=== PATIENT | female | born 1960 | race Caucasian/White ===

== ENCOUNTER → 2016-08-20 | Outpatient (REF) | payer MEDICARE, MEDICAID ==
[~2016-08-20] MED LIST: ACET50TAOT PO; ACET650T12 PO; ALBU83IN INH; ASPI81TA85 PO; ATOR1TAB18 PO; AVEL1TAB PO; AZEL0.1S3; CALCTAB43 PO; CETI10TA PO; CLIN300C2 PO; COMBAER6 INH; CYMB1CAP4 PO; DICL13PA TD; DITR5TAB PO; DRIS50002 PO; FLUO20CA8 PO; FLUO20CA9 PO; HYDR-3719 PO; IBUP80TA PO; IPRASOL4 INH; JANU100T PO; LISI-538 PO; LISI10TA4 PO; LORA-376 PO; LYRI200C PO; LYRI75CA PO; METF-414 PO; METF500T PO; MOBI7.5T10 PO; OMEP40CA2 PO; OXYB5TAB PO; PRED10TA PO; PRED20TA PO; PRED20TAB PO; PROA1AER INH; RISP1TAB3 PO; RISP2TAB3 PO; ROBA750T4 PO; SALI0.653; SPIR1CAP INH; SYMB16INH INH; TRAD5TAB PO; TRAM50TA2 PO; TRIA55SP; ZIPR40CA11 PO
== END ==
LOC: M SFHCPLAZ 08:54
PROVIDERS: ATTEND Nurse Practitioner Family
DX: J01.00 Acute maxillary sinusitis, unspecified (principal); E11.9 Type 2 diabetes mellitus without complications; B37.0 Candidal stomatitis; E78.2 Mixed hyperlipidemia; E55.9 Vitamin D deficiency, unspecified; Z53.9 Procedure and treatment not carried out, unspecified reason

== ENCOUNTER → 2016-09-11 | Outpatient (CLI) | payer MEDICARE, MEDICAID ==
[~2016-09-11] MED LIST changes: +BREO1INH3 INH; +CALC600T57 PO; +CYMB60CA3 PO; +FLUT1SPR2; +TIZA2CAP3 PO
== END ==
LOC: M LAB 07:23
PROVIDERS: ATTEND Psychiatry & Neurology Neurology
DX: R79.9 Abnormal finding of blood chemistry, unspecified (principal)

== ENCOUNTER → 2016-09-11 | Outpatient (CLI) | payer MEDICARE, MEDICAID ==
[2016-09-11 08:12] LABS: MEAN CORPUSCULAR HEMOGLOBIN 31.3 pg (27.0-33.0); MEAN CORPUSCULAR HGB CONC 33.7 g/dl (32.0-36.5); RED CELL DISTRIBUTION WIDTH 12.6 % (11.5-14.5); WHITE BLOOD COUNT 6.5 K/mm3 (4.0-10.0)
[2016-09-11 08:54] LABS: ALBUMIN 4.1 GM/DL (3.2-5.2); ALBUMIN/GLOBULIN RATIO 1.78 (1.00-1.93); ALKALINE PHOSPHATASE 120 U/L (45-117); ALT/SGPT 29 U/L (12-78); ANION GAP 9 MEQ/L (8-16); AST/SGOT 14 U/L (15-37); BILIRUBIN,TOTAL 0.5 MG/DL (0.2-1.0); BLOOD UREA NITROGEN 12 MG/DL (7-18); CALCIUM LEVEL 9.4 MG/DL (8.5-10.1); CARBON DIOXIDE LEVEL 27 MEQ/L (21-32); CHLORIDE LEVEL 107 MEQ/L (98-107); CHOLESTEROL LEVEL 153 MG/DL (<200); CREATININE FOR GFR 0.68 MG/DL (0.55-1.02); GLOMERULAR FILTRATION RATE > 60.0 (>51); GLUCOSE, FASTING 177 MG/DL (70-105); POTASSIUM SERUM 4.1 MEQ/L (3.5-5.1); SODIUM LEVEL 143 MEQ/L (136-145); TOTAL PROTEIN 6.4 GM/DL (6.4-8.2); TRIGLYCERIDES LEVEL 156 MG/DL (<150)
[2016-09-16 00:06] LABS: HSV TYPE I IgM AB <1:10 titer (<1:10); HSV TYPE II IgM ABY <1:10 titer (<1:10)
== END ==
LOC: M LAB 07:19
PROVIDERS: ATTEND Nurse Practitioner Family
DX: E11.9 Type 2 diabetes mellitus without complications (principal); E78.2 Mixed hyperlipidemia; J01.00 Acute maxillary sinusitis, unspecified; B37.0 Candidal stomatitis; E55.9 Vitamin D deficiency, unspecified; R79.9 Abnormal finding of blood chemistry, unspecified

== ENCOUNTER → 2016-09-11 | Outpatient (REF) | payer MEDICARE, MEDICAID | LOC: M LAB REF 08:46 | PROVIDERS: ATTEND Internal Medicine Gastroenterology | DX: Z86.010 Personal history of colon polyps (principal) ==

== ENCOUNTER → 2016-09-15 | Outpatient (CLI) | payer MEDICARE, MEDICAID | LOC: M PT 14:36 | PROVIDERS: ATTEND Nurse Practitioner Family | DX: Z74.09 Other reduced mobility (principal) | CPT/HCPCS: 97162; G8978; G8979; G8980 ==

== ENCOUNTER → 2016-09-18 | Outpatient (CLI) | payer MEDICARE, MEDICAID ==
[~2016-09-18] VITALS: Ht 157.5 cm; Wt 90.5 kg
[~2016-09-18] MED LIST changes: +NS 1,000 ML IV SCH; +PROPOFOL 200 MG/20 ML VIAL As Ordered ONE
--- NOTE | 2016-09-18 09:47 | ROOR ---
Patient Name: Radha Celestin Procedure Date: 09/18/2016 9:33 AM Date of : 1960 Age: 56 Room: [facility] Gender: Female Note Status: Finalized Procedure: Colonoscopy Indications: High risk colon cancer surveillance: Personal history of colonic polyps, Last colonoscopy: May 2013, Incidental diarrhea noted Providers: Mike DAS MD Referring MD: Denia Ruiz NP Requesting Provider: Medicines: Monitored Anesthesia Care Complications: No immediate complications. Procedure: Pre-Anesthesia Assessment: - The heart rate, respiratory rate, oxygen saturations, blood pressure, adequacy of pulmonary ventilation, and response to care were monitored throughout the procedure. The Colonoscope was introduced through the anus and advanced to the terminal ileum, with identification of the appendiceal orifice and IC valve. The colonoscopy was performed without difficulty. The patient tolerated the procedure well. The quality of the bowel preparation was good. Findings: The perianal and digital rectal examinations were normal. Internal hemorrhoids were found during retroflexion. The hemorrhoids were small. The entire examined colon appeared normal on direct and retroflexion views. The terminal ileum appeared normal. Biopsies for histology were taken with a cold forceps for evaluation of microscopic colitis. Impression: - Internal hemorrhoids. - The entire examined colon is normal on direct and retroflexion views. - The examined portion of the ileum was normal. - Biopsies were taken with a cold forceps for evaluation of microscopic colitis. Recommendation: - Repeat colonoscopy in 5 years for surveillance based on personal history of previous adenomatous polyps. - Telephone endoscopist for pathology results in 2 weeks. Mike Das MD Mike DAS MD 09/18/2016 9:47:25 AM This report has been signed electronically. Number of Addenda: 0 Note Initiated On: 09/18/2016 9:33 AM Estimated Blood Loss: Estimated blood loss: none.
[2016-09-18 10:08] VITALS: BP 154/86
== END | disposition home or self-care (01) ==
LOC: M OPP 08:14
PROVIDERS: ATTEND Internal Medicine Gastroenterology
DX: R19.7 Diarrhea, unspecified (principal); Z86.010 Personal history of colon polyps; K64.8 Other hemorrhoids; I10 Essential (primary) hypertension; E78.00 Pure hypercholesterolemia, unspecified; E11.9 Type 2 diabetes mellitus without complications; J45.909 Unspecified asthma, uncomplicated; J44.9 Chronic obstructive pulmonary disease, unspecified; M79.7 Fibromyalgia; F33.9 Major depressive disorder, recurrent, unspecified; F43.10 Post-traumatic stress disorder, unspecified; R32 Unspecified urinary incontinence; F17.200 Nicotine dependence, unspecified, uncomplicated; F17.228 Nicotine dependence, chewing tobacco, with other nicotine-induced disorders; Z79.899 Other long term (current) drug therapy; Z79.82 Long term (current) use of aspirin; Z79.51 Long term (current) use of inhaled steroids; Z79.84 Long term (current) use of oral hypoglycemic drugs; Z88.0 Allergy status to penicillin; Z88.2 Allergy status to sulfonamides; Z88.8 Allergy status to other drugs, medicaments and biological substances

== ENCOUNTER 2016-09-27 22:04 | Emergency (ER) | payer MEDICARE, MEDICAID ==
[~2016-09-27] VITALS: Ht 157.5 cm; Wt 93.4 kg
[~2016-09-27 22:04] MED LIST changes: -NS 1,000 ML IV SCH; -PROPOFOL 200 MG/20 ML VIAL As Ordered ONE
[2016-09-27] MEDS ORDERED: breo INH (22:31)
[2016-09-27] MEDS ORDERED: HYDR-3716 PO (22:31)
[2016-09-27] MEDS ORDERED: ativan PO (22:39)
[2016-09-27] MEDS ORDERED: methylPREDNISolone INJ 125 MG/2 ML VIAL (J2930) IM ONE (23:45)
[2016-09-27] MEDS ORDERED: PERCOCET 5MG/325MG TAB PO ONE (23:45)
--- NOTE | 2016-09-28 02:10 | REPUSA ---
CLINICAL HISTORY: Back pain. Weakness. Recent trauma. TECHNIQUE: Fast spin echo T2 and spin echo T1 sequences were obtained in axial and sagittal planes. FINDINGS: Comparison is made to the prior exam performed on 06/17/2016. Moderate spondylotic changes at L4-L5 and L5-S1 levels. Mild spondylosis at remaining levels. Finding s are demonstrated by disc dehydration, disc space narrowing, osteophyte formation and degenerative e ndplate changes. The visualized osseous elements are intact with no evidence of fracture or spondylolisthesis. The mar row signals are within normal limits. There is preservation of normal lordotic curvature. The conus m edullaris and cauda equina are within normal limits. There is evidence of mild multilevel disc dehydration. Evaluation of individual levels reveals the following: At L5-S1, there is moderate diffuse disc bulge and posterior osteophyte formation. Superimposed broad -based left paracentral/posterolateral disc protrusion. Moderate bilateral facet joint arthropathy. M oderate bilateral neural foramina narrowing. At L4-L5, there is moderate diffuse disc bulge and posterior osteophyte formation. Bilateral facet taisha int arthropathy. Mild bilateral ligamentum flavum hypertrophy. The spinal canal is not narrowed. Mode rate bilateral neural foramina narrowing. At L3-L4, there is mild diffuse disc bulge. No significant spinal canal neural foramina narrowing. At L2-L3, there is mild diffuse disc bulge. No significant spinal canal or neural foramina narrowing. At L1-L2, there is mild diffuse disc bulge. No significant spinal canal or neural foramina narrowing. IMPRESSION: Spondylosis. Multilevel degenerative disc disease. Findings are more prominent at L4-L5 and L5-S1 levels. Findings unchanged since the prior exam on 06/17/2016. Thank you for your kind referral of this patient.
[2016-09-28] MEDS ORDERED: PRED20TA PO (02:17)
[2016-09-28] MEDS ORDERED: PERC5TAB6 PO (02:17)
[2016-09-28 02:31] VITALS: BP 147/90
== END 2016-09-28 02:46 | disposition home or self-care (01) ==
LOC: M ED 23:16
DX: M54.17 Radiculopathy, lumbosacral region (principal); Z88.0 Allergy status to penicillin; Z88.2 Allergy status to sulfonamides; Z88.8 Allergy status to other drugs, medicaments and biological substances; Z79.82 Long term (current) use of aspirin; E78.5 Hyperlipidemia, unspecified; I10 Essential (primary) hypertension; J45.909 Unspecified asthma, uncomplicated; J44.9 Chronic obstructive pulmonary disease, unspecified; K21.9 Gastro-esophageal reflux disease without esophagitis; K58.9 Irritable bowel syndrome, unspecified; N83.209 Unspecified ovarian cyst, unspecified side; K76.0 Fatty (change of) liver, not elsewhere classified; M51.9 Unspecified thoracic, thoracolumbar and lumbosacral intervertebral disc disorder; F41.9 Anxiety disorder, unspecified; F32.9 Major depressive disorder, single episode, unspecified; F43.10 Post-traumatic stress disorder, unspecified; Z79.52 Long term (current) use of systemic steroids; Z79.899 Other long term (current) drug therapy
CPT/HCPCS: 72148; 96372; 99282; J2930

== ENCOUNTER 2016-10-03 21:56 | Inpatient (IN) | payer MEDICARE, MEDICAID ==
[~2016-10-03] VITALS: Ht 154.9 cm; Wt 87.8 kg
[~2016-10-03 21:56] MED LIST changes: +HYDR-3716 PO; +PERC5TAB6 PO; +ativan PO; +breo INH
[2016-10-03 23:48] LABS: MEAN CORPUSCULAR HEMOGLOBIN 30.7 pg (27.0-33.0); MEAN CORPUSCULAR HGB CONC 33.9 g/dl (32.0-36.5); MEAN CORPUSCULAR VOLUME 90.5 fl (80.0-96.0); RED CELL DISTRIBUTION WIDTH 12.4 % (11.5-14.5); WHITE BLOOD COUNT 15.2 K/mm3 (4.0-10.0)
[2016-10-04] MEDS: UNRESOLVED CLARIFICATION ENTRY XX SCH (00:01)
[2016-10-04 00:13] LABS: METHADONE URINE NEGATIVE (NEGATIVE)
[2016-10-04 00:16] LABS: ALBUMIN 4.4 GM/DL (3.2-5.2); ALBUMIN/GLOBULIN RATIO 1.52 (1.00-1.93); ALKALINE PHOSPHATASE 143 U/L (45-117); ALT/SGPT 30 U/L (12-78); ANION GAP 10 MEQ/L (8-16); AST/SGOT 15 U/L (15-37); BILIRUBIN,DIRECT 0.1 MG/DL (0.0-0.2); BILIRUBIN,TOTAL 0.5 MG/DL (0.2-1.0); BLOOD UREA NITROGEN 5 MG/DL (7-18); CALCIUM LEVEL 9.6 MG/DL (8.5-10.1); CARBON DIOXIDE LEVEL 29 MEQ/L (21-32); CHLORIDE LEVEL 99 MEQ/L (98-107); CREATININE FOR GFR 0.66 MG/DL (0.55-1.02); GLOMERULAR FILTRATION RATE > 60.0 (>51); GLUCOSE, FASTING 182 MG/DL (70-105); SODIUM LEVEL 138 MEQ/L (136-145); TOTAL PROTEIN 7.3 GM/DL (6.4-8.2)
[2016-10-04] MEDS ORDERED: MAALOX 30 ML SUSP *UDC PO PRN (00:30)
[2016-10-04 00:54] VITALS: BP 142/85
[2016-10-04] MEDS: traZODone 50 MG TAB PO PRN ×2 (01:55→22:20)
[2016-10-04] MEDS: ACETAMINOPHEN TAB 650MG DOSE (2X325MG) PO PRN ×3 (01:55→17:21)
[2016-10-04] MEDS ORDERED: DRIS50002 PO (10:58)
[2016-10-04] MEDS ORDERED: INCR1INH IN (10:58)
[2016-10-04] MEDS ORDERED: BREO1INH3 INH (10:58)
[2016-10-04] MEDS ORDERED: LORA-376 PO (10:58)
[2016-10-04] MEDS: ALBUTEROL 90 MCG/ACT 8GM HFA INHALER INH PRN ×2 (11:04→15:27)
[2016-10-04] MEDS: ASPIRIN 81 MG ENTERIC TAB PO SCH (11:57)
[2016-10-04] MEDS: OMEPRAZOLE 20 MG CAP PO SCH (12:04)
[2016-10-04] MEDS: CETIRIZINE (ZyrTEC) 10 MG TAB PO SCH (12:04)
[2016-10-04] MEDS: LISINOPRIL 10 MG TAB PO SCH (12:06)
[2016-10-04] MEDS: ANEXSIA, NORCO 7.5MG/325MG TABLET(HYDROCODONE/APAP) PO PRN ×2 (12:07→20:17)
[2016-10-04] MEDS: oxyBUTYnin *DITROPAN XL* 5 MG TABCR PO SCH (12:30)
[2016-10-04] MEDS: FLUTICASONE PROP 0.05% NASAL SPRAY 16 GM (FLONASE) SCH ×2 (12:30→20:17)
[2016-10-04] MEDS: LACTIC ACID 12% LOTION 225 GM BTL TOP SCH ×2 (12:31→20:18)
[2016-10-04] MEDS: tiZANidine 4 MG TAB PO PRN (14:49)
[2016-10-04] MEDS: PREGABALIN 100 MG CAP (LYRICA) PO SCH ×2 (14:53→20:17)
[2016-10-04] MEDS: metFORMIN XR 500MG TAB *GLUCOPHAGE XR PO SCH (17:17)
[2016-10-04 18:00] VITALS: BP 138/78
[2016-10-04 18:07] VITALS: BP 132/62
[2016-10-04] MEDS: ATORVASTATIN 20 MG TAB PO SCH (20:17)
[2016-10-04] MEDS: LORazepam 0.5 MG TAB PO SCH (20:17)
[2016-10-04] MEDS: risperiDONE 2 MG TAB PO SCH (20:17)
[2016-10-05] MEDS: UNRESOLVED CLARIFICATION ENTRY XX SCH (00:01)
[2016-10-05] MEDS: ACETAMINOPHEN TAB 650MG DOSE (2X325MG) PO PRN ×2 (00:01→17:12)
[2016-10-05] MEDS: tiZANidine 4 MG TAB PO PRN ×3 (00:01→16:07)
[2016-10-05 07:44] VITALS: BP 140/90
[2016-10-05] MEDS: LACTIC ACID 12% LOTION 225 GM BTL TOP SCH ×2 (08:03→20:05)
[2016-10-05] MEDS: OMEPRAZOLE 20 MG CAP PO SCH (08:04)
[2016-10-05] MEDS: LORazepam 0.5 MG TAB PO SCH ×2 (08:04→20:04)
[2016-10-05] MEDS: FLUTICASONE PROP 0.05% NASAL SPRAY 16 GM (FLONASE) SCH ×2 (08:04→20:04)
[2016-10-05] MEDS: CETIRIZINE (ZyrTEC) 10 MG TAB PO SCH (08:04)
[2016-10-05] MEDS: oxyBUTYnin *DITROPAN XL* 5 MG TABCR PO SCH (08:04)
[2016-10-05] MEDS: risperiDONE 2 MG TAB PO SCH ×2 (08:04→20:04)
[2016-10-05] MEDS: LISINOPRIL 10 MG TAB PO SCH (08:04)
[2016-10-05] MEDS: ASPIRIN 81 MG ENTERIC TAB PO SCH (08:04)
[2016-10-05] MEDS: PREGABALIN 100 MG CAP (LYRICA) PO SCH ×3 (08:04→20:04)
[2016-10-05] MEDS: ALBUTEROL 90 MCG/ACT 8GM HFA INHALER INH PRN ×2 (08:36→17:05)
[2016-10-05] MEDS: BREO ELLIPTA (PATIENT'S OWN MED) INH SCH (09:00)
[2016-10-05] MEDS: INCRUSE ELLIPTA (PATIENT'S OWN MED) INH SCH (09:00)
[2016-10-05] MEDS: MOM 30ML SUSPENSION UDC PO PRN (11:43)
[2016-10-05 12:01] VITALS: BP 133/60
[2016-10-05] MEDS: ANEXSIA, NORCO 7.5MG/325MG TABLET(HYDROCODONE/APAP) PO PRN ×2 (12:16→20:10)
[2016-10-05] MEDS: metFORMIN XR 500MG TAB *GLUCOPHAGE XR PO SCH (17:04)
[2016-10-05 18:00] VITALS: BP 134/74
[2016-10-05] MEDS: ATORVASTATIN 20 MG TAB PO SCH (20:04)
[2016-10-05 20:49] VITALS: BP 136/78
[2016-10-05] MEDS: traZODone 50 MG TAB PO PRN (21:13)
[2016-10-06] MEDS: tiZANidine 4 MG TAB PO PRN ×2 (05:45→12:57)
[2016-10-06 06:17] VITALS: BP 133/62
[2016-10-06] MEDS: FLUTICASONE PROP 0.05% NASAL SPRAY 16 GM (FLONASE) SCH ×2 (08:04→20:09)
[2016-10-06] MEDS: INCRUSE ELLIPTA (PATIENT'S OWN MED) INH SCH (08:04)
[2016-10-06] MEDS: LACTIC ACID 12% LOTION 225 GM BTL TOP SCH ×2 (08:05→20:10)
[2016-10-06] MEDS: CETIRIZINE (ZyrTEC) 10 MG TAB PO SCH (08:05)
[2016-10-06] MEDS: PREGABALIN 100 MG CAP (LYRICA) PO SCH ×3 (08:05→20:09)
[2016-10-06] MEDS: ASPIRIN 81 MG ENTERIC TAB PO SCH (08:05)
[2016-10-06] MEDS: LORazepam 0.5 MG TAB PO SCH ×2 (08:05→20:09)
[2016-10-06] MEDS: OMEPRAZOLE 20 MG CAP PO SCH (08:05)
[2016-10-06] MEDS: oxyBUTYnin *DITROPAN XL* 5 MG TABCR PO SCH (08:05)
[2016-10-06] MEDS: risperiDONE 2 MG TAB PO SCH ×2 (08:05→20:09)
[2016-10-06] MEDS: BREO ELLIPTA (PATIENT'S OWN MED) INH SCH (08:06)
[2016-10-06] MEDS: LISINOPRIL 10 MG TAB PO SCH (08:06)
[2016-10-06] MEDS: ACETAMINOPHEN TAB 650MG DOSE (2X325MG) PO PRN ×2 (08:11→18:08)
[2016-10-06] MEDS: ANEXSIA, NORCO 7.5MG/325MG TABLET(HYDROCODONE/APAP) PO PRN ×2 (11:42→20:15)
[2016-10-06] MEDS: metFORMIN XR 500MG TAB *GLUCOPHAGE XR PO SCH (17:01)
--- NOTE | 2016-10-06 17:43 | HPE ---
DATE OF ADMISSION: 10/04/2016 HISTORY OF THE PRESENT ILLNESS: Please refer to psychiatric history and evaluation for further details on this admission. This examination and history is intended for medical issues which may need treatment, followup, or consult on this 56-year-old female. PRIMARY CARE PROVIDER: Denia Ruiz Nurse Practitioner ALLERGIES: LITHIUM, PAROXETINE, PENICILLIN and SULFA ANTIBIOTICS. LABORATORY STUDIES: WBC 15.2, hemoglobin 15.5, hematocrit 45.7, platelets 218. Electrolytes were normal. BUN was 5, creatinine was 0.6, nonfasting glucose was 182. Urine was positive for opiates. SOCIAL HISTORY: She is single. She smokes a pack of cigarettes a day. ETOH: None. Recreational drug use: None. PAST MEDICAL HISTORY: Chronic obstructive pulmonary disease (COPD). Tobacco use. Schizophrenia. Post-traumatic stress disorder (PTSD). Fatty liver. History of alcohol abuse in the past. History of gastroesophageal reflux disease (GERD). History of back pain. History of asthma. History of non-insulin dependent diabetes type 2. History of hyperlipidemia. History of hypertension. History of degenerative disc disease with multilevel spondylosis. History of colonoscopy 09/18/[address] Das. History of chronic pain. REVIEW OF SYSTEMS: Ten-system review was done. Other than her chronic pain and chronic illnesses as listed above, she had no acute problems. OBJECTIVE: A 56-year-old cooperative female in no acute distress. Blood pressure 140/60, pulse 92, respirations 18, temperature 96.6, oxygen saturation on room air. Height 61 inches, weight 88 kg, body mass index (BMI) is 36.7. The patient is alert and oriented times three. Pupils are equal and reactive to light. Extraocular movements intact. Cornea and sclerae clear. Conjunctivae is normal. No facial asymmetry. Pharynx: Tongue and gums pink and moist. Tongue is midline. Neck is supple without lymphadenopathy. No thyromegaly. No goiter. Chest is clear to auscultation without wheeze or retractions. Heart is regular. Abdomen benign. Bowel sounds are positive. Genital/Rectal: Not done. Extremities: No cyanosis, clubbing or edema. Gait is steady with the use of a walker. Peripheral pulses equal and palpable bilaterally. Skin is warm and dry. IMPRESSION AND PLAN: Psychiatric plan per psychiatry. Chronic obstructive pulmonary disease. Continue albuterol two puffs by mouth every 4 hours as needed for shortness of breath. History of gastroesophageal reflux disease. Continue omeprazole. Non-insulin dependent diabetes type 2. Fingerstick blood sugars twice a day. Continue metformin as ordered, consistent carbohydrate diet. History of chronic back pain. Continue hydrocodone/acetaminophen one by mouth twice a day as needed for pain. Hypercholesterolemia. Continue Lipitor and diet. Hypocalcemia. Continue supplement. History of environmental allergies. Zyrtec 10 mg by mouth daily. Hypertension. Continue lisinopril. Overactive bladder. Continue Ditropan. No other acute medical issues.
[2016-10-06 18:00] VITALS: BP 123/78
[2016-10-06] MEDS: MOM 30ML SUSPENSION UDC PO PRN (18:06)
[2016-10-06] MEDS: ATORVASTATIN 20 MG TAB PO SCH (20:09)
[2016-10-07 06:00] VITALS: BP 116/80
[2016-10-07] MEDS: tiZANidine 4 MG TAB PO PRN ×2 (06:06→15:24)
--- NOTE | 2016-10-07 07:58 | IPN ---
DATE: 10/06/2016 Radha Celestin has felt unsafe and was admitted from the emergency room. She stated her medications were working. We have made no change on her medications. She is an outpatient of Dr. Kauffman. There is at this time no emergency note nor admission note or progress notes. The patient is presently on psychiatric medications of the following. She is on lorazepam 0.5 twice a day, risperidone 2 mg twice a day and trazodone 50 mg for sleep. The patient states her medications are working well and asked me not to change them. The patient would like to be discharged. The patient feels she needs to move away from her present living place and states her therapist agreed with her. Plan to contact Dr. Kauffman for progress notes and to discuss the case with him. No change in present medications. MENTAL STATUS EXAMINATION: The patient appears generally appropriate. Eye contact is good. Speech is mildly rapid. Articulation is normal. Mood is slightly elevated. Affect is bright. She presently denies hallucinations or delusions. Her memory recent and remote is intact. She is fully oriented. No loose associations. Denying suicidal or homicidal ideation. Fair judgment. PLAN: As above.
[2016-10-07] MEDS: BREO ELLIPTA (PATIENT'S OWN MED) INH SCH (08:05)
[2016-10-07] MEDS: FLUTICASONE PROP 0.05% NASAL SPRAY 16 GM (FLONASE) SCH ×2 (08:06→20:16)
[2016-10-07] MEDS: INCRUSE ELLIPTA (PATIENT'S OWN MED) INH SCH (08:06)
[2016-10-07] MEDS: ASPIRIN 81 MG ENTERIC TAB PO SCH (08:06)
[2016-10-07] MEDS: oxyBUTYnin *DITROPAN XL* 5 MG TABCR PO SCH (08:06)
[2016-10-07] MEDS: OMEPRAZOLE 20 MG CAP PO SCH (08:06)
[2016-10-07] MEDS: PREGABALIN 100 MG CAP (LYRICA) PO SCH ×3 (08:07→20:16)
[2016-10-07] MEDS: risperiDONE 2 MG TAB PO SCH ×2 (08:07→20:18)
[2016-10-07] MEDS: LISINOPRIL 10 MG TAB PO SCH (08:07)
[2016-10-07] MEDS: CETIRIZINE (ZyrTEC) 10 MG TAB PO SCH (08:07)
[2016-10-07] MEDS: ANEXSIA, NORCO 7.5MG/325MG TABLET(HYDROCODONE/APAP) PO PRN ×2 (08:08→20:18)
[2016-10-07] MEDS: LORazepam 0.5 MG TAB PO SCH ×2 (08:08→20:18)
[2016-10-07] MEDS: LACTIC ACID 12% LOTION 225 GM BTL TOP SCH ×2 (08:08→21:00)
[2016-10-07] MEDS: ACETAMINOPHEN TAB 650MG DOSE (2X325MG) PO PRN (12:18)
[2016-10-07] MEDS: metFORMIN XR 500MG TAB *GLUCOPHAGE XR PO SCH (17:26)
--- NOTE | 2016-10-07 17:44 | IPN ---
DATE: 10/07/2016 Radha Celestin was seen today. She is in a good mood and states her medications are working. She is an outpatient of Dr. Rogers. She is presently on psychiatric medications which have not been changed, lorazepam, risperidone and trazodone. The patient states that she would like to move away from her present living situation and seems to have numerous supports to accomplish that. MENTAL STATUS EXAMINATION: The patient was generally appropriate in appearance. Eye contact was good. Speech was of normal rate and rhythm. Articulation was normal. Mood was slightly elevated but pleasant. Affect is bright. She denies hallucinations, delusions, obsessions, compulsions and phobias. Her memory, both recent and remote, are intact. She is fully oriented with no loose associations. Denying suicidal or homicidal ideation and judgment appears good. PLAN: As above, as the patient will be discharged and will be working with her outpatient contacts in order to get a new living situation. Discharge is planned for this week.
[2016-10-07 18:00] VITALS: BP 130/60
[2016-10-07] MEDS: ATORVASTATIN 20 MG TAB PO SCH (20:16)
[2016-10-07] MEDS: MOM 30ML SUSPENSION UDC PO PRN (20:38)
[2016-10-07] MEDS: traZODone 50 MG TAB PO PRN (21:34)
[2016-10-08 06:00] VITALS: BP 136/67
[2016-10-08] MEDS: ACETAMINOPHEN TAB 650MG DOSE (2X325MG) PO PRN ×2 (06:02→17:07)
[2016-10-08] MEDS: tiZANidine 4 MG TAB PO PRN ×2 (06:02→14:30)
[2016-10-08] MEDS: LISINOPRIL 10 MG TAB PO SCH (08:04)
[2016-10-08] MEDS: oxyBUTYnin *DITROPAN XL* 5 MG TABCR PO SCH (08:04)
[2016-10-08] MEDS: BREO ELLIPTA (PATIENT'S OWN MED) INH SCH (08:05)
[2016-10-08] MEDS: risperiDONE 2 MG TAB PO SCH ×2 (08:05→20:12)
[2016-10-08] MEDS: INCRUSE ELLIPTA (PATIENT'S OWN MED) INH SCH (08:05)
[2016-10-08] MEDS: LORazepam 0.5 MG TAB PO SCH ×2 (08:05→20:12)
[2016-10-08] MEDS: PREGABALIN 100 MG CAP (LYRICA) PO SCH ×3 (08:05→20:12)
[2016-10-08] MEDS: ASPIRIN 81 MG ENTERIC TAB PO SCH (08:05)
[2016-10-08] MEDS: CETIRIZINE (ZyrTEC) 10 MG TAB PO SCH (08:05)
[2016-10-08] MEDS: FLUTICASONE PROP 0.05% NASAL SPRAY 16 GM (FLONASE) SCH ×2 (08:05→20:12)
[2016-10-08] MEDS: OMEPRAZOLE 20 MG CAP PO SCH (08:05)
[2016-10-08] MEDS: LACTIC ACID 12% LOTION 225 GM BTL TOP SCH ×2 (08:06→20:12)
[2016-10-08] MEDS: ANEXSIA, NORCO 7.5MG/325MG TABLET(HYDROCODONE/APAP) PO PRN ×2 (08:08→20:13)
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
[2016-10-08] MEDS: metFORMIN XR 500MG TAB *GLUCOPHAGE XR PO SCH (17:05)
[2016-10-08] MEDS: ALBUTEROL 90 MCG/ACT 8GM HFA INHALER INH PRN (17:08)
[2016-10-08 18:00] VITALS: BP 127/59
[2016-10-08] MEDS: ATORVASTATIN 20 MG TAB PO SCH (20:12)
[2016-10-08] MEDS: traZODone 50 MG TAB PO PRN (21:17)
[2016-10-09] MEDS: ACETAMINOPHEN TAB 650MG DOSE (2X325MG) PO PRN ×2 (06:09→12:15)
[2016-10-09] MEDS: tiZANidine 4 MG TAB PO PRN ×2 (06:10→12:15)
[2016-10-09 06:22] VITALS: BP 154/71
[2016-10-09] MEDS: PREGABALIN 100 MG CAP (LYRICA) PO SCH ×3 (08:05→20:07)
[2016-10-09] MEDS: OMEPRAZOLE 20 MG CAP PO SCH (08:05)
[2016-10-09] MEDS: LORazepam 0.5 MG TAB PO SCH ×2 (08:05→20:07)
[2016-10-09] MEDS: CETIRIZINE (ZyrTEC) 10 MG TAB PO SCH (08:06)
[2016-10-09] MEDS: risperiDONE 2 MG TAB PO SCH ×2 (08:06→20:07)
[2016-10-09] MEDS: LISINOPRIL 10 MG TAB PO SCH (08:06)
[2016-10-09] MEDS: ASPIRIN 81 MG ENTERIC TAB PO SCH (08:06)
[2016-10-09] MEDS: BREO ELLIPTA (PATIENT'S OWN MED) INH SCH (08:07)
[2016-10-09] MEDS: INCRUSE ELLIPTA (PATIENT'S OWN MED) INH SCH (08:07)
[2016-10-09] MEDS: FLUTICASONE PROP 0.05% NASAL SPRAY 16 GM (FLONASE) SCH ×2 (08:07→20:08)
[2016-10-09] MEDS: ANEXSIA, NORCO 7.5MG/325MG TABLET(HYDROCODONE/APAP) PO PRN ×2 (08:07→20:10)
[2016-10-09] MEDS: oxyBUTYnin *DITROPAN XL* 5 MG TABCR PO SCH (08:08)
[2016-10-09] MEDS: LACTIC ACID 12% LOTION 225 GM BTL TOP SCH ×2 (08:09→20:09)
[2016-10-09] MEDS ORDERED: TRAZO50TA PO (10:44)
[2016-10-09] MEDS ORDERED: ATIV1TAB10 PO (10:56)
[2016-10-09] MEDS: metFORMIN XR 500MG TAB *GLUCOPHAGE XR PO SCH (16:57)
[2016-10-09 18:00] VITALS: BP 131/77
--- NOTE | 2016-10-09 18:43 | IPN ---
DATE: 10/09/2016 Radha Celestin was seen today. Her caseworker protective services Angelique spent an hour with her and our information systems planner. It was decided that she had achieved baseline, since Angelique has known her a long time. She is under the outpatient care of Dr. Kauffman. It was decided that she could be discharged tomorrow. The patient has achieved finding an apartment, which is in a new area, which is making her quite happy. She reviewed her medications with me and we will plan for her discharge in the morning. MENTAL STATUS EXAMINATION: The patient was generally appropriate in appearance. Her speech was normal in rate, rhythm. Articulation was normal. Mood was pleasant. Affect was bright. She denied hallucinations , delusions, compulsions, phobias. Her memory, both recent and remote were intact. She is fully oriented with no loose associations. Denied suicidal or homicidal ideation. A complete review of her medications were made. She will be continuing at home Cymbalta, which she did not get here apparently, lorazepam 0.5 mg twice a day, Risperdal 2 mg twice a day, and trazodone 50 mg at night for insomnia. DISCHARGE DIAGNOSES: 1. Generalized anxiety disorder. 2. Posttraumatic stress disorder (PTSD).
[2016-10-09] MEDS ORDERED: LAC-12LO3 TOP (20:05)
[2016-10-09] MEDS: ATORVASTATIN 20 MG TAB PO SCH (20:07)
[2016-10-09] MEDS: traZODone 50 MG TAB PO PRN (21:26)
[2016-10-10] MEDS: ACETAMINOPHEN TAB 650MG DOSE (2X325MG) PO PRN (03:31)
[2016-10-10] MEDS: tiZANidine 4 MG TAB PO PRN (03:32)
[2016-10-10 06:27] VITALS: BP 139/70
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
[2016-10-10 08:01] VITALS: BP 139/70
[2016-10-10] MEDS: ANEXSIA, NORCO 7.5MG/325MG TABLET(HYDROCODONE/APAP) PO PRN (08:01)
[2016-10-10] MEDS: ASPIRIN 81 MG ENTERIC TAB PO SCH (08:01)
[2016-10-10] MEDS: LISINOPRIL 10 MG TAB PO SCH (08:01)
[2016-10-10] MEDS: CETIRIZINE (ZyrTEC) 10 MG TAB PO SCH (08:01)
[2016-10-10] MEDS: OMEPRAZOLE 20 MG CAP PO SCH (08:01)
[2016-10-10] MEDS: risperiDONE 2 MG TAB PO SCH (08:01)
[2016-10-10] MEDS: PREGABALIN 100 MG CAP (LYRICA) PO SCH (08:01)
[2016-10-10] MEDS: LORazepam 0.5 MG TAB PO SCH (08:02)
[2016-10-10] MEDS: LACTIC ACID 12% LOTION 225 GM BTL TOP SCH (08:02)
[2016-10-10] MEDS: INCRUSE ELLIPTA (PATIENT'S OWN MED) INH SCH (08:03)
[2016-10-10] MEDS: BREO ELLIPTA (PATIENT'S OWN MED) INH SCH (08:03)
[2016-10-10] MEDS: FLUTICASONE PROP 0.05% NASAL SPRAY 16 GM (FLONASE) SCH (08:03)
[2016-10-10] MEDS: oxyBUTYnin *DITROPAN XL* 5 MG TABCR PO SCH (08:03)
== END 2016-10-10 09:45 | disposition home or self-care (01) | DRG 880 ==
LOC: M ED 23:09 → M ED INP 10-04 00:28 → M PSY 10-04 00:50
PROVIDERS: ADMIT Internal Medicine Addiction Medicine; ATTEND Psychiatry & Neurology Psychiatry
DX: F41.1 Generalized anxiety disorder (principal); F43.10 Post-traumatic stress disorder, unspecified; J44.9 Chronic obstructive pulmonary disease, unspecified; F17.210 Nicotine dependence, cigarettes, uncomplicated; K21.9 Gastro-esophageal reflux disease without esophagitis; J45.909 Unspecified asthma, uncomplicated; E11.9 Type 2 diabetes mellitus without complications; E78.5 Hyperlipidemia, unspecified; I10 Essential (primary) hypertension

== ENCOUNTER 2016-10-20 09:43 | Emergency (ER) | payer MEDICARE, MEDICAID ==
[~2016-10-20] VITALS: Ht 157.5 cm; Wt 87.5 kg
[~2016-10-20 09:43] MED LIST changes: +ATIV1TAB10 PO; +INCR1INH IN; +LAC-12LO3 TOP; +TRAZO50TA PO
[2016-10-20 09:44] VITALS: BP 175/78
[2016-10-20] MEDS ORDERED: IPRASOL4 IN (10:26)
[2016-10-20] MEDS ORDERED: TIOT18INH INH (10:26)
[2016-10-20] MEDS ORDERED: SYMB16INH INH (10:26)
== END 2016-10-20 10:53 | disposition home or self-care (01) ==
LOC: M ED 10:48
DX: S50.01XA Contusion of right elbow, initial encounter (principal); S70.01XA Contusion of right hip, initial encounter; W18.11XA Fall from or off toilet without subsequent striking against object, initial encounter; Y92.012 Bathroom of single-family (private) house as the place of occurrence of the external cause; Y93.89 Activity, other specified; Y99.8 Other external cause status; Z79.899 Other long term (current) drug therapy; Z79.82 Long term (current) use of aspirin; Z88.0 Allergy status to penicillin; Z88.1 Allergy status to other antibiotic agents; Z88.2 Allergy status to sulfonamides; Z88.5 Allergy status to narcotic agent; Z88.8 Allergy status to other drugs, medicaments and biological substances; F17.210 Nicotine dependence, cigarettes, uncomplicated

== ENCOUNTER 2016-11-20 16:47 | Emergency (ER) | payer MEDICARE, MEDICAID ==
[~2016-11-20] VITALS: Ht 157.5 cm; Wt 90.3 kg
[2016-11-20 16:47] VITALS: BP 143/74
[~2016-11-20 16:47] MED LIST changes: +IPRASOL4 IN; +TIOT18INH INH
[2016-11-20] MEDS ORDERED: diazePAM 5 MG TAB PO ONE (19:00)
[2016-11-20] MEDS ORDERED: KETOROLAC 30 MG/ML VIAL (J1885) IM ONE (19:00)
[2016-11-20] MEDS ORDERED: PRED20TA PO (19:04)
[2016-11-20] MEDS ORDERED: VALI5TAB PO (19:04)
--- NOTE | 2016-11-22 08:35 | ECGEPIP ---
Stationary ECG Study [facility] - ED Test Date: 2016-11-20 Pat Name: BRAD VASQUEZ Department: Room: - Gender: F Mattress Stripper: : 1960 Requested By: Yash Lopez Order Number: [id number] Reading MD: La Leal Measurements Intervals [place] Rate: 75 P: 47 DE: 180 QRS: 63 QRSD: 97 T: 62 QT: 382 QTc: 428 Interpretive Statements SINUS RHYTHM LOW VOLTAGE LIMB DELAYED R PROGRESSION SIMILAR 01/26/14 Electronically Signed On 11-22-2016 8:35:21 EDT by La Leal
== END 2016-11-20 19:28 | disposition home or self-care (01) ==
LOC: M ED 17:49
DX: M54.12 Radiculopathy, cervical region (principal); E11.9 Type 2 diabetes mellitus without complications; I10 Essential (primary) hypertension; J45.909 Unspecified asthma, uncomplicated; F43.10 Post-traumatic stress disorder, unspecified; G89.29 Other chronic pain; Z79.899 Other long term (current) drug therapy; Z79.82 Long term (current) use of aspirin; Z79.84 Long term (current) use of oral hypoglycemic drugs; Z79.52 Long term (current) use of systemic steroids; Z88.0 Allergy status to penicillin; Z88.1 Allergy status to other antibiotic agents; Z88.2 Allergy status to sulfonamides; Z88.5 Allergy status to narcotic agent; Z88.8 Allergy status to other drugs, medicaments and biological substances; F17.210 Nicotine dependence, cigarettes, uncomplicated
CPT/HCPCS: 93005; 96372; 99282; J1885

== ENCOUNTER 2016-12-02 20:34 | Emergency (ER) | payer MEDICARE, MEDICAID ==
[~2016-12-02] VITALS: Ht 157.5 cm; Wt 90.3 kg
[~2016-12-02 20:34] MED LIST changes: +VALI5TAB PO
[2016-12-02] MEDS ORDERED: CYCL10TA PO (20:44)
[2016-12-02] MEDS ORDERED: INCR1INH IN (20:44)
[2016-12-02 23:45] VITALS: BP 131/70
--- NOTE | 2016-12-03 09:21 | REP ---
LEFT HAND, FOUR VIEWS: There is no evidence of an acute fracture, dislocation or intrinsic bone disease. IMPRESSION: No fracture or dislocation. Signed by Jozef Teresa MD 12/03/2016 04:54 P
== END 2016-12-03 00:04 | disposition home or self-care (01) ==
LOC: M ED 23:35
DX: M79.642 Pain in left hand (principal); E11.9 Type 2 diabetes mellitus without complications; I10 Essential (primary) hypertension; M54.12 Radiculopathy, cervical region; F43.10 Post-traumatic stress disorder, unspecified; F41.9 Anxiety disorder, unspecified; F33.9 Major depressive disorder, recurrent, unspecified; Z79.899 Other long term (current) drug therapy; Z79.82 Long term (current) use of aspirin; Z79.84 Long term (current) use of oral hypoglycemic drugs; Z88.0 Allergy status to penicillin; Z88.1 Allergy status to other antibiotic agents; Z88.2 Allergy status to sulfonamides; Z88.5 Allergy status to narcotic agent; F17.210 Nicotine dependence, cigarettes, uncomplicated

== ENCOUNTER → 2016-12-05 | Outpatient (REF) | payer MEDICARE, MEDICAID ==
[~2016-12-05] MED LIST changes: +CYCL10TA PO
[2016-12-05 17:56] LABS: MEAN CORPUSCULAR HEMOGLOBIN 32.7 pg (27.0-33.0); MEAN CORPUSCULAR VOLUME 93.5 fl (80.0-96.0); RED CELL DISTRIBUTION WIDTH 12.6 % (11.5-14.5); WHITE BLOOD COUNT 7.8 K/mm3 (4.0-10.0)
[2016-12-05 19:00] LABS: ALBUMIN 3.8 GM/DL (3.2-5.2); ALBUMIN/GLOBULIN RATIO 1.41 (1.00-1.93); ALKALINE PHOSPHATASE 147 U/L (45-117); ALT/SGPT 29 U/L (12-78); ANION GAP 8 MEQ/L (8-16); AST/SGOT 11 U/L (15-37); BILIRUBIN,TOTAL 0.2 MG/DL (0.2-1.0); BLOOD UREA NITROGEN 7 MG/DL (7-18); CALCIUM LEVEL 8.5 MG/DL (8.5-10.1); CARBON DIOXIDE LEVEL 28 MEQ/L (21-32); CHLORIDE LEVEL 102 MEQ/L (98-107); CREATININE FOR GFR 0.78 MG/DL (0.55-1.02); GLOMERULAR FILTRATION RATE > 60.0 (>51); GLUCOSE, FASTING 263 MG/DL (70-105); POTASSIUM SERUM 3.9 MEQ/L (3.5-5.1); SODIUM LEVEL 138 MEQ/L (136-145); TOTAL PROTEIN 6.5 GM/DL (6.4-8.2)
== END ==
LOC: M SFHCPLAZ 14:51
PROVIDERS: ATTEND Nurse Practitioner Family
DX: M79.642 Pain in left hand (principal); E11.9 Type 2 diabetes mellitus without complications; E55.9 Vitamin D deficiency, unspecified
CPT/HCPCS: 36415; 80053; 82043; 82306; 83036; 85027; G0463

== ENCOUNTER → 2017-02-04 | Outpatient (CLI) | payer MEDICARE, MEDICAID ==
[~2017-02-04] MED LIST changes: -ATOR1TAB18 PO; +ATOR80TA59 PO; -AVEL1TAB PO; +AVEL1TAB3 PO; -CALCTAB43 PO; +CALCTAB74 PO; +FLUO20CA19 PO; -FLUO20CA9 PO; -LORA-376 PO; +LORA0.5T11 PO; -METF500T PO; +METF500T13 PO; +MOBI4TAB PO; -MOBI7.5T10 PO; +PERC5TAB12 PO; -PERC5TAB6 PO; -PROA1AER INH; +PROAAER10 INH; +SALI0.6523; -SALI0.653
--- NOTE | 2017-02-04 12:29 | REP ---
RIGHT HAND SERIES: Four views. HISTORY: Pain in the right hand. FINDINGS: Overall mineralization pattern is normal. Joint spaces are preserved. No erosive changes seen. IMPRESSION: Negative right hand radiographs. Signed by Govind Bland MD 02/04/2017 02:03 P
--- NOTE | 2017-02-04 12:31 | REP ---
RIGHT SHOULDER, THREE VIEWS: HISTORY: Hand pain. COMPARISON: 08/09/2015. There is no acute fracture or dislocation. There is narrowing of the acromioclavicular joint space with associated osteophyte formation. Calcification is present superior to the head of the humerus. This represents ligamentous or tendon calcification. There are old right rib fractures. IMPRESSION: Degenerative change as described above. Signed by Jose Luis Montana MD 02/04/2017 12:35 P
== END ==
LOC: M RAD 11:12
PROVIDERS: ATTEND Nurse Practitioner Family
DX: M79.641 Pain in right hand (principal); M25.511 Pain in right shoulder

== ENCOUNTER 2017-10-22 03:44 | Emergency (ER) | payer MEDICARE, MEDICAID ==
[2017-10-22] MEDS: ACETAMINOPHEN 325 MG TAB PO (05:15)
== END 2017-10-22 05:36 | disposition home or self-care (01) ==
LOC: M ED 03:44
DX: S61.452A Open bite of left hand, initial encounter (principal); W54.0XXA Bitten by dog, initial encounter; Y92.89 Other specified places as the place of occurrence of the external cause; I10 Essential (primary) hypertension; J44.9 Chronic obstructive pulmonary disease, unspecified; F31.9 Bipolar disorder, unspecified; F17.200 Nicotine dependence, unspecified, uncomplicated; Z79.899 Other long term (current) drug therapy; Z79.84 Long term (current) use of oral hypoglycemic drugs; Z88.1 Allergy status to other antibiotic agents; Z88.5 Allergy status to narcotic agent; Z88.8 Allergy status to other drugs, medicaments and biological substances; Z88.2 Allergy status to sulfonamides; Z88.0 Allergy status to penicillin
CPT/HCPCS: 99283

== ENCOUNTER 2017-10-23 17:50 | Emergency (ER) | payer MEDICARE, MEDICAID ==
[2017-10-23] MEDS: ADACEL/BOOSTRIX VACCINE (DIPHTH/PERTUSS/ACELL/TETANUS)0.5ML SYR (90715) IM (18:26)
== END 2017-10-23 18:45 | disposition home or self-care (01) ==
LOC: M ED 17:50
DX: S61.203D Unspecified open wound of left middle finger without damage to nail, subsequent encounter (principal); W54.0XXD Bitten by dog, subsequent encounter; Y92.89 Other specified places as the place of occurrence of the external cause; J45.909 Unspecified asthma, uncomplicated; I10 Essential (primary) hypertension; Z79.2 Long term (current) use of antibiotics; Z79.84 Long term (current) use of oral hypoglycemic drugs; Z79.899 Other long term (current) drug therapy; Z98.890 Other specified postprocedural states; Z88.1 Allergy status to other antibiotic agents; Z88.8 Allergy status to other drugs, medicaments and biological substances; Z88.0 Allergy status to penicillin; Z88.2 Allergy status to sulfonamides
CPT/HCPCS: 90715

== ENCOUNTER 2017-10-26 18:46 | Emergency (ER) | payer MEDICARE, MEDICAID ==
[2017-10-26] MEDS: NORCO, ANEXSIA 5/325MG TABLET (HYDROcodone/ACETAMINOPHEN) PO (22:45)
== END 2017-10-27 00:59 | disposition home or self-care (01) ==
LOC: M ED 10-27 00:59
DX: M79.641 Pain in right hand (principal); M85.841 Other specified disorders of bone density and structure, right hand; F17.200 Nicotine dependence, unspecified, uncomplicated; Z79.84 Long term (current) use of oral hypoglycemic drugs; Z79.899 Other long term (current) drug therapy; Z88.5 Allergy status to narcotic agent; Z88.0 Allergy status to penicillin; Z88.2 Allergy status to sulfonamides; Z88.8 Allergy status to other drugs, medicaments and biological substances; Z88.1 Allergy status to other antibiotic agents
CPT/HCPCS: 73130

== ENCOUNTER 2017-11-19 22:01 | Emergency (ER) | payer MEDICARE, MEDICAID ==
[2017-11-20] MEDS: CEPHALEXIN 500 MG CAP PO (00:15)
== END 2017-11-20 00:35 | disposition home or self-care (01) ==
LOC: M ED 11-20 00:35
DX: L02.211 Cutaneous abscess of abdominal wall (principal); L03.311 Cellulitis of abdominal wall; I10 Essential (primary) hypertension; J44.9 Chronic obstructive pulmonary disease, unspecified; E11.9 Type 2 diabetes mellitus without complications; F43.10 Post-traumatic stress disorder, unspecified; N83.209 Unspecified ovarian cyst, unspecified side; Z79.899 Other long term (current) drug therapy; Z79.84 Long term (current) use of oral hypoglycemic drugs; Z79.51 Long term (current) use of inhaled steroids; Z88.0 Allergy status to penicillin; Z88.1 Allergy status to other antibiotic agents; Z88.2 Allergy status to sulfonamides; Z88.5 Allergy status to narcotic agent; Z88.8 Allergy status to other drugs, medicaments and biological substances; F17.210 Nicotine dependence, cigarettes, uncomplicated
CPT/HCPCS: 99282

== ENCOUNTER 2017-11-25 20:07 | Emergency (ER) | payer MEDICARE, MEDICAID ==
[2017-11-25] MEDS: NORCO, ANEXSIA 5/325MG TABLET (HYDROcodone/ACETAMINOPHEN) PO (23:02)
== END 2017-11-25 23:46 | disposition home or self-care (01) ==
LOC: M ED 20:07
DX: S50.11XA Contusion of right forearm, initial encounter (principal); S50.811A Abrasion of right forearm, initial encounter; W18.09XA Striking against other object with subsequent fall, initial encounter; Y92.098 Other place in other non-institutional residence as the place of occurrence of the external cause; I10 Essential (primary) hypertension; J45.909 Unspecified asthma, uncomplicated; F20.9 Schizophrenia, unspecified; F43.10 Post-traumatic stress disorder, unspecified; F41.9 Anxiety disorder, unspecified; F32.9 Major depressive disorder, single episode, unspecified; F17.200 Nicotine dependence, unspecified, uncomplicated; Z79.899 Other long term (current) drug therapy; Z79.2 Long term (current) use of antibiotics; Z79.84 Long term (current) use of oral hypoglycemic drugs; Z88.1 Allergy status to other antibiotic agents; Z88.5 Allergy status to narcotic agent; Z88.8 Allergy status to other drugs, medicaments and biological substances; Z88.0 Allergy status to penicillin; Z88.2 Allergy status to sulfonamides
CPT/HCPCS: 73090

== ENCOUNTER 2017-12-16 18:28 | Emergency (ER) | payer MEDICARE, MEDICAID ==
[2017-12-16] MEDS: MORPHINE 4 MG/ML 1ML VIAL/SYRINGE (J2270) IV (22:48)
[2017-12-16] MEDS: NS 1,000 ML IV (22:48)
[2017-12-16 22:52] LABS: KETONE, URINE AUTO RFX NEGATIVE (NEGATIVE); LEUKOCYTE ESTERASE UR AUTO RFX 3+ (NEGATIVE); NITRITE, URINE AUTO RFX NEGATIVE (NEGATIVE); RBC, URINE AUTO RFX 2 /HPF (0-3); SPECIFIC GRAVITY UR AUTO RFX 1.011 (1.002-1.035); SQUAM EPITHELIAL CELL UR AURFX 2 /HPF (0-6); TRANSITIONAL EPITHELIAL AU RFX <1 /HPF; WBC, URINE AUTO RFX 13 /HPF (0-3)
[2017-12-16 22:53] LABS: BASO # 0.1 10^3/uL (0.0-0.2); BASO % 0.7 % (0.0-1.0); EOS # 0.3 10^3/uL (0.0-0.50); EOS % 3.5 % (0.0-3.0); HEMATOCRIT 42.7 % (36.0-47.0); HEMOGLOBIN 14.9 g/dl (12.0-15.5); IMMATURE GRANULOCYTE % 0.3 % (0-3.0); LYMPH % 40.9 % (24.0-44.0); MEAN CORPUSCULAR HGB CONC 34.9 g/dl (32.0-36.5); MONO # 0.4 10^3/uL (0.0-0.8); MONO % 5.3 % (0.0-5.0); NEUTROPHILS # 3.6 10^3/uL (1.8-7.7); NEUTROPHILS % 49.3 % (36.0-66.0); PLATELET COUNT, AUTOMATED 246 10^3/uL (150-450); RED CELL DISTRIBUTION WIDTH 12.6 % (11.5-14.5); WHITE BLOOD COUNT 7.2 10^3/uL (4.0-10.0)
[2017-12-16 22:59] LABS: BEDSIDE GLUCOSE 131 MG/DL (70-105)
[2017-12-16 23:01] LABS: VENOUS BASE EXCESS 0.1 (-2.0-2.0); VENOUS HCO3 28.4 MEQ/L (23.0-27.0); VENOUS O2 SATURATION 68.2 % (60.0-80.0); VENOUS PARTIAL PRESSURE CO2 60.5 mmHg (38.0-50.0); VENOUS PARTIAL PRESSURE O2 36.2 mmHg (30.0-50.0); VENOUS PH 7.289 UNITS (7.330-7.430); VENOUS STANDARD HCO3 23.8 MEQ/L; VENOUS TOTAL CO2 30.2 MEQ/L (24.0-28.0)
[2017-12-16] MEDS ORDERED: ISOVUE-370 76% 100ML VIAL (Q9967) As Ordered (23:06)
[2017-12-16 23:19] LABS: ACETONE/KETONE 1.44 MG/DL (<2.81); ALBUMIN 4.1 GM/DL (3.2-5.2); ALBUMIN/GLOBULIN RATIO 1.28 (1.00-1.93); ALKALINE PHOSPHATASE 125 U/L (45-117); ALT/SGPT 24 U/L (12-78); ANION GAP 7 MEQ/L (8-16); AST/SGOT 16 U/L (7-37); BILIRUBIN,DIRECT 0.1 MG/DL (0.0-0.2); BILIRUBIN,TOTAL 0.4 MG/DL (0.2-1.0); BLOOD UREA NITROGEN 8 MG/DL (7-18); CALCIUM LEVEL 9.2 MG/DL (8.5-10.1); CARBON DIOXIDE LEVEL 28 MEQ/L (21-32); CHLORIDE LEVEL 110 MEQ/L (98-107); CPK CREATINE PHOSPHOKINASE 94 U/L (26-192); CREATININE FOR GFR 0.66 MG/DL (0.55-1.30); GLOMERULAR FILTRATION RATE > 60.0 (>51); GLUCOSE, FASTING 135 MG/DL (70-100); LIPASE 52 U/L (73-393); MAGNESIUM LEVEL 2.1 MG/DL (1.8-2.4); POTASSIUM SERUM 3.6 MEQ/L (3.5-5.1); SODIUM LEVEL 145 MEQ/L (136-145); TOTAL PROTEIN 7.3 GM/DL (6.4-8.2); TROPONIN I < 0.02 NG/ML (< 0.10)
[2017-12-16 23:20] LABS: CK-MB VALUE MASS 1.5 NG/ML (<3.6); MB/CK RELATIVE INDEX 1.59 (< OR =4)
[2017-12-16 23:24] LABS: ESTIMATED AVERAGE GLUCOSE 174 MG/DL (60-110); HEMOGLOBIN A1c 7.7 %
[2017-12-17] MEDS: CIPROFLOXACIN 500 MG TAB PO (01:42)
== END 2017-12-17 01:53 | disposition home or self-care (01) ==
LOC: M ED 12-17 01:53
DX: K52.9 Noninfective gastroenteritis and colitis, unspecified (principal); N30.01 Acute cystitis with hematuria; E11.9 Type 2 diabetes mellitus without complications; I10 Essential (primary) hypertension; K21.9 Gastro-esophageal reflux disease without esophagitis; J45.909 Unspecified asthma, uncomplicated; M54.9 Dorsalgia, unspecified; M54.2 Cervicalgia; F43.10 Post-traumatic stress disorder, unspecified; F41.9 Anxiety disorder, unspecified; F32.9 Major depressive disorder, single episode, unspecified; F20.9 Schizophrenia, unspecified; Z72.0 Tobacco use; Z79.899 Other long term (current) drug therapy; Z88.5 Allergy status to narcotic agent; Z88.0 Allergy status to penicillin; Z88.2 Allergy status to sulfonamides; Z88.8 Allergy status to other drugs, medicaments and biological substances; Z88.1 Allergy status to other antibiotic agents
CPT/HCPCS: J2270

== ENCOUNTER 2018-01-12 18:46 | Emergency (ER) | payer MEDICARE, MEDICAID ==
[2018-01-12] MEDS: clonazePAM 0.5 MG TAB PO ×2 (20:46)
== END 2018-01-12 20:54 | disposition home or self-care (01) ==
LOC: M ED 18:46
DX: F41.9 Anxiety disorder, unspecified (principal); I10 Essential (primary) hypertension; E11.9 Type 2 diabetes mellitus without complications; K21.9 Gastro-esophageal reflux disease without esophagitis; E78.5 Hyperlipidemia, unspecified; F17.200 Nicotine dependence, unspecified, uncomplicated; Z88.1 Allergy status to other antibiotic agents; Z88.5 Allergy status to narcotic agent; Z88.8 Allergy status to other drugs, medicaments and biological substances; Z88.0 Allergy status to penicillin; Z88.2 Allergy status to sulfonamides; Z79.899 Other long term (current) drug therapy; Z79.4 Long term (current) use of insulin
CPT/HCPCS: 99284; G0463

== ENCOUNTER → 2018-01-14 | Outpatient (CLI) | payer MEDICARE, MEDICAID ==
[2018-01-14 10:13] LABS: ESTIMATED AVERAGE GLUCOSE 183 MG/DL (60-110)
[2018-01-14 10:14] LABS: ALBUMIN 4.1 GM/DL (3.2-5.2); ALBUMIN/GLOBULIN RATIO 1.46 (1.00-1.93); ALKALINE PHOSPHATASE 116 U/L (45-117); ALT/SGPT 26 U/L (12-78); ANION GAP 11 MEQ/L (8-16); AST/SGOT 18 U/L (7-37); BILIRUBIN,TOTAL 0.5 MG/DL (0.2-1.0); BLOOD UREA NITROGEN 4 MG/DL (7-18); CALCIUM LEVEL 9.2 MG/DL (8.5-10.1); CARBON DIOXIDE LEVEL 24 MEQ/L (21-32); CHLORIDE LEVEL 103 MEQ/L (98-107); CHOLESTEROL LEVEL 159 MG/DL (<200); CHOLESTEROL RISK RATIO 3.785 (<5); CREATININE FOR GFR 0.57 MG/DL (0.55-1.30); GLOMERULAR FILTRATION RATE > 60.0 (>51); GLUCOSE, FASTING 161 MG/DL (70-100); HDL CHOLESTEROL 42 MG/DL (>40); LDL CHOLESTEROL 78.2 MG/DL (<100); NON-HDL-C 117 MG/DL; SODIUM LEVEL 138 MEQ/L (136-145); TOTAL PROTEIN 6.9 GM/DL (6.4-8.2); TRIGLYCERIDES LEVEL 194 MG/DL (<150)
[2018-01-14 10:18] LABS: CREATININE, URINE < 13.0 MG/DL; MALB URINE SIEMENS < 5.0 MG/L
== END ==
LOC: M LAB 08:56
DX: M25.561 Pain in right knee (principal); E11.9 Type 2 diabetes mellitus without complications; M79.641 Pain in right hand
CPT/HCPCS: 73130

== ENCOUNTER 2018-02-10 13:40 | Inpatient (IN) | payer MEDICARE, MEDICAID ==
[2018-02-10] MEDS: IPRATROPIUM 0.5MG/ALBUTEROL 2.5MG INH SOL UD 3ML (DUONEB)(J7620) NEB ×2 (14:35→23:23)
[2018-02-10 15:16] LABS: HEMATOCRIT 38.7 % (36.0-47.0); HEMOGLOBIN 13.4 g/dl (12.0-15.5); MEAN CORPUSCULAR HEMOGLOBIN 31.3 pg (27.0-33.0); MEAN CORPUSCULAR HGB CONC 34.6 g/dl (32.0-36.5); MEAN CORPUSCULAR VOLUME 90.4 fl (80.0-96.0); PLATELET COUNT, AUTOMATED 212 10^3/uL (150-450); RED BLOOD COUNT 4.28 10^6/uL (4.00-5.40); RED CELL DISTRIBUTION WIDTH 12.8 % (11.5-14.5); WHITE BLOOD COUNT 6.6 10^3/uL (4.0-10.0)
[2018-02-10 15:43] LABS: AMPHETAMINES LEVEL URINE NEGATIVE (NEGATIVE); BARBITURATES URINE NEGATIVE (NEGATIVE); BENZODIAZEPINES URINE NEGATIVE (NEGATIVE); CANNABINOIDS URINE NEGATIVE (NEGATIVE); COCAINE METABOLITE URINE NEGATIVE (NEGATIVE); METHADONE URINE NEGATIVE (NEGATIVE); OPIATES URINE NEGATIVE (NEGATIVE); PHENCYCLIDINE URINE NEGATIVE (NEGATIVE)
[2018-02-10 15:51] LABS: ACETAMINOPHEN LEVEL < 2.0 UG/ML (10.0-30.0); ALBUMIN 3.9 GM/DL (3.2-5.2); ALBUMIN/GLOBULIN RATIO 1.56 (1.00-1.93); ALKALINE PHOSPHATASE 94 U/L (45-117); ALT/SGPT 23 U/L (12-78); ANION GAP 8 MEQ/L (8-16); AST/SGOT 10 U/L (7-37); BILIRUBIN,DIRECT < 0.1 MG/DL (0.0-0.2); BILIRUBIN,TOTAL 0.3 MG/DL (0.2-1.0); BLOOD UREA NITROGEN 6 MG/DL (7-18); CALCIUM LEVEL 8.9 MG/DL (8.5-10.1); CARBON DIOXIDE LEVEL 29 MEQ/L (21-32); CHLORIDE LEVEL 110 MEQ/L (98-107); CREATININE FOR GFR 0.56 MG/DL (0.55-1.30); ETHYL ALCOHOL (ETHANOL) 0.006 % (0.000-0.010); GLOMERULAR FILTRATION RATE > 60.0 (>51); GLUCOSE, FASTING 90 MG/DL (70-100); POTASSIUM SERUM 3.8 MEQ/L (3.5-5.1); SALICYLATE LEVEL 4.8 MG/DL (5.0-30.0); SODIUM LEVEL 147 MEQ/L (136-145); THYROID STIMULATING HORMONE 0.965 uIU/ML (0.358-3.740); TOTAL PROTEIN 6.4 GM/DL (6.4-8.2)
[2018-02-10] MEDS ORDERED: OLANZapine ORAL DISINTEGRATING TAB 5MG PO (16:15)
[2018-02-10] MEDS: ACETAMINOPHEN TAB 650MG DOSE (2X325MG) PO (18:27)
[2018-02-10] MEDS ORDERED: ALBUTEROL 90 MCG/ACT 8GM HFA INHALER INH (19:00)
[2018-02-10] MEDS: BUDESONIDE 0.5 MG/2 ML INHALATION SUSPENSION INH ×2 (20:00→23:23)
[2018-02-10] MEDS: tiZANidine 4 MG TAB PO (21:34)
[2018-02-10] MEDS: ATORVASTATIN 20 MG TAB PO (21:34)
[2018-02-10] MEDS: PREGABALIN 100 MG CAP (LYRICA) PO (21:34)
[2018-02-10] MEDS: prednisoLONE ACET 1% OPHTH SUSP 5ML OD (21:35)
[2018-02-10] MEDS ORDERED: ALBUTEROL SULFATE 2.5 MG/0.5 ML INH NEB SOLN NEB (21:45)
[2018-02-10] MEDS: LevoFLOXacin 500 MG TABLET PO (23:00)
[2018-02-10] MEDS: MOM 30ML SUSPENSION UDC PO (23:00)
[2018-02-11] MEDS: IBUPROFEN 800 MG TAB PO (06:20)
[2018-02-11 06:39] LABS: BEDSIDE GLUCOSE 171 MG/DL (70-105)
[2018-02-11] MEDS: metFORMIN XR 500MG TAB *GLUCOPHAGE XR PO ×2 (08:55→17:24)
[2018-02-11] MEDS: risperiDONE 2 MG TAB PO (08:55)
[2018-02-11] MEDS: CALCIUM/VITAMIN D 500 MG TAB PO (08:56)
[2018-02-11] MEDS: oxyBUTYnin *DITROPAN XL* 5 MG TABCR PO (08:56)
[2018-02-11] MEDS: prednisoLONE ACET 1% OPHTH SUSP 5ML OD ×4 (08:56→20:19)
[2018-02-11] MEDS: BUDESONIDE 0.5 MG/2 ML INHALATION SUSPENSION INH ×2 (08:57→20:00)
[2018-02-11] MEDS: CETIRIZINE (ZyrTEC) 10 MG TAB PO (08:57)
[2018-02-11] MEDS: tiZANidine 4 MG TAB PO ×3 (08:57→20:17)
[2018-02-11] MEDS: IPRATROPIUM 0.5MG/ALBUTEROL 2.5MG INH SOL UD 3ML (DUONEB)(J7620) NEB ×4 (08:57→20:00)
[2018-02-11] MEDS: ASPIRIN 81 MG ENTERIC TAB PO (08:58)
[2018-02-11] MEDS: PREGABALIN 100 MG CAP (LYRICA) PO ×3 (08:58→20:16)
[2018-02-11] MEDS: OMEPRAZOLE 20 MG CAP PO (08:59)
[2018-02-11] MEDS: LISINOPRIL 10 MG TAB PO (08:59)
[2018-02-11] MEDS: LEVEMIR (INSULIN DETEMIR) 1 UNITS/0.01ML SC (09:03)
[2018-02-11] MEDS: traMADol 50 MG TAB PO (14:17)
[2018-02-11] MEDS: risperiDONE LONG-ACTING 25 MG/2 ML INJ (J2794) IM (15:12)
[2018-02-11] MEDS: LevoFLOXacin 500 MG TABLET PO (17:24)
[2018-02-11] MEDS: risperiDONE 3 MG TAB PO (17:24)
[2018-02-11 17:30] LABS: BEDSIDE GLUCOSE 171 MG/DL (70-105)
[2018-02-11] MEDS: ATORVASTATIN 20 MG TAB PO (20:17)
[2018-02-12] MEDS: MAALOX 30 ML SUSP *UDC PO (00:08)
[2018-02-12] MEDS: LORazepam 2 MG TAB PO (00:08)
[2018-02-12 06:22] LABS: BEDSIDE GLUCOSE 155 MG/DL (70-105)
[2018-02-12] MEDS: BUDESONIDE 0.5 MG/2 ML INHALATION SUSPENSION INH ×2 (07:57→18:51)
[2018-02-12] MEDS: IPRATROPIUM 0.5MG/ALBUTEROL 2.5MG INH SOL UD 3ML (DUONEB)(J7620) NEB ×4 (07:57→18:51)
[2018-02-12] MEDS: tiZANidine 4 MG TAB PO ×3 (08:03→20:34)
[2018-02-12] MEDS: LEVEMIR (INSULIN DETEMIR) 1 UNITS/0.01ML SC (08:03)
[2018-02-12] MEDS: CETIRIZINE (ZyrTEC) 10 MG TAB PO (08:04)
[2018-02-12] MEDS: LISINOPRIL 10 MG TAB PO (08:04)
[2018-02-12] MEDS: OMEPRAZOLE 20 MG CAP PO (08:04)
[2018-02-12] MEDS: metFORMIN XR 500MG TAB *GLUCOPHAGE XR PO ×2 (08:04→17:06)
[2018-02-12] MEDS: oxyBUTYnin *DITROPAN XL* 5 MG TABCR PO (08:04)
[2018-02-12] MEDS: PREGABALIN 100 MG CAP (LYRICA) PO ×3 (08:04→20:33)
[2018-02-12] MEDS: risperiDONE 3 MG TAB PO ×2 (08:04→17:06)
[2018-02-12] MEDS: CALCIUM/VITAMIN D 500 MG TAB PO (08:04)
[2018-02-12] MEDS: prednisoLONE ACET 1% OPHTH SUSP 5ML OD ×4 (08:04→20:37)
[2018-02-12] MEDS: ASPIRIN 81 MG ENTERIC TAB PO (08:04)
[2018-02-12] MEDS: traMADol 50 MG TAB PO ×3 (08:07→20:34)
[2018-02-12] MEDS: LORazepam 0.5 MG TAB PO (12:17)
[2018-02-12 17:05] LABS: BEDSIDE GLUCOSE 133 MG/DL (70-105)
[2018-02-12] MEDS: LevoFLOXacin 500 MG TABLET PO (17:06)
[2018-02-12] MEDS: ACETAMINOPHEN 500 MG TAB PO (18:14)
[2018-02-12] MEDS: ATORVASTATIN 20 MG TAB PO (20:34)
[2018-02-12] MEDS: MOM 30ML SUSPENSION UDC PO (20:34)
[2018-02-13] MEDS: LORazepam 0.5 MG TAB PO ×2 (03:40→21:50)
[2018-02-13 06:17] LABS: BEDSIDE GLUCOSE 131 MG/DL (70-105)
[2018-02-13] MEDS: PREGABALIN 100 MG CAP (LYRICA) PO ×3 (08:04→20:06)
[2018-02-13] MEDS: metFORMIN XR 500MG TAB *GLUCOPHAGE XR PO ×2 (08:04→17:06)
[2018-02-13] MEDS: ASPIRIN 81 MG ENTERIC TAB PO (08:04)
[2018-02-13] MEDS: VITAMIN D 50,000 UNITS CAPSULE (ERGOCALCIFEROL 1.25MG) PO (08:04)
[2018-02-13] MEDS: CALCIUM/VITAMIN D 500 MG TAB PO (08:04)
[2018-02-13] MEDS: OMEPRAZOLE 20 MG CAP PO (08:04)
[2018-02-13] MEDS: risperiDONE 3 MG TAB PO ×2 (08:05→17:06)
[2018-02-13] MEDS: tiZANidine 4 MG TAB PO ×3 (08:05→20:06)
[2018-02-13] MEDS: traMADol 50 MG TAB PO ×2 (08:05→12:17)
[2018-02-13] MEDS: oxyBUTYnin *DITROPAN XL* 5 MG TABCR PO (08:07)
[2018-02-13] MEDS: CETIRIZINE (ZyrTEC) 10 MG TAB PO (08:07)
[2018-02-13] MEDS: prednisoLONE ACET 1% OPHTH SUSP 5ML OD ×4 (08:07→20:06)
[2018-02-13] MEDS: LISINOPRIL 10 MG TAB PO (08:07)
[2018-02-13] MEDS: LEVEMIR (INSULIN DETEMIR) 1 UNITS/0.01ML SC (08:08)
[2018-02-13] MEDS: IPRATROPIUM 0.5MG/ALBUTEROL 2.5MG INH SOL UD 3ML (DUONEB)(J7620) NEB (08:16)
[2018-02-13] MEDS: BUDESONIDE 0.5 MG/2 ML INHALATION SUSPENSION INH (08:16)
[2018-02-13] MEDS: ACETAMINOPHEN 500 MG TAB PO (09:00)
[2018-02-13] MEDS: ALBUTEROL 90 MCG/ACT 8GM HFA INHALER INH ×3 (12:07→20:07)
[2018-02-13] MEDS: ADVAIR HFA 115/21MCG INHALER INH ×2 (12:07→20:07)
[2018-02-13] MEDS: IBUPROFEN 800 MG TAB PO (15:29)
[2018-02-13 17:05] LABS: BEDSIDE GLUCOSE 164 MG/DL (70-105)
[2018-02-13] MEDS: LevoFLOXacin 500 MG TABLET PO (17:06)
[2018-02-13] MEDS: FLUTICASONE PROP 0.05% NASAL SPRAY 16 GM (FLONASE) NARES (20:06)
[2018-02-13] MEDS: ATORVASTATIN 20 MG TAB PO (20:06)
[2018-02-13] MEDS: PILL CRUSHER/CUTTER 1 EACH XX (21:53)
[2018-02-14] MEDS: ACETAMINOPHEN 500 MG TAB PO (06:13)
[2018-02-14] MEDS: traMADol 50 MG TAB PO ×3 (06:14→20:12)
[2018-02-14 06:15] LABS: BEDSIDE GLUCOSE 154 MG/DL (70-105)
[2018-02-14] MEDS: FLUTICASONE PROP 0.05% NASAL SPRAY 16 GM (FLONASE) NARES ×2 (08:11→20:13)
[2018-02-14] MEDS: prednisoLONE ACET 1% OPHTH SUSP 5ML OD ×4 (08:12→20:12)
[2018-02-14] MEDS: ASPIRIN 81 MG ENTERIC TAB PO (08:12)
[2018-02-14] MEDS: ALBUTEROL 90 MCG/ACT 8GM HFA INHALER INH ×4 (08:12→20:13)
[2018-02-14] MEDS: tiZANidine 4 MG TAB PO ×3 (08:13→20:12)
[2018-02-14] MEDS: risperiDONE 3 MG TAB PO ×2 (08:13→17:10)
[2018-02-14] MEDS: PREGABALIN 100 MG CAP (LYRICA) PO ×3 (08:13→20:12)
[2018-02-14] MEDS: ADVAIR HFA 115/21MCG INHALER INH ×2 (08:13→20:13)
[2018-02-14] MEDS: oxyBUTYnin *DITROPAN XL* 5 MG TABCR PO (08:13)
[2018-02-14] MEDS: OMEPRAZOLE 20 MG CAP PO (08:13)
[2018-02-14] MEDS: CALCIUM/VITAMIN D 500 MG TAB PO (08:14)
[2018-02-14] MEDS: CETIRIZINE (ZyrTEC) 10 MG TAB PO (08:14)
[2018-02-14] MEDS: LORazepam 0.5 MG TAB PO ×2 (08:14→15:08)
[2018-02-14] MEDS: metFORMIN XR 500MG TAB *GLUCOPHAGE XR PO ×2 (08:14→17:10)
[2018-02-14] MEDS: LISINOPRIL 10 MG TAB PO (08:14)
[2018-02-14] MEDS: LEVEMIR (INSULIN DETEMIR) 1 UNITS/0.01ML SC (08:32)
[2018-02-14] MEDS: IBUPROFEN 800 MG TAB PO (11:34)
[2018-02-14] MEDS: LevoFLOXacin 500 MG TABLET PO (17:10)
[2018-02-14] MEDS: ATORVASTATIN 20 MG TAB PO (20:10)
[2018-02-14] MEDS: MOM 30ML SUSPENSION UDC PO (20:20)
[2018-02-14] MEDS: traZODone 50 MG TAB PO (21:09)
[2018-02-15] MEDS: PILL CRUSHER/CUTTER 1 EACH XX (00:27)
[2018-02-15] MEDS: LORazepam 0.5 MG TAB PO (00:27)
[2018-02-15] MEDS: IBUPROFEN 800 MG TAB PO (04:56)
[2018-02-15 04:59] LABS: BEDSIDE GLUCOSE 175 MG/DL (70-105)
[2018-02-15] MEDS: risperiDONE 3 MG TAB PO (07:35)
[2018-02-15] MEDS: metFORMIN XR 500MG TAB *GLUCOPHAGE XR PO (07:35)
[2018-02-15] MEDS: FLUTICASONE PROP 0.05% NASAL SPRAY 16 GM (FLONASE) NARES (08:05)
[2018-02-15] MEDS: prednisoLONE ACET 1% OPHTH SUSP 5ML OD (08:06)
[2018-02-15] MEDS: ALBUTEROL 90 MCG/ACT 8GM HFA INHALER INH (08:06)
[2018-02-15] MEDS: OMEPRAZOLE 20 MG CAP PO (08:07)
[2018-02-15] MEDS: LISINOPRIL 10 MG TAB PO (08:07)
[2018-02-15] MEDS: oxyBUTYnin *DITROPAN XL* 5 MG TABCR PO (08:07)
[2018-02-15] MEDS: ASPIRIN 81 MG ENTERIC TAB PO (08:07)
[2018-02-15] MEDS: CALCIUM/VITAMIN D 500 MG TAB PO (08:07)
[2018-02-15] MEDS: PREGABALIN 100 MG CAP (LYRICA) PO (08:07)
[2018-02-15] MEDS: CETIRIZINE (ZyrTEC) 10 MG TAB PO (08:07)
[2018-02-15] MEDS: tiZANidine 4 MG TAB PO (08:07)
[2018-02-15] MEDS: ADVAIR HFA 115/21MCG INHALER INH (08:08)
[2018-02-15] MEDS: LEVEMIR (INSULIN DETEMIR) 1 UNITS/0.01ML SC (08:13)
[2018-02-15] MEDS: traMADol 50 MG TAB PO (08:27)
== END 2018-02-15 11:20 | disposition home or self-care (01) | DRG 885 ==
LOC: M ED 13:40 → M ED INP 16:10 → M PSY 17:30
DX: F20.0 Paranoid schizophrenia (principal); F43.10 Post-traumatic stress disorder, unspecified; J44.9 Chronic obstructive pulmonary disease, unspecified; K21.9 Gastro-esophageal reflux disease without esophagitis; M54.5 Low back pain; E11.9 Type 2 diabetes mellitus without complications; E78.00 Pure hypercholesterolemia, unspecified; I10 Essential (primary) hypertension; F17.210 Nicotine dependence, cigarettes, uncomplicated; Z88.5 Allergy status to narcotic agent; Z88.0 Allergy status to penicillin; Z88.2 Allergy status to sulfonamides; Z88.8 Allergy status to other drugs, medicaments and biological substances; Z79.82 Long term (current) use of aspirin; Z79.899 Other long term (current) drug therapy; Z79.4 Long term (current) use of insulin

== ENCOUNTER 2018-03-21 09:32 | Emergency (ER) | payer MEDICARE, MEDICAID ==
[2018-03-21] MEDS: NORCO, ANEXSIA 5/325MG TABLET (HYDROcodone/ACETAMINOPHEN) PO (10:24)
[2018-03-21 10:37] LABS: BASO % 0.5 % (0.0-1.0); EOS # 0.2 10^3/uL (0.0-0.50); EOS % 2.1 % (0.0-3.0); HEMATOCRIT 38.9 % (36.0-47.0); HEMOGLOBIN 13.5 g/dl (12.0-15.5); IMMATURE GRANULOCYTE % 0.1 % (0-3.0); LYMPH # 2.5 10^3/uL (1.5-4.5); LYMPH % 32.6 % (24.0-44.0); MEAN CORPUSCULAR HGB CONC 34.7 g/dl (32.0-36.5); MEAN CORPUSCULAR VOLUME 89.2 fl (80.0-96.0); MONO # 0.5 10^3/uL (0.0-0.8); NEUTROPHILS # 4.4 10^3/uL (1.8-7.7); NEUTROPHILS % 58.7 % (36.0-66.0); PLATELET COUNT, AUTOMATED 230 10^3/uL (150-450); RED BLOOD COUNT 4.36 10^6/uL (4.00-5.40); RED CELL DISTRIBUTION WIDTH 12.7 % (11.5-14.5); WHITE BLOOD COUNT 7.5 10^3/uL (4.0-10.0)
[2018-03-21 11:01] LABS: ALBUMIN 3.9 GM/DL (3.2-5.2); ALBUMIN/GLOBULIN RATIO 1.18 (1.00-1.93); ALKALINE PHOSPHATASE 97 U/L (45-117); ALT/SGPT 27 U/L (12-78); ANION GAP 6 MEQ/L (8-16); AST/SGOT 13 U/L (7-37); BILIRUBIN,TOTAL 0.3 MG/DL (0.2-1.0); BLOOD UREA NITROGEN 6 MG/DL (7-18); C REACTIVE PROTEIN QUANTITATIV < 0.30 MG/DL (0.00-0.30); CALCIUM LEVEL 9.3 MG/DL (8.5-10.1); CARBON DIOXIDE LEVEL 27 MEQ/L (21-32); CHLORIDE LEVEL 109 MEQ/L (98-107); CREATININE FOR GFR 0.62 MG/DL (0.55-1.30); GLOMERULAR FILTRATION RATE > 60.0 (>51); GLUCOSE, FASTING 139 MG/DL (70-100); POTASSIUM SERUM 3.7 MEQ/L (3.5-5.1); SODIUM LEVEL 142 MEQ/L (136-145); TOTAL PROTEIN 7.2 GM/DL (6.4-8.2)
[2018-03-21] MEDS ORDERED: PHENAZOPYRIDINE 100 MG TAB PO (11:45)
== END 2018-03-21 11:52 | disposition home or self-care (01) ==
LOC: M ED 09:32
DX: K59.00 Constipation, unspecified (principal); R35.0 Frequency of micturition; K57.30 Diverticulosis of large intestine without perforation or abscess without bleeding; J44.9 Chronic obstructive pulmonary disease, unspecified; I10 Essential (primary) hypertension; K58.9 Irritable bowel syndrome, unspecified; F20.9 Schizophrenia, unspecified; F33.9 Major depressive disorder, recurrent, unspecified; F41.9 Anxiety disorder, unspecified; F43.10 Post-traumatic stress disorder, unspecified; F17.200 Nicotine dependence, unspecified, uncomplicated; Z98.890 Other specified postprocedural states; Z87.42 Personal history of other diseases of the female genital tract; Z88.1 Allergy status to other antibiotic agents; Z88.5 Allergy status to narcotic agent; Z88.8 Allergy status to other drugs, medicaments and biological substances; Z88.0 Allergy status to penicillin; Z88.2 Allergy status to sulfonamides; Z79.4 Long term (current) use of insulin; Z79.899 Other long term (current) drug therapy
CPT/HCPCS: 74176

== ENCOUNTER 2018-04-15 11:13 | Emergency (ER) | payer MEDICARE, MEDICAID ==
[2018-04-15 14:38] LABS: HEMATOCRIT 42.5 % (36.0-47.0); HEMOGLOBIN 14.4 g/dl (12.0-15.5); MEAN CORPUSCULAR HEMOGLOBIN 30.8 pg (27.0-33.0); MEAN CORPUSCULAR HGB CONC 33.9 g/dl (32.0-36.5); MEAN CORPUSCULAR VOLUME 90.8 fl (80.0-96.0); PLATELET COUNT, AUTOMATED 231 10^3/uL (150-450); RED BLOOD COUNT 4.68 10^6/uL (4.00-5.40); RED CELL DISTRIBUTION WIDTH 12.5 % (11.5-14.5); WHITE BLOOD COUNT 10.6 10^3/uL (4.0-10.0)
[2018-04-15] MEDS: NS 1,000 ML IV ×2 (14:48)
[2018-04-15] MEDS: MORPHINE 2 MG/ML 1ML SYRINGE (J2270) IV ×2 (14:48)
[2018-04-15 15:00] LABS: ANION GAP 7 MEQ/L (8-16); BLOOD UREA NITROGEN 7 MG/DL (7-18); CALCIUM LEVEL 9.6 MG/DL (8.5-10.1); CARBON DIOXIDE LEVEL 29 MEQ/L (21-32); CHLORIDE LEVEL 104 MEQ/L (98-107); CREATININE FOR GFR 0.64 MG/DL (0.55-1.30); GLOMERULAR FILTRATION RATE > 60.0 (>51); GLUCOSE, FASTING 123 MG/DL (70-100); POTASSIUM SERUM 4.1 MEQ/L (3.5-5.1); SODIUM LEVEL 140 MEQ/L (136-145)
[2018-04-15 15:04] LABS: LACTIC ACID SEPSIS PROTOCOL 1.5 MMOL/L (0.4-2.0)
[2018-04-15] MEDS ORDERED: ISOVUE-370 76% 100ML VIAL (Q9967) As Ordered ×2 (15:37)
[2018-04-15] MEDS: AUGMENTIN 875 MG TAB PO ×2 (17:19)
== END 2018-04-15 17:29 | disposition home or self-care (01) ==
LOC: M ED 11:13
DX: K04.7 Periapical abscess without sinus (principal); K13.79 Other lesions of oral mucosa; E11.9 Type 2 diabetes mellitus without complications; I10 Essential (primary) hypertension; J45.909 Unspecified asthma, uncomplicated; J44.9 Chronic obstructive pulmonary disease, unspecified; K21.9 Gastro-esophageal reflux disease without esophagitis; K76.0 Fatty (change of) liver, not elsewhere classified; M54.9 Dorsalgia, unspecified; F41.9 Anxiety disorder, unspecified; F32.9 Major depressive disorder, single episode, unspecified; F43.10 Post-traumatic stress disorder, unspecified; F20.9 Schizophrenia, unspecified; R51 Headache; Z87.42 Personal history of other diseases of the female genital tract; F17.200 Nicotine dependence, unspecified, uncomplicated; Z88.1 Allergy status to other antibiotic agents; Z88.5 Allergy status to narcotic agent; Z88.8 Allergy status to other drugs, medicaments and biological substances; Z88.0 Allergy status to penicillin; Z88.2 Allergy status to sulfonamides; Z79.899 Other long term (current) drug therapy; Z79.4 Long term (current) use of insulin
CPT/HCPCS: Q9967

== ENCOUNTER → 2018-05-21 | Outpatient (CLI) | payer MEDICARE, MEDICAID ==
[2018-05-21 08:54] LABS: ALBUMIN 4.2 GM/DL (3.2-5.2); ALBUMIN/GLOBULIN RATIO 1.83 (1.00-1.93); ALKALINE PHOSPHATASE 98 U/L (45-117); ALT/SGPT 24 U/L (12-78); ANION GAP 7 MEQ/L (8-16); AST/SGOT 16 U/L (7-37); BILIRUBIN,TOTAL 0.4 MG/DL (0.2-1.0); BLOOD UREA NITROGEN 7 MG/DL (7-18); CALCIUM LEVEL 9.3 MG/DL (8.5-10.1); CARBON DIOXIDE LEVEL 28 MEQ/L (21-32); CHLORIDE LEVEL 101 MEQ/L (98-107); CREATININE FOR GFR 0.67 MG/DL (0.55-1.30); GLOMERULAR FILTRATION RATE > 60.0 (>51); GLUCOSE, FASTING 103 MG/DL (70-100); MAGNESIUM LEVEL 1.8 MG/DL (1.8-2.4); POTASSIUM SERUM 4.2 MEQ/L (3.5-5.1); SODIUM LEVEL 136 MEQ/L (136-145); TOTAL PROTEIN 6.5 GM/DL (6.4-8.2)
[2018-05-21 09:41] LABS: ESTIMATED AVERAGE GLUCOSE 148 MG/DL (60-110); HEMOGLOBIN A1c 6.8 %
[2018-05-21 10:22] LABS: TOTAL 25(OH) VITAMIN D 41.1 NG/ML (30.0-100.0)
== END ==
LOC: M LAB 06:56
DX: I10 Essential (primary) hypertension (principal); E11.65 Type 2 diabetes mellitus with hyperglycemia; K21.9 Gastro-esophageal reflux disease without esophagitis; E55.9 Vitamin D deficiency, unspecified
CPT/HCPCS: 83735

== ENCOUNTER → 2018-05-27 | Outpatient (REF) | payer MEDICARE, MEDICAID ==
[2018-05-27 13:55] LABS: CREATININE, URINE 17.3 MG/DL; MALB URINE SIEMENS < 5.0 MG/L
[2018-05-27 13:57] LABS: MAU/CREAT RATIO 28.9 MCG/MG (0.0-30.0)
== END ==
LOC: M SFHCPLAZ 11:55
DX: J44.9 Chronic obstructive pulmonary disease, unspecified (principal); E11.9 Type 2 diabetes mellitus without complications
CPT/HCPCS: 82043

== ENCOUNTER 2018-08-08 19:36 | Emergency (ER) | payer MEDICARE, MEDICAID ==
[~2018-08-08] VITALS: Ht 157.5 cm; Wt 83.6 kg
[~2018-08-08 19:36] MED LIST changes: +ACET500T15 PO; -ACET50TAOT PO; +ANOR1AER INH; +ASPI1TAB PO; +AUGM875T28 PO; +CALC600T6 PO; +CIPR-249 PO; +COLA100C5 PO; -DRIS50002 PO; +DRIS50003 PO; +INCR1INH INH; +INSULANT SC; +IPRA0.00 IN; +IPRA0.00 INH; -IPRASOL4 IN; -IPRASOL4 INH; +KEFL500C17 PO; +LOPE2TAB3 PO; +MELO15TA28 PO; +NORCOTAB PO; +OMEP20CA3 PO; +PREDOPD OD; +PYRI1TAB5 PO; +RISP0.5T3 PO; +RISP25INJ IM; +RISP3TAB20 PO; -SALI0.6523; +SALI0.6528; +TIZA2CAP PO; -TIZA2CAP3 PO; +TIZA4CAP PO; +VITA50005 PO; +ZOFR4TAB14 PO; +ZYRT10CA PO
[2018-08-08 19:46] VITALS: BP 126/83
[2018-08-08] MEDS ORDERED: RISP3TAB3 (19:55)
[2018-08-08] MEDS ORDERED: LORA0.5T11 PO (19:55)
[2018-08-08] MEDS ORDERED: LYRI200C PO (19:55)
== END 2018-08-08 20:41 | disposition home or self-care (01) ==
LOC: M ED 19:36
DX: M19.041 Primary osteoarthritis, right hand (principal); E11.9 Type 2 diabetes mellitus without complications; I10 Essential (primary) hypertension; J45.909 Unspecified asthma, uncomplicated; F43.10 Post-traumatic stress disorder, unspecified; F33.9 Major depressive disorder, recurrent, unspecified; F41.9 Anxiety disorder, unspecified; K21.9 Gastro-esophageal reflux disease without esophagitis; E78.5 Hyperlipidemia, unspecified; Z79.899 Other long term (current) drug therapy; Z79.4 Long term (current) use of insulin; Z88.0 Allergy status to penicillin; Z88.1 Allergy status to other antibiotic agents; Z88.2 Allergy status to sulfonamides; Z88.5 Allergy status to narcotic agent; Z88.8 Allergy status to other drugs, medicaments and biological substances; F17.210 Nicotine dependence, cigarettes, uncomplicated

== ENCOUNTER 2018-08-21 22:57 | Emergency (ER) | payer MEDICARE, MEDICAID ==
[~2018-08-21] VITALS: Ht 157.5 cm; Wt 83.6 kg
[~2018-08-21 22:57] MED LIST changes: +RISP3TAB3
[2018-08-21] MEDS ORDERED: IBUP1TAB6 PO (23:05)
[2018-08-21] MEDS ORDERED: INVE117I IM (23:05)
[2018-08-22] MEDS ORDERED: KETOROLAC TROMETHAMINE 10 MG TAB PO ONE (01:45)
[2018-08-22 01:55] VITALS: BP 134/67
--- NOTE | 2018-08-22 08:49 | REP ---
Clinical: right pain Technique: AP, lateral, bilateral oblique views Right foot. Findings: The osseous structures and joint spaces are intact and normal. There is no evidence for acute fracture or dislocation. Surrounding soft tissues are unremarkable. No subcutaneous emphysema or radiodense foreign body. Impression: Age related changes. No acute fracture or dislocation. Electronically Signed by Bandar Beltran MD 08/22/2018 08:40 A
== END 2018-08-22 02:00 | disposition home or self-care (01) ==
LOC: M ED 22:57
DX: S90.31XA Contusion of right foot, initial encounter (principal); W22.09XA Striking against other stationary object, initial encounter; Y92.098 Other place in other non-institutional residence as the place of occurrence of the external cause; E11.9 Type 2 diabetes mellitus without complications; I10 Essential (primary) hypertension; J44.9 Chronic obstructive pulmonary disease, unspecified; F41.9 Anxiety disorder, unspecified; F32.9 Major depressive disorder, single episode, unspecified; Z88.0 Allergy status to penicillin; Z88.1 Allergy status to other antibiotic agents; Z88.2 Allergy status to sulfonamides; Z88.5 Allergy status to narcotic agent; Z88.8 Allergy status to other drugs, medicaments and biological substances; Z79.899 Other long term (current) drug therapy; Z79.84 Long term (current) use of oral hypoglycemic drugs; Z79.4 Long term (current) use of insulin

== ENCOUNTER → 2018-11-08 | Outpatient (CLI) | payer MEDICARE, MEDICAID ==
[~2018-11-08] MED LIST changes: -ASPI1TAB PO; +ASPI81TA26 PO; +HYDR-3715 PO; +IBUP1TAB6 PO; +INVE117I IM; -NORCOTAB PO; +PRED-351 PO; -PRED10TA PO
[2018-11-08 08:51] LABS: ALBUMIN 4.1 GM/DL (3.2-5.2); ALT/SGPT 26 U/L (12-78); BILIRUBIN,TOTAL 0.3 MG/DL (0.2-1.0); BLOOD UREA NITROGEN 10 MG/DL (7-18); CALCIUM LEVEL 8.8 MG/DL (8.5-10.1); CARBON DIOXIDE LEVEL 30 MEQ/L (21-32); CHLORIDE LEVEL 107 MEQ/L (98-107); CREATININE FOR GFR 0.65 MG/DL (0.55-1.30); GLOMERULAR FILTRATION RATE > 60.0 (>51); GLUCOSE, FASTING 79 MG/DL (70-100); POTASSIUM SERUM 4.4 MEQ/L (3.5-5.1); SODIUM LEVEL 141 MEQ/L (136-145); TOTAL PROTEIN 6.4 GM/DL (6.4-8.2)
[2018-11-08 08:59] LABS: CREATININE, URINE 89.4 MG/DL; MALB URINE SIEMENS 29.6 MG/L; MAU/CREAT RATIO 33.1 MCG/MG (0.0-30.0)
[2018-11-08 10:12] LABS: HEMOGLOBIN A1c 6.5 %
[2018-11-08 10:28] LABS: TOTAL 25(OH) VITAMIN D 52.9 NG/ML (30.0-100.0)
== END ==
LOC: M LAB 07:49
PROVIDERS: ATTEND Nurse Practitioner Family
DX: E11.9 Type 2 diabetes mellitus without complications (principal); E78.2 Mixed hyperlipidemia; E55.9 Vitamin D deficiency, unspecified; Z79.4 Long term (current) use of insulin

== ENCOUNTER → 2018-11-12 | Outpatient (CLI) | payer MEDICARE, MEDICAID ==
[~2018-11-12] MED LIST changes: +MACR100C43 PO; +ONDA4TAB5 PO; +RISP2TAB32 PO; +TREL1AER IN
--- NOTE | 2018-11-12 09:45 | REPMRS ---
Patient History The patient states she had a clinical breast exam in 09/2018. Family history of unknown cancer in mother, breast cancer in maternal aunt. Digital Woman Screen Mammo: November 12, 2018 - Exam #: [id number] Bilateral CC and MLO view(s) were taken. Technologist: Martina Fernandez, Technologist Prior study comparison: November 10, 2012, digital woman screen mammo performed at [facility]. July 02, 2011, bilateral bilat screen digital mammo performed at [facility]. August 29, 2009, bilateral digital woman screen mammo performed at [facility]. FINDINGS: The breast tissue is heterogeneously dense. This may lower the sensitivity of mammography. There has been some involutional change in the interval since prior studies. There is a moderate amount of heterogeneously dense fibroglandular tissue which is fairly symmetric. There is no interval development of dominant mass, architectural distortion, or clustered microcalcification typical of malignancy. There has been no change in the appearance of the mammogram from the prior studies. 3-D tomosynthesis shows no additional findings. Assessment: BI-RADS/ACR category 1 mammogram. Negative Mammogram. Recommendation Routine screening mammogram of both breasts in 1 year (for women over age 40). This patient's Lifetime Breast Cancer RIsk is estimated at 8.7 %. This mammogram was interpreted with the aid of an FDA-approved computer-aided dectection system. Electronically Signed By: Ward Bland MD 11/12/18 0944
== END ==
LOC: M WHC 08:56
PROVIDERS: ATTEND Nurse Practitioner Family
DX: Z12.31 Encounter for screening mammogram for malignant neoplasm of breast (principal); F17.210 Nicotine dependence, cigarettes, uncomplicated
CPT/HCPCS: 77063; 77067; 99406; G0463

== ENCOUNTER 2018-12-04 21:17 | Emergency (ER) | payer MEDICARE, MEDICAID ==
[~2018-12-04] VITALS: Ht 157.5 cm; Wt 81.8 kg
[~2018-12-04 21:17] MED LIST changes: -MACR100C43 PO; -ONDA4TAB5 PO; -RISP2TAB32 PO; -TREL1AER IN
[2018-12-04] MEDS ORDERED: ONDA4TAB5 PO (21:57)
[2018-12-04] MEDS ORDERED: NS 1,000 ML IV ONE (22:00)
[2018-12-04] MEDS ORDERED: ONDANSETRON 4MG/2ML VIAL (J2405) IV ONE (22:00)
[2018-12-04] MEDS ORDERED: KETOROLAC 30 MG/ML VIAL (J1885) IV ONE (22:00)
[2018-12-04] MEDS ORDERED: RISP2TAB32 PO (22:02)
[2018-12-04] MEDS ORDERED: TREL1AER IN (22:02)
[2018-12-04 22:14] LABS: BASO # 0.1 10^3/uL (0.0-0.2); BASO % 0.7 % (0.0-1.0); EOS # 0.2 10^3/uL (0.0-0.50); HEMATOCRIT 37.7 % (36.0-47.0); HEMOGLOBIN 13.1 g/dl (12.0-15.5); LYMPH # 3.2 10^3/uL (1.5-4.5); LYMPH % 43.9 % (24.0-44.0); MEAN CORPUSCULAR HEMOGLOBIN 31.1 pg (27.0-33.0); MEAN CORPUSCULAR HGB CONC 34.7 g/dl (32.0-36.5); MEAN CORPUSCULAR VOLUME 89.5 fl (80.0-96.0); MONO # 0.5 10^3/uL (0.0-0.8); MONO % 6.4 % (0.0-5.0); NEUTROPHILS # 3.4 10^3/uL (1.8-7.7); NEUTROPHILS % 45.9 % (36.0-66.0); PLATELET COUNT, AUTOMATED 204 10^3/uL (150-450); RED BLOOD COUNT 4.21 10^6/uL (4.00-5.40); WHITE BLOOD COUNT 7.3 10^3/uL (4.0-10.0)
[2018-12-04 22:26] LABS: ALBUMIN 3.8 GM/DL (3.2-5.2); ALT/SGPT 26 U/L (12-78); BILIRUBIN,DIRECT < 0.1 MG/DL (0.0-0.2); BILIRUBIN,TOTAL 0.2 MG/DL (0.2-1.0); BLOOD UREA NITROGEN 7 MG/DL (7-18); CALCIUM LEVEL 8.4 MG/DL (8.5-10.1); CARBON DIOXIDE LEVEL 30 MEQ/L (21-32); CHLORIDE LEVEL 94 MEQ/L (98-107); CREATININE FOR GFR 0.57 MG/DL (0.55-1.30); GLOMERULAR FILTRATION RATE > 60.0 (>51); GLUCOSE, FASTING 84 MG/DL (70-100); LIPASE 92 U/L (73-393); POTASSIUM SERUM 4.5 MEQ/L (3.5-5.1); SODIUM LEVEL 130 MEQ/L (136-145); TOTAL PROTEIN 6.3 GM/DL (6.4-8.2)
[2018-12-04] MEDS ORDERED: ISOVUE-370 76% 100ML VIAL (Q9967) As Ordered ONE (22:37)
--- NOTE | 2018-12-04 23:07 | REPVR ---
EXAM: CT Abdomen and Pelvis With Contrast EXAM DATE/TIME: 12/04/2018 10:40 PM CLINICAL HISTORY: 58 years old, female; Abdominal pain; Localized; Left lower quadrant (llq); Additional info: HX of diverticulitis, llq pain TECHNIQUE: Imaging protocol: Axial computed tomography images of the abdomen and pelvis with intravenous contrast. Coronal and sagittal reformatted images were created and reviewed. Radiation optimization: All CT scans at this facility use at least one of these dose optimization techniques: automated exposure control; mA and/or kV adjustment per patient size (includes targeted exams where dose is matched to clinical indication); or iterative reconstruction. Contrast material: ISOVUE 370; Contrast volume: 100 ml; Contrast route: IV; COMPARISON: CT ABD/PEL W/IV CONTRAST ONLY 12/16/2017 11:25 PM FINDINGS: Lungs: 9 millimeter calcified granuloma right lower lobe. ABDOMEN: Liver: Normal. No mass. Gallbladder and bile ducts: The gallbladder is incompletely distended. This is most likely related to incomplete fasting. Clinical correlation to exclude gallbladder pathology suggested. Pancreas: Normal. No ductal dilation. Spleen: The spleen demonstrates punctate calcifications, consistent with remote granulomatous organism exposure. Adrenals: Normal. No mass. Kidneys and ureters: Normal. No hydronephrosis. Stomach and bowel: Mild diverticulosis is present in the distal colon. No diverticulitis. There is increased feces throughout the colon consistent with constipation. Appendix: No evidence of appendicitis. PELVIS: Bladder: Unremarkable as visualized. Reproductive: Right ovarian enlargement measures 3.9 x 3.8 cm. Lesion not clearly cystic. Ultrasound correlation suggested. There has been a hysterectomy. ABDOMEN and PELVIS: Intraperitoneal space: Normal. No free air. No significant fluid collection. Bones/joints: Moderate central spinal stenosis at L4-5. Diffuse annular bulge at L5-S1. Soft tissues: Otherwise unremarkable. Vasculature: Normal. No abdominal aortic aneurysm. Lymph nodes: Normal. No enlarged lymph nodes. IMPRESSION: 1. The gallbladder is incompletely distended. This is most likely related to incomplete fasting. Clinical correlation to exclude gallbladder pathology suggested. 2. Right ovarian enlargement measures 3.9 x 3.8 cm. Lesion not clearly cystic. Ultrasound correlation suggested. 3. There has been a hysterectomy. 4. Mild diverticulosis is present in the distal colon. No diverticulitis. 5. There is increased feces throughout the colon consistent with constipation. Electronically signed by: Ty Ye On 12/04/2018 23:07:04 PM
[2018-12-04] MEDS ORDERED: NITROFURANTOIN (MACROBID) 100 MG CAP PO ONE (23:15)
[2018-12-04] MEDS ORDERED: DOCUSATE SODIUM 100 MG CAP PO ONE (23:15)
--- NOTE | 2018-12-05 00:08 | REPVR ---
EXAM: US Pelvis Complete, Transabdominal EXAM DATE/TIME: 12/04/2018 11:47 PM CLINICAL HISTORY: 58 years old, female; Abnormal findings; Abnormal imaging test; Prior surgery; Surgery date: 6+ months; Surgery type: S/P hysterectomy approx. 35 years ago; Additional info: Further eval off right ovary, enlarged on CT TECHNIQUE: Imaging protocol: Real-time transabdominal pelvic ultrasound with image documentation. Complete exam. COMPARISON: CT ABD/PEL W/IV CONTRAST ONLY 12/04/2018 10:32 PM FINDINGS: Uterus/cervix: Status post hysterectomy. Right adnexa: Right ovary measures 3.5 x 2.7 x 3.3 cm. Complex septated cyst demonstrated in the right ovary measures 3.5 x 2.9 x 3.4 cm. No significant solid components. Resistive index 0.56. Left adnexa: Left ovary obscured by overlying bowel gas. Free fluid: None. Bladder: Normal. IMPRESSION: Complex and multiseptated cyst in the right ovary. No suspicious features. Otherwise unremarkable. Followup will be obtained in 12 months to document stability. Electronically signed by: Ty Ye On 12/05/2018 00:08:28 AM
[2018-12-05] MEDS ORDERED: MACR100C43 PO (00:19)
[2018-12-05] MEDS ORDERED: COLA100C5 PO (00:19)
[2018-12-05] MEDS ORDERED: PYRI1TAB5 PO (00:25)
[2018-12-05 00:29] VITALS: BP 137/67
--- NOTE | 2018-12-07 06:05 | ED PDOC ---
Post-Departure Follow-Up lorenzo valles faxed formal report of ct abd/p for fu Vu Bae MD December 07, 2018 06:05
== END 2018-12-05 00:33 | disposition home or self-care (01) ==
LOC: M ED 21:17
DX: K57.32 Diverticulitis of large intestine without perforation or abscess without bleeding (principal); K59.00 Constipation, unspecified; N83.291 Other ovarian cyst, right side; N39.0 Urinary tract infection, site not specified; R11.0 Nausea; E87.1 Hypo-osmolality and hyponatremia; E11.9 Type 2 diabetes mellitus without complications; R51 Headache; J44.9 Chronic obstructive pulmonary disease, unspecified; K58.9 Irritable bowel syndrome, unspecified; E78.5 Hyperlipidemia, unspecified; F41.9 Anxiety disorder, unspecified; F32.9 Major depressive disorder, single episode, unspecified; F43.10 Post-traumatic stress disorder, unspecified; F20.9 Schizophrenia, unspecified; Z87.42 Personal history of other diseases of the female genital tract; F17.210 Nicotine dependence, cigarettes, uncomplicated; Z88.0 Allergy status to penicillin; Z88.2 Allergy status to sulfonamides; Z88.1 Allergy status to other antibiotic agents; Z88.5 Allergy status to narcotic agent; Z88.8 Allergy status to other drugs, medicaments and biological substances; Z79.899 Other long term (current) drug therapy; Z79.4 Long term (current) use of insulin; Z79.51 Long term (current) use of inhaled steroids
CPT/HCPCS: 74177; 76830; 76856; 80048; 80076; 81001; 83605; 83690; 85025; 87088; 87186; 93976; 96361; 96374; 96375; 99284; J1885; J2405; Q9967

== ENCOUNTER 2018-12-14 15:55 | Emergency (ER) | payer MEDICARE, MEDICAID ==
[~2018-12-14] VITALS: Ht 157.5 cm; Wt 40.0 kg
[~2018-12-14 15:55] MED LIST changes: +MACR100C43 PO; +ONDA4TAB5 PO; +RISP2TAB32 PO; +TREL1AER IN
[2018-12-14] MEDS ORDERED: LEVA1TAB2 PO (18:43)
[2018-12-14] MEDS ORDERED: LevoFLOXacin 250 MG TABLET PO ONE (18:45)
[2018-12-14 19:13] VITALS: BP 149/70
== END 2018-12-14 19:25 | disposition home or self-care (01) ==
LOC: M ED 15:55
DX: N39.0 Urinary tract infection, site not specified (principal); E11.9 Type 2 diabetes mellitus without complications; J44.9 Chronic obstructive pulmonary disease, unspecified; J45.909 Unspecified asthma, uncomplicated; I10 Essential (primary) hypertension; E78.5 Hyperlipidemia, unspecified; Z79.899 Other long term (current) drug therapy; Z79.4 Long term (current) use of insulin; Z88.0 Allergy status to penicillin; Z88.1 Allergy status to other antibiotic agents; Z88.2 Allergy status to sulfonamides; Z88.5 Allergy status to narcotic agent; Z88.8 Allergy status to other drugs, medicaments and biological substances; F17.210 Nicotine dependence, cigarettes, uncomplicated

== ENCOUNTER 2018-12-19 01:31 | Emergency (ER) | payer MEDICARE, MEDICAID ==
[~2018-12-19] VITALS: Ht 157.5 cm; Wt 81.8 kg
[~2018-12-19 01:31] MED LIST changes: +LEVA1TAB2 PO; +TRAZ1TAB10 PO; -TRAZO50TA PO
[2018-12-19] MEDS ORDERED: CLIN-30 PO (01:38)
[2018-12-19] MEDS ORDERED: KETOROLAC 60 MG/2 ML VIAL (J1885) IM ONE (03:00)
[2018-12-19] MEDS ORDERED: METHOCARBAMOL 750 MG TAB PO ONE (03:45)
[2018-12-19] MEDS ORDERED: IBUP1TAB6 PO (03:46)
[2018-12-19] MEDS ORDERED: ROBA500T PO (03:46)
[2018-12-19 04:09] VITALS: BP 128/59
== END 2018-12-19 04:16 | disposition home or self-care (01) ==
LOC: M ED 01:31
DX: M54.5 Low back pain (principal); E11.9 Type 2 diabetes mellitus without complications; I10 Essential (primary) hypertension; Z72.0 Tobacco use; Z79.4 Long term (current) use of insulin; Z79.899 Other long term (current) drug therapy; Z88.0 Allergy status to penicillin; Z88.2 Allergy status to sulfonamides; Z88.5 Allergy status to narcotic agent; Z88.8 Allergy status to other drugs, medicaments and biological substances
CPT/HCPCS: 81001; 87086; 96372; 99283; J1885

== ENCOUNTER → 2018-12-23 | Outpatient (REF) | payer MEDICARE, MEDICAID ==
[~2018-12-23] MED LIST changes: +CLIN-30 PO; +ROBA500T PO
[2018-12-23 13:32] LABS: APPEARANCE, URINE CLEAR (CLEAR); BACTERIA, URINE AUTO NEGATIVE (NEGATIVE); BILIRUBIN, URINE AUTO NEGATIVE (NEGATIVE); BLOOD, URINE BLOOD 1+ (NEGATIVE); COLOR, URINE STRAW (YELLOW); GLUCOSE, URINE (UA) AUTO NEGATIVE (NEGATIVE); KETONE, URINE AUTO NEGATIVE (NEGATIVE); LEUKOCYTE ESTERASE, URINE AUTO NEGATIVE (NEGATIVE); NITRITE, URINE AUTO NEGATIVE (NEGATIVE); PROTEIN, URINE AUTO NEGATIVE (NEGATIVE); RBC, URINE AUTO 0 /HPF (0-3); SPECIFIC GRAVITY URINE AUTO 1.003 (1.002-1.035); SQUAMOUS EPITHELIAL CELL UR AU 0 /HPF (0-6); UROBILINOGEN, URINE AUTO 0.2 mg/dL (0.0-2.0); WBC, URINE AUTO 1 /HPF (0-3)
== END ==
LOC: M SFHCPLAZ 12:59
PROVIDERS: ATTEND Family Medicine
DX: N30.00 Acute cystitis without hematuria (principal)
CPT/HCPCS: 51798; 81001; 87086; G0463

== ENCOUNTER 2019-03-16 14:18 | Emergency (ER) | payer MEDICARE, MEDICAID ==
[~2019-03-16] VITALS: Ht 157.5 cm; Wt 78.6 kg
[~2019-03-16 14:18] MED LIST changes: -OMEP20CA3 PO; +OMEP20CA4 PO; -OXYB5TAB PO; +OXYB5TAB2 PO
[2019-03-16] MEDS ORDERED: NS 1,000 ML IV ONE (14:45)
[2019-03-16 15:07] LABS: BASO % 0.5 % (0.0-1.0); EOS # 0.2 10^3/uL (0.0-0.50); EOS % 2.1 % (0.0-3.0); HEMATOCRIT 37.3 % (36.0-47.0); HEMOGLOBIN 13.2 g/dl (12.0-15.5); LYMPH # 2.3 10^3/uL (1.5-4.5); LYMPH % 30.9 % (24.0-44.0); MEAN CORPUSCULAR HGB CONC 35.4 g/dl (32.0-36.5); MEAN CORPUSCULAR VOLUME 93.3 fl (80.0-96.0); MONO # 0.4 10^3/uL (0.0-0.8); MONO % 5.4 % (0.0-5.0); NEUTROPHILS # 4.4 10^3/uL (1.8-7.7); NEUTROPHILS % 60.8 % (36.0-66.0); PLATELET COUNT, AUTOMATED 201 10^3/uL (150-450); WHITE BLOOD COUNT 7.3 10^3/uL (4.0-10.0)
[2019-03-16] MEDS ORDERED: ISOVUE-370 76% 100ML VIAL (Q9967) As Ordered ONE (15:18)
[2019-03-16 15:36] LABS: INR 0.92; PROTHROMBIN TIME 12.1 SECONDS (11.8-14.0)
[2019-03-16 15:39] LABS: ALBUMIN 3.8 GM/DL (3.2-5.2); ALT/SGPT 26 U/L (12-78); BILIRUBIN,DIRECT < 0.1 MG/DL (0.0-0.2); BILIRUBIN,TOTAL 0.2 MG/DL (0.2-1.0); C REACTIVE PROTEIN QUANTITATIV < 0.30 MG/DL (0.00-0.30); CK-MB VALUE MASS 2.9 NG/ML (<3.6); CPK CREATINE PHOSPHOKINASE 203 U/L (26-192); LIPASE 67 U/L (73-393); MB/CK RELATIVE INDEX 1.43 (< OR =4); TROPONIN I < 0.02 NG/ML (< 0.10)
[2019-03-16] MEDS ORDERED: DOXY-350 PO (17:33)
[2019-03-16] MEDS ORDERED: DOXYCYCLINE HYCLATE 100 MG TAB PO ONE (17:45)
[2019-03-16 17:47] VITALS: BP 141/67
--- NOTE | 2019-03-16 19:12 | REP ---
CT ABDOMEN AND PELVIS WITH IV CONTRAST: TECHNIQUE: Axial contrast enhanced images from the lung bases to the pubic symphysis using 100 mL Isovue 370 intravenous contrast material with multiplanar reformations. COMPARISON: 12/04/2018 Visualized lung bases demonstrate no infiltrate. The liver is unremarkable. The gallbladder is contracted. The spleen demonstrates tiny calcified granulomas. The adrenals, pancreas and kidneys are unremarkable. There is no hydronephrosis bilaterally. There is mild atherosclerotic calcification of the abdominal aorta without aneurysm. I see no adenopathy. There is no free air or free fluid. No bowel wall thickening is seen. There is no evidence of appendicitis. Scattered diverticula are seen of the left colon without evidence of acute diverticulitis. There is right ovarian enlargement, unchanged since the prior study. The patient has had a prior hysterectomy. The urinary bladder is distended and grossly unremarkable. There are degenerative changes of the spine. IMPRESSION: Stable findings as discussed in detail above. Left colonic diverticulosis without evidence of acute diverticulitis. Right ovarian enlargement is stable. No evidence of appendicitis or acute bowel inflammation. No free air or free fluid. Electronically Signed by Jozef Teresa MD 03/18/2019 10:50 A
--- NOTE | 2019-03-17 13:31 | ECGEPIP ---
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
== END 2019-03-16 18:01 | disposition home or self-care (01) ==
LOC: M ED 14:18
DX: L73.2 Hidradenitis suppurativa (principal); R10.12 Left upper quadrant pain; I45.19 Other right bundle-branch block; E11.9 Type 2 diabetes mellitus without complications; I10 Essential (primary) hypertension; F43.10 Post-traumatic stress disorder, unspecified; F20.9 Schizophrenia, unspecified; E78.5 Hyperlipidemia, unspecified; J44.9 Chronic obstructive pulmonary disease, unspecified; Z72.0 Tobacco use; K57.30 Diverticulosis of large intestine without perforation or abscess without bleeding; N83.8 Other noninflammatory disorders of ovary, fallopian tube and broad ligament; Z79.4 Long term (current) use of insulin; Z79.899 Other long term (current) drug therapy; Z88.0 Allergy status to penicillin; Z88.2 Allergy status to sulfonamides; Z88.5 Allergy status to narcotic agent; Z88.8 Allergy status to other drugs, medicaments and biological substances
CPT/HCPCS: 74177; 80047; 80076; 81001; 82550; 82553; 83605; 83690; 84484; 85025; 85610; 85730; 86140; 93005; 93041; 96360; 96361; 99285; Q9967

== ENCOUNTER → 2019-03-23 | Outpatient (REF) | payer MEDICARE, MEDICAID ==
[~2019-03-23] MED LIST changes: +DOXY-350 PO
[2019-03-23 11:53] LABS: ALBUMIN 3.9 GM/DL (3.2-5.2); ALT/SGPT 22 U/L (12-78); BILIRUBIN,TOTAL 0.4 MG/DL (0.2-1.0); BLOOD UREA NITROGEN 9 MG/DL (7-18); CALCIUM LEVEL 9.3 MG/DL (8.5-10.1); CARBON DIOXIDE LEVEL 31 MEQ/L (21-32); CHLORIDE LEVEL 105 MEQ/L (98-107); CHOLESTEROL LEVEL 117 MG/DL (<200); GLOMERULAR FILTRATION RATE > 60.0 (>51); GLUCOSE, FASTING 72 MG/DL (70-100); HDL CHOLESTEROL 60 MG/DL (>40); LDL CHOLESTEROL 43 MG/DL (<100); NON-HDL-C 57 MG/DL; POTASSIUM SERUM 4.2 MEQ/L (3.5-5.1); SODIUM LEVEL 140 MEQ/L (136-145); TOTAL PROTEIN 6.4 GM/DL (6.4-8.2); TRIGLYCERIDES LEVEL 71 MG/DL (<150)
[2019-03-23 12:09] LABS: HEMOGLOBIN A1c 6.1 %
== END ==
LOC: M SFHCPLAZ 09:01
PROVIDERS: ATTEND Nurse Practitioner Family
DX: E11.9 Type 2 diabetes mellitus without complications (principal); E78.2 Mixed hyperlipidemia

== ENCOUNTER → 2019-03-31 | Outpatient (REF) | payer MEDICARE, MEDICAID ==
[2019-03-31 13:01] LABS: APPEARANCE, URINE CLEAR (CLEAR); BACTERIA, URINE AUTO NEGATIVE (NEGATIVE); BILIRUBIN, URINE AUTO NEGATIVE (NEGATIVE); BLOOD, URINE BLOOD NEGATIVE (NEGATIVE); COLOR, URINE YELLOW (YELLOW); GLUCOSE, URINE (UA) AUTO NEGATIVE (NEGATIVE); KETONE, URINE AUTO NEGATIVE (NEGATIVE); LEUKOCYTE ESTERASE, URINE AUTO NEGATIVE (NEGATIVE); NITRITE, URINE AUTO NEGATIVE (NEGATIVE); PROTEIN, URINE AUTO NEGATIVE (NEGATIVE); RBC, URINE AUTO 3 /HPF (0-3); SPECIFIC GRAVITY URINE AUTO 1.013 (1.002-1.035); SQUAMOUS EPITHELIAL CELL UR AU 1 /HPF (0-6); UROBILINOGEN, URINE AUTO 0.2 mg/dL (0.0-2.0); WBC, URINE AUTO 0 /HPF (0-3)
== END ==
LOC: M SFHCPLAZ 12:03
PROVIDERS: ATTEND Nurse Practitioner Family
DX: R35.0 Frequency of micturition (principal)
CPT/HCPCS: 81001; 81002; 87086; G0463

== ENCOUNTER 2019-05-23 20:09 | Emergency (ER) | payer MEDICARE, MEDICAID ==
[~2019-05-23] VITALS: Ht 157.5 cm; Wt 83.2 kg
[~2019-05-23 20:09] MED LIST changes: -OMEP40CA2 PO; +OMEP40CA97 PO
[2019-05-23] MEDS ORDERED: NAPR220C14 PO (20:26)
[2019-05-23] MEDS ORDERED: ALBUTEROL SULFATE 2.5 MG/0.5 ML INH NEB SOLN NEB ONE (21:00)
[2019-05-23] MEDS ORDERED: LIDOCAINE 2% W/ EPINEPHRINE 1.7 ML DENTAL INJ SM ONE (21:00)
[2019-05-23 21:15] LABS: BASO % 0.6 % (0.0-1.0); EOS # 0.2 10^3/uL (0.0-0.5); EOS % 2.6 % (0.0-3.0); HEMATOCRIT 35.8 % (36.0-47.0); HEMOGLOBIN 12.7 g/dl (12.0-15.5); LYMPH # 2.1 10^3/uL (1.5-5.0); LYMPH % 33.5 % (24.0-44.0); MEAN CORPUSCULAR HEMOGLOBIN 32.6 pg (27.0-33.0); MEAN CORPUSCULAR HGB CONC 35.5 g/dl (32.0-36.5); MONO # 0.5 10^3/uL (0.0-0.8); MONO % 7.9 % (0.0-5.0); NEUTROPHILS # 3.4 10^3/uL (1.5-8.5); NEUTROPHILS % 55.2 % (36.0-66.0); PLATELET COUNT, AUTOMATED 200 10^3/uL (150-450); RED BLOOD COUNT 3.89 10^6/uL (4.00-5.40); WHITE BLOOD COUNT 6.2 10^3/uL (4.0-10.0)
[2019-05-23] MEDS ORDERED: ISOVUE-370 76% 100ML VIAL (Q9967) As Ordered ONE (21:36)
[2019-05-23] MEDS ORDERED: BENZOCAINE 20% GEL 9GM TUBE (ANBESOL MAX STRENGTH) TOP ONE (22:45)
--- NOTE | 2019-05-23 22:46 | REPVR ---
PROCEDURE INFORMATION: Exam: CT Neck With Contrast Exam date and time: 05/23/2019 9:58 PM Clinical history: 58 years old, female; Pain; Other: Jaw; Additional info: Right jaw pain, right neck pain, R/O abscess TECHNIQUE: Imaging protocol: Computed tomography images of the neck with intravenous contrast. Radiation optimization: All CT scans at this facility use at least one of these dose optimization techniques: automated exposure control; mA and/or kV adjustment per patient size (includes targeted exams where dose is matched to clinical indication); or iterative reconstruction. Contrast material: ISOVUE 370; Contrast volume: 75 ml; Contrast route: IV; COMPARISON: CT Neck with contrast 06/06/2014 10:22 PM FINDINGS: Nasopharynx: Unremarkable. Oropharynx: Unremarkable. No significant tonsillar enlargement. Hypopharynx: Unremarkable Larynx: Unremarkable. Normal epiglottis. Retropharyngeal space: Unremarkable. Submandibular/Parotid glands: Normal. Glands are normal in size. Thyroid: Normal. No enlarged or calcified nodules. Lymph nodes: Unremarkable. No lymphadenopathy. Trachea: Visualized trachea is unremarkable. Lungs: Unremarkable as visualized. Dental: Many of the mandibular and maxillary teeth are absent. There is some fluid and air in the socket of the absent right mandibular third molar.No bone destruction or periostitis in the mandible. Bones/joints: No fracture or destructive changes. Soft tissues: No abscess or drainable fluid collection. IMPRESSION: 1. Mild fluid and air in the socket of the absent right third mandibular molar. 2. No abscess or signs of osteomyelitis. Electronically signed by: Pio Driver On 05/23/2019 22:45:57 PM
[2019-05-24] MEDS ORDERED: ACETAMINOPHEN TAB 650MG DOSE (2X325MG) PO ONE
[2019-05-24] MEDS ORDERED: IPRATROPIUM 0.5MG/ALBUTEROL 2.5MG INH SOL UD 3ML (DUONEB)(J7620) NEB ONE ×2 (00:45→01:45)
[2019-05-24] MEDS ORDERED: DOXY100C37 PO ×2 (01:40→02:13)
[2019-05-24] MEDS ORDERED: PRED10TA2 PO (01:40)
[2019-05-24 02:05] VITALS: BP 142/74
[2019-05-24] MEDS ORDERED: DOXYCYCLINE HYCLATE 100 MG TAB PO ONE (02:15)
--- NOTE | 2019-05-24 07:52 | REP ---
Clinical: Cough . Comparison: 02/10/2018 . Technique: PA and lateral. Findings: The mediastinum and cardiac silhouette are normal. The lung cook demonstrate chronic-appearing basilar changes without acute consolidation, effusion, or pneumothorax. Trace atelectasis cannot be excluded. Stable nodular density in the periphery of the right lower lung zone. The skeletal structures are intact and normal. Impression: Chronic-appearing changes. Electronically Signed by Bandar Beltran MD 05/24/2019 07:43 A
== END 2019-05-24 02:38 | disposition home or self-care (01) ==
LOC: M ED 20:09
DX: K02.9 Dental caries, unspecified (principal); G89.18 Other acute postprocedural pain; R68.84 Jaw pain; J44.1 Chronic obstructive pulmonary disease with (acute) exacerbation; J06.9 Acute upper respiratory infection, unspecified; E11.9 Type 2 diabetes mellitus without complications; I10 Essential (primary) hypertension; J45.909 Unspecified asthma, uncomplicated; K58.9 Irritable bowel syndrome, unspecified; F41.9 Anxiety disorder, unspecified; F33.9 Major depressive disorder, recurrent, unspecified; F20.9 Schizophrenia, unspecified; F17.210 Nicotine dependence, cigarettes, uncomplicated; Z79.4 Long term (current) use of insulin; Z79.899 Other long term (current) drug therapy; Z79.51 Long term (current) use of inhaled steroids; Z88.0 Allergy status to penicillin; Z88.2 Allergy status to sulfonamides; Z88.1 Allergy status to other antibiotic agents; Z88.8 Allergy status to other drugs, medicaments and biological substances
CPT/HCPCS: 36415; 64400; 70491; 71046; 80047; 85025; 94640; 99284; Q9967

== ENCOUNTER → 2019-09-08 | Outpatient (CLI) | payer MEDICARE, MEDICAID ==
[~2019-09-08] MED LIST changes: +DOXY100C37 PO; -FLUO20CA19 PO; +FLUO20CA20 PO; +FLUO20CA22 PO; -FLUO20CA8 PO; -LORA0.5T11 PO; +LORA0.5T5 PO; +NAPR220C14 PO; +OMEP1CAP73 PO; -OMEP20CA4 PO; +ONDA-83 PO; -ONDA4TAB5 PO; +OXYB-54 PO; -OXYB5TAB2 PO; +PRED10TA2 PO
[2019-09-08 10:52] LABS: ALBUMIN 4.2 GM/DL (3.2-5.2); ALT/SGPT 29 U/L (12-78); BILIRUBIN,TOTAL 0.5 MG/DL (0.2-1.0); BLOOD UREA NITROGEN 8 MG/DL (7-18); CALCIUM LEVEL 9.1 MG/DL (8.5-10.1); CARBON DIOXIDE LEVEL 31 MEQ/L (21-32); CHLORIDE LEVEL 105 MEQ/L (98-107); CHOLESTEROL LEVEL 168 MG/DL (<200); CHOLESTEROL RISK RATIO 2.896 (<5); CREATININE FOR GFR 0.56 MG/DL (0.55-1.30); GLOMERULAR FILTRATION RATE > 60.0 (>51); GLUCOSE, FASTING 82 MG/DL (70-100); HDL CHOLESTEROL 58 MG/DL (>40); LDL CHOLESTEROL 81 MG/DL (<100); NON-HDL-C 110 MG/DL; POTASSIUM SERUM 4.2 MEQ/L (3.5-5.1); SODIUM LEVEL 141 MEQ/L (136-145); TOTAL PROTEIN 6.8 GM/DL (6.4-8.2); TRIGLYCERIDES LEVEL 146 MG/DL (<150)
[2019-09-08 11:02] LABS: CREATININE, URINE < 13.0 MG/DL; MALB URINE SIEMENS < 5.0 MG/L
[2019-09-08 11:19] LABS: HEMOGLOBIN A1c 6.3 %
== END ==
LOC: M PLALAB 08:05
PROVIDERS: ATTEND Nurse Practitioner Family
DX: E78.2 Mixed hyperlipidemia (principal); E11.9 Type 2 diabetes mellitus without complications

== ENCOUNTER → 2019-12-17 | Outpatient (CLI) | payer MEDICARE, MEDICAID ==
[~2019-12-17] MED LIST changes: +AZEL0.055 NARES; +CETI10CH PO; +CYCL-707 PO; -CYCL10TA PO; +FLON1SPR; +LINZ145C PO; +META58.6 PO; +SENN-80 PO; +SUPE5000 PO; -TREL1AER IN; +TREL1AER INH
== END ==
LOC: M LABSMTC 08:26
PROVIDERS: ATTEND Anesthesiology
DX: Z01.818 Encounter for other preprocedural examination (principal); Z11.59 Encounter for screening for other viral diseases

== ENCOUNTER 2019-12-20 08:53 | Day surgery (SDC) | payer MEDICARE, MEDICAID ==
[~2019-12-20] VITALS: Ht 154.9 cm; Wt 73.0 kg
[~2019-12-20 08:53] MED LIST changes: +NS 1,000 ML IV ONE
[2019-12-20] MEDS ORDERED: propofoL 200 MG/20 ML VIAL As Ordered ONE (11:03)
[2019-12-20] MEDS ORDERED: LIDOCAINE 2% 100MG/5ML SDV (FOR ANES.) As Ordered ONE (11:03)
[2019-12-20] MEDS ORDERED: fentaNYL 100 MCG/2 ML INJECTION (J3010) As Ordered ONE (12:00)
--- NOTE | 2019-12-20 12:43 | ROOR ---
Patient Name: Radha Money Procedure Date: 12/20/2019 12:15 PM Date of : 1960 Age: 59 Room: [facility] Gender: Female Note Status: Finalized Procedure: Upper GI endoscopy Indications: Abdominal pain, Weight loss Providers: Mike DAS MD Referring MD: Denia Ruiz NP Requesting Provider: Medicines: Monitored Anesthesia Care Complications: No immediate complications. Procedure: Pre-Anesthesia Assessment: - The heart rate, respiratory rate, oxygen saturations, blood pressure, adequacy of pulmonary ventilation, and response to care were monitored throughout the procedure. The Endoscope was introduced through the mouth, and advanced to the second part of duodenum. The upper GI endoscopy was accomplished without difficulty. The patient tolerated the procedure well. Findings: The esophagus was normal. The stomach was normal. The examined duodenum was normal. Impression: - Normal esophagus. - Normal stomach. - Normal examined duodenum. - No specimens collected. Recommendation: - Observe patient's clinical course. Mike Das MD Mike DAS MD 12/20/2019 12:43:01 PM Electronically signed by Mike DAS MD Number of Addenda: 0 Note Initiated On: 12/20/2019 12:15 PM Estimated Blood Loss: Estimated blood loss: none.
--- NOTE | 2019-12-20 13:09 | ROOR ---
Patient Name: Radha Celestin Procedure Date: 12/20/2019 12:16 PM Date of : 1960 Age: 59 Room: [facility] Gender: Female Note Status: Finalized Procedure: Colonoscopy Indications: Generalized abdominal pain, Follow-up of diverticulitis, Weight loss Providers: Mike DAS MD Referring MD: Denia Ruiz NP Requesting Provider: Medicines: Monitored Anesthesia Care Complications: No immediate complications. Procedure: Pre-Anesthesia Assessment: - The heart rate, respiratory rate, oxygen saturations, blood pressure, adequacy of pulmonary ventilation, and response to care were monitored throughout the procedure. The Colonoscope was introduced through the anus and advanced to the terminal ileum, with identification of the appendiceal orifice and IC valve. The colonoscopy was performed without difficulty. The patient tolerated the procedure well. The quality of the bowel preparation was good. Findings: The perianal and digital rectal examinations were normal. Two sessile polyps were found in the mid sigmoid colon (at 19 cm from verge). The polyps were 3 to 10 mm in size. These polyps were removed with a hot snare. Resection and retrieval were complete. Multiple small-mouthed diverticula were found in the sigmoid colon. Internal hemorrhoids were found during retroflexion. The hemorrhoids were medium-sized. The exam was otherwise without abnormality on direct and retroflexion views. Impression: - Two 3 to 10 mm polyps in the mid sigmoid colon , removed with a hot snare. Resected and retrieved. - Diverticulosis in the sigmoid colon. - Internal hemorrhoids. - The examination was otherwise normal on direct and retroflexion views. Recommendation: - Repeat colonoscopy in 3 years for surveillance. - Telephone endoscopist for pathology results in 2 weeks. - No ibuprofen, naproxen, or other non-steroidal anti-inflammatory drugs for 10 days after polyp removal. Mike Das MD Mike DAS MD 12/20/2019 1:08:46 PM Electronically signed by Mike DAS MD Number of Addenda: 0 Note Initiated On: 12/20/2019 12:16 PM Estimated Blood Loss: Estimated blood loss: none.
[2019-12-20 13:48] VITALS: BP 150/83
== END 2019-12-20 13:48 | disposition home or self-care (01) ==
LOC: M OPP 08:53
PROVIDERS: ATTEND Internal Medicine Gastroenterology
DX: K63.5 Polyp of colon (principal); K64.8 Other hemorrhoids; K57.32 Diverticulitis of large intestine without perforation or abscess without bleeding; K57.30 Diverticulosis of large intestine without perforation or abscess without bleeding; R63.4 Abnormal weight loss; R10.84 Generalized abdominal pain; J44.9 Chronic obstructive pulmonary disease, unspecified; E11.9 Type 2 diabetes mellitus without complications; F17.210 Nicotine dependence, cigarettes, uncomplicated; Z79.4 Long term (current) use of insulin; Z79.891 Long term (current) use of opiate analgesic; Z79.899 Other long term (current) drug therapy; Z88.0 Allergy status to penicillin; Z88.2 Allergy status to sulfonamides; Z88.5 Allergy status to narcotic agent; Z88.8 Allergy status to other drugs, medicaments and biological substances
CPT/HCPCS: 43235; 45385; 88305; J3010

== ENCOUNTER → 2020-05-15 | Outpatient (REF) | payer MEDICARE, MEDICAID ==
[~2020-05-15] MED LIST changes: -ASPI81TA85 PO; +ASPI81TA86 PO; +CALC600T17 PO; -CALC600T6 PO; -NS 1,000 ML IV ONE; +RISP-10; +RISP-7 PO; +RISP-8 PO; +RISP-9 PO; -RISP0.5T3 PO; -RISP1TAB3 PO; -RISP2TAB3 PO; -RISP3TAB3
[2020-05-15 13:58] LABS: BASO # 0.1 10^3/uL (0.0-0.2); BASO % 0.8 % (0.0-1.0); EOS # 0.3 10^3/uL (0.0-0.5); EOS % 3.6 % (0.0-3.0); HEMATOCRIT 39.7 % (36.0-47.0); HEMOGLOBIN 13.5 g/dl (12.0-15.5); LYMPH # 2.3 10^3/uL (1.5-5.0); LYMPH % 30.6 % (24.0-44.0); MEAN CORPUSCULAR HEMOGLOBIN 31.3 pg (27.0-33.0); MEAN CORPUSCULAR VOLUME 92.1 fl (80.0-96.0); MONO # 0.4 10^3/uL (0.0-0.8); MONO % 5.9 % (0.0-5.0); NEUTROPHILS # 4.4 10^3/uL (1.5-8.5); NEUTROPHILS % 58.8 % (36.0-66.0); PLATELET COUNT, AUTOMATED 201 10^3/uL (150-450); RED BLOOD COUNT 4.31 10^6/uL (4.00-5.40); WHITE BLOOD COUNT 7.4 10^3/uL (4.0-10.0)
[2020-05-15 14:01] LABS: ALT/SGPT 18 U/L (12-78); BILIRUBIN,TOTAL 0.4 MG/DL (0.2-1.0); BLOOD UREA NITROGEN 6 MG/DL (7-18); CALCIUM LEVEL 9.4 MG/DL (8.5-10.1); CARBON DIOXIDE LEVEL 27 MEQ/L (21-32); CHLORIDE LEVEL 106 MEQ/L (98-107); CREATININE FOR GFR 0.62 MG/DL (0.55-1.30); GLOMERULAR FILTRATION RATE > 60.0 (>51); GLUCOSE, FASTING 96 MG/DL (70-100); POTASSIUM SERUM 3.9 MEQ/L (3.5-5.1); SODIUM LEVEL 139 MEQ/L (136-145); TOTAL PROTEIN 6.4 GM/DL (6.4-8.2)
[2020-05-15 14:09] LABS: TOTAL 25(OH) VITAMIN D 27.2 NG/ML (30.0-100.0)
== END ==
LOC: M SFHCPLAZ 10:20
PROVIDERS: ATTEND Nurse Practitioner Family
DX: J01.10 Acute frontal sinusitis, unspecified (principal); E11.29 Type 2 diabetes mellitus with other diabetic kidney complication; E55.9 Vitamin D deficiency, unspecified
CPT/HCPCS: 36415; 80053; 82306; 83036; 85025; G0463

== ENCOUNTER → 2020-08-01 | Outpatient (REF) | payer MEDICAID, MEDICARE, OTHER ==
[~2020-08-01] MED LIST changes: -LISI-538 PO; +LISI10TA22 PO; -LISI10TA4 PO; +LISI20TA33 PO
== END ==
LOC: M SFHCPLAZ 13:00
PROVIDERS: ATTEND Nurse Practitioner Family
DX: J06.9 Acute upper respiratory infection, unspecified (principal)
CPT/HCPCS: 90832; 96372; G0463; U0003

== ENCOUNTER → 2020-08-22 | Outpatient (CLI) | payer OTHER, MEDICAID ==
[~2020-08-22] MED LIST changes: +LISI-538 PO; -LISI10TA22 PO; +LISI10TA4 PO; -LISI20TA33 PO
== END ==
LOC: M LABSMTC 12:31
PROVIDERS: ATTEND Family Medicine
DX: Z20.822 Contact with and (suspected) exposure to COVID-19 (principal)
CPT/HCPCS: C9803; U0003

== ENCOUNTER → 2020-12-05 | Outpatient (REF) | payer OTHER, MEDICAID ==
[~2020-12-05] MED LIST changes: -LISI-538 PO; +LISI10TA22 PO; -LISI10TA4 PO; +LISI20TA33 PO
[2020-12-05 14:35] LABS: ALBUMIN 4.1 GM/DL (3.2-5.2); ALT/SGPT 23 U/L (12-78); BILIRUBIN,TOTAL 0.3 MG/DL (0.2-1.0); BLOOD UREA NITROGEN 6 MG/DL (7-18); CALCIUM LEVEL 9.5 MG/DL (8.5-10.1); CARBON DIOXIDE LEVEL 29 MEQ/L (21-32); CHLORIDE LEVEL 105 MEQ/L (98-107); CREATININE FOR GFR 0.52 MG/DL (0.55-1.30); GLOMERULAR FILTRATION RATE > 60.0 (>51); GLUCOSE, FASTING 143 MG/DL (70-100); SODIUM LEVEL 139 MEQ/L (136-145); TOTAL 25(OH) VITAMIN D 46.7 NG/ML (30.0-100.0); TOTAL PROTEIN 6.5 GM/DL (6.4-8.2)
[2020-12-05 14:40] LABS: HEMOGLOBIN A1c 6.1 %
[2020-12-05 14:46] LABS: CREATININE, URINE < 13.0 MG/DL; MALB URINE SIEMENS < 5.0 MG/L
== END ==
LOC: M SFHCPLAZ 10:40
PROVIDERS: ATTEND Nurse Practitioner Family
DX: E11.29 Type 2 diabetes mellitus with other diabetic kidney complication (principal); E55.9 Vitamin D deficiency, unspecified
CPT/HCPCS: 36415; 80053; 82043; 82306; 83036; G0463

== ENCOUNTER 2021-01-10 10:04 | Emergency (ER) | payer OTHER, MEDICAID ==
[~2021-01-10] VITALS: Ht 157.5 cm; Wt 81.4 kg
[~2021-01-10 10:04] MED LIST changes: -DOXY100C37 PO; +DOXY1CAP62 PO; +OMEP40CA4 PO; -OMEP40CA97 PO
[2021-01-10 11:00] LABS: BASO % 0.5 % (0.0-1.0); EOS # 0.4 10^3/uL (0.0-0.5); EOS % 4.6 % (0.0-3.0); HEMATOCRIT 41.7 % (36.0-47.0); HEMOGLOBIN 14.4 g/dl (12.0-15.5); LYMPH # 2.4 10^3/uL (1.5-5.0); MEAN CORPUSCULAR HEMOGLOBIN 31.8 pg (27.0-33.0); MEAN CORPUSCULAR HGB CONC 34.5 g/dl (32.0-36.5); MEAN CORPUSCULAR VOLUME 92.1 fl (80.0-96.0); MONO # 0.5 10^3/uL (0.0-0.8); MONO % 6.9 % (2.0-8.0); NEUTROPHILS # 4.5 10^3/uL (1.5-8.5); NEUTROPHILS % 57.6 % (36.0-66.0); PLATELET COUNT, AUTOMATED 218 10^3/uL (150-450); RED BLOOD COUNT 4.53 10^6/uL (4.00-5.40); WHITE BLOOD COUNT 7.9 10^3/uL (4.0-10.0)
[2021-01-10] MEDS ORDERED: IBUP-1022 (11:23)
[2021-01-10 11:25] LABS: ALBUMIN 3.8 GM/DL (3.2-5.2); BILIRUBIN,DIRECT 0.1 MG/DL (0.0-0.2); BILIRUBIN,TOTAL 0.3 MG/DL (0.2-1.0); TOTAL PROTEIN 6.3 GM/DL (6.4-8.2)
[2021-01-10] MEDS ORDERED: ISOVUE-370 76% 100ML VIAL As Ordered ONE (12:07)
--- NOTE | 2021-01-10 12:38 | REP ---
INDICATION: crackles, wheezing FARNAZ. COMPARISON: Multiple the latest 05/23/2019 FINDINGS: The cardiomediastinal silhouette lung cook are unchanged. Unchanged nodular densities persist in the right lower lobe. No new patchy parenchymal opacities or pleural effusions have developed. The heart is not enlarged. The pleural angles are sharp. The osseous structures are stable and intact. IMPRESSION: There is no acute cardiopulmonary disease. <Electronically signed by Bulmaro Shane > 01/10/21 [id number]
--- NOTE | 2021-01-10 12:42 | REP ---
INDICATION: hx divreticulitis, LLQ pain, constipation x 7 days. COMPARISON: Multiple the latest 03/16/2019 TECHNIQUE: Standard helical technique after the intravenous administration of 100 cc Isovue 370. FINDINGS: There is no change in the lung bases. The liver, gallbladder, spleen, pancreas, adrenal glands, and kidneys are unchanged. The abdominal aorta and para-aortic regions are unchanged. The bowel loops and the mesenteries are essentially unchanged. There is no free fluid or free air. There is no mass or adenopathy. Stable right ovarian enlargement which has been stable for many many years. Other priors reviewed as well. The osseous structures are stable. IMPRESSION: No acute intra-abdominal or intrapelvic disease. Findings as described above. <Electronically signed by Bulmaro Shane > 01/10/21 1415
[2021-01-10 13:10] VITALS: BP 138/80
== END 2021-01-10 13:43 | disposition home or self-care (01) ==
LOC: M ED 10:04
DX: R10.9 Unspecified abdominal pain (principal); E11.9 Type 2 diabetes mellitus without complications; I10 Essential (primary) hypertension; E78.5 Hyperlipidemia, unspecified; J45.909 Unspecified asthma, uncomplicated; J44.9 Chronic obstructive pulmonary disease, unspecified; Z87.01 Personal history of pneumonia (recurrent); Z87.448 Personal history of other diseases of urinary system; Z79.84 Long term (current) use of oral hypoglycemic drugs; Z79.899 Other long term (current) drug therapy; Z88.0 Allergy status to penicillin; Z88.2 Allergy status to sulfonamides; Z88.1 Allergy status to other antibiotic agents; Z88.5 Allergy status to narcotic agent; Z88.8 Allergy status to other drugs, medicaments and biological substances
CPT/HCPCS: 71046; 74177; 80047; 80076; 81001; 83690; 85025; 99284; Q9967

== ENCOUNTER → 2021-01-18 | Outpatient (REF) | payer OTHER, MEDICAID ==
[~2021-01-18] MED LIST changes: +IBUP-1022
== END ==
LOC: M SFHCPLAZ 13:22
PROVIDERS: ATTEND Physician Assistant
DX: J44.1 Chronic obstructive pulmonary disease with (acute) exacerbation (principal)
CPT/HCPCS: 81002; 87426; 96372; G0463; U0003

== ENCOUNTER 2021-03-20 16:38 | Emergency (ER) | payer OTHER, MEDICAID ==
[~2021-03-20] VITALS: Ht 157.5 cm; Wt 76.4 kg
[2021-03-20 16:38] VITALS: BP 141/66
[2021-03-20] MEDS ORDERED: INVE117I IM (18:40)
== END 2021-03-20 23:41 | disposition left against medical advice (07) ==
LOC: M ED 16:38
DX: Z53.21 Procedure and treatment not carried out due to patient leaving prior to being seen by health care provider (principal)

== ENCOUNTER 2021-04-30 10:52 | Emergency (ER) | payer OTHER, MEDICAID ==
[~2021-04-30] VITALS: Ht 157.5 cm; Wt 76.4 kg
[2021-04-30 11:33] LABS: BASO # 0.1 10^3/uL (0.0-0.2); BASO % 0.9 % (0.0-1.0); EOS # 0.3 10^3/uL (0.0-0.5); EOS % 4.7 % (0.0-3.0); HEMATOCRIT 41.9 % (36.0-47.0); HEMOGLOBIN 14.7 g/dl (12.0-15.5); LYMPH # 2.1 10^3/uL (1.5-5.0); LYMPH % 31.4 % (24.0-44.0); MEAN CORPUSCULAR HGB CONC 35.1 g/dl (32.0-36.5); MEAN CORPUSCULAR VOLUME 91.3 fl (80.0-96.0); MONO # 0.3 10^3/uL (0.0-0.8); MONO % 5.1 % (2.0-8.0); NEUTROPHILS # 3.8 10^3/uL (1.5-8.5); NEUTROPHILS % 57.7 % (36.0-66.0); PLATELET COUNT, AUTOMATED 239 10^3/uL (150-450); RED BLOOD COUNT 4.59 10^6/uL (4.00-5.40); WHITE BLOOD COUNT 6.6 10^3/uL (4.0-10.0)
--- NOTE | 2021-04-30 11:36 | REP ---
INDICATION: CHEST PAIN. COMPARISON: January 10, 2021. TECHNIQUE: Portable upright AP chest radiograph. FINDINGS: The lungs are well inflated and free of infiltrate. Pleural angles are sharp. Heart size is normal. Pulmonary vasculature is not increased. There are granulomatous calcifications at the right base again noted. IMPRESSION: No active disease. <Electronically signed by Ward Bland > 04/30/21 [id number]
[2021-04-30 12:05] LABS: ALBUMIN 3.8 GM/DL (3.2-5.2); ALT/SGPT 26 U/L (12-78); BILIRUBIN,DIRECT < 0.1 MG/DL (0.0-0.2); BILIRUBIN,TOTAL 0.2 MG/DL (0.2-1.0); BLOOD UREA NITROGEN 10 MG/DL (7-18); CALCIUM LEVEL 9.3 MG/DL (8.5-10.1); CARBON DIOXIDE LEVEL 26 MEQ/L (21-32); CHLORIDE LEVEL 105 MEQ/L (98-107); CREATININE FOR GFR 0.51 MG/DL (0.55-1.30); GLOMERULAR FILTRATION RATE > 60.0 (>51); GLUCOSE, FASTING 125 MG/DL (70-100); LIPASE 72 U/L (73-393); NT-PRO BNP 156 PG/ML (<125); SODIUM LEVEL 136 MEQ/L (136-145); THYROID STIMULATING HORMONE 0.951 uIU/ML (0.358-3.740); TOTAL PROTEIN 6.4 GM/DL (6.4-8.2)
[2021-04-30] MEDS ORDERED: ISOVUE-370 76% 100ML VIAL As Ordered ONE (12:16)
--- NOTE | 2021-04-30 12:37 | REP ---
INDICATION: CP COMPARISON: None. TECHNIQUE: Axial contrast enhanced images from the thoracic inlet to the upper abdomen using pulmonary embolus technique with multiplanar re-formations. 75 ml Isovue 370 intravenous contrast material administered without complication. This CT examination was performed using the following dose reduction techniques: Automated exposure control, adjustment of mA and/or kv according to the patient's size, and use of iterative reconstruction technique. FINDINGS: Satisfactory enhancement of the pulmonary vasculature is achieved and no filling defects are identified to suggest pulmonary embolus. Lung cook demonstrate chronic interstitial changes along with prior granulomatous disease including few calcified granulomata and calcified mediastinal/subcarinal lymph nodes. No acute consolidation, suspicious nodule or mass. No effusion. No pneumothorax. Tracheobronchial tree is patent. Further evaluation of the mediastinum demonstrates normal thoracic aorta without aneurysm or dissection. Atherosclerotic changes to the coronary arteries and mitral valve annulus noted with mild cardiomegaly and trace pericardial fluid. Limited upper abdomen demonstrates splenic calcifications consistent with granulomatous disease and normal bilateral adrenal glands. IMPRESSION: No evidence for pulmonary embolus. Prior granulomatous disease. No acute mediastinal or pleuroparenchymal process. <Electronically signed by Bandar Beltran > 04/30/21 [id number]
[2021-04-30 15:31] VITALS: BP 135/62
--- NOTE | 2021-05-01 17:31 | ECGEPIP ---
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
== END 2021-04-30 15:58 | disposition home or self-care (01) ==
LOC: M ED 10:52 → EDBD 10:52 → M ED 15:58
DX: R07.9 Chest pain, unspecified (principal); I45.19 Other right bundle-branch block; E11.9 Type 2 diabetes mellitus without complications; I10 Essential (primary) hypertension; E78.5 Hyperlipidemia, unspecified; J44.9 Chronic obstructive pulmonary disease, unspecified; F43.10 Post-traumatic stress disorder, unspecified; F20.9 Schizophrenia, unspecified; F17.200 Nicotine dependence, unspecified, uncomplicated; Z79.84 Long term (current) use of oral hypoglycemic drugs; Z79.899 Other long term (current) drug therapy; Z88.0 Allergy status to penicillin; Z88.2 Allergy status to sulfonamides; Z88.1 Allergy status to other antibiotic agents; Z88.5 Allergy status to narcotic agent; Z88.8 Allergy status to other drugs, medicaments and biological substances
CPT/HCPCS: 71045; 71275; 80048; 80076; 83690; 83880; 84443; 84484; 85025; 93005; 93041; 94760; 99285; Q9967

== ENCOUNTER 2021-05-11 23:58 | Emergency (ER) | payer OTHER, MEDICAID ==
[~2021-05-11] VITALS: Ht 157.5 cm; Wt 81.4 kg
[2021-05-11 23:59] VITALS: BP 176/76
--- OUTSIDE RECORDS SUMMARY | 2021-05-12 00:09 | CCD ---
Author Author [facility] Organization [facility] Address Unknown Phone Unavailable Care Team Providers Care Audiology Assistant Name Role Phone Denia Ruiz Unavailable PROBLEMS Type Condition ICD9-CM Code [id number] Code Onset Dates Condition S tatus W/U Status Risk SNOMED Code Notes Problem Bilateral low back pain, with sciatica presence unspecifie d M54.5 Active confirmed 503706340 Problem Gastroesophageal reflux disease without esophagitis K21.9 Active confirmed 245951647 Problem Other mental problems F99 Active confirmed 460582902 Problem Mixed hyperlipidemia E78.2 Active confirmed 022806804 Problem Vitamin D deficiency E55.9 Active confirmed 28463060 Problem Smoker F17.200 Active confirmed 82760308 Problem Chronic obstructive pulmonary disease, unspecified COPD ty pe J44.9 Active confirmed 53570515 Problem Other chronic pain G89.29 Active confirmed 8 2305384 Problem Allergic rhinitis J30.9 Active confirmed 61 053795 Problem Lumbar back pain with radiculopathy affecting ri ght lower extremity M54.17 Active confirmed 039534229 Problem Bladder spasms N32.89 Active confirmed 32899 7006 Problem 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.816 Active confirmed 14585448 Problem Spondylosis of lumbosacral region without myelop athy or radiculopathy M47.817 Active confirmed 67338803 Problem Chronic airway obstruction, not elsewhere classified J44.9 Active confirmed 33336621 Problem COPD exacerbation J44.1 Active confirmed 19 6837938 Problem Tobacco use disorder Z72.0 Active confirmed 50017870 Problem DM w/o complication type II E11.9 Active confirmed 82556580 Problem Essential hypertension I10 Active confirmed 74640522 Problem OAB (overactive bladder) N32.81 Active confirmed 412114320 Problem Limited mobility Z74.09 Active confirmed 851 0008 Problem Retention of urine, unspecified R33.9 Active confi rmed 041014191 Problem Type 2 diabetes mellitus wit h hyperglycemia, unspecified intermediate frame tender insulin use status E11.65 Active confirmed 42487105517 9109 Problem Spinal stenosis of cervical region M48.02 Activ e confirmed 45241858 Problem Arthralgia of multiple joints M25.50 Active confirm ed 66632675 Problem Cervical disc herniation M50.20 Active confirmed 658799897 Problem Sacroiliitis, not elsewhere classified M46.1 A ctive confirmed 59011466 Problem Other intervertebral disc degeneration, lumbar region M51.36 Active confirmed 41466353 Problem Intervertebral disc disorder with radiculopathy of lumbar region M51.16 Active confirmed 75210970 Problem Intervertebral disc disorder with radiculopathy of lumbosacral region M51.17 Active confirmed 06862857 Problem Myofascial muscle pain M79.1 Active confirmed 994747256 Problem Fibromyalgia M79.7 Active confirmed 5470207 05 Problem Degenerative lumbar spinal stenosis M48.061 Acti ve confirmed 948272532 Problem Other osteoarthritis of spine, unspecified spinal region M47.899 Active confirmed 1703795 Problem manager terminal current use of 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 Active conf irmed 303477124 Problem Type 2 diabetes mellitus without complications E11 .9 Active confirmed 166803842 Problem Osteoarthritis of right hand, unspecified osteoarthrit is type M19.041 Active confirmed 069388657065549 Problem Cigarette nicotine dependence without complication F17.210 Active confirmed 31830518 Problem Axillary hidradenitis suppurativa L73.2 Active confirmed 560466560 Problem Skin candidiasis B37.2 Active confirmed 498 78091 Problem Diverticulitis K57.92 Active confirmed 76825 6006 Problem Acute constipation K59.00 Active confirmed 1 91648016 Problem Lumbar herniated disc M51.26 Active confirmed 926453953 Problem Diverticulitis of large inte heydi without perforation or abscess without bleeding K57.32 Active confirmed 8088323 Problem Polyneuropathy G62.9 Active confirmed 50904 000 Problem Lumbar degenerative disc disease M51.36 Active conf irmed 42695190 Problem Proteinuria, unspecified R80.9 Active confirmed 63820026 Problem Type 2 diabetes mellitus with other diabetic kid walt complication E11.29 Active confirmed 65749540 Problem Cigarette nicotine dependence with other nicotin e-induced disorder F17.218 Active confirmed 62689511658439941 Problem Rosacea L71.9 Active confirmed 548479547 ALLERGIES Allergen (clinical drug ingredient) Drug/Non Drug Allergy do cumented on EMR Reaction Allergy Type Onset Date Status Penicillin (For Allergies Use Only) Rash Drug Allerg y Active meclizine Meclizine HCl([facility] Code:[address]-12) heart racing Drug Al lergy Active lithium carbonate Lithobid([facility] Code:[address]-01) rash Drug Al lergy Active paroxetine Paxil([facility] Code:[address]-28) Rash Drug Allergy Active codeine Codeine Sulfate([facility] Code:[address]-27) Rash Drug Al lergy Active clindamycin Clindamycin HCl([facility] Code:[address]-14) psychoses Drug A llergy Active Sulfa (for allergy use only) Hives Drug Allergy Active ENCOUNTERS from 1960 to 2021-05-09 Encounter Location Date Provider Diagnosis [place] [id number] [facility] [phone] [place] [address] 13 Apr, 2021 Denia Ruiz IMMUNIZATIONS Vaccine Route Administration Date Status COVID-19 dose #2 given elsewhere Unspecified Unknown Oct Administered COVID-19 dose #1 given elsewhere Unspecified Unknown December 05, 2020 Administered Influenza 18 yrs & older Flublok IM Intramuscular May 26, 2018 Administered Influenza 6mo & up Fluzone IM Intramuscular Jul 22, 2016 Admi nistered Influenza 6mo & up Fluzone IM Intramuscular Jun 07, 2015 Admi nistered Influenza 6mo & up Fluzone IM Intramuscular Apr 18, 2014 Admi nistered Influenza 18 yrs & older Flublok IM Intramuscular Jul 15, 2019 Administered Influenza 6mo & up Fluzone IM Intramuscular Apr 22, 2013 Admi nistered Influenza 18 yrs & older Flublok IM Intramuscular May 23, 2020 Administered Influenza 6mo & up Fluzone IM Intramuscular Jun 02, 2012 Admi nistered Influenza 6mo & up Fluzone IM Intramuscular Aug 20, 2011 Admi nistered SOCIAL HISTORY Tobacco Use: Social History Observation Description Date Details (start date - stop date) Current Smoker Sex Assigned At : Social History Observation Description Sex Assigned At Unknown Education: Question Answer Notes Level of Education: Not finished High School Audit Question Answer Notes Total Score: 0 Interpretation: Alcohol Education Language: Question Answer Notes Languages spoken: Vietnamese Pentecostalism: Question Answer Notes Pentecostalism 05 Advent Sexual Hx: Question Answer Notes Had sex in the last 12 months (vaginal, oral, or anal)? No Have you ever had an STD? No Drug and Alcohol Question Answer Notes Total Score: 0 Interpretation: No problems reported Alcohol Screening: Question Answer Notes Did you have a drink containing alcohol in the past year? No Points 0 Interpretation Negative BMI Care Goal Follow-Up Question Answer Notes Above Normal BMI Follow-Up Dietary management educatio n, guidance, and counseling Tobacco Use: Question Answer Notes Are you a: current smoker Smoking Cessation Information Given 01/18/2021 Patient counseled on the dangers of tobacco use and urged to quit: 01/18/2021 How many cigarettes a day do you smoke? 11-20 Are you interested in quitting? Not ready to quit Counseled the patient on smoking effects, education provided 01/18/2021 REASON FOR REFERRAL No Information VITAL SIGNS No information MEDICATIONS Medication SIG (Take, Route, Frequency, Duration) Notes Start Da te End Date Status May Have - replace batteries and labor Dx:Z74.09 , M51.17 Service moterized wheelchair May, Active Lancets 1 - subcutaneously twice daily DX: E11.9 for 30 day(s) Active Heating Pad - as directed DX: M54.17 Daily to low back as needed Jul, Active Calcium 600-D 600-400 MG-UNIT 1 tablet with food Orally Once a day Active Ventolin HFA 108 (90 Base) MCG/ACT 2 puffs Inhalation every 4 hrs as needed for 82 Active Metamucil 28 % 1 packet with 8 ounces of li quid as needed Orally Three times a day for 30 Days Active Rolling Walker 1 with seat and cane zamudio DX : M51.17 Wt 176#, height 63.5 Daily for 99 days Jan, Active Invega Sustenna 78 MG/0.5ML INJECT 1 SYRINGE INTRAMUSC ULARLY ONCE A MONTH DIRECTED Intramuscular for 30 Ac tive Senna 8.6 MG 1 tablets at bedtime as needed Orally Once a day for 30 days Active tiZANidine HCl 4 MG take 1 tablet by mouth three times daily as neede d Active DuoNeb 0.5-2.5 (3) MG/3ML 3 ml Inhalation Four times a day as needed Active Azelastine HCl 0.1 % 2 puff in each nostril Nasally Twice a day for 30 day(s) Jun, Active Scooter Chair power chair DX: M48.61, M54.17, M48.02 Daily for 99 months May, Active Tradjenta 5 MG 1 tablet Orally Once a day with meal for 30 days Active Ativan 0.5 MG 1 tablet twice a day Orally twice daily Kauffman Active Azithromycin 250 MG 2 tablet on the first day, then 1 tablet daily for 4 days Orally Once a day for 5 day(s) Apr, A ctive Ondansetron HCl 4 MG 1 tablet Orally bid Active Breztri Aerosphere 160-9-4.8 MCG/ACT 2 puffs Inhalation Twic e a day for 30 days Jan, Active Ibuprofen 600 MG 1 tablet with food or milk a s needed Orally Three times a day as needed for pain for 30 Days A ctive Cane - as directed DX: M51.17 Daily for 99 days Feb Active metFORMIN HCl ER 500 MG TAKE 1 TABLET BY MOUTH TWICE DAILY for 90 Active Clotrimazole-Betamethasone 1-0.05 % APPLY TOPICALLY TW O TIMES A DAY FOR 2 WEEKS External for 14 Active Docusate Sodium 100 MG 1 capsule Orally twice daily as needed for 30 days Active Lyrica 200 MG 1 capsule Orally twice a day MDD 2 for 30 days Mar, Active Drisdol 65003 UNIT 1 capsule with meal Orally Once a week Active Shower Chair without wheels as directed DX: M51.17, Z7 4.09 Daily Use Medicaid # [id number] for 90 day(s) Jun, Active Bisacodyl 10 MG _insert TWO SUPPOSITORIES RECTALLY EVERY DAY Rectal for 30 Active Atorvastatin Calcium 80 MG 1 tab orally Daily Active Nebulizer - as directed DX: J44.9 every 4 hours as needed fo r 99 months Apr, Active traMADol HCl 50 MG 1 tablet Orally Every 6 hour s as needed for pain mdd 4 for 30 days Apr, Active Levaquin 500 MG 1 tablet Orally Once a day for 7 day(s) Feb, Active metroNIDAZOLE 0.75 % 1 application Externally to cheeks Twice a day November, Active Omeprazole 20 MG take two capsules by mouth o nce daily before a meal orally Daily for 90 Active Flonase 50 MCG/ACT 1 spray in each nostril Nasally twice daily Active Nebulizer/Tubing/Mouthpiece Dx 491.21 dx: j44.9 - 4-6 times a day as needed for 90 days Apr, Active ZyrTEC Allergy 10 mg 1 tablet Orally daily Active Lisinopril 10 MG 1 tablet Orally Once a day for 90 Active Raised Toilet Seat/Lock & Arms - as directed DX: M51.1 7, Z74.09 Daily Medicaid #[id number] for 90 day(s) Aug, Active PROCEDURES No Information RESULTS No Results REASON FOR VISIT CT? Allergies? MEDICAL (GENERAL) HISTORY Type Description Date Medical History PTSD - Dr Kauffman Medical History schizophrenia - Dr Kauffman Medical History COPD - PFT 12/07: FEV1 = 1.72, 64% Medical History fatty liver Medical History hx ETOH abuse Medical History Hiatal hernia/ GERD Medical History back pain Medical History stress urinary incontinence Medical History asthma Medical History type II diabetes Medical History mixed hyperlipidemia Medical History Essential Hypertension - ECG 06/07 Medical History chronic pelvic pain and dyspareunia Medical History perimenopause Medical History right ovarian cysts (07/08) Medical History Candidiasis of mouth Medical History Chronic obstructive asthma, unspecified Medical History Pain in joint, shoulder region Medical History Unspecified vitamin D deficiency Medical History Plantar fasciitis Medical History Pain in joint, multiple sites Medical History Thyroid nodule Medical History Low back pain, bilateral with sciatic p ain Medical History Allergic rhinitis Medical History Low magnesium levels Medical History Other mental problems Medical History Remote Hx of substane abuse (alcohol, ga th) Medical History Nicotine dependance Surgical History partial hysterectomy with ovarian preser vation 86 Surgical History lung biopsy RLL Surgical History L hand 95,96 Surgical History colonoscopy 06/10/13 Surgical History cataract surgery both eyes 11/15/15 and Surgical History Right carpal tunnel 04/2017 Surgical History Left trigger finger 03/2019 Surgical History EGD, Colonoscopy w/ polyps - [facility] 11/25 0 Hospitalization History COPD exacerbation - [facility] 05/06 - 05/09/15 [facility] History [facility] - psychotic episode, paranoid s chizophrenia, PTSD 02/10/18-02/15/18 Hospitalization History stomach/cough 12/2020 Goals Section No Information Health Concerns No Information MEDICAL EQUIPMENT No Information MENTAL STATUS No Information FUNCTIONAL STATUS No Information ASSESSMENTS No Information PLAN OF TREATMENT Medication Medication Name Sig Start Date Stop Date Flonase 50 MCG/ACT 1 spray in each nostril Nasally twice daily ZyrTEC Allergy 10 mg 1 tablet Orally daily Ibuprofen 600 MG 1 tablet with food or milk a s needed Orally Three times a day as needed for pain for 30 Days Azithromycin 250 MG 2 tablet on the first day, then 1 tablet daily for 4 days Orally Once a day for 5 day(s) Apr, traMADol HCl 50 MG 1 tablet Orally Every 6 hour s as needed for pain mdd 4 for 30 days Apr, Next Appt Details Provider Name:[place], 2021-- 01:00:00 PM, [address] [facility], , [place], [address], Insurance Providers Payer Name Payer Address Payer Phone Insured Name Patient Relati onship to Insured Coverage Start Date Coverage End Date [employer] GOLD [address] [address] [facility] [id number] [address] [place] self [facility] [address] [facility] [id number] [phone] [address] [place]QUE[place] self
--- OUTSIDE RECORDS SUMMARY | 2021-05-12 00:09 | CCD ---
Author Author [facility] Organization [facility] Address Unknown Phone Unavailable Care Team Providers Care Parts Cleaner Name Role Phone Lanette Page Unavailable PROBLEMS Type Condition ICD9-CM Code JUV13-HE Code Onset Dates Condition S tatus W/U Status Risk SNOMED Code Notes Problem Bilateral low back pain, with sciatica presence unspecifie d M54.5 Active confirmed 526369439 Problem Gastroesophageal reflux disease without esophagitis K21.9 Active confirmed 388980838 Problem Other mental problems F99 Active confirmed 339076738 Problem Mixed hyperlipidemia E78.2 Active confirmed 875557940 Problem Vitamin D deficiency E55.9 Active confirmed 55785699 Problem Smoker F17.200 Active confirmed 55527815 Problem Chronic obstructive pulmonary disease, unspecified COPD ty pe J44.9 Active confirmed 53096226 Problem Other chronic pain G89.29 Active confirmed 8 4869167 Problem Allergic rhinitis J30.9 Active confirmed 61 489926 Problem Lumbar back pain with radiculopathy affecting ri ght lower extremity M54.17 Active confirmed 981181113 Problem Bladder spasms N32.89 Active confirmed 65396 7006 Problem 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.816 Active confirmed 28286110 Problem Spondylosis of lumbosacral region without myelop athy or radiculopathy M47.817 Active confirmed 25489892 Problem Chronic airway obstruction, not elsewhere classified J44.9 Active confirmed 55559753 Problem COPD exacerbation J44.1 Active confirmed 19 3243987 Problem Tobacco use disorder Z72.0 Active confirmed 99085107 Problem DM w/o complication type II E11.9 Active confirmed 68264608 Problem Essential hypertension I10 Active confirmed 83120453 Problem OAB (overactive bladder) N32.81 Active confirmed 609032053 Problem Limited mobility Z74.09 Active confirmed 851 0008 Problem Retention of urine, unspecified R33.9 Active confi rmed 655688040 Problem Type 2 diabetes mellitus wit h hyperglycemia, unspecified care home insulin use status E11.65 Active confirmed 15857401918 9109 Problem Spinal stenosis of cervical region M48.02 Activ e confirmed 09898735 Problem Arthralgia of multiple joints M25.50 Active confirm ed 99000779 Problem Cervical disc herniation M50.20 Active confirmed 657456083 Problem Sacroiliitis, not elsewhere classified M46.1 A ctive confirmed 77675454 Problem Other intervertebral disc degeneration, lumbar region M51.36 Active confirmed 67252011 Problem Intervertebral disc disorder with radiculopathy of lumbar region M51.16 Active confirmed 18316601 Problem Intervertebral disc disorder with radiculopathy of lumbosacral region M51.17 Active confirmed 97735411 Problem Myofascial muscle pain M79.1 Active confirmed 236554634 Problem Fibromyalgia M79.7 Active confirmed 9901739 05 Problem Degenerative lumbar spinal stenosis M48.061 Acti ve confirmed 749604321 Problem Other osteoarthritis of spine, unspecified spinal region M47.899 Active confirmed 8286190 Problem 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 Active conf irmed 951699286 Problem Type 2 diabetes mellitus without complications E11 .9 Active confirmed 557167463 Problem Osteoarthritis of right hand, unspecified osteoarthrit is type M19.041 Active confirmed 022558133405032 Problem Cigarette nicotine dependence without complication F17.210 Active confirmed 35777113 Problem Axillary hidradenitis suppurativa L73.2 Active confirmed 010352133 Problem Skin candidiasis B37.2 Active confirmed 498 65332 Problem Diverticulitis K57.92 Active confirmed 87657 6006 Problem Acute constipation K59.00 Active confirmed 1 77124371 Problem Lumbar herniated disc M51.26 Active confirmed 119459065 Problem Diverticulitis of large inte heydi without perforation or abscess without bleeding K57.32 Active confirmed 1786236 Problem Polyneuropathy G62.9 Active confirmed 33268 000 Problem Lumbar degenerative disc disease M51.36 Active conf irmed 84180535 Problem Proteinuria, unspecified R80.9 Active confirmed 79013552 Problem Type 2 diabetes mellitus with other diabetic kid walt complication E11.29 Active confirmed 02692928 Problem Cigarette nicotine dependence with other nicotin e-induced disorder F17.218 Active confirmed 04391795489134262 Problem Rosacea L71.9 Active confirmed 139275896 ALLERGIES Allergen (clinical drug ingredient) Drug/Non Drug Allergy do cumented on EMR Reaction Allergy Type Onset Date Status Penicillin (For Allergies Use Only) Rash Drug Allerg y Active meclizine Meclizine HCl([facility] Code:[address]-48) heart racing Drug Al lergy Active lithium carbonate Lithobid([facility] Code:[address]-77) rash Drug Al lergy Active paroxetine Paxil([facility] Code:[address]-64) Rash Drug Allergy Active codeine Codeine Sulfate([facility] Code:[address]-89) Rash Drug Al lergy Active clindamycin Clindamycin HCl([facility] Code:[address]-37) psychoses Drug A llergy Active Sulfa (for allergy use only) Hives Drug Allergy Active ENCOUNTERS from 1962 to 2021-04-17 Encounter Location Date Provider Diagnosis [place] [id number] [facility] [phone] [place] [address] Mar, Lanette Page Other chronic pain G89.29 IMMUNIZATIONS Vaccine Route Administration Date Status Influenza 18 yrs & older Flublok IM Intramuscular May 26, 2018 Administered Influenza 6mo & up Fluzone IM Intramuscular Jul 22, 2016 Admi nistered COVID-19 dose #2 given elsewhere Unspecified Unknown Oct Administered COVID-19 dose #1 given elsewhere Unspecified Unknown December 05, 2020 Administered Influenza 6mo & up Fluzone [...] Education Language: Question Answer Notes Languages spoken: Mongolian Advent: Question Answer Notes Advent 05 Latter-Day Sexual Hx: Question Answer Notes Had sex [...] Notes Start Da te End Date Status Metamucil 28 % 1 packet with 8 ounces of li quid as needed Orally Three times a day for 30 Days Active Senna 8.6 MG 1 tablets at bedtime as needed Orally Once a day for 30 days Active Ibuprofen 600 MG 1 tablet with food or milk a s needed Orally Three times a day as needed for pain for 30 days A ctive Scooter Chair power chair DX: M48.61, M54.17, M48.02 Daily for 99 months May, Active Docusate Sodium 100 MG 1 capsule Orally twice daily as needed for 30 days Active Levaquin 500 MG 1 tablet Orally Once a day for 7 day(s) Feb, Active Tradjenta 5 MG 1 tablet Orally Once a day with meal for 30 days Active Clotrimazole-Betamethasone 1-0.05 % APPLY TOPICALLY TW O TIMES A DAY FOR 2 WEEKS External for 14 Active Bisacodyl 10 MG _insert TWO SUPPOSITORIES RECTALLY EVERY DAY Rectal for 30 Active Lisinopril 10 MG 1 tablet Orally Once a day for 90 Active Flonase 50 MCG/ACT 1 spray in each nostril Nasally twice daily for 60 Active Azelastine HCl 0.1 % 2 puff in each nostril Nasally Twice a day for 30 day(s) Jun, Active traMADol HCl 50 MG 1 tablet Orally Every 6 hour s as needed for pain mdd 4 for 30 days Mar, Active Calcium 600-D 600-400 MG-UNIT 1 tablet with food Orally Once a day Active Ativan 0.5 MG 1 tablet twice a day Orally twice daily Kauffman Active Linzess 72 MCG TAKE ONE CAPSULE BY MOUTH EV BART DAY ON AN EMPTY STOMACH BEFORE FIRST MEAL OF THE DAY FOR CONSTIPATION Oral for 30 Not-Taking Breztri Aerosphere 160-9-4.8 MCG/ACT 2 puffs Inhalation Twic e a day for 30 days Jan, Active Omeprazole 20 MG take two capsules by mouth o nce daily before a meal orally Daily for 90 Active May Have - replace batteries and labor Dx:Z74.09 , M51.17 Service moterized wheelchair May, Active metroNIDAZOLE 0.75 % 1 application Externally to cheeks Twice a day November, Active Lancets 1 - subcutaneously twice daily DX: E11.9 for 30 day(s) Active DuoNeb 0.5-2.5 (3) MG/3ML 3 ml Inhalation Four times a day as needed Active Nebulizer/Tubing/Mouthpiece Dx 491.21 dx: j44.9 - 4-6 times a day as needed for 90 days Apr, Active Heating Pad - as directed DX: M54.17 Daily to low back as needed Jul, Active Shower Chair without wheels as directed DX: M51.17, Z7 4.09 Daily Use Medicaid # [id number] for 90 day(s) Jun, Active Splint Wrist Brace/Left-Right - as directed per physic al therapist Custom splint as needed Re: 1st [facility] joint Osteoarthritis Daily for 90 day(s) 2 Jul, Not-Taking Cane - as directed DX: M51.17 Daily for 99 days Feb Active Raised Toilet Seat/Lock & Arms - as directed DX: M51.1 7, Z74.09 Daily Medicaid #[id number] for 90 day(s) Aug, Active Wrist Splint Left/Right - as directed left and right c ock-up splints Daily for 90 day(s) Feb, Not-Taking metFORMIN HCl ER 500 MG TAKE 1 TABLET BY MOUTH TWICE DAILY for 90 Active ZyrTEC Allergy 10 mg 1 tablet Orally daily for 30 days Active Atorvastatin Calcium 80 MG 1 tab orally Daily Active Ventolin HFA 108 (90 Base) MCG/ACT 2 puffs Inhalation every 4 hrs as needed for 82 Active Ondansetron HCl 4 MG 1 tablet Orally bid Active Drisdol 33640 UNIT 1 capsule with meal Orally Once a week Active tiZANidine HCl 4 MG take 1 tablet by mouth three times daily as neede d Active Invega Sustenna 78 MG/0.5ML INJECT 1 SYRINGE INTRAMUSC ULARLY ONCE A MONTH DIRECTED Intramuscular for 30 Ac tive Nebulizer - as directed DX: J44.9 every 4 hours as needed fo r 99 months Apr, Active Rolling Walker 1 with seat and cane zamudio DX : M51.17 Wt 176#, height 63.5 Daily for 99 days Jan, Active Lyrica 200 MG 1 capsule Orally twice a day MDD 2 for 30 days Mar, Active PROCEDURES No Information RESULTS No Results REASON FOR VISIT refill MEDICAL (GENERAL) HISTORY Type Description Date Medical [...] History Remote Hx of substane abuse (alcohol, me ) Medical History Nicotine dependance Surgical History partial hysterectomy with ovarian preser vation 84 Surgical History lung biopsy RLL Surgical History L hand 95,96 Surgical History colonoscopy 06/10/13 Surgical History cataract surgery both eyes 11/15/15 and Surgical History Right carpal tunnel 04/2017 Surgical History Left trigger finger 03/2019 Surgical History EGD, Colonoscopy w/ polyps - [facility] 11/25 0 Hospitalization History COPD exacerbation - [facility] 05/06 - 05/09/15 [facility] Hospitalization History [facility] - psychotic episode, paranoid s chizophrenia, PTSD 02/10/18-02/15/18 Hospitalization History stomach/cough 12/2020 Goals Section No Information Health Concerns No Information MEDICAL EQUIPMENT No Information MENTAL STATUS No Information FUNCTIONAL STATUS No Information ASSESSMENTS Encounter Date Diagnosis Assessment Notes Treatment Notes Treatm ent Clinical Notes Mar, Other chronic pain (ICD-10 - G89.29) PLAN OF TREATMENT Medication Medication Name Sig Start Date Stop Date metFORMIN HCl ER 500 MG TAKE 1 TABLET BY MOUTH TWICE DAILY for 9 0 Lyrica 200 MG 1 capsule Orally twice a day MDD 2 for 30 days Mar, traMADol HCl 50 MG 1 tablet Orally Every 6 hour s as needed for pain mdd 4 for 30 days Mar, Levaquin 500 MG 1 tablet Orally Once a day for 7 day(s) Feb, Next Appt Details Provider Name:Bella River, 2021-0 1-05 01:00:00 PM, [address] [facility], , [place], [address], Insurance Providers Payer Name Payer Address Payer Phone Insured Name Patient Relati onship to Insured Coverage Start Date Coverage End Date MEDICAID [employer] [address] [facility] [id number] [place] self HUMANA GOLD [address] [address] [facility] [phone] [place] self
--- OUTSIDE RECORDS SUMMARY | 2021-05-12 00:09 | CCD ---
Author Author [facility] Organization [facility] Address Unknown Phone Unavailable Care Team Providers Care Custom Stock Maker Name Role Phone Denia Ruiz Unavailable PROBLEMS Type Condition ICD9-CM Code AWC28-QH Code Onset Dates Condition S tatus W/U Status Risk SNOMED Code Notes Problem Bilateral low back pain, with sciatica presence unspecifie d M54.5 Active confirmed 244768754 Problem Gastroesophageal reflux disease without esophagitis K21.9 Active confirmed 297465949 Problem Other mental problems F99 Active confirmed 449398576 Problem Mixed hyperlipidemia E78.2 Active confirmed 211436322 Problem Vitamin D deficiency E55.9 Active confirmed 24355584 Problem Smoker F17.200 Active confirmed 31909850 Problem Chronic obstructive pulmonary disease, unspecified COPD ty pe J44.9 Active confirmed 22638777 Problem Other chronic pain G89.29 Active confirmed 8 6603655 Problem Allergic rhinitis J30.9 Active confirmed 61 517575 Problem Lumbar back pain with radiculopathy affecting ri ght lower extremity M54.17 Active confirmed 735630532 Problem Bladder spasms N32.89 Active confirmed 53615 7006 Problem 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.816 Active confirmed 63579109 Problem Spondylosis of lumbosacral region without myelop athy or radiculopathy M47.817 Active confirmed 62891840 Problem Chronic airway obstruction, not elsewhere classified J44.9 Active confirmed 74470408 Problem COPD exacerbation J44.1 Active confirmed 19 0030433 Problem Tobacco use disorder Z72.0 Active confirmed 49590913 Problem DM w/o complication type II E11.9 Active confirmed 61798931 Problem Essential hypertension I10 Active confirmed 82835238 Problem OAB (overactive bladder) N32.81 Active confirmed 507880744 Problem Limited mobility Z74.09 Active confirmed 851 0008 Problem Retention of urine, unspecified R33.9 Active confi rmed 018440590 Problem Type 2 diabetes mellitus wit h hyperglycemia, unspecified 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 wall 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 insulin 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.65 Active confirmed 34977060538 9109 Problem Spinal stenosis of cervical region M48.02 Activ e confirmed 32263399 Problem Arthralgia of multiple joints M25.50 Active confirm ed 29551448 Problem Cervical disc herniation M50.20 Active confirmed 654320472 Problem Sacroiliitis, not elsewhere classified M46.1 A ctive confirmed 46517094 Problem Other intervertebral disc degeneration, lumbar region M51.36 Active confirmed 18441090 Problem Intervertebral disc disorder with radiculopathy of lumbar region M51.16 Active confirmed 52919814 Problem Intervertebral disc disorder with radiculopathy of lumbosacral region M51.17 Active confirmed 42348595 Problem Myofascial muscle pain M79.1 Active confirmed 658685098 Problem Fibromyalgia M79.7 Active confirmed 4329921 05 Problem Degenerative lumbar spinal stenosis M48.061 Acti ve confirmed 253321505 Problem Other osteoarthritis of spine, unspecified spinal region M47.899 Active confirmed 2635172 Problem 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 of 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 Active conf irmed 328473125 Problem Type 2 diabetes mellitus without complications E11 .9 Active confirmed 428507008 Problem Osteoarthritis of right hand, unspecified osteoarthrit is type M19.041 Active confirmed 819299591331822 Problem Cigarette nicotine dependence without complication F17.210 Active confirmed 52331850 Problem Axillary hidradenitis suppurativa L73.2 Active confirmed 170786086 Problem Skin candidiasis B37.2 Active confirmed 498 32628 Problem Diverticulitis K57.92 Active confirmed 99840 6006 Problem Acute constipation K59.00 Active confirmed 1 17634183 Problem Lumbar herniated disc M51.26 Active confirmed 030633945 Problem Diverticulitis of large inte heydi without perforation or abscess without bleeding K57.32 Active confirmed 1678616 Problem Polyneuropathy G62.9 Active confirmed 32137 000 Problem Lumbar degenerative disc disease M51.36 Active conf irmed 25435140 Problem Proteinuria, unspecified R80.9 Active confirmed 50095239 Problem Type 2 diabetes mellitus with other diabetic kid walt complication E11.29 Active confirmed 99426368 Problem Cigarette nicotine dependence with other nicotin e-induced disorder F17.218 Active confirmed 98412427586835535 Problem Rosacea L71.9 Active confirmed 212347695 ALLERGIES Allergen (clinical drug ingredient) Drug/Non Drug Allergy do cumented on EMR Reaction Allergy Type Onset Date Status Penicillin (For Allergies Use Only) Rash Drug Allerg y Active meclizine Meclizine HCl([facility] Code:[address]-04) heart racing Drug Al lergy Active lithium carbonate Lithobid([facility] Code:[address]-35) rash Drug Al lergy Active paroxetine Paxil([facility] Code:[address]-69) Rash Drug Allergy Active codeine Codeine Sulfate([facility] Code:[address]-27) Rash Drug Al lergy Active clindamycin Clindamycin HCl([facility] Code:[address]-58) psychoses Drug A llergy Active Sulfa (for allergy use only) Hives Drug Allergy Active ENCOUNTERS from 1962 to 2021-05-08 Encounter Location Date Provider Diagnosis [place] [address] [facility] [phone] [place] [address] Apr, Denia Ruiz Muscle spasm M62.838 IMMUNIZATIONS Vaccine Route Administration Date Status Influenza [...] Education Language: Question Answer Notes Languages spoken: Icelandic Confucianism: Question Answer Notes Confucianism 05 Yazidism Sexual Hx: Question Answer Notes Had sex [...] 2 for 30 days Mar, Active Drisdol 70840 UNIT 1 capsule with meal Orally Once a week Active Shower Chair without wheels as directed DX: M51.17, Z7 4.09 Daily Use Medicaid # [id number] for 90 day(s) Jun, Active Bisacodyl 10 [...] directed DX: M51.1 7, Z74.09 Daily Medicaid #[id number] for 90 day(s) Aug, Active PROCEDURES No Information RESULTS No Results REASON FOR VISIT traMADol HCl 50 MG Tablet MEDICAL (GENERAL) HISTORY Type Description Date Medical [...] History EGD, Colonoscopy w/ polyps - [facility] / 0 Hospitalization History COPD exacerbation - [facility] [place] 05/06 - 05/09/15 Hospitalization [facility] Hospitalization History [facility] - psychotic episode, paranoid s chizophrenia, PTSD 02/10/18-02/15/18 Hospitalization History stomach/cough 12/2020 Goals Section No Information Health Concerns No Information MEDICAL EQUIPMENT No Information MENTAL STATUS No Information FUNCTIONAL STATUS No Information ASSESSMENTS Encounter Date Diagnosis Assessment Notes Treatment Notes Treatm ent Clinical Notes Apr, Muscle spasm (ICD-10 - M62.838) PLAN OF TREATMENT Medication Medication Name Sig [...] Apr, Next Appt Details Provider Name:Bella [place], 2021-0 1-05 01:00:00 PM, [address] [facility], , [place], [address], Insurance Providers Payer Name Payer Address Payer Phone Insured Name Patient Relati onship to Insured Coverage Start Date Coverage End Date MEDICAID [place] [address] [facility] [id number] [place] self HUMANA GOLD [address] [address] [facility] [id number] [place] self
--- OUTSIDE RECORDS SUMMARY | 2021-05-12 00:09 | CCD ---
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 Role Phone [place] Unavailable PROBLEMS Type Condition ICD9-CM Code ZTA11-BP Code Onset Dates Condition S tatus W/U Status Risk SNOMED Code Notes Problem Bilateral low back pain, with sciatica presence unspecifie d M54.5 Active confirmed 389533030 Problem Gastroesophageal reflux disease without esophagitis K21.9 Active confirmed 839463474 Problem Other mental problems F99 Active confirmed 283381583 Problem Mixed hyperlipidemia E78.2 Active confirmed 023106417 Problem Vitamin D deficiency E55.9 Active confirmed 76187093 Problem Smoker F17.200 Active confirmed 20021811 Problem Chronic obstructive pulmonary disease, unspecified COPD ty pe J44.9 Active confirmed 79040487 Problem Other chronic pain G89.29 Active confirmed 8 9215756 Problem Allergic rhinitis J30.9 Active confirmed 61 793592 Problem Lumbar back pain with radiculopathy affecting ri ght lower extremity M54.17 Active confirmed 759253779 Problem Bladder spasms N32.89 Active confirmed 10354 7006 Problem 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.816 Active confirmed 04149348 Problem Spondylosis of lumbosacral region without myelop athy or radiculopathy M47.817 Active confirmed 10122548 Problem Chronic airway obstruction, not elsewhere classified J44.9 Active confirmed 08753363 Problem COPD exacerbation J44.1 Active confirmed 19 4277973 Problem Tobacco use disorder Z72.0 Active confirmed 01346617 Problem DM w/o complication type II E11.9 Active confirmed 94877483 Problem Essential hypertension I10 Active confirmed 95886590 Problem OAB (overactive bladder) N32.81 Active confirmed 273901527 Problem Limited mobility Z74.09 Active confirmed 851 0008 Problem Retention of urine, unspecified R33.9 Active confi rmed 943054971 Problem Type 2 diabetes mellitus wit h hyperglycemia, unspecified 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 E11.65 Active confirmed 50724073751 9109 Problem Spinal stenosis of cervical region M48.02 Activ e confirmed 97690993 Problem Arthralgia of multiple joints M25.50 Active confirm ed 02381156 Problem Cervical disc herniation M50.20 Active confirmed 827410577 Problem Sacroiliitis, not elsewhere classified M46.1 A ctive confirmed 41631352 Problem Other intervertebral disc degeneration, lumbar region M51.36 Active confirmed 77121064 Problem Intervertebral disc disorder with radiculopathy of lumbar region M51.16 Active confirmed 49232310 Problem Intervertebral disc disorder with radiculopathy of lumbosacral region M51.17 Active confirmed 82631764 Problem Myofascial muscle pain M79.1 Active confirmed 249499894 Problem Fibromyalgia M79.7 Active confirmed 3887480 05 Problem Degenerative lumbar spinal stenosis M48.061 Acti ve confirmed 030865087 Problem Other osteoarthritis of spine, unspecified spinal region M47.899 Active confirmed 1524140 Problem nursing home current use of 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 Active conf irmed 181232428 Problem Type 2 diabetes mellitus without complications E11 .9 Active confirmed 356195574 Problem Osteoarthritis of right hand, unspecified osteoarthrit is type M19.041 Active confirmed 727015399617592 Problem Cigarette nicotine dependence without complication F17.210 Active confirmed 44776990 Problem Axillary hidradenitis suppurativa L73.2 Active confirmed 321836258 Problem Skin candidiasis B37.2 Active confirmed 498 76942 Problem Diverticulitis K57.92 Active confirmed 64723 6006 Problem Acute constipation K59.00 Active confirmed 1 54862645 Problem Lumbar herniated disc M51.26 Active confirmed 756296899 Problem Diverticulitis of large inte heydi without perforation or abscess without bleeding K57.32 Active confirmed 2287363 Problem Polyneuropathy G62.9 Active confirmed 89170 000 Problem Lumbar degenerative disc disease M51.36 Active conf irmed 24726646 Problem Proteinuria, unspecified R80.9 Active confirmed 14966496 Problem Type 2 diabetes mellitus with other diabetic kid walt complication E11.29 Active confirmed 17942868 Problem Cigarette nicotine dependence with other nicotin e-induced disorder F17.218 Active confirmed 01436305444065096 Problem Rosacea L71.9 Active confirmed 492015302 ALLERGIES Allergen (clinical drug ingredient) Drug/Non Drug Allergy do cumented on EMR Reaction Allergy Type Onset Date Status Penicillin (For Allergies Use Only) Rash Drug Allerg y Active meclizine Meclizine HCl([facility] Code:[address]-17) heart racing Drug Al lergy Active lithium carbonate Lithobid([facility] Code:[address]-73) rash Drug Al lergy Active paroxetine Paxil([facility] Code:[address]-20) Rash Drug Allergy Active codeine Codeine Sulfate([facility] Code:[address]-59) Rash Drug Al lergy Active clindamycin Clindamycin HCl([facility] Code:[address]-69) psychoses Drug A llergy Active Sulfa (for allergy use only) Hives Drug Allergy Active ENCOUNTERS from 1962 to 2021-05-02 Encounter Location Date Provider Diagnosis [facility] [address] [facility] [phone] [place] [address] 06 Apr, 2021 Bella Swatsworth Muscle spasm M62.838 IMMUNIZATIONS Vaccine Route Administration Date Status COVID-19 [...] Education Language: Question Answer Notes Languages spoken: Italian Confucianist: Question Answer Notes Confucianist 05 Adventist Sexual Hx: Question Answer Notes Had sex [...] 2 for 30 days Mar, Active Drisdol 40999 UNIT 1 capsule with meal Orally Once a week Active Shower Chair without wheels as directed DX: M51.17, Z7 4.09 Daily Use Medicaid # [id number] for 90 day(s) Jun, Active Bisacodyl 10 MG _insert TWO SUPPOSITORIES RECTALLY EVERY DAY Rectal for 30 Active Atorvastatin Calcium 80 MG 1 tab orally Daily Active Nebulizer - as directed DX: J44.9 every 4 hours as needed fo r 99 months Apr, Active traMADol HCl 50 MG 1 tablet Orally Every 6 hours as needed for p ain mdd 4 15 Mar, 2021 Active Levaquin 500 MG 1 tablet Orally [...] directed DX: M51.1 7, Z74.09 Daily Medicaid #[id number] for 90 day(s) Aug, Active PROCEDURES No Information RESULTS No Results REASON FOR VISIT PA tizanidine 2mg cap, TID MEDICAL (GENERAL) HISTORY Type Description Date Medical [...] History Remote Hx of substane abuse (alcohol, [place] ) Medical History Nicotine dependance Surgical History partial hysterectomy with ovarian preser vation 86 Surgical History lung biopsy RLL Surgical History L hand 95,96 Surgical History colonoscopy 06/10/13 Surgical History cataract surgery both eyes 11/15/15 and Surgical History Right carpal tunnel 04/2017 Surgical History Left trigger finger 03/2019 Surgical History EGD, Colonoscopy w/ polyps - [facility] 11/25 0 Hospitalization History COPD exacerbation - [facility] 05/06 - 05/09/15 Hospitalization History [...] 50 MG 1 tablet Orally Every 6 hours as needed for pain mdd 4 Mar, Next Appt Details Provider Name:B[place], 2021-0 1-05 01:00:00 PM, [address] [facility], , [place], [address], Insurance Providers Payer Name Payer Address Payer Phone Insured Name Patient Relati onship to Insured Coverage Start Date Coverage End Date MEDICAID Semi[employer]ex [address] [facility] [id number] [place] self HUMANA GOLD [address] [facility] [address] [place] self
--- OUTSIDE RECORDS SUMMARY | 2021-05-12 00:10 | CCD ---
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 Name Role Phone Denia Ruiz Unavailable PROBLEMS Type Condition ICD9-CM Code JLT26-FE Code Onset Dates Condition S tatus W/U Status Risk SNOMED Code Notes Problem Bilateral low back pain, with sciatica presence unspecifie d M54.5 Active confirmed 679322763 Problem Gastroesophageal reflux disease without esophagitis K21.9 Active confirmed 793852069 Problem Other mental problems F99 Active confirmed 420932991 Problem Mixed hyperlipidemia E78.2 Active confirmed 089712029 Problem Vitamin D deficiency E55.9 Active confirmed 90108103 Problem Smoker F17.200 Active confirmed 25391286 Problem Chronic obstructive pulmonary disease, unspecified COPD ty pe J44.9 Active confirmed 83503591 Problem Other chronic pain G89.29 Active confirmed 8 4812461 Problem Allergic rhinitis J30.9 Active confirmed 61 009032 Problem Lumbar back pain with radiculopathy affecting ri ght lower extremity M54.17 Active confirmed 391583532 Problem Bladder spasms N32.89 Active confirmed 56358 7006 Problem 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.816 Active confirmed 99211221 Problem Spondylosis of lumbosacral region without myelop athy or radiculopathy M47.817 Active confirmed 82073438 Problem Chronic airway obstruction, not elsewhere classified J44.9 Active confirmed 75863151 Problem COPD exacerbation J44.1 Active confirmed 19 9606425 Problem Tobacco use disorder Z72.0 Active confirmed 58344622 Problem DM w/o complication type II E11.9 Active confirmed 70339884 Problem Essential hypertension I10 Active confirmed 58093681 Problem OAB (overactive bladder) N32.81 Active confirmed 275637594 Problem Limited mobility Z74.09 Active confirmed 851 0008 Problem Retention of urine, unspecified R33.9 Active confi rmed 387386039 Problem Type 2 diabetes mellitus wit h hyperglycemia, unspecified salvage determiner insulin use status E11.65 Active confirmed 63337896544 9109 Problem Spinal stenosis of cervical region M48.02 Activ e confirmed 55454685 Problem Arthralgia of multiple joints M25.50 Active confirm ed 48631432 Problem Cervical disc herniation M50.20 Active confirmed 034429860 Problem Sacroiliitis, not elsewhere classified M46.1 A ctive confirmed 29151239 Problem Other intervertebral disc degeneration, lumbar region M51.36 Active confirmed 46659062 Problem Intervertebral disc disorder with radiculopathy of lumbar region M51.16 Active confirmed 53466508 Problem Intervertebral disc disorder with radiculopathy of lumbosacral region M51.17 Active confirmed 57652327 Problem Myofascial muscle pain M79.1 Active confirmed 990550783 Problem Fibromyalgia M79.7 Active confirmed 0829664 05 Problem Degenerative lumbar spinal stenosis M48.061 Acti ve confirmed 031032270 Problem Other osteoarthritis of spine, unspecified spinal region M47.899 Active confirmed 9929898 Problem supervisor intermediates current use of 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 Active conf irmed 273605115 Problem Type 2 diabetes mellitus without complications E11 .9 Active confirmed 749763022 Problem Osteoarthritis of right hand, unspecified osteoarthrit is type M19.041 Active confirmed 841696965670805 Problem Cigarette nicotine dependence without complication F17.210 Active confirmed 40858074 Problem Axillary hidradenitis suppurativa L73.2 Active confirmed 049152619 Problem Skin candidiasis B37.2 Active confirmed 498 69237 Problem Diverticulitis K57.92 Active confirmed 84043 6006 Problem Acute constipation K59.00 Active confirmed 1 25822132 Problem Lumbar herniated disc M51.26 Active confirmed 374901460 Problem Diverticulitis of large inte heydi without perforation or abscess without bleeding K57.32 Active confirmed 6705972 Problem Polyneuropathy G62.9 Active confirmed 43557 000 Problem Lumbar degenerative disc disease M51.36 Active conf irmed 96123985 Problem Proteinuria, unspecified R80.9 Active confirmed 39495126 Problem Type 2 diabetes mellitus with other diabetic kid walt complication E11.29 Active confirmed 70179419 Problem Cigarette nicotine dependence with other nicotin e-induced disorder F17.218 Active confirmed 02782002774184953 Problem Rosacea L71.9 Active confirmed 073029385 ALLERGIES Allergen (clinical drug ingredient) Drug/Non Drug Allergy do cumented on EMR Reaction Allergy Type Onset Date Status Penicillin (For Allergies Use Only) Rash Drug Allerg y Active meclizine Meclizine HCl([facility] Code:[address]-30) heart racing Drug Al lergy Active lithium carbonate Lithobid([facility] Code:[address]-02) rash Drug Al lergy Active paroxetine Paxil([facility] Code:[address]-67) Rash Drug Allergy Active codeine Codeine Sulfate([facility] Code:[address]-36) Rash Drug Al lergy Active clindamycin Clindamycin HCl([facility] Code:[address]-97) psychoses Drug A llergy Active Sulfa (for allergy use only) Hives Drug Allergy Active ENCOUNTERS from 1962 to 2021-04-09 Encounter Location Date Provider Diagnosis [place] [address] [facility] [phone] [place] [address] 14 Mar, 2021 Denia Wiota IMMUNIZATIONS Vaccine Route Administration Date Status Influenza 18 yrs & older Flublok IM Intramuscular May 23, 2020 Administered Influenza 18 yrs & older Flublok IM Intramuscular Jul 15, 2019 Administered Influenza 18 yrs & older Flublok IM Intramuscular May 26, 2018 Administered Influenza 6mo & up Fluzone IM Intramuscular Jul 22, 2016 Admi nistered Influenza 6mo & up Fluzone IM Intramuscular Jun 07, 2015 Admi nistered Influenza 6mo & up Fluzone IM Intramuscular Apr 18, 2014 Admi nistered COVID-19 dose #1 given elsewhere Unspecified Unknown December 05, 2020 Administered Influenza 6mo & up Fluzone IM Intramuscular Apr 22, 2013 Admi nistered COVID-19 dose #2 given elsewhere Unspecified Unknown Oct Administered Influenza 6mo & up Fluzone IM [...] Education Language: Question Answer Notes Languages spoken: Uzbek Mosque: Question Answer Notes Mosque 05 Protestant Sexual Hx: Question Answer Notes Had sex [...] Notes Start Da te End Date Status traMADol HCl 50 MG 1 tablet Orally Every 6 hour s as needed for pain mdd 4 for 30 days Feb, Active Levaquin 500 MG 1 tablet Orally Once a day for 7 day(s) Feb, Active Tradjenta 5 MG 1 tablet Orally Once a day with meal for 30 days Active Scooter Chair power chair DX: M48.61, M54.17, M48.02 Daily for 99 months May, Active Metamucil 28 % 1 packet with 8 ounces of li quid as needed Orally Three times a day for 30 Days Active metFORMIN HCl ER 500 MG TAKE 1 TABLET BY MOUTH TWICE DAILY for 90 Active ZyrTEC Allergy 10 mg 1 tablet Orally daily for 30 days Active Lyrica 200 MG 1 capsule Orally twice a day MDD 2 for 30 days Feb, Active Azelastine HCl 0.1 % 2 puff in each nostril Nasally Twice a day for 30 day(s) Jun, Active Lisinopril 10 MG 1 tablet Orally Once a day for 90 Active Flonase 50 MCG/ACT 1 spray in each nostril Nasally twice daily for 60 Active Senna 8.6 MG 1 tablets at bedtime as needed Orally Once a day for 30 days Active Ibuprofen 600 MG 1 tablet with food or milk a s needed Orally Three times a day as needed for pain for 30 days A ctive Omar Aerosphere 160-9-4.8 MCG/ACT 2 puffs Inhalation Twic e a day for 30 days Jan, Active Ativan 0.5 MG 1 tablet twice a day Orally twice daily [place] Active Clotrimazole-Betamethasone 1-0.05 % APPLY TOPICALLY TW O TIMES A DAY FOR 2 WEEKS External for 14 Active Bisacodyl 10 MG _insert TWO SUPPOSITORIES RECTALLY EVERY DAY Rectal for 30 Active Omeprazole 20 MG take two capsules by mouth o nce daily before a meal orally Daily for 90 Active May Have - replace batteries and labor Dx:Z74.09 , M51.17 Service moterized wheelchair May, Active Calcium 600-D 600-400 MG-UNIT 1 tablet with food Orally Once a day Active Lancets 1 - subcutaneously twice daily DX: E11.9 for 30 day(s) Active Raised Toilet Seat/Lock & Arms - as directed DX: M51.1 7, Z74.09 Daily Medicaid #[id number] for 90 day(s) Aug, Active DuoNeb 0.5-2.5 (3) MG/3ML 3 ml Inhalation Four times a day as needed Active Atorvastatin Calcium 80 MG 1 tab orally Daily Active Ventolin HFA 108 (90 Base) MCG/ACT 2 puffs Inhalation every 4 hrs as needed for 82 Active Wrist Splint Left/Right - as directed left and right c ock-up splints Daily for 90 day(s) Feb, Not-Taking Ondansetron HCl 4 MG 1 tablet Orally bid Active Shower Chair without wheels as directed DX: M51.17, Z7 4.09 Daily Use Medicaid # [id number] for 90 day(s) Jun, Active Linzess 72 MCG TAKE ONE CAPSULE BY MOUTH EV BART DAY ON AN EMPTY STOMACH BEFORE FIRST MEAL OF THE DAY FOR CONSTIPATION Oral for 30 Not-Taking Splint Wrist Brace/Left-Right - as directed per physic al therapist Custom splint as needed Re: 1st [facility] joint Osteoarthritis Daily for 90 day(s) 2 Jul, Not-Taking metroNIDAZOLE 0.75 % 1 application Externally to cheeks Twice a day November, Active Cane - as directed DX: M51.17 Daily for 99 days Feb Active Docusate Sodium 100 MG 1 capsule Orally twice daily as needed for 30 days Active Nebulizer/Tubing/Mouthpiece Dx 491.21 dx: j44.9 - 4-6 times a day as needed for 90 days Apr, Active Heating Pad - as directed DX: M54.17 Daily to low back as needed Jul, Active Invega Sustenna 78 MG/0.5ML INJECT 1 SYRINGE INTRAMUSC ULARLY ONCE A MONTH DIRECTED Intramuscular for 30 Ac tive Drisdol 17244 UNIT 1 capsule with meal Orally Once a week Active Nebulizer - as directed DX: J44.9 every 4 hours as needed fo r 99 months Apr, Active tiZANidine HCl 4 MG take 1 tablet by mouth three times daily as neede d Active Rolling Walker 1 with seat and cane zamudio DX : M51.17 Wt 176#, height 63.5 Daily for 99 days Jan, Active PROCEDURES No Information RESULTS No Results REASON FOR VISIT neck pain MEDICAL (GENERAL) HISTORY Type Description Date Medical [...] History Remote Hx of substane abuse (alcohol, [place] ) Medical History Nicotine dependance Surgical History partial hysterectomy with ovarian preser vation 84 Surgical History lung biopsy RLL Surgical History L hand 95,96 Surgical History colonoscopy 06/10/13 Surgical History cataract surgery both eyes 11/15/15 and Surgical History Right carpal tunnel 04/2017 Surgical History Left trigger finger 03/2019 Surgical History EGD, Colonoscopy w/ polyps - [facility] 11/25 0 Hospitalization History COPD exacerbation - [facility] 05/06 - 05/09/15 [facility] Hospitalization History [facility] - psychotic episode, paranoid s chizophrenia, PTSD 02/10/18-02/15/18 Hospitalization History stomach/cough 12/2020 Goals Section No Information Health Concerns No Information MEDICAL EQUIPMENT No Information MENTAL STATUS No Information FUNCTIONAL STATUS No Information ASSESSMENTS No Information PLAN OF TREATMENT Medication Medication Name Sig Start Date Stop Date Levaquin 500 MG 1 tablet Orally Once a day for 7 day(s) Feb, metFORMIN HCl ER 500 MG TAKE 1 TABLET BY MOUTH TWICE DAILY for 9 0 Next Appt Details Provider Name:Denia Ruiz, 2021-06-14 11:3 0:00 AM, [address] [facility], , [place], [address], Insurance Providers Payer Name Payer Address Payer Phone Insured Name Patient Relati onship to Insured Coverage Start Date Coverage End Date HUMANA GOLD [address] [address] [facility] [phone] [place] self MEDICAID [id number] [address] [facility] [address] [place] self
--- OUTSIDE RECORDS SUMMARY | 2021-05-12 00:10 | CCD ---
Author Author [facility] Organization [facility] Address Unknown Phone Unavailable Care Team Providers Care Firmware Test Engineer Name Role Phone Denia Ruiz Unavailable PROBLEMS Type Condition ICD9-CM Code [id number] Code Onset Dates Condition S tatus W/U Status Risk SNOMED Code Notes Problem Bilateral low back pain, with sciatica presence unspecifie d M54.5 Active confirmed 341498021 Problem Gastroesophageal reflux disease without esophagitis K21.9 Active confirmed 507219957 Problem Other mental problems F99 Active confirmed 929959891 Problem Mixed hyperlipidemia E78.2 Active confirmed 015162783 Problem Vitamin D deficiency E55.9 Active confirmed 12982995 Problem Smoker F17.200 Active confirmed 39717424 Problem Chronic obstructive pulmonary disease, unspecified COPD ty pe J44.9 Active confirmed 13677754 Problem Other chronic pain G89.29 Active confirmed 8 5492664 Problem Allergic rhinitis J30.9 Active confirmed 61 908088 Problem Lumbar back pain with radiculopathy affecting ri ght lower extremity M54.17 Active confirmed 875907953 Problem Bladder spasms N32.89 Active confirmed 26455 7006 Problem 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.816 Active confirmed 69482115 Problem Spondylosis of lumbosacral region without myelop athy or radiculopathy M47.817 Active confirmed 43389473 Problem Chronic airway obstruction, not elsewhere classified J44.9 Active confirmed 68797734 Problem COPD exacerbation J44.1 Active confirmed 19 1879283 Problem Tobacco use disorder Z72.0 Active confirmed 58180317 Problem DM w/o complication type II E11.9 Active confirmed 09424639 Problem Essential hypertension I10 Active confirmed 70683952 Problem OAB (overactive bladder) N32.81 Active confirmed 281876145 Problem Limited mobility Z74.09 Active confirmed 851 0008 Problem Retention of urine, unspecified R33.9 Active confi rmed 557815833 Problem Type 2 diabetes mellitus wit h hyperglycemia, unspecified termite control service representative insulin use status E11.65 Active confirmed 65201239777 9109 Problem Spinal stenosis of cervical region M48.02 Activ e confirmed 09432372 Problem Arthralgia of multiple joints M25.50 Active confirm ed 33354551 Problem Cervical disc herniation M50.20 Active confirmed 706628571 Problem Sacroiliitis, not elsewhere classified M46.1 A ctive confirmed 11238939 Problem Other intervertebral disc degeneration, lumbar region M51.36 Active confirmed 41826039 Problem Intervertebral disc disorder with radiculopathy of lumbar region M51.16 Active confirmed 28131090 Problem Intervertebral disc disorder with radiculopathy of lumbosacral region M51.17 Active confirmed 07363138 Problem Myofascial muscle pain M79.1 Active confirmed 842427104 Problem Fibromyalgia M79.7 Active confirmed 5157777 05 Problem Degenerative lumbar spinal stenosis M48.061 Acti ve confirmed 707623801 Problem Other osteoarthritis of spine, unspecified spinal region M47.899 Active confirmed 0456345 Problem termite control service representative current use of 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 Active conf irmed 771776722 Problem Type 2 diabetes mellitus without complications E11 .9 Active confirmed 588676897 Problem Osteoarthritis of right hand, unspecified osteoarthrit is type M19.041 Active confirmed 214842433315894 Problem Cigarette nicotine dependence without complication F17.210 Active confirmed 75396815 Problem Axillary hidradenitis suppurativa L73.2 Active confirmed 376167674 Problem Skin candidiasis B37.2 Active confirmed 498 33549 Problem Diverticulitis K57.92 Active confirmed 32386 6006 Problem Acute constipation K59.00 Active confirmed 1 10350561 Problem Lumbar herniated disc M51.26 Active confirmed 092867418 Problem Diverticulitis of large inte heydi without perforation or abscess without bleeding K57.32 Active confirmed 3324105 Problem Polyneuropathy G62.9 Active confirmed 84274 000 Problem Lumbar degenerative disc disease M51.36 Active conf irmed 67360317 Problem Proteinuria, unspecified R80.9 Active confirmed 61654558 Problem Type 2 diabetes mellitus with other diabetic kid walt complication E11.29 Active confirmed 28388721 Problem Cigarette nicotine dependence with other nicotin e-induced disorder F17.218 Active confirmed 40901581083810298 Problem Rosacea L71.9 Active confirmed 959829146 ALLERGIES Allergen (clinical drug ingredient) Drug/Non Drug Allergy do cumented on EMR Reaction Allergy Type Onset Date Status Penicillin (For Allergies Use Only) Rash Drug Allerg y Active meclizine Meclizine HCl([facility] Code:[address]-13) heart racing Drug Al lergy Active lithium carbonate Lithobid([facility] Code:[address]-93) rash Drug Al lergy Active paroxetine Paxil([facility] Code:[address]-33) Rash Drug Allergy Active codeine Codeine Sulfate([facility] Code:[address]-95) Rash Drug Al lergy Active clindamycin Clindamycin HCl([facility] Code:[address]-55) psychoses Drug A llergy Active Sulfa (for allergy use only) Hives Drug Allergy Active ENCOUNTERS from 1962 to 2021-04-09 Encounter Location Date Provider Diagnosis [place] [address] [facility] [phone] [place] [address] 14 Mar, 2021 Denia [place] IMMUNIZATIONS Vaccine Route Administration Date Status Influenza [...] Language: Question Answer Notes Languages spoken: Uzbek Zoroastrianism: Question Answer Notes Zoroastrianism 05 Evangelical Sexual Hx: Question Answer Notes Had sex [...] directed DX: M51.1 7, Z74.09 Daily Medicaid #[id number] for 90 day(s) Aug, Active DuoNeb 0.5-2.5 [...] M51.17, Z7 4.09 Daily Use Medicaid # [id number] for 90 day(s) Jun, Active Linzess 72 [...] DIRECTED Intramuscular for 30 Ac tive Drisdol 21686 UNIT 1 capsule with meal Orally Once [...] Information RESULTS No Results REASON FOR VISIT pt exposed to someone that had nuclear test on his heart MEDICAL (GENERAL) HISTORY Type Description Date Medical [...] 11/25 0 Hospitalization History COPD exacerbation - [facility] 05/06 - 05/09/15 Hospitalization History [facility] [...] Name:Denia Ruiz, 2021-06-14 11:3 0:00 AM, [address] [facility], , [place], [address], Insurance Providers Payer Name Payer Address Payer Phone Insured Name Patient Relati onship to Insured Coverage Start Date Coverage End Date [employer] GOLD [address] [address] [facility] [address] [place] self MEDICAID [employer] [address] [facility] [id number] [place] [place] self
--- OUTSIDE RECORDS SUMMARY | 2021-05-12 00:10 | CCD ---
Author Author [facility] Organization [facility] Address Unknown Phone Unavailable Care Team Providers Care Model And Dye Person Name Role Phone Carmen Ruiz Unavailable PROBLEMS Type Condition ICD9-CM Code [id number] Code Onset Dates Condition S tatus W/U Status Risk SNOMED Code Notes Problem Bilateral low back pain, with sciatica presence unspecifie d M54.5 Active confirmed 022496132 Problem Gastroesophageal reflux disease without esophagitis K21.9 Active confirmed 033714013 Problem Other mental problems F99 Active confirmed 821334579 Problem Mixed hyperlipidemia E78.2 Active confirmed 407409986 Problem Vitamin D deficiency E55.9 Active confirmed 05424009 Problem Smoker F17.200 Active confirmed 58755968 Problem Chronic obstructive pulmonary disease, unspecified COPD ty pe J44.9 Active confirmed 76547226 Problem Other chronic pain G89.29 Active confirmed 8 9440879 Problem Allergic rhinitis J30.9 Active confirmed 61 210607 Problem Lumbar back pain with radiculopathy affecting ri ght lower extremity M54.17 Active confirmed 318184225 Problem Bladder spasms N32.89 Active confirmed 57503 7006 Problem 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.816 Active confirmed 23479871 Problem Spondylosis of lumbosacral region without myelop athy or radiculopathy M47.817 Active confirmed 34940347 Problem Chronic airway obstruction, not elsewhere classified J44.9 Active confirmed 79366994 Problem COPD exacerbation J44.1 Active confirmed 19 0264810 Problem Tobacco use disorder Z72.0 Active confirmed 63305201 Problem DM w/o complication type II E11.9 Active confirmed 61398548 Problem Essential hypertension I10 Active confirmed 61236375 Problem OAB (overactive bladder) N32.81 Active confirmed 011185157 Problem Limited mobility Z74.09 Active confirmed 851 0008 Problem Retention of urine, unspecified R33.9 Active confi rmed 524693079 Problem Type 2 diabetes mellitus wit h hyperglycemia, unspecified snf insulin use status E11.65 Active confirmed 21318354438 9109 Problem Spinal stenosis of cervical region M48.02 Activ e confirmed 06041390 Problem Arthralgia of multiple joints M25.50 Active confirm ed 13599087 Problem Cervical disc herniation M50.20 Active confirmed 674378458 Problem Sacroiliitis, not elsewhere classified M46.1 A ctive confirmed 03945511 Problem Other intervertebral disc degeneration, lumbar region M51.36 Active confirmed 60566205 Problem Intervertebral disc disorder with radiculopathy of lumbar region M51.16 Active confirmed 33530237 Problem Intervertebral disc disorder with radiculopathy of lumbosacral region M51.17 Active confirmed 98817749 Problem Myofascial muscle pain M79.1 Active confirmed 025336465 Problem Fibromyalgia M79.7 Active confirmed 6027690 05 Problem Degenerative lumbar spinal stenosis M48.061 Acti ve confirmed 618970465 Problem Other osteoarthritis of spine, unspecified spinal region M47.899 Active confirmed 3773869 Problem ocean transportation intermediary 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 use of 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 Active conf irmed 860783322 Problem Type 2 diabetes mellitus without complications E11 .9 Active confirmed 334017070 Problem Osteoarthritis of right hand, unspecified osteoarthrit is type M19.041 Active confirmed 393059712413336 Problem Cigarette nicotine dependence without complication F17.210 Active confirmed 62651448 Problem Axillary hidradenitis suppurativa L73.2 Active confirmed 160843435 Problem Skin candidiasis B37.2 Active confirmed 498 17005 Problem Diverticulitis K57.92 Active confirmed 15771 6006 Problem Acute constipation K59.00 Active confirmed 1 47680901 Problem Lumbar herniated disc M51.26 Active confirmed 154122748 Problem Diverticulitis of large inte heydi without perforation or abscess without bleeding K57.32 Active confirmed 8909520 Problem Polyneuropathy G62.9 Active confirmed 43031 000 Problem Lumbar degenerative disc disease M51.36 Active conf irmed 59363264 Problem Proteinuria, unspecified R80.9 Active confirmed 35278337 Problem Type 2 diabetes mellitus with other diabetic kid walt complication E11.29 Active confirmed 59095839 Problem Cigarette nicotine dependence with other nicotin e-induced disorder F17.218 Active confirmed 45413937187541166 Problem Rosacea L71.9 Active confirmed 708670503 ALLERGIES Allergen (clinical drug ingredient) Drug/Non Drug Allergy do cumented on EMR Reaction Allergy Type Onset Date Status Penicillin (For Allergies Use Only) Rash Drug Allerg y Active meclizine Meclizine HCl([facility] Code:[address]-26) heart racing Drug Al lergy Active lithium carbonate Lithobid([facility] Code:[address]-12) rash Drug Al lergy Active paroxetine Paxil([facility] Code:[address]-96) Rash Drug Allergy Active codeine Codeine Sulfate([facility] Code:[address]-91) Rash Drug Al lergy Active clindamycin Clindamycin HCl([facility] Code:[address]-60) psychoses Drug A llergy Active Sulfa (for allergy use only) Hives Drug Allergy Active ENCOUNTERS from 1962 to 2021-02-14 Encounter Location Date Provider Diagnosis [facility] [address] [facility] [phone] [place] [address] Jan, Carmen Ruiz Acute recurrent maxillary si nusitis J01.01 ; Lumbar back pain with radiculopathy affecting right lower extremity M54.17 ; Other chronic pain G89.29 and Chronic obstructive pulmonary disease, unspecified COPD type J44.9 IMMUNIZATIONS Vaccine Route Administration Date Status Influenza [...] Education Language: Question Answer Notes Languages spoken: Citizen Of [place] Latter-Day: Question Answer Notes Latter-Day 05 Sikh Sexual Hx: Question Answer Notes Had sex [...] REASON FOR REFERRAL No Information VITAL SIGNS Weight 177.4 lbs Jan, Height 63.5 in Jan, BMI 30.93 kg/m2 Jan, Heart Rate 130 /min Jan, Respiratory Rate 20 /min Jan, Temperature 97.2 degrees Fahrenheit Jan, Oximetry 91 Jan, Blood pressure systolic 140 mm Hg Jan, Blood pressure diastolic 82 mm Hg Jan, MEDICATIONS Medication SIG (Take, Route, Frequency, Duration) Notes Start Da te End Date Status Ventolin HFA 108 (90 Base) MCG/ACT 2 puffs Inhalation every 4 hrs as needed for 82 Active Heating Pad - as directed DX: M54.17 Daily to low back as needed Jul, Active Lisinopril 10 MG 1 tablet Orally Once a day Active Wrist Splint Left/Right - as directed left and right c ock-up splints Daily for 90 day(s) Feb, Not-Taking Ondansetron HCl 4 MG 1 tablet Orally bid Active Omeprazole 20 MG take two capsules by mouth o nce daily before a meal orally Daily Active metroNIDAZOLE 0.75 % 1 application Externally to cheeks Twice a day November, Active Lancets 1 - subcutaneously twice daily DX: E11.9 for 30 day(s) Active Cane - as directed DX: M51.17 Daily for 99 days Feb Active Lyrica 200 MG 1 capsule Orally twice a day MDD 2 for 30 days Active Fluconazole 100 MG 1 tablet Orally Daily for 14 days 2019 Active Doxycycline Hyclate 100 MG 1 capsule Orally Twice a day for 10 d ay(s) Dec, Active Breztri Aerosphere 160-9-4.8 MCG/ACT 2 puffs Inhalation Twic e a day for 30 days Jan, Active Blood Glucose Test - Dx E11.9 In Vitro DX: E11.9 twice daily as needed for 30 days Active Zofran ODT 4 MG 1 tablet on the tongue and a llow to dissolve Orally every 8 hrs prn for 10 days Dec, Active Linzess 72 MCG TAKE ONE CAPSULE BY MOUTH EV DAY ON AN EMPTY STOMACH BEFORE FIRST MEAL OF THE DAY FOR CONSTIPATION Oral for 30 Not-Taking DuoNeb 0.5-2.5 (3) MG/3ML 3 ml Inhalation Four times a day as needed Active Scooter Chair power chair DX: M48.61, M54.17, M48.02 Daily for 99 months May, Active Bisacodyl 10 MG INSERT TWO SUPPOSITORIES RECTALLY EVERY DAY Rectal fo r 30 Active Flonase 50 MCG/ACT 1 spray in each nostril Nasally twice daily for 60 Active Clotrimazole-Betamethasone 1-0.05 % APPLY TOPICALLY TW O TIMES A DAY FOR 2 WEEKS External for 14 Active Rolling Walker 1 with seat and cane zamudio DX : M51.17 Wt 176#, height 63.5 Daily for 99 days Jan, Active Lancets - as directed _ DX: E11.9 twice daily as needed f or 30 Days Jul, Active Azelastine HCl 0.1 % 2 puff in each nostril Nasally Twice a day for 30 day(s) Jun, Active May Have - replace batteries and labor Dx:Z74.09 , M51.17 Service moterized wheelchair May, Active Splint Wrist Brace/Left-Right - as directed per physic al therapist Custom splint as needed Re: 1st [facility] joint Osteoarthritis Daily for 90 day(s) 2 Jul, Not-Taking Invega Sustenna 78 MG/0.5ML INJECT 1 SYRINGE INTRAMUSC ULARLY ONCE A MONTH DIRECTED Intramuscular for 30 Ac tive tiZANidine HCl 4 MG take 1 tablet by mouth three times daily as neede d Active ZyrTEC Allergy 10 mg 1 tablet Orally daily for 30 days Active Nasonex 50 MCG/ACT 2 sprays in each nostril Corby ally Once a day as needed for 30 day(s) Jan, Active predniSONE 10 MG 4 tabs x 3 days, 3 tabs x 3 days, 2 tabs x 3 days, 1 tab x 3 days Orally Once a day for 12 days Dec, Active Drisdol 75746 UNIT 1 capsule with meal Orally Once a week Active Lancet Device - as directed finger DX: E11.9 daily for 30 days Jul, Active Nebulizer/Tubing/Mouthpiece Dx 491.21 dx: j44.9 - 4-6 times a day as needed for 90 days Apr, Active Atorvastatin Calcium 80 MG 1 tab orally Daily Active Glucose Monitor Dx E11.9 Machine - twice daily as needed for 99 days Jul, Active Tradjenta 5 MG 1 tablet Orally Once a day with meal Active Calcium 600-D 600-400 MG-UNIT 1 tablet with food Orally Once a day Active Saline 0.65 % 1 application in each nostri l to treat dry nasal passages Nasally every 4 hours as needed for 30 days Active Ativan 0.5 MG 1 tablet twice a day Orally twice daily Active Nebulizer - as directed DX: J44.9 every 4 hours as needed fo r 99 months Apr, Active Ibuprofen 600 MG 1 tablet with food or milk a s needed Orally Three times a day as needed for pain Active traMADol HCl 50 MG 1 tablet Orally Every 6 hour s as needed for pain mdd 4 for 30 days Active Senna 8.6 MG 1 tablets at bedtime as needed Orally Once a day for 30 days Active Shower Chair without wheels as directed DX: M51.17, Z7 4.09 Daily Use Medicaid # [id number] for 90 day(s) Jun, Active Docusate Sodium 100 MG 1 capsule Orally twice daily as needed for 30 days Active metFORMIN HCl ER 500 MG TAKE ONE TABLET BY MOUTH TWICE A DAY Active Metamucil 28 % 1 packet with 8 ounces of li quid as needed Orally Three times a day for 30 Days Active Raised Toilet Seat/Lock & Arms - as directed DX: M51.1 7, Z74.09 Daily Medicaid #[id number] for 90 day(s) Aug, Active PROCEDURES No Information RESULTS No Results REASON FOR VISIT fu COPD MEDICAL (GENERAL) HISTORY Type Description Date Medical [...] History Remote Hx of substane abuse (alcohol, ms ) Medical History Nicotine dependance Surgical History partial hysterectomy with ovarian preser vation 84 Surgical History lung biopsy RLL Surgical History L hand 95,96 Surgical History colonoscopy 06/10/13 Surgical History cataract surgery both eyes 11/15/15 and Surgical History Right carpal tunnel 04/2017 Surgical History Left trigger finger 03/2019 Surgical History EGD, Colonoscopy w/ polyps - [facility] 11/25 0 Hospitalization History COPD exacerbation - [facility] 05/06 - 05/09/15 [facility] Hospitalization History [facility] - psychotic episode, paranoid s chizophrenia, PTSD 02/10/18-02/15/18 Hospitalization History stomach/cough 12/2020 Goals Section No Information Health Concerns No Information MEDICAL EQUIPMENT No Information MENTAL STATUS No Information FUNCTIONAL STATUS No Information ASSESSMENTS Encounter Date Diagnosis Assessment Notes Treatment Notes Treatm ent Clinical Notes Jan, Acute recurrent maxillary sinusitis (ICD-10 - J0 1.01) Stable Meds refilled Jan, Lumbar back pain with radicu lopathy affecting right lower extremity (ICD-10 - M54.17) Stable Will refer to Carolyn Duckworth Jan, Other chronic pain (ICD-10 - G89.29) Jan, Chronic obstructive pulmonar y disease, unspecified COPD type (ICD- 10 - J44.9) Stable Will change to Breztri; comparable to Trelegy Pt agrees with plan Jan, Other Total time kathryn ng for the patient on the day of the encounter was 20 min PLAN OF TREATMENT Medication Medication Name Sig Start Date Stop Date Senna 8.6 MG 1 tablets at bedtime as needed Orally Once a day for 30 days Metamucil 28 % 1 packet with 8 ounces of li quid as needed Orally Three times a day for 30 Days Nasonex 50 MCG/ACT 2 sprays in each nostril Corby ally Once a day as needed for 30 day(s) Jan, Saline 0.65 % 1 application in each nostri l to treat dry nasal passages Nasally every 4 hours as needed for 30 days Azelastine HCl 0.1 % 2 puff in each nostril Nasally Twice a day for 30 day(s) Jun, Breztri Aerosphere 160-9-4.8 MCG/ACT 2 puffs Inhalation Twic e a day for 30 days Jan, Treatment Notes Assessment Notes Clinical Notes Acute recurrent maxillary sinusitis Stab leMeds refilled Lumbar back pain with radiculopathy affecting right lower ex tremity StableWill refer to Carolyn Duckworth Chronic obstructive pulmonary disease, unspecified COPD type StableWill change to Breztri; comparable to TreradhaPt agrees with plan Next Appt Details Provider Name:Denia Ruiz, 2021-06-14 11:3 0:00 AM, [address] [facility], , [place], [address], Insurance Providers Payer Name Payer Address Payer Phone Insured Name Patient Relati onship to Insured Coverage Start Date Coverage End Date MEDICAID [employer] [address] [facility] [id number] [address] [place] [facility] [address] [address] [facility] [id number] [place]
--- OUTSIDE RECORDS SUMMARY | 2021-05-12 00:10 | CCD ---
Author Author [facility] Organization [facility] Address Unknown Phone Unavailable Care Team Providers Care Production Planner Name Role Phone Carmen Ruiz Unavailable PROBLEMS Type Condition ICD9-CM Code NVG26-GQ Code Onset Dates Condition S tatus W/U Status Risk SNOMED Code Notes Problem Bilateral low back pain, with sciatica presence unspecifie d M54.5 Active confirmed 656015514 Problem Gastroesophageal reflux disease without esophagitis K21.9 Active confirmed 930182488 Problem Other mental problems F99 Active confirmed 084327335 Problem Mixed hyperlipidemia E78.2 Active confirmed 076694965 Problem Vitamin D deficiency E55.9 Active confirmed 66712546 Problem Smoker F17.200 Active confirmed 15781187 Problem Chronic obstructive pulmonary disease, unspecified COPD ty pe J44.9 Active confirmed 33542747 Problem Other chronic pain G89.29 Active confirmed 8 0306917 Problem Allergic rhinitis J30.9 Active confirmed 61 664358 Problem Lumbar back pain with radiculopathy affecting ri ght lower extremity M54.17 Active confirmed 015661836 Problem Bladder spasms N32.89 Active confirmed 42121 7006 Problem 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.816 Active confirmed 90888133 Problem Spondylosis of lumbosacral region without myelop athy or radiculopathy M47.817 Active confirmed 03938543 Problem Chronic airway obstruction, not elsewhere classified J44.9 Active confirmed 06747115 Problem COPD exacerbation J44.1 Active confirmed 19 1367424 Problem Tobacco use disorder Z72.0 Active confirmed 13848240 Problem DM w/o complication type II E11.9 Active confirmed 70311321 Problem Essential hypertension I10 Active confirmed 96135099 Problem OAB (overactive bladder) N32.81 Active confirmed 249228129 Problem Limited mobility Z74.09 Active confirmed 851 0008 Problem Retention of urine, unspecified R33.9 Active confi rmed 872730989 Problem Type 2 diabetes mellitus wit h hyperglycemia, unspecified terminal worker insulin use status E11.65 Active confirmed 41024495323 9109 Problem Spinal stenosis of cervical region M48.02 Activ e confirmed 82544992 Problem Arthralgia of multiple joints M25.50 Active confirm ed 06649091 Problem Cervical disc herniation M50.20 Active confirmed 483998761 Problem Sacroiliitis, not elsewhere classified M46.1 A ctive confirmed 23696040 Problem Other intervertebral disc degeneration, lumbar region M51.36 Active confirmed 63747438 Problem Intervertebral disc disorder with radiculopathy of lumbar region M51.16 Active confirmed 45310654 Problem Intervertebral disc disorder with radiculopathy of lumbosacral region M51.17 Active confirmed 05323024 Problem Myofascial muscle pain M79.1 Active confirmed 877849246 Problem Fibromyalgia M79.7 Active confirmed 2840103 05 Problem Degenerative lumbar spinal stenosis M48.061 Acti ve confirmed 446101402 Problem Other osteoarthritis of spine, unspecified spinal region M47.899 Active confirmed 7156889 Problem shelter current use of 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 Active conf irmed 935118949 Problem Type 2 diabetes mellitus without complications E11 .9 Active confirmed 264649521 Problem Osteoarthritis of right hand, unspecified osteoarthrit is type M19.041 Active confirmed 334286710131565 Problem Cigarette nicotine dependence without complication F17.210 Active confirmed 09142976 Problem Axillary hidradenitis suppurativa L73.2 Active confirmed 845815796 Problem Skin candidiasis B37.2 Active confirmed 498 45921 Problem Diverticulitis K57.92 Active confirmed 27856 6006 Problem Acute constipation K59.00 Active confirmed 1 79670972 Problem Lumbar herniated disc M51.26 Active confirmed 084412662 Problem Diverticulitis of large inte heydi without perforation or abscess without bleeding K57.32 Active confirmed 8175339 Problem Polyneuropathy G62.9 Active confirmed 29044 000 Problem Lumbar degenerative disc disease M51.36 Active conf irmed 98112967 Problem Proteinuria, unspecified R80.9 Active confirmed 49535555 Problem Type 2 diabetes mellitus with other diabetic kid walt complication E11.29 Active confirmed 17756392 Problem Cigarette nicotine dependence with other nicotin e-induced disorder F17.218 Active confirmed 66176476490834957 Problem Rosacea L71.9 Active confirmed 764178303 ALLERGIES Allergen (clinical drug ingredient) Drug/Non Drug Allergy do cumented on EMR Reaction Allergy Type Onset Date Status Penicillin (For Allergies Use Only) Rash Drug Allerg y Active meclizine Meclizine HCl([facility] Code:[address]-89) heart racing Drug Al lergy Active lithium carbonate Lithobid([facility] Code:[address]-23) rash Drug Al lergy Active paroxetine Paxil([facility] Code:[address]-75) Rash Drug Allergy Active codeine Codeine Sulfate([facility] Code:[address]-84) Rash Drug Al lergy Active clindamycin Clindamycin HCl([facility] Code:[address]-86) psychoses Drug A llergy Active Sulfa (for allergy use only) Hives Drug Allergy Active ENCOUNTERS from 1962 to 2021-03-25 Encounter Location Date Provider Diagnosis [facility] [address] [facility] [phone] [place] [address] Feb, Carmen Ruiz Dental infection K04.7 IMMUNIZATIONS Vaccine Route Administration Date Status Influenza 18 yrs & older Flublok IM Intramuscular May 26, 2018 Administered Influenza 6mo & up Fluzone IM Intramuscular Jul 22, 2016 Admi nistered Influenza 6mo & up Fluzone IM Intramuscular Jun 07, 2015 Admi nistered COVID-19 dose #2 given elsewhere [...] Education Language: Question Answer Notes Languages spoken: Swedish Advent: Question Answer Notes Advent 05 Yazidism Sexual Hx: Question Answer Notes [...] FOR REFERRAL No Information VITAL SIGNS Weight 169 lbs Feb, Weight-kg 76.66 kg Feb, Height 63.5 in Feb, BMI 29.46 kg/m2 Feb, Heart Rate 87 /min Feb, Respiratory Rate 18 /min Feb, Temperature 97.2 degrees Fahrenheit Feb, Oximetry 93% Feb, Blood pressure systolic 114 mm Hg Feb, Blood pressure diastolic 64 mm Hg Feb, MEDICATIONS Medication SIG (Take, Route, Frequency, Duration) [...] for pain for 30 days A ctive Breztri Aerosphere 160-9-4.8 MCG/ACT 2 puffs Inhalation [...] directed DX: M51.1 7, Z74.09 Daily Medicaid #[id number] for 90 day(s) Aug, Active DuoNeb 0.5-2.5 [...] M51.17, Z7 4.09 Daily Use Medicaid # [id number] for 90 day(s) Jun, Active Linzess 72 [...] DIRECTED Intramuscular for 30 Ac tive Drisdol 88775 UNIT 1 capsule with meal Orally Once [...] Information RESULTS No Results REASON FOR VISIT tooth pain MEDICAL (GENERAL) HISTORY Type Description Date [...] Remote Hx of substane abuse (alcohol, me th) Medical History Nicotine dependance Surgical History partial hysterectomy with ovarian preser vation 86 Surgical History lung biopsy RLL Surgical History L hand 95,96 Surgical History colonoscopy 06/10/13 Surgical History cataract surgery both eyes 11/15/15 and Surgical History Right carpal tunnel 04/2017 Surgical History Left trigger finger 03/2019 Surgical History EGD, Colonoscopy w/ polyps - [facility] 11/25 0 Hospitalization History COPD exacerbation - [facility] 05/06 - 05/09/15 [facility] - psychotic episode, paranoid s chizophrenia, PTSD 02/10/18-02/15/18 Hospitalization History stomach/cough 12/2020 Goals Section No Information Health Concerns No Information MEDICAL EQUIPMENT No Information MENTAL STATUS No Information FUNCTIONAL STATUS No Information ASSESSMENTS Encounter Date Diagnosis Assessment Notes Treatment Notes Treatm ent Clinical Notes Feb, Dental infection (ICD-10 - K04.7) Given pt's allergies, Levaquin is the most appropriate choice. Pt agrees with plan and will f/u with oral surgeon as scheduled Feb, Other Total time kathryn ng for the patient on the day of the encounter was 20 min PLAN OF TREATMENT Medication Medication Name Sig Start Date Stop Date Levaquin 500 MG 1 tablet Orally Once a day for 7 day(s) Feb, metFORMIN HCl ER 500 MG TAKE 1 TABLET BY MOUTH TWICE DAILY for 9 0 Treatment Notes Assessment Notes Clinical Notes Dental infection Given pt's allergies , Levaquin is the most appropriate choice. Pt agrees with plan and will f/u with oral surgeon as scheduled Next Appt Details Provider Name:Denia Ruiz, 2021-06-14 11:3 0:00 AM, [address] [facility], , [place], [address], Insurance Providers Payer Name Payer Address Payer Phone Insured Name Patient Relati onship to Insured Coverage Start Date Coverage End Date MEDICAID [address] [facility] [id number] [phone] BRAD VASQUEZ self HUMANA [facility] [address] [address] [facility] [address] BRAD RUVALCABA self
--- OUTSIDE RECORDS SUMMARY | 2021-05-12 00:10 | CCD ---
Author Author [facility] Organization [facility] Address Unknown Phone Unavailable Care Team Providers Care Manager Target Name Role Phone Denia Ruiz Unavailable PROBLEMS Type Condition ICD9-CM Code GAA90-VD Code Onset Dates Condition S tatus W/U Status Risk SNOMED Code Notes Problem Bilateral low back pain, with sciatica presence unspecifie d M54.5 Active confirmed 955363516 Problem Gastroesophageal reflux disease without esophagitis K21.9 Active confirmed 685907247 Problem Other mental problems F99 Active confirmed 340505485 Problem Mixed hyperlipidemia E78.2 Active confirmed 033006500 Problem Vitamin D deficiency E55.9 Active confirmed 14728311 Problem Smoker F17.200 Active confirmed 14981949 Problem Chronic obstructive pulmonary disease, unspecified COPD ty pe J44.9 Active confirmed 24455360 Problem Other chronic pain G89.29 Active confirmed 8 1016175 Problem Allergic rhinitis J30.9 Active confirmed 61 121188 Problem Lumbar back pain with radiculopathy affecting ri ght lower extremity M54.17 Active confirmed 681721999 Problem Bladder spasms N32.89 Active confirmed 81364 7006 Problem 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.816 Active confirmed 84601272 Problem Spondylosis of lumbosacral region without myelop athy or radiculopathy M47.817 Active confirmed 03851685 Problem Chronic airway obstruction, not elsewhere classified J44.9 Active confirmed 18535648 Problem COPD exacerbation J44.1 Active confirmed 19 8925504 Problem Tobacco use disorder Z72.0 Active confirmed 28013098 Problem DM w/o complication type II E11.9 Active confirmed 96726980 Problem Essential hypertension I10 Active confirmed 86432085 Problem OAB (overactive bladder) N32.81 Active confirmed 970752244 Problem Limited mobility Z74.09 Active confirmed 851 0008 Problem Retention of urine, unspecified R33.9 Active confi rmed 571296317 Problem Type 2 diabetes mellitus wit h hyperglycemia, unspecified claim service representative insulin use status E11.65 Active confirmed 73237146690 9109 Problem Spinal stenosis of cervical region M48.02 Activ e confirmed 47579527 Problem Arthralgia of multiple joints M25.50 Active confirm ed 85027877 Problem Cervical disc herniation M50.20 Active confirmed 684236809 Problem Sacroiliitis, not elsewhere classified M46.1 A ctive confirmed 05791067 Problem Other intervertebral disc degeneration, lumbar region M51.36 Active confirmed 89974456 Problem Intervertebral disc disorder with radiculopathy of lumbar region M51.16 Active confirmed 88723588 Problem Intervertebral disc disorder with radiculopathy of lumbosacral region M51.17 Active confirmed 52082625 Problem Myofascial muscle pain M79.1 Active confirmed 804960022 Problem Fibromyalgia M79.7 Active confirmed 4900569 05 Problem Degenerative lumbar spinal stenosis M48.061 Acti ve confirmed 254080194 Problem Other osteoarthritis of spine, unspecified spinal region M47.899 Active confirmed 8258266 Problem conche operator current use of 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 Active conf irmed 089670688 Problem Type 2 diabetes mellitus without complications E11 .9 Active confirmed 784356521 Problem Osteoarthritis of right hand, unspecified osteoarthrit is type M19.041 Active confirmed 887146125454251 Problem Cigarette nicotine dependence without complication F17.210 Active confirmed 54943731 Problem Axillary hidradenitis suppurativa L73.2 Active confirmed 910207678 Problem Skin candidiasis B37.2 Active confirmed 498 67113 Problem Diverticulitis K57.92 Active confirmed 03380 6006 Problem Acute constipation K59.00 Active confirmed 1 89083313 Problem Lumbar herniated disc M51.26 Active confirmed 539561465 Problem Diverticulitis of large inte heydi without perforation or abscess without bleeding K57.32 Active confirmed 8817901 Problem Polyneuropathy G62.9 Active confirmed 66967 000 Problem Lumbar degenerative disc disease M51.36 Active conf irmed 57715227 Problem Proteinuria, unspecified R80.9 Active confirmed 87169141 Problem Type 2 diabetes mellitus with other diabetic kid walt complication E11.29 Active confirmed 27005758 Problem Cigarette nicotine dependence with other nicotin e-induced disorder F17.218 Active confirmed 67144656815279093 Problem Rosacea L71.9 Active confirmed 167981021 ALLERGIES Allergen (clinical drug ingredient) Drug/Non Drug Allergy do cumented on EMR Reaction Allergy Type Onset Date Status Penicillin (For Allergies Use Only) Rash Drug Allerg y Active meclizine Meclizine HCl([facility] Code:[address]-98) heart racing Drug Al lergy Active lithium carbonate Lithobid([facility] Code:[address]-07) rash Drug Al lergy Active paroxetine Paxil([facility] Code:[address]-11) Rash Drug Allergy Active codeine Codeine Sulfate([facility] Code:[address]-81) Rash Drug Al lergy Active clindamycin Clindamycin HCl([facility] Code:[address]-40) psychoses Drug A llergy Active Sulfa (for allergy use only) Hives Drug Allergy Active ENCOUNTERS from 1962 to 2021-02-19 Encounter Location Date Provider Diagnosis [place] [id number] [facility] [phone] [place] [address] Jan, Denia Ruiz Gastroesophageal reflux dise ase without esophagitis K21.9 ; 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.29 ; Other chronic pain G89.29 and Essential hypertension I10 IMMUNIZATIONS Vaccine Route Administration Date Status COVID-19 [...] Education Language: Question Answer Notes Languages spoken: Kazakh Christian: Question Answer Notes Christian 05 Yazidism Sexual Hx: Question Answer Notes [...] 4 hrs as needed for 82 Active Scooter Chair power chair DX: M48.61, M54.17, M48.02 Daily for 99 months May, Active Doxycycline Hyclate 100 MG 1 capsule Orally Twice a day for 10 d ay(s) Dec, Active Wrist Splint Left/Right - as directed left and right c ock-up splints Daily for 90 day(s) Feb, Not-Taking Heating Pad - as directed DX: M54.17 Daily to low back as needed Jul, Active Drisdol 70199 UNIT 1 capsule with meal Orally Once a week Active metroNIDAZOLE 0.75 % 1 application Externally to cheeks Twice a day November, Active Lisinopril 10 MG 1 tablet Orally Once a day for 30 days Active Ondansetron HCl 4 MG 1 tablet Orally bid Active Omeprazole 20 MG take two capsules by mouth o nce daily before a meal orally Daily for 30 days Active Fluconazole 100 MG 1 tablet Orally Daily for 14 days 2019 Active Cane - as directed DX: M51.17 Daily for 99 days Feb Active metFORMIN HCl ER 500 MG TAKE ONE TABLET BY MOUTH TWI CE A DAY orally once daily for 30 days Active Blood Glucose Test - Dx E11.9 [...] Four times a day as needed Active Lancets 1 - subcutaneously twice daily DX: E11.9 for 30 day(s) Active Bisacodyl 10 MG INSERT TWO SUPPOSITORIES [...] Daily for 90 day(s) 2 Jul, Not-Taking Nebulizer - as directed DX: J44.9 every [...] as needed for 30 day(s) Jan, Active Invega Sustenna 78 MG/0.5ML INJECT 1 SYRINGE INTRAMUSC ULARLY ONCE A MONTH DIRECTED Intramuscular for 30 Ac tive Atorvastatin Calcium 80 MG 1 tab orally Daily Active Lancet Device - as directed finger DX: E11.9 daily for 30 days Jul, Active predniSONE 10 MG 4 tabs x 3 days, 3 tabs x 3 days, 2 tabs x 3 days, 1 tab x 3 days Orally Once a day for 12 days Dec, Active Lyrica 200 MG 1 capsule Orally twice a day MDD 2 for 30 days Active Glucose Monitor Dx E11.9 Machine - twice daily as needed for 99 days Jul, Active Tradjenta 5 MG 1 tablet Orally Once a day with meal for 30 days Active Calcium 600-D 600-400 MG-UNIT 1 tablet with food Orally Once a day Active Saline 0.65 % 1 application in each nostri l to treat dry nasal passages Nasally every 4 hours as needed for 30 days Active Ibuprofen 600 MG 1 tablet with food or milk a s needed Orally Three times a day as needed for pain for 30 days A ctive Ativan 0.5 MG 1 tablet twice a day Orally twice daily Active Nebulizer/Tubing/Mouthpiece Dx 491.21 dx: j44.9 - 4-6 times a day as needed for 90 days Apr, Active traMADol HCl 50 MG 1 tablet Orally Every 6 hour s as needed for pain mdd 4 for 30 days Active Senna 8.6 MG 1 tablets at bedtime as needed Orally Once a day for 30 days Active Shower Chair without wheels as directed DX: M51.17, Z7 4.09 Daily Use Medicaid # [id number] for 90 day(s) Jun, Active Docusate Sodium 100 MG 1 capsule Orally twice daily as needed for 30 days Active Breztri Aerosphere 160-9-4.8 MCG/ACT 2 puffs Inhalation Twic e a day for 30 days Jan, Active Metamucil 28 % 1 packet with 8 ounces of li quid as needed Orally Three times a day for 30 Days Active Raised Toilet Seat/Lock & Arms - as directed DX: M51.1 7, Z74.09 Daily Medicaid #[id number] for 90 day(s) Aug, Active PROCEDURES No Information RESULTS No Results REASON FOR VISIT med refill MEDICAL (GENERAL) HISTORY Type Description Date [...] History Remote Hx of substane abuse (alcohol, ri ) Medical History Nicotine dependance Surgical History partial hysterectomy with ovarian preser vation 86 Surgical History lung biopsy RLL Surgical History L hand 95,96 Surgical History colonoscopy 06/10/13 Surgical History cataract surgery both eyes 11/15/15 and Surgical History Right carpal tunnel 04/2017 Surgical History Left trigger finger 03/2019 Surgical History EGD, Colonoscopy w/ polyps - [facility] 11/25 0 Hospitalization History COPD exacerbation - [facility] 05/06 - 05/09/15 [facility] Hospitalization History [facility] - psychotic episode, paranoid s chizophrenia, PTSD 02/10/18-02/15/18 Hospitalization History stomach/cough 12/2020 Goals Section No Information Health Concerns No Information MEDICAL EQUIPMENT No Information MENTAL STATUS No Information FUNCTIONAL STATUS No Information ASSESSMENTS Encounter Date Diagnosis Assessment Notes Treatment Notes Treatm ent Clinical Notes Jan, Gastroesophageal reflux dise ase without esophagitis (ICD-10 - K21.9) Jan, Type 2 diabetes mellitus wit h other diabetic kidney complication (ICD-10 - E11.29) Jan, Other chronic pain (ICD-10 - G89.29) Jan, Essential hypertension (ICD-10 - I10) PLAN OF TREATMENT Medication Medication Name Sig [...] day as needed for 30 day(s) Jan, Breztri Aerosphere 160-9-4.8 MCG/ACT 2 puffs Inhalation Twic e a day for 30 days Jan, Saline 0.65 % 1 application in each nostri l to treat dry nasal passages Nasally every 4 hours as needed for 30 days Azelastine HCl 0.1 % 2 puff in each nostril Nasally Twice a day for 30 day(s) Jun, Tradjenta 5 MG 1 tablet Orally Once a day with meal for 30 days metFORMIN HCl ER 500 MG TAKE ONE TABLET BY MOUTH TWI CE A DAY orally once daily for 30 days Ibuprofen 600 MG 1 tablet with food or milk a s needed Orally Three times a day as needed for pain for 30 days Lisinopril 10 MG 1 tablet Orally Once a day for 30 days Lyrica 200 MG 1 capsule Orally twice a day MDD 2 for 30 days Omeprazole 20 MG take two capsules by mouth o nce daily before a meal orally Daily for 30 days Next Appt Details Provider Name:Denia Ruiz, 2021-06-14 11:3 0:00 AM, [address] [facility], , [place], [address], Insurance Providers Payer Name Payer Address Payer Phone Insured Name Patient Relati onship to Insured Coverage Start Date Coverage End Date HUMANA GOLD [address] [address] [facility] [phone] [place] BR[place] CHIN[place] self MEDICAID [place] [address] [facility] [address] BR[address] VASQUEZ self
--- OUTSIDE RECORDS SUMMARY | 2021-05-12 00:10 | CCD ---
Author Author [facility] Organization [facility] Address Unknown Phone Unavailable Care Team Providers Care Substation Electrician Name Role Phone Denia Ruiz Unavailable PROBLEMS Type Condition ICD9-CM Code GEP08-XD Code Onset Dates Condition S tatus W/U Status Risk SNOMED Code Notes Problem Bilateral low back pain, with sciatica presence unspecifie d M54.5 Active confirmed 066083064 Problem Gastroesophageal reflux disease without esophagitis K21.9 Active confirmed 233643510 Problem Other mental problems F99 Active confirmed 244392258 Problem Mixed hyperlipidemia E78.2 Active confirmed 896863896 Problem Vitamin D deficiency E55.9 Active confirmed 98797141 Problem Smoker F17.200 Active confirmed 69281052 Problem Chronic obstructive pulmonary disease, unspecified COPD ty pe J44.9 Active confirmed 36013727 Problem Other chronic pain G89.29 Active confirmed 8 6589316 Problem Allergic rhinitis J30.9 Active confirmed 61 162626 Problem Lumbar back pain with radiculopathy affecting ri ght lower extremity M54.17 Active confirmed 361467091 Problem Bladder spasms N32.89 Active confirmed 41640 7006 Problem 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.816 Active confirmed 17335562 Problem Spondylosis of lumbosacral region without myelop athy or radiculopathy M47.817 Active confirmed 89699871 Problem Chronic airway obstruction, not elsewhere classified J44.9 Active confirmed 51195880 Problem COPD exacerbation J44.1 Active confirmed 19 7138041 Problem Tobacco use disorder Z72.0 Active confirmed 65312500 Problem DM w/o complication type II E11.9 Active confirmed 19125941 Problem Essential hypertension I10 Active confirmed 32524194 Problem OAB (overactive bladder) N32.81 Active confirmed 500824467 Problem Limited mobility Z74.09 Active confirmed 851 0008 Problem Retention of urine, unspecified R33.9 Active confi rmed 511902616 Problem Type 2 diabetes mellitus wit h hyperglycemia, unspecified terminal block assembler insulin use status E11.65 Active confirmed 38394507308 9109 Problem Spinal stenosis of cervical region M48.02 Activ e confirmed 94021306 Problem Arthralgia of multiple joints M25.50 Active confirm ed 11243716 Problem Cervical disc herniation M50.20 Active confirmed 714786716 Problem Sacroiliitis, not elsewhere classified M46.1 A ctive confirmed 38446362 Problem Other intervertebral disc degeneration, lumbar region M51.36 Active confirmed 87582028 Problem Intervertebral disc disorder with radiculopathy of lumbar region M51.16 Active confirmed 42187501 Problem Intervertebral disc disorder with radiculopathy of lumbosacral region M51.17 Active confirmed 30622904 Problem Myofascial muscle pain M79.1 Active confirmed 060579396 Problem Fibromyalgia M79.7 Active confirmed 7109356 05 Problem Degenerative lumbar spinal stenosis M48.061 Acti ve confirmed 913015939 Problem Other osteoarthritis of spine, unspecified spinal region M47.899 Active confirmed 3666468 Problem 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 Active conf irmed 730504057 Problem Type 2 diabetes mellitus without complications E11 .9 Active confirmed 805048236 Problem Osteoarthritis of right hand, unspecified osteoarthrit is type M19.041 Active confirmed 266123359718218 Problem Cigarette nicotine dependence without complication F17.210 Active confirmed 55652661 Problem Axillary hidradenitis suppurativa L73.2 Active confirmed 518460931 Problem Skin candidiasis B37.2 Active confirmed 498 76518 Problem Diverticulitis K57.92 Active confirmed 21737 6006 Problem Acute constipation K59.00 Active confirmed 1 67331072 Problem Lumbar herniated disc M51.26 Active confirmed 915308840 Problem Diverticulitis of large inte heydi without perforation or abscess without bleeding K57.32 Active confirmed 3802167 Problem Polyneuropathy G62.9 Active confirmed 54591 000 Problem Lumbar degenerative disc disease M51.36 Active conf irmed 37973535 Problem Proteinuria, unspecified R80.9 Active confirmed 66666032 Problem Type 2 diabetes mellitus with other diabetic kid walt complication E11.29 Active confirmed 96427838 Problem Cigarette nicotine dependence with other nicotin e-induced disorder F17.218 Active confirmed 20235798001203856 Problem Rosacea L71.9 Active confirmed 068899227 ALLERGIES Allergen (clinical drug ingredient) Drug/Non Drug Allergy do cumented on EMR Reaction Allergy Type Onset Date Status Penicillin (For Allergies Use Only) Rash Drug Allerg y Active meclizine Meclizine HCl([facility] Code:[address]-94) heart racing Drug Al lergy Active lithium carbonate Lithobid([facility] Code:[address]-01) rash Drug Al lergy Active paroxetine Paxil([facility] Code:[address]-77) Rash Drug Allergy Active codeine Codeine Sulfate([facility] Code:[address]-75) Rash Drug Al lergy Active clindamycin Clindamycin HCl([facility] Code:[address]-74) psychoses Drug A llergy Active Sulfa (for allergy use only) Hives Drug Allergy Active ENCOUNTERS from 1962 to 2021-03-21 Encounter Location Date Provider Diagnosis [place] [facility] [phone] [place] [address] Feb, Denia Ruiz IMMUNIZATIONS Vaccine Route Administration Date Status Influenza [...] Language: Question Answer Notes Languages spoken: Uzbek Roman Catholic: Question Answer Notes Roman Catholic 05 Religious Sexual Hx: Question Answer Notes Had sex [...] 4 hrs as needed for 82 Active Nebulizer - as directed DX: J44.9 every 4 hours as needed fo r 99 months Apr, Active tiZANidine HCl 4 MG take 1 tablet by mouth three times daily as neede d Active Wrist Splint Left/Right - as directed left and right c ock-up splints Daily for 90 day(s) Feb, Not-Taking Invega Sustenna 78 MG/0.5ML INJECT 1 SYRINGE INTRAMUSC ULARLY ONCE A MONTH DIRECTED Intramuscular for 30 Ac tive Atorvastatin Calcium 80 MG 1 tab orally Daily Active Omeprazole 20 MG take two capsules by mouth o nce daily before a meal orally Daily for 90 Active Ibuprofen 600 MG 1 tablet with food or milk a s needed Orally Three times a day as needed for pain for 30 days A ctive predniSONE 10 MG 4 tabs x 3 days, 3 tabs x 3 days, 2 tabs x 3 days, 1 tab x 3 days Orally Once a day for 12 days Dec, Active Tradjenta 5 MG 1 tablet Orally Once a day with meal for 30 days Active Glucose Monitor Dx E11.9 Machine - twice daily as needed for 99 days Jul, Active Nebulizer/Tubing/Mouthpiece Dx 491.21 dx: j44.9 - 4-6 times a day as needed for 90 days Apr, Active ZyrTEC Allergy 10 mg 1 tablet Orally daily for 30 days Active Lancets - as directed _ DX: E11.9 twice daily as needed f or 30 Days Jul, Active Calcium 600-D 600-400 MG-UNIT 1 tablet with food Orally Once a day Active Senna 8.6 MG 1 tablets at bedtime as needed Orally Once a day for 30 days Active Saline 0.65 % 1 application in each nostri l to treat dry nasal passages Nasally every 4 hours as needed for 30 days Active Ativan 0.5 MG 1 tablet twice a day Orally twice daily Kauffman Active Flonase 50 MCG/ACT 1 spray in each nostril Nasally twice daily for 60 Active Linzess 72 MCG TAKE ONE CAPSULE BY MOUTH ON AN EMPTY STOMACH BEFORE FIRST MEAL OF THE DAY FOR CONSTIPATION Oral for 30 Not-Taking Bisacodyl 10 MG INSERT TWO SUPPOSITORIES RECTALLY EVERY DAY Rectal fo r 30 Active May Have - replace batteries and labor Dx:Z74.09 , M51.17 Service moterized wheelchair May, Active Rolling Walker 1 with seat and cane zamudio DX : M51.17 Wt 176#, height 63.5 Daily for 99 days Jan, Active Azelastine HCl 0.1 % 2 puff in each nostril Nasally Twice a day for 30 day(s) Jun, Active Lyrica 200 MG 1 capsule Orally twice a day MDD 2 for 30 days Feb, Active Splint Wrist Brace/Left-Right - as directed per physic al therapist Custom splint as needed Re: 1st [facility] joint Osteoarthritis Daily for 90 day(s) 2 Jul, Not-Taking Heating Pad - as directed DX: M54.17 Daily to low back as needed Jul, Active Drisdol 81136 UNIT 1 capsule with meal Orally Once a week Active Lancet Device - as directed finger DX: E11.9 daily for 30 days Jul, Active Nasonex 50 MCG/ACT 2 sprays in each nostril Corby ally Once a day as needed for 30 day(s) Jan, Active Ondansetron HCl 4 MG 1 tablet Orally bid Active traMADol HCl 50 MG 1 tablet Orally Every 6 hour s as needed for pain mdd 4 for 30 days Feb, Active Fluconazole 100 MG 1 tablet Orally Daily for 14 days 2019 Active Cane - as directed DX: M51.17 Daily for 99 days Feb Active Breztri Aerosphere 160-9-4.8 MCG/ACT 2 puffs Inhalation Twic e a day for 30 days Jan, Active Blood Glucose Test - Dx E11.9 In Vitro DX: E11.9 twice daily as needed for 30 days Active metroNIDAZOLE 0.75 % 1 application Externally to cheeks Twice a day November, Active Clotrimazole-Betamethasone 1-0.05 % APPLY TOPICALLY TW O TIMES A DAY FOR 2 WEEKS External for 14 Active Zofran ODT 4 MG 1 tablet on the tongue and a llow to dissolve Orally every 8 hrs prn for 10 days Dec, Active Lancets 1 - subcutaneously twice daily DX: E11.9 for 30 day(s) Active Scooter Chair power chair DX: M48.61, M54.17, M48.02 Daily for 99 months May, Active Doxycycline Hyclate 100 MG 1 capsule Orally Twice a day for 10 d ay(s) Dec, Active DuoNeb 0.5-2.5 (3) MG/3ML 3 ml Inhalation Four times a day as needed Active Docusate Sodium 100 MG 1 capsule Orally twice daily as needed for 30 days Active Shower Chair without wheels as directed DX: M51.17, Z7 4.09 Daily Use Medicaid # [id number] for 90 day(s) Jun, Active metFORMIN HCl ER 500 MG TAKE ONE TABLET BY MOUTH TWI CE A DAY orally once daily for 90 Active Lisinopril 10 MG 1 tablet Orally Once a day for 90 Active Metamucil 28 % 1 packet with 8 ounces of li quid as needed Orally Three times a day for 30 Days Active Raised Toilet Seat/Lock & Arms - as directed DX: M51.1 7, Z74.09 Daily Medicaid #[id number] for 90 day(s) Aug, Active PROCEDURES No Information RESULTS No Results REASON FOR VISIT infection in tooth MEDICAL (GENERAL) HISTORY Type Description Date Medical [...] 11/25 0 Hospitalization History COPD exacerbation - [facility] 05/06 - 05/09/15 Hospitalization History [...] Date metFORMIN HCl ER 500 MG TAKE ONE TABLET BY MOUTH TWI CE A DAY orally once daily for 90 Metamucil 28 % 1 packet with 8 ounces of li quid as needed Orally Three times a day for 30 Days Saline 0.65 % 1 application in each nostri l to treat dry nasal passages Nasally every 4 hours as needed for 30 days Senna 8.6 MG 1 tablets at bedtime as needed Orally Once a day for 30 days Lisinopril 10 MG 1 tablet Orally Once a day for 90 [facility] Aerosphere 160-9-4.8 MCG/ACT 2 puffs Inhalation Twic e a day for 30 days Jan, Ibuprofen 600 MG 1 tablet with food or milk a s needed Orally Three times a day as needed for pain for 30 days Nasonex 50 MCG/ACT 2 sprays in each nostril Corby ally Once a day as needed for 30 day(s) Jan, Tradjenta 5 MG 1 tablet Orally Once a day with meal for 30 days traMADol HCl 50 MG 1 tablet Orally Every 6 hour s as needed for pain mdd 4 for 30 days Feb, Omeprazole 20 MG take two capsules by mouth o nce daily before a meal orally Daily for 90 Azelastine HCl 0.1 % 2 puff in each nostril Nasally Twice a day for 30 day(s) Jun, Lyrica 200 MG 1 capsule Orally twice a day MDD 2 for 30 days Feb, Next Appt Details Provider Name:Carmen Ruiz, 8 02:30:00 PM, [address] [place] [address] , [place], [address], Provider Name:Denia Ruiz, 2021-06-14 11:3 0:00 AM, [address] [place] [id number], [place], [address], Insurance Providers Payer Name Payer Address Payer Phone Insured Name Patient Relati onship to Insured Coverage Start Date Coverage End Date [employer] GOLD [address] [address] [facility] [address] [place] self MEDICAID [employer] [address] [facility] [address] [address] [place] self
--- OUTSIDE RECORDS SUMMARY | 2021-05-12 00:10 | CCD ---
Author Author [facility] Organization [facility] Address Unknown Phone Unavailable Care Team Providers Care Director Dietetics Department Name Role Phone Denia Ruiz Unavailable PROBLEMS Type Condition ICD9-CM Code NNJ34-AC Code Onset Dates Condition S tatus W/U Status Risk SNOMED Code Notes Problem Bilateral low back pain, with sciatica presence unspecifie d M54.5 Active confirmed 403876308 Problem Gastroesophageal reflux disease without esophagitis K21.9 Active confirmed 830293255 Problem Other mental problems F99 Active confirmed 583435073 Problem Mixed hyperlipidemia E78.2 Active confirmed 870760618 Problem Vitamin D deficiency E55.9 Active confirmed 69308498 Problem Smoker F17.200 Active confirmed 09532252 Problem Chronic obstructive pulmonary disease, unspecified COPD ty pe J44.9 Active confirmed 45761761 Problem Other chronic pain G89.29 Active confirmed 8 2961675 Problem Allergic rhinitis J30.9 Active confirmed 61 581370 Problem Lumbar back pain with radiculopathy affecting ri ght lower extremity M54.17 Active confirmed 022891030 Problem Bladder spasms N32.89 Active confirmed 24545 7006 Problem 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.816 Active confirmed 88813638 Problem Spondylosis of lumbosacral region without myelop athy or radiculopathy M47.817 Active confirmed 89287872 Problem Chronic airway obstruction, not elsewhere classified J44.9 Active confirmed 99101678 Problem COPD exacerbation J44.1 Active confirmed 19 4381501 Problem Tobacco use disorder Z72.0 Active confirmed 07714021 Problem DM w/o complication type II E11.9 Active confirmed 46995049 Problem Essential hypertension I10 Active confirmed 93663542 Problem OAB (overactive bladder) N32.81 Active confirmed 581067809 Problem Limited mobility Z74.09 Active confirmed 851 0008 Problem Retention of urine, unspecified R33.9 Active confi rmed 684531702 Problem Type 2 diabetes mellitus wit h hyperglycemia, unspecified ferry terminal agent insulin use status E11.65 Active confirmed 52611648583 9109 Problem Spinal stenosis of cervical region M48.02 Activ e confirmed 83614571 Problem Arthralgia of multiple joints M25.50 Active confirm ed 43111089 Problem Cervical disc herniation M50.20 Active confirmed 532354768 Problem Sacroiliitis, not elsewhere classified M46.1 A ctive confirmed 22257813 Problem Other intervertebral disc degeneration, lumbar region M51.36 Active confirmed 82872588 Problem Intervertebral disc disorder with radiculopathy of lumbar region M51.16 Active confirmed 94540122 Problem Intervertebral disc disorder with radiculopathy of lumbosacral region M51.17 Active confirmed 70680050 Problem Myofascial muscle pain M79.1 Active confirmed 061915469 Problem Fibromyalgia M79.7 Active confirmed 6647855 05 Problem Degenerative lumbar spinal stenosis M48.061 Acti ve confirmed 954200642 Problem Other osteoarthritis of spine, unspecified spinal region M47.899 Active confirmed 4205332 Problem 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 terminal 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 Active conf irmed 881631658 Problem Type 2 diabetes mellitus without complications E11 .9 Active confirmed 274089939 Problem Osteoarthritis of right hand, unspecified osteoarthrit is type M19.041 Active confirmed 358985664251680 Problem Cigarette nicotine dependence without complication F17.210 Active confirmed 34187922 Problem Axillary hidradenitis suppurativa L73.2 Active confirmed 067618156 Problem Skin candidiasis B37.2 Active confirmed 498 63026 Problem Diverticulitis K57.92 Active confirmed 04261 6006 Problem Acute constipation K59.00 Active confirmed 1 44041865 Problem Lumbar herniated disc M51.26 Active confirmed 476027505 Problem Diverticulitis of large inte heydi without perforation or abscess without bleeding K57.32 Active confirmed 8632355 Problem Polyneuropathy G62.9 Active confirmed 64985 000 Problem Lumbar degenerative disc disease M51.36 Active conf irmed 37010496 Problem Proteinuria, unspecified R80.9 Active confirmed 10211967 Problem Type 2 diabetes mellitus with other diabetic kid walt complication E11.29 Active confirmed 66655974 Problem Cigarette nicotine dependence with other nicotin e-induced disorder F17.218 Active confirmed 29171325878024115 Problem Rosacea L71.9 Active confirmed 275218576 ALLERGIES Allergen (clinical drug ingredient) Drug/Non Drug Allergy do cumented on EMR Reaction Allergy Type Onset Date Status Penicillin (For Allergies Use Only) Rash Drug Allerg y Active meclizine Meclizine HCl([facility] Code:[address]-09) heart racing Drug Al lergy Active lithium carbonate Lithobid([facility] Code:[address]-72) rash Drug Al lergy Active paroxetine Paxil([facility] Code:[address]-76) Rash Drug Allergy Active codeine Codeine Sulfate([facility] Code:[address]-39) Rash Drug Al lergy Active clindamycin Clindamycin HCl([facility] Code:[address]-30) psychoses Drug A llergy Active Sulfa (for allergy use only) Hives Drug Allergy Active ENCOUNTERS from 1962 to 2021-03-12 Encounter Location Date Provider Diagnosis [place] [id number] [facility] [phone] [place] [address] Feb, Denia Ruiz Other chronic pain G89.29 IMMUNIZATIONS Vaccine Route [...] Education Language: Question Answer Notes Languages spoken: Honduran Episcopal: Question Answer Notes Episcopal 05 Caodaism Sexual Hx: Question Answer Notes Had sex [...] E11.9 daily for 30 days Jul, Active Ibuprofen 600 MG 1 tablet with [...] Orally Daily for 14 days 2019 Active Nebulizer/Tubing/Mouthpiece Dx 491.21 dx: j44.9 - 4-6 times a day as needed for 90 days Apr, Active Breztri Aerosphere 160-9-4.8 MCG/ACT 2 puffs Inhalation Twic e a day for 30 days Jan, Active Blood Glucose Test - Dx E11.9 In Vitro DX: E11.9 twice daily as needed for 30 days Active Calcium 600-D 600-400 [...] EVERY DAY Rectal fo r 30 Active Rolling Walker 1 with seat and [...] low back as needed Jul, Active Drisdol 69415 UNIT 1 capsule with meal Orally Once a week Active Lisinopril 10 MG 1 tablet Orally Once a day for 90 Active Nasonex 50 MCG/ACT 2 sprays in each nostril Corby ally Once a day as needed for 30 day(s) Jan, Active Ondansetron HCl 4 MG 1 tablet Orally bid Active traMADol HCl 50 MG 1 tablet Orally Every 6 hour s as needed for pain mdd 4 for 30 days Feb, Active Omeprazole 20 MG take two capsules by mouth o nce daily before a meal orally Daily for 90 Active Cane - as directed DX: M51.17 Daily for 99 days Feb Active Tradjenta 5 MG 1 tablet Orally Once a day with meal for 30 days Active Glucose Monitor Dx E11.9 Machine - twice daily as needed for 99 days Jul, Active ZyrTEC Allergy 10 mg 1 tablet Orally daily for 30 days Active Clotrimazole-Betamethasone 1-0.05 % [...] M51.17, Z7 4.09 Daily Use Medicaid # [id number] for 90 day(s) Jun, Active metFORMIN HCl ER 500 MG TAKE ONE TABLET BY MOUTH TWI CE A DAY orally once daily for 90 Active metroNIDAZOLE 0.75 % 1 application Externally to cheeks Twice a day November, Active Metamucil 28 % 1 packet with 8 ounces of li quid as needed Orally Three times a day for 30 Days Active Raised Toilet Seat/Lock & Arms - as directed DX: M51.1 7, Z74.09 Daily Medicaid #[id number] for 90 day(s) Aug, Active PROCEDURES No [...] Hospitalization History COPD exacerbation - [facility] 05/06 - 05/09/15 [facility] Hospitalization History [facility] - psychotic episode, paranoid s chizophrenia, PTSD 02/10/18-02/15/18 Hospitalization History stomach/cough 12/2020 Goals Section No Information Health Concerns No Information MEDICAL EQUIPMENT No Information MENTAL STATUS No Information FUNCTIONAL STATUS No Information ASSESSMENTS Encounter Date Diagnosis Assessment Notes Treatment Notes Treatm ent Clinical Notes Feb, Other chronic pain (ICD-10 - G89.29) PLAN [...] Orally Once a day for 30 days Breztri Aerosphere 160-9-4.8 MCG/ACT 2 puffs Inhalation Twic e a day for 30 days Jan, Tradjenta 5 MG 1 tablet Orally Once a day with meal for 30 days Ibuprofen 600 MG 1 tablet with food or milk a s needed Orally Three times a day as needed for pain for 30 days Nasonex 50 MCG/ACT 2 sprays in each nostril Corby ally Once a day as needed for 30 day(s) Jan, Lyrica 200 MG 1 capsule Orally twice a day MDD 2 for 30 days traMADol HCl 50 MG 1 tablet Orally Every 6 hour s as needed for pain mdd 4 for 30 days Feb, Lisinopril 10 MG 1 tablet Orally Once a day for 90 Azelastine HCl 0.1 % 2 puff in each nostril Nasally Twice a day for 30 day(s) Jun, Omeprazole 20 MG take two capsules by mouth o nce daily before a meal orally Daily for 90 Next Appt Details Provider Name:Denia Ruiz, 2021-06-14 11:3 0:00 AM, [address] [facility], , [place], [address], Insurance Providers Payer Name Payer Address Payer Phone Insured Name Patient Relati onship to Insured Coverage Start Date Coverage End Date MEDICAID [employer] [address] [facility] [address] [address] [facility] [address] [address] [facility] [address] [place]
--- OUTSIDE RECORDS SUMMARY | 2021-05-12 00:10 | CCD ---
Author Author [facility] Organization [facility] Address Unknown Phone Unavailable Care Team Providers Care Viscera Washer Name Role Phone Denia Ruiz Unavailable PROBLEMS Type Condition ICD9-CM Code [id number] Code Onset Dates Condition S tatus W/U Status Risk SNOMED Code Notes Problem Bilateral low back pain, with sciatica presence unspecifie d M54.5 Active confirmed 842678705 Problem Gastroesophageal reflux disease without esophagitis K21.9 Active confirmed 179442201 Problem Other mental problems F99 Active confirmed 590719462 Problem Mixed hyperlipidemia E78.2 Active confirmed 504127249 Problem Vitamin D deficiency E55.9 Active confirmed 71390436 Problem Smoker F17.200 Active confirmed 10376260 Problem Chronic obstructive pulmonary disease, unspecified COPD ty pe J44.9 Active confirmed 01839903 Problem Other chronic pain G89.29 Active confirmed 8 6696027 Problem Allergic rhinitis J30.9 Active confirmed 61 783361 Problem Lumbar back pain with radiculopathy affecting ri ght lower extremity M54.17 Active confirmed 285073640 Problem Bladder spasms N32.89 Active confirmed 79341 7006 Problem 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.816 Active confirmed 85477652 Problem Spondylosis of lumbosacral region without myelop athy or radiculopathy M47.817 Active confirmed 89297081 Problem Chronic airway obstruction, not elsewhere classified J44.9 Active confirmed 98631806 Problem COPD exacerbation J44.1 Active confirmed 19 2644597 Problem Tobacco use disorder Z72.0 Active confirmed 02787467 Problem DM w/o complication type II E11.9 Active confirmed 78855121 Problem Essential hypertension I10 Active confirmed 37596598 Problem OAB (overactive bladder) N32.81 Active confirmed 001568281 Problem Limited mobility Z74.09 Active confirmed 851 0008 Problem Retention of urine, unspecified R33.9 Active confi rmed 661588145 Problem Type 2 diabetes mellitus wit h hyperglycemia, unspecified 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.65 Active confirmed 12909430795 9109 Problem Spinal stenosis of cervical region M48.02 Activ e confirmed 99467570 Problem Arthralgia of multiple joints M25.50 Active confirm ed 91289568 Problem Cervical disc herniation M50.20 Active confirmed 294892714 Problem Sacroiliitis, not elsewhere classified M46.1 A ctive confirmed 62313867 Problem Other intervertebral disc degeneration, lumbar region M51.36 Active confirmed 30389601 Problem Intervertebral disc disorder with radiculopathy of lumbar region M51.16 Active confirmed 90330957 Problem Intervertebral disc disorder with radiculopathy of lumbosacral region M51.17 Active confirmed 99825832 Problem Myofascial muscle pain M79.1 Active confirmed 052205169 Problem Fibromyalgia M79.7 Active confirmed 1974068 05 Problem Degenerative lumbar spinal stenosis M48.061 Acti ve confirmed 366362007 Problem Other osteoarthritis of spine, unspecified spinal region M47.899 Active confirmed 3268333 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 of 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 Active conf irmed 374357693 Problem Type 2 diabetes mellitus without complications E11 .9 Active confirmed 861283256 Problem Osteoarthritis of right hand, unspecified osteoarthrit is type M19.041 Active confirmed 393480039289191 Problem Cigarette nicotine dependence without complication F17.210 Active confirmed 13578122 Problem Axillary hidradenitis suppurativa L73.2 Active confirmed 886039262 Problem Skin candidiasis B37.2 Active confirmed 498 40792 Problem Diverticulitis K57.92 Active confirmed 26948 6006 Problem Acute constipation K59.00 Active confirmed 1 69398199 Problem Lumbar herniated disc M51.26 Active confirmed 903535536 Problem Diverticulitis of large inte heydi without perforation or abscess without bleeding K57.32 Active confirmed 6524541 Problem Polyneuropathy G62.9 Active confirmed 77142 000 Problem Lumbar degenerative disc disease M51.36 Active conf irmed 31653159 Problem Proteinuria, unspecified R80.9 Active confirmed 33744266 Problem Type 2 diabetes mellitus with other diabetic kid walt complication E11.29 Active confirmed 72901311 Problem Cigarette nicotine dependence with other nicotin e-induced disorder F17.218 Active confirmed 01484557400192881 Problem Rosacea L71.9 Active confirmed 173099575 ALLERGIES Allergen (clinical drug ingredient) Drug/Non Drug Allergy do cumented on EMR Reaction Allergy Type Onset Date Status Penicillin (For Allergies Use Only) Rash Drug Allerg y Active meclizine Meclizine HCl[place] [place] Code:[address]-94) heart racing Drug Al lergy Active lithium carbonate Lithobid([facility] [place] Code:[address]-00) rash Drug Al lergy Active paroxetine Paxil([facility] [place] Code:[address]-04) Rash Drug Allergy Active codeine Codeine Sulfate([facility] [place] Code:[address]-87) Rash Drug Al lergy Active clindamycin Clindamycin HCl([facility] [place] Code:[address]-04) psychoses Drug A llergy Active Sulfa (for allergy use only) Hives Drug Allergy Active ENCOUNTERS from 1962 to 2021-04-11 Encounter Location Date Provider Diagnosis [place] [id number] [facility] [phone] [place] [address] Mar, Denia Ruiz Other chronic pain G89.29 IMMUNIZATIONS [...] Education Language: Question Answer Notes Languages spoken: Swazi Rastafarian: Question Answer Notes Rastafarian 05 Zoroastrian Sexual Hx: Question Answer Notes Had sex [...] Notes Start Da te End Date Status Flonase 50 MCG/ACT 1 spray in each [...] times a day for 30 Days Active Levaquin 500 MG 1 tablet Orally [...] Orally Once a day for 90 Active Lyrica 200 MG 1 capsule Orally [...] directed DX: M51.1 7, Z74.09 Daily Medicaid #[id number] for 90 day(s) Aug, Active DuoNeb 0.5-2.5 (3) MG/3ML 3 ml Inhalation Four times a day as needed Active Atorvastatin Calcium 80 MG 1 tab orally Daily Active Ventolin HFA 108 (90 Base) MCG/ACT 2 puffs Inhalation every 4 hrs as needed for 82 Active Splint Wrist Brace/Left-Right - as directed per physic al therapist Custom splint as needed Re: 1st [facility] joint Osteoarthritis Daily for 90 day(s) 2 Jul, Not-Taking Ondansetron HCl 4 MG 1 tablet Orally bid Active Shower Chair without wheels as directed DX: M51.17, Z7 4.09 Daily Use Medicaid # [id number] for 90 day(s) Jun, Active Wrist Splint Left/Right - as directed left and right c ock-up splints Daily for 90 day(s) Feb, Not-Taking metFORMIN HCl ER 500 MG TAKE 1 TABLET BY MOUTH TWICE DAILY for 90 Active ZyrTEC Allergy 10 mg 1 tablet Orally daily for 30 days Active Cane - as directed DX: M51.17 [...] DIRECTED Intramuscular for 30 Ac tive Drisdol 05866 UNIT 1 capsule with meal Orally Once [...] Information RESULTS No Results REASON FOR VISIT tramdol/ needs transfer appt MEDICAL (GENERAL) HISTORY Type Description Date Medical [...] 06/10/13 Surgical History cataract surgery both eyes 4/21/16 and Surgical History Right carpal tunnel 04/2017 Surgical History Left trigger finger 03/2019 Surgical History EGD, Colonoscopy w/ polyps - [facility] 11/25 0 Hospitalization History COPD exacerbation - [facility] 05/06 - 05/09/15 Hospitalization History [facility] [...] BY MOUTH TWICE DAILY for 9 0 traMADol HCl 50 MG 1 tablet Orally Every 6 hour s as needed for pain mdd 4 for 30 days Mar, Next Appt Details Provider Name:[place], 2020-0 - 01:00:00 PM, [address] [facility], , [place], [address], Insurance Providers Payer Name Payer Address Payer Phone Insured Name Patient Relati onship to Insured Coverage Start Date Coverage End Date HU[employer]NA GOLD [address] [address] [facility] [address] [place] self MEDICAID SmartStart [address] [facility] [id number] [place] self
--- OUTSIDE RECORDS SUMMARY | 2021-05-12 00:10 | CCD ---
Author Author [facility] Organization [facility] Address Unknown Phone Unavailable Care Team Providers Care Transport Manager Name Role Phone [place] Unavailable PROBLEMS Type Condition ICD9-CM Code [id number] Code Onset Dates Condition S tatus W/U Status Risk SNOMED Code Notes Problem Bilateral low back pain, with sciatica presence unspecifie d M54.5 Active confirmed 259868025 Problem Gastroesophageal reflux disease without esophagitis K21.9 Active confirmed 737149863 Problem Other mental problems F99 Active confirmed 172816301 Problem Mixed hyperlipidemia E78.2 Active confirmed 154509125 Problem Vitamin D deficiency E55.9 Active confirmed 62051007 Problem Smoker F17.200 Active confirmed 93754466 Problem Chronic obstructive pulmonary disease, unspecified COPD ty pe J44.9 Active confirmed 32908221 Problem Other chronic pain G89.29 Active confirmed 8 9806832 Problem Allergic rhinitis J30.9 Active confirmed 61 335981 Problem Lumbar back pain with radiculopathy affecting ri ght lower extremity M54.17 Active confirmed 492001971 Problem Bladder spasms N32.89 Active confirmed 74706 7006 Problem 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.816 Active confirmed 52955585 Problem Spondylosis of lumbosacral region without myelop athy or radiculopathy M47.817 Active confirmed 50680299 Problem Chronic airway obstruction, not elsewhere classified J44.9 Active confirmed 66088421 Problem COPD exacerbation J44.1 Active confirmed 19 8239186 Problem Tobacco use disorder Z72.0 Active confirmed 33512325 Problem DM w/o complication type II E11.9 Active confirmed 32084260 Problem Essential hypertension I10 Active confirmed 81352921 Problem OAB (overactive bladder) N32.81 Active confirmed 970338512 Problem Limited mobility Z74.09 Active confirmed 851 0008 Problem Retention of urine, unspecified R33.9 Active confi rmed 642883962 Problem Type 2 diabetes mellitus wit h hyperglycemia, unspecified 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.65 Active confirmed 32965163112 9109 Problem Spinal stenosis of cervical region M48.02 Activ e confirmed 20632047 Problem Arthralgia of multiple joints M25.50 Active confirm ed 78686793 Problem Cervical disc herniation M50.20 Active confirmed 441848931 Problem Sacroiliitis, not elsewhere classified M46.1 A ctive confirmed 19515682 Problem Other intervertebral disc degeneration, lumbar region M51.36 Active confirmed 13039270 Problem Intervertebral disc disorder with radiculopathy of lumbar region M51.16 Active confirmed 67173863 Problem Intervertebral disc disorder with radiculopathy of lumbosacral region M51.17 Active confirmed 16631517 Problem Myofascial muscle pain M79.1 Active confirmed 266522825 Problem Fibromyalgia M79.7 Active confirmed 0032247 05 Problem Degenerative lumbar spinal stenosis M48.061 Acti ve confirmed 108138888 Problem Other osteoarthritis of spine, unspecified spinal region M47.899 Active confirmed 1331443 Problem USP current use of 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 Active conf irmed 479181888 Problem Type 2 diabetes mellitus without complications E11 .9 Active confirmed 048693937 Problem Osteoarthritis of right hand, unspecified osteoarthrit is type M19.041 Active confirmed 317162809233975 Problem Cigarette nicotine dependence without complication F17.210 Active confirmed 28852199 Problem Axillary hidradenitis suppurativa L73.2 Active confirmed 226950060 Problem Skin candidiasis B37.2 Active confirmed 498 16893 Problem Diverticulitis K57.92 Active confirmed 65425 6006 Problem Acute constipation K59.00 Active confirmed 1 52064734 Problem Lumbar herniated disc M51.26 Active confirmed 688067434 Problem Diverticulitis of large inte heydi without perforation or abscess without bleeding K57.32 Active confirmed 7297337 Problem Polyneuropathy G62.9 Active confirmed 65290 000 Problem Lumbar degenerative disc disease M51.36 Active conf irmed 34181002 Problem Proteinuria, unspecified R80.9 Active confirmed 79247165 Problem Type 2 diabetes mellitus with other diabetic kid walt complication E11.29 Active confirmed 55102303 Problem Cigarette nicotine dependence with other nicotin e-induced disorder F17.218 Active confirmed 68788270069953261 Problem Rosacea L71.9 Active confirmed 068091953 ALLERGIES Allergen (clinical drug ingredient) Drug/Non Drug Allergy do cumented on EMR Reaction Allergy Type Onset Date Status Penicillin (For Allergies Use Only) Rash Drug Allerg y Active meclizine Meclizine HCl([facility] Code:[address]-59) heart racing Drug Al lergy Active lithium carbonate Lithobid([facility] Code:[address]-76) rash Drug Al lergy Active paroxetine Paxil([facility] Code:[address]-92) Rash Drug Allergy Active codeine Codeine Sulfate([facility] Code:[address]-29) Rash Drug Al lergy Active clindamycin Clindamycin HCl([facility] Code:[address]-29) psychoses Drug A llergy Active Sulfa (for allergy use only) Hives Drug Allergy Active ENCOUNTERS from 1962 to 2021-04-16 Encounter Location Date Provider Diagnosis [facility] [address] [facility] [phone] [place] [address] Mar, [place] IMMUNIZATIONS Vaccine Route Administration Date Status Influenza [...] Education Language: Question Answer Notes Languages spoken: Nepalese Methodist: Question Answer Notes Methodist 05 Holiness Sexual Hx: Question Answer Notes Had sex [...] directed DX: M51.1 7, Z74.09 Daily Medicaid #[id number] for 90 day(s) Aug, Active DuoNeb 0.5-2.5 [...] M51.17, Z7 4.09 Daily Use Medicaid # [id number] for 90 day(s) Jun, Active Wrist Splint [...] DIRECTED Intramuscular for 30 Ac tive Drisdol 98857 UNIT 1 capsule with meal Orally Once [...] Information RESULTS No Results REASON FOR VISIT no show informational letter MEDICAL (GENERAL) HISTORY Type Description Date Medical [...] History Remote Hx of substane abuse (alcohol, pa ) Medical History Nicotine dependance Surgical History partial hysterectomy with ovarian preser vation 84 Surgical History lung biopsy RLL Surgical History L hand 95,96 Surgical History colonoscopy 06/10/13 Surgical History cataract surgery both eyes 11/15/15 and Surgical History Right carpal tunnel 04/2017 Surgical History Left trigger finger 03/2019 Surgical History EGD, Colonoscopy w/ polyps - [facility] 11/25 0 Hospitalization History COPD exacerbation - [facility] 05/06 - 05/09/15 Hospitalization History [...] pain mdd 4 for 30 days Mar, Insurance Providers Payer Name Payer Address Payer Phone Insured Name Patient Relati onship to Insured Coverage Start Date Coverage End Date MEDICAID [employer] [address] [facility] [id number] [place] self HUMANA GOLD [address] [address] [facility] [id number] [place] self
--- OUTSIDE RECORDS SUMMARY | 2021-05-12 00:12 | CCD ---
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) ALIREZA Next Of Kin [address] [place] [address] ALIREZA CHO Next Of Kin [address] [place] [address] VASHTI LEDEZMA Next Of Kin [facility] [address] [place] [address] [place] [address] OP[place] [address] VICKI VASQUEZ Next Of Kin [address] [facility] [place] [address] TANG VASQUEZ Next Of Kin [address] [place] [address] OPAL VASQUEZ Next Of Kin Unknown UE Next Of Kin Unknown Unavailable DISABLED Next Of Kin Unknown PEDRO N TANG Next Of Kin [address] [place] [address] VENUS BERRY ECON [address] [place] [address] Unavailable Nyla Mann ECON [address] [place], [place] Unavailable JaviVenus ECON [address] [place] [address] vashti ledezma ECON [address] [place] [address] Unavailable TANG VASQUEZ ECON [address] [place] [address] [phone] Care Team Providers Care Telescope Operator Name Role Phone RUIZ, H REVA TAP GRINDER Unavailable Unavailable RUIZ, H REVA TAP GRINDER Unavailable Unavailable RUIZ, H REVA TAP GRINDER Unavailable Unavailable RUIZ, H REVA TAP GRINDER Unavailable Unavailable RUIZ, H REVA TAP GRINDER Unavailable Unavailable RUIZ, H REVA TAP GRINDER Unavailable Unavailable RUIZ, H REVA TAP GRINDER Unavailable Unavailable RUIZ, H REVA TAP GRINDER Unavailable Unavailable RUIZ, H REVA TAP GRINDER Unavailable Unavailable RUIZ, H REVA TAP GRINDER Unavailable Unavailable RUIZ, H REVA TAP GRINDER Unavailable Unavailable RUIZ, H REVA TAP GRINDER Unavailable Unavailable RUIZ, H REVA TAP GRINDER Unavailable Unavailable RUIZ, H REVA TAP GRINDER Unavailable Unavailable RUIZ, H REVA TAP GRINDER Unavailable Unavailable RUIZ, H REVA TAP GRINDER Unavailable Unavailable RUIZ, H REVA TAP GRINDER Unavailable Unavailable RUIZ, H REVA TAP GRINDER Unavailable Unavailable RUIZ, H REVA TAP GRINDER Unavailable Unavailable RUIZ, H REVA TAP GRINDER Unavailable Unavailable RUIZ, H REVA TAP GRINDER Unavailable Unavailable RUIZ, H REVA TAP GRINDER Unavailable Unavailable RUIZ, H REVA TAP GRINDER Unavailable Unavailable RUIZ, H REVA TAP GRINDER Unavailable Unavailable RUIZ, H REVA TAP GRINDER Unavailable Unavailable RUIZ, H REVA TAP GRINDER Unavailable Unavailable RUIZ, H REVA TAP GRINDER Unavailable Unavailable RUIZ, H REVA TAP GRINDER Unavailable Unavailable RUIZ, H REVA TAP GRINDER Unavailable Unavailable RUIZ, H REVA TAP GRINDER Unavailable Unavailable RUIZ, H REVA TAP GRINDER Unavailable Unavailable RUIZ, H REVA TAP GRINDER Unavailable Unavailable RUIZ, H REVA TAP GRINDER Unavailable Unavailable RUIZ, H REVA TAP GRINDER Unavailable Unavailable RUIZ, H REVA TAP GRINDER Unavailable Unavailable RUIZ, H REVA TAP GRINDER Unavailable Unavailable RUIZ, H REVA TAP GRINDER Unavailable Unavailable RUIZ, H REVA TAP GRINDER Unavailable Unavailable RUIZ, H REVA TAP GRINDER Unavailable Unavailable RUIZ, H REVA TAP GRINDER Unavailable Unavailable RUIZ, H REVA TAP GRINDER Unavailable Unavailable RUIZ, H REVA TAP GRINDER Unavailable Unavailable RUIZ, H REVA TAP GRINDER Unavailable Unavailable RUIZ, H REVA TAP GRINDER Unavailable Unavailable RUIZ, H REVA TAP GRINDER Unavailable Unavailable RUIZ, H REVA TAP GRINDER Unavailable Unavailable RUIZ, H REVA TAP GRINDER Unavailable Unavailable RUIZ, H REVA TAP GRINDER Unavailable Unavailable RUIZ, H REVA TAP GRINDER Unavailable Unavailable RUIZ, H REVA TAP GRINDER Unavailable Unavailable RUIZ, H REVA TAP GRINDER Unavailable Unavailable RUIZ, H REVA TAP GRINDER Unavailable Unavailable RUIZ, H REVA TAP GRINDER Unavailable Unavailable RUIZ, H REVA TAP GRINDER Unavailable Unavailable RUIZ, H REVA TAP GRINDER Unavailable Unavailable RUIZ, H REVA TAP GRINDER Unavailable Unavailable Mack, Pérez MD Unavailable Unavailable Mack, Pérez ISSA Unavailable Unavailable Mack, Pérez ISSA Unavailable Unavailable Mack, Pérez ISSA Unavailable Unavailable Mack, Pérez MD Unavailable Unavailable Mack, Pérez MD Unavailable Unavailable VENERUS, Idris DALEY MD Unavailable Unavailable VENERUS, Idris DALEY MD Unavailable Unavailable VENERUS, Idris DALEY MD Unavailable Unavailable VENERUS, J GEOVANNY ISSA Unavailable Unavailable VENERUS, J GEOVANNY ISSA Unavailable Unavailable VENERUS, J GEOVANNY ISSA Unavailable Unavailable VENERUS, J GEOVANNY ISSA Unavailable Unavailable VENERUS, J GEOVANNY ISSA Unavailable Unavailable VENERUS, J GEOVANNY ISSA Unavailable Unavailable CHANLIECCO, C MARY MD Unavailable Unavailable CHANLIECCO, C MARY MD Unavailable Unavailable CHANLIECCO, C MARY MD Unavailable Unavailable CHANLIECCO, C MARY MD Unavailable Unavailable CHANLIECCO, C MARY MD Unavailable Unavailable CHANLIECCO, C MARY MD Unavailable Unavailable CHANLIECCO, C MARY MD Unavailable Unavailable CHANLIECCO, C MARY MD Unavailable Unavailable CHANLIECCO, C MARY MD Unavailable Unavailable CHANLIECCO, C MARY MD Unavailable Unavailable CHANLIECCO, C MARY MD Unavailable Unavailable Re-disclosure Warning The records that you are about to access may contain information from federally-assisted alcohol or drug abuse programs. If such information is present, then the following federally mandated warning applies: This information has been disclosed to you from records protected by federal confidentiality rules (42 CFR part 2). The federal rules prohibit you from making any further disclosure of this information unless further disclosure is expressly permitted by the written consent of the person to whom it pertains or as otherwise permitted by 42 CFR part 2. A general authorization for the release of medical or other information is NOT sufficient for this purpose. The Federal rules restrict any use of the information to criminally investigate or prosecute any alcohol or drug abuse patient.The records that you are about to access may contain highly sensitive health information, the redisclosure of which is protected by Article 27-F of the [facility] Public Health law. If you continue you may have access to information: Regarding HIV / AIDS; Provided by facilities licensed or operated by the [facility] Office of Mental Health; or Provided by the [facility] Office for People With Developmental Disabilities. If such information is present, then the following [facility] mandated warning applies: This information has been disclosed to you from confidential records which are protected by state law. State law prohibits you from making any further disclosure of this information without the specific written consent of the person to whom it pertains, or as otherwise permitted by law. Any unauthorized further disclosure in violation of state law may result in a fine or fci sentence or both. A general authorization for the release of medical or other information is NOT sufficient authorization for further disc losure. Allergies and Adverse Reactions Type Description Substance Reaction Status Data Source(s ) Propensity to adverse reactions PAXIL PAXIL [facility] Propensity to adverse reactions LITHOBID LITHOBID [facility] Drug allergy [facility] Propensity to adverse reactions SULFA (sulfonamide) SULFA (sulfonam nikki) [facility] Propensity to adverse reactions PCN (penicillin) PCN (penicillin) [facility] Family History Family Member Name Family Member Gender Family Member Status Date o f Status Description Data Source(s) Unknown Male Problem [facility] ([facility] Encounters Encounter Providers Location Date Indications Data Source(s ) Unknown [address] [facility] [place] [address] 05/08/2021 12:00:00 AM EDT eCW1 ([facility]) Unknown [address] [facility] [place] [address] 05/07/2021 12:00:00 AM EDT eCW1 ([facility]) Unknown [address] [facility] [place] [address] 05/01/2021 12:00:00 AM EDT eCW1 ([facility]) Unknown [address] [facility] [place] [address] 04/16/2021 12:00:00 AM EDT eCW1 ([facility]) Unknown [address] [facility] [place] [address] 04/15/2021 12:00:00 AM EDT eCW1 ([facility]) [place] [address] [facility] [address] 04/10/2021 12:00:00 AM EDT eCW1 ([facility]) [place] [address] [facility] [address] 04/09/2021 12:00:00 AM EDT eCW1 ([facility]) [place] [address] [facility] [address] 04/09/2021 12:00:00 AM EDT eCW1 ([facility]) [place] [address] [facility] [address] 03/22/2021 12:00:00 AM EDT eCW1 ([facility]) [place] [address] [facility] [address] 03/21/2021 12:00:00 AM EDT eCW1 ([facility]) [place] [address] [facility] [address] 03/11/2021 12:00:00 AM EDT eCW1 ([facility]) [place] [address] [facility] [address] 02/19/2021 12:00:00 AM EDT eCW1 ([facility]) [place] [address] [facility] [address] 02/12/2021 12:00:00 AM EDT eCW1 ([facility]) [place] [address] [facility] [address] 02/06/2021 12:00:00 AM EDT eCW1 ([facility]) [place] [address] [facility] [address] 02/06/2021 12:00:00 AM EDT eCW1 ([facility]) [place] [address] [facility] [address] 02/01/2021 12:00:00 AM EDT eCW1 ([facility]) Unknown [address] [facility] [place] [address] 02/01/2021 12:00:00 AM EDT eCW1 ([facility]) [place] [address] [facility] [address] 01/18/2021 12:00:00 AM EDT eCW1 ([facility]) [place] [address] [facility] [address] 01/17/2021 12:00:00 AM EDT eCW1 ([facility]) [place] [address] [facility] [address] 01/11/2021 12:00:00 AM EDT eCW1 ([facility]) [place] [address] [facility] [address] 01/09/2021 12:00:00 AM EDT eCW1 ([facility]) [place] [address] [facility] [address] 12/18/2020 12:00:00 AM EDT eCW1 ([facility]) [place] [address] [facility] [address] 12/13/2020 12:00:00 AM EDT eCW1 ([facility]) [place] [address] [facility] [address] 12/13/2020 12:00:00 AM EDT eCW1 ([facility]) [place] [address] [facility] [address] 12/11/2020 12:00:00 AM EDT eCW1 ([facility]) [place] [address] [facility] [address] 12/07/2020 12:00:00 AM EDT eCW1 ([facility]) [place] [address] [facility] [address] 12/06/2020 12:00:00 AM EDT eCW1 ([facility]) [place] [address] [facility] [address] 12/05/2020 12:00:00 AM EDT eCW1 ([facility]) [place] [address] [facility] [address] 11/29/2020 12:00:00 AM EDT eCW1 ([facility]) [place] [address] [facility] [address] 11/19/2020 12:00:00 AM EDT eCW1 ([facility]) [place] [address] [facility] [address] 11/15/2020 12:00:00 AM EDT eCW1 ([facility]) [place] [address] [facility] [address] 11/15/2020 12:00:00 AM EDT eCW1 ([facility]) [place] [address] [facility] [address] 11/12/2020 12:00:00 AM EDT eCW1 ([facility]) Emergency Attender: MARY STAFFORD MDConsultant: REVA RUIZ TAP GRINDER 11/11/2020 09:16:00 AM EDT - 11/11/2020 09:49:00 AM EDT [facility] Patient discharged. [place] [address] [facility] [address] 11/09/2020 12:00:00 AM EDT eCW1 ([facility]) [place] [address] [facility] [address] 11/09/2020 12:00:00 AM EDT eCW1 ([facility]) [place] [address] [facility] [address] 11/09/2020 12:00:00 AM EDT eCW1 ([facility]) Emergency Attender: Pérez Mack MDConsultant: REVA RUIZ TAP GRINDER 10/25/2020 11:15:00 AM EDT - 10/25/2020 11:45:00 AM EDT [facility] Patient admitted[facility] [place] [address] [facility] [address] 10/25/2020 12:00:00 AM EDT eCW1 ([facility]) [place] [address] [facility] [address] 10/18/2020 12:00:00 AM EDT eCW1 ([facility]) [place] [address] [facility] [address] 10/16/2020 12:00:00 AM EDT eCW1 ([facility]) [place] [address] [facility] [address] 09/26/2020 12:00:00 AM EST eCW1 ([facility]) [place] [address] [facility] [address] 09/20/2020 12:00:00 AM EST eCW1 ([facility]) [place] [address] [facility] [place] [address] 09/10/2020 12:00:00 AM EST eCW1 ([facility]) [place] [address] [facility] [address] 09/07/2020 12:00:00 AM EST eCW1 ([facility]) [place] [address] [facility] [address] 09/04/2020 12:00:00 AM EST eCW1 ([facility]) [place] [address] [facility] [place] [address] 08/21/2020 12:00:00 AM EST eCW1 ([facility]) [place] [address] [facility] [place] [address] 08/21/2020 12:00:00 AM EST eCW1 ([facility]) [place] [address] [facility] [place] [address] 08/20/2020 12:00:00 AM EST eCW1 ([facility]) Office Visit, Est Pt., Level 3 PC [address] [place] [address] 08/10/2020 12:00:00 AM EST eCW1 ([facility]) [place] [address] [facility] [address] 08/07/2020 12:00:00 AM EST eCW1 ([facility]) [place] [address] [facility] [address] 08/01/2020 12:00:00 AM EST eCW1 ([facility]) [place] [address] [facility] [place] [address] 07/30/2020 12:00:00 AM EST eCW1 ([facility]) [place] [address] [facility] [place] [address] 07/18/2020 12:00:00 AM EST [facility]1 ([facility]) [place] [address] [facility] [address] 07/16/2020 12:00:00 AM EST eCW1 ([facility]) Emergency Attender: GEOVANNY LOVE MDConsultant: REVA RUIZ NP 07/08/2020 08:29:00 AM EST - 07/08/2020 10:52:00 AM EST [facility] Patient discharged. [place] [address] [facility] [address] 06/14/2020 12:00:00 AM EST eCW1 ([facility]) [place] [address] [facility] [place] [address] 06/12/2020 12:00:00 AM EST [facility]CW1 ([facility]) [place] [address] [facility] [address] 06/11/2020 12:00:00 AM EST [facility]CW1 ([facility]) Outpatient [address] [facility] [place] [address] 05/23/2020 12:00:00 AM EDT eCW1 ([facility]) [place] [address] [facility] [place] [address] 05/21/2020 12:00:00 AM EDT eCW1 ([facility]) [place] [address] [facility] [address] 05/15/2020 12:00:00 AM EDT eCW1 ([facility]) [place] [address] [facility] [address] 05/14/2020 12:00:00 AM EDT eCW1 ([facility]) [place] [address] [facility] [place] [address] 05/14/2020 12:00:00 AM EDT eCW1 ([facility]) [place] [address] [facility] [place] [address] 05/10/2020 12:00:00 AM EDT eCW1 ([facility]) [place] [address] [facility] [address] 05/08/2020 12:00:00 AM EDT eCW1 ([facility]) Unknown [address] [facility] [place] [address] 05/08/2020 12:00:00 AM EDT eCW1 ([facility]) [place] [address] [facility] [address] 05/07/2020 12:00:00 AM EDT eCW1 ([facility]) Immunizations Vaccine Date Status Description Data Source(s) COVID-19 dose #1 given elsewhere Unspecified 12/05/2020 09:5 0:00 AM EDT completed eCW1 ([facility]) COVID-19 dose #1 given elsewhere Unspecified 12/05/2020 09:5 0:00 AM EDT completed eCW1 ([facility]) COVID-19 dose #1 given elsewhere Unspecified 12/05/2020 09:5 0:00 AM EDT completed eCW1 ([facility]) COVID-19 dose #1 given elsewhere Unspecified 12/05/2020 09:5 0:00 AM EDT completed eCW1 ([facility]) COVID-19 dose #1 given elsewhere Unspecified 12/05/2020 09:5 0:00 AM EDT completed eCW1 ([facility]) COVID-19 dose #1 given elsewhere Unspecified 12/05/2020 09:5 0:00 AM EDT completed eCW1 ([facility]) COVID-19 dose #1 given elsewhere Unspecified 12/05/2020 09:5 0:00 AM EDT completed eCW1 ([facility]) COVID-19 dose #1 given elsewhere Unspecified 12/05/2020 09:5 0:00 AM EDT completed eCW1 ([facility]) COVID-19 dose #1 given elsewhere Unspecified 12/05/2020 09:5 0:00 AM EDT completed eCW1 ([facility]) COVID-19 dose #1 given elsewhere Unspecified 12/05/2020 09:5 0:00 AM EDT completed eCW1 ([facility]) COVID-19 dose #1 given elsewhere Unspecified 12/05/2020 09:5 0:00 AM EDT completed eCW1 ([facility]) COVID-19 dose #1 given elsewhere Unspecified 12/05/2020 09:5 0:00 AM EDT completed eCW1 ([facility]) COVID-19 dose #1 given elsewhere Unspecified 12/05/2020 09:5 0:00 AM EDT completed eCW1 ([facility]) COVID-19 dose #1 given elsewhere Unspecified 12/05/2020 09:5 0:00 AM EDT completed eCW1 ([facility]) COVID-19 dose #1 given elsewhere Unspecified 12/05/2020 09:5 0:00 AM EDT completed eCW1 ([facility]) COVID-19 dose #1 given elsewhere Unspecified 12/05/2020 09:5 0:00 AM EDT completed eCW1 ([facility]) COVID-19 dose #1 given elsewhere Unspecified 12/05/2020 09:5 0:00 AM EDT completed eCW1 ([facility]) COVID-19 dose #1 given elsewhere Unspecified 12/05/2020 09:5 0:00 AM EDT completed eCW1 ([facility]) COVID-19 dose #1 given elsewhere Unspecified 12/05/2020 09:5 0:00 AM EDT completed eCW1 ([facility]) COVID-19 dose #1 given elsewhere Unspecified 12/05/2020 09:5 0:00 AM EDT completed eCW1 ([facility]) COVID-19 dose #1 given elsewhere Unspecified 12/05/2020 09:5 0:00 AM EDT completed eCW1 ([facility]) COVID-19 dose #1 given elsewhere Unspecified 12/05/2020 09:5 0:00 AM EDT completed eCW1 ([facility]) COVID-19 dose #1 given elsewhere Unspecified 12/05/2020 09:5 0:00 AM EDT completed eCW1 ([facility]) COVID-19 dose #1 given elsewhere Unspecified 12/05/2020 09:5 0:00 AM EDT completed eCW1 ([facility]) COVID-19 dose #1 given elsewhere Unspecified 12/05/2020 09:5 0:00 AM EDT completed eCW1 ([facility]) COVID-19 dose #1 given elsewhere Unspecified 12/05/2020 09:5 0:00 AM EDT completed eCW1 ([facility]) COVID-19 dose #1 given elsewhere Unspecified 12/05/2020 09:5 0:00 AM EDT completed eCW1 ([facility]) COVID-19 dose #1 given elsewhere Unspecified 12/05/2020 09:5 0:00 AM EDT completed eCW1 ([facility]) COVID-19 dose #2 given elsewhere Unspecified 11/09/2020 08:2 0:00 AM EDT completed eCW1 ([facility]) COVID-19 dose #2 given elsewhere Unspecified 11/09/2020 08:2 0:00 AM EDT completed eCW1 ([facility]) COVID-19 dose #2 given elsewhere Unspecified 11/09/2020 08:2 0:00 AM EDT completed eCW1 ([facility]) COVID-19 dose #2 given elsewhere Unspecified 11/09/2020 08:2 0:00 AM EDT completed eCW1 ([facility]) COVID-19 dose #2 given elsewhere Unspecified 11/09/2020 08:2 0:00 AM EDT completed eCW1 ([facility]) COVID-19 dose #2 given elsewhere Unspecified 11/09/2020 08:2 0:00 AM EDT completed eCW1 ([facility]) COVID-19 dose #2 given elsewhere Unspecified 11/09/2020 08:2 0:00 AM EDT completed eCW1 ([facility]) COVID-19 dose #2 given elsewhere Unspecified 11/09/2020 08:2 0:00 AM EDT completed eCW1 ([facility]) COVID-19 dose #2 given elsewhere Unspecified 11/09/2020 08:2 0:00 AM EDT completed eCW1 ([facility]) COVID-19 dose #2 given elsewhere Unspecified 11/09/2020 08:2 0:00 AM EDT completed eCW1 ([facility]) COVID-19 dose #2 given elsewhere Unspecified 11/09/2020 08:2 0:00 AM EDT completed eCW1 ([facility]) COVID-19 dose #2 given elsewhere Unspecified 11/09/2020 08:2 0:00 AM EDT completed eCW1 ([facility]) COVID-19 dose #2 given elsewhere Unspecified 11/09/2020 08:2 0:00 AM EDT completed eCW1 ([facility]) COVID-19 dose #2 given elsewhere Unspecified 11/09/2020 08:2 0:00 AM EDT completed eCW1 ([facility]) COVID-19 dose #2 given elsewhere Unspecified 11/09/2020 08:2 0:00 AM EDT completed eCW1 ([facility]) COVID-19 dose #2 given elsewhere Unspecified 11/09/2020 08:2 0:00 AM EDT completed eCW1 ([facility]) COVID-19 dose #2 given elsewhere Unspecified 11/09/2020 08:2 0:00 AM EDT completed eCW1 ([facility]) COVID-19 dose #2 given elsewhere Unspecified 11/09/2020 08:2 0:00 AM EDT completed eCW1 ([facility]) COVID-19 dose #2 given elsewhere Unspecified 11/09/2020 08:2 0:00 AM EDT completed eCW1 ([facility]) COVID-19 dose #2 given elsewhere Unspecified 11/09/2020 08:2 0:00 AM EDT completed eCW1 ([facility]) COVID-19 dose #2 given elsewhere Unspecified 11/09/2020 08:2 0:00 AM EDT completed eCW1 ([facility]) COVID-19 dose #2 given elsewhere Unspecified 11/09/2020 08:2 0:00 AM EDT completed eCW1 ([facility]) COVID-19 dose #2 given elsewhere Unspecified 11/09/2020 08:2 0:00 AM EDT completed eCW1 ([facility]) COVID-19 dose #2 given elsewhere Unspecified 11/09/2020 08:2 0:00 AM EDT completed eCW1 ([facility]) COVID-19 dose #2 given elsewhere Unspecified 11/09/2020 08:2 0:00 AM EDT completed eCW1 ([facility]) COVID-19 dose #2 given elsewhere Unspecified 11/09/2020 08:2 0:00 AM EDT completed eCW1 ([facility]) COVID-19 dose #2 given elsewhere Unspecified 11/09/2020 08:2 0:00 AM EDT completed eCW1 ([facility]) COVID-19 dose #2 given elsewhere Unspecified 11/09/2020 08:2 0:00 AM EDT completed eCW1 ([facility]) COVID-19 dose #2 given elsewhere Unspecified 11/09/2020 08:2 0:00 AM EDT completed eCW1 ([facility]) COVID-19 dose #2 given elsewhere Unspecified 11/09/2020 08:2 0:00 AM EDT completed eCW1 ([facility]) COVID-19 dose #2 given elsewhere Unspecified 11/09/2020 08:2 0:00 AM EDT completed eCW1 ([facility]) COVID-19 dose #2 given elsewhere Unspecified 11/09/2020 08:2 0:00 AM EDT completed eCW1 ([facility]) COVID-19 dose #2 given elsewhere Unspecified 11/09/2020 08:2 0:00 AM EDT completed eCW1 ([facility]) COVID-19 dose #2 given elsewhere Unspecified 11/09/2020 08:2 0:00 AM EDT completed eCW1 ([facility]) COVID-19 dose #2 given elsewhere Unspecified 11/09/2020 08:2 0:00 AM EDT completed eCW1 ([facility]) COVID-19 dose #2 given elsewhere Unspecified 11/09/2020 08:2 0:00 AM EDT completed eCW1 ([facility]) COVID-19 VACCINE Moderna 11/08/2020 12:00:00 AM EDT completed [facility] Vaccine Series Complete: YESThis Data wa s Submitted to [facility] Via [email or web address]. COVID-19 VACCINE Moderna 10/11/2020 12:00:00 AM EDT completed [facility] Vaccine Series Complete: NOThis Data was Submitted to [facility] Via [email or web address]. influenza, recombinant, quadrIvalent,injectable, prese rvative free 05/23/2020 11:54:00 AM EDT completed eCW1 ([facility]) influenza, recombinant, quadrIvalent,injectable, prese rvative free 05/23/2020 11:54:00 AM EDT completed eCW1 ([facility]) influenza, recombinant, quadrIvalent,injectable, prese rvative free 05/23/2020 11:54:00 AM EDT completed eCW1 ([facility]) influenza, recombinant, quadrIvalent,injectable, prese rvative free 05/23/2020 11:54:00 AM EDT completed eCW1 ([facility]) influenza, recombinant, quadrIvalent,injectable, prese rvative free 05/23/2020 11:54:00 AM EDT completed eCW1 ([facility]) influenza, recombinant, quadrIvalent,injectable, prese rvative free 05/23/2020 11:54:00 AM EDT completed eCW1 ([facility]) influenza, recombinant, quadrIvalent,injectable, prese rvative free 05/23/2020 11:54:00 AM EDT completed eCW1 ([facility]) influenza, recombinant, quadrIvalent,injectable, prese rvative free 05/23/2020 11:54:00 AM EDT completed eCW1 ([facility]) influenza, recombinant, quadrIvalent,injectable, prese rvative free 05/23/2020 11:54:00 AM EDT completed eCW1 ([facility]) influenza, recombinant, quadrIvalent,injectable, prese rvative free 05/23/2020 11:54:00 AM EDT completed eCW1 ([facility]) influenza, recombinant, quadrIvalent,injectable, prese rvative free 05/23/2020 11:54:00 AM EDT completed eCW1 ([facility]) influenza, recombinant, quadrIvalent,injectable, prese rvative free 05/23/2020 11:54:00 AM EDT completed eCW1 ([facility]) influenza, recombinant, quadrIvalent,injectable, prese rvative free 05/23/2020 11:54:00 AM EDT completed eCW1 ([facility]) influenza, recombinant, quadrIvalent,injectable, prese rvative free 05/23/2020 11:54:00 AM EDT completed eCW1 ([facility]) influenza, recombinant, quadrIvalent,injectable, prese rvative free 05/23/2020 11:54:00 AM EDT completed eCW1 ([facility]) influenza, recombinant, quadrIvalent,injectable, prese rvative free 05/23/2020 11:54:00 AM EDT completed eCW1 ([facility]) influenza, recombinant, quadrIvalent,injectable, prese rvative free 05/23/2020 11:54:00 AM EDT completed eCW1 ([facility]) influenza, recombinant, quadrIvalent,injectable, prese rvative free 05/23/2020 11:54:00 AM EDT completed eCW1 ([facility]) influenza, recombinant, quadrIvalent,injectable, prese rvative free 05/23/2020 11:54:00 AM EDT completed eCW1 ([facility]) influenza, recombinant, quadrIvalent,injectable, prese rvative free 05/23/2020 11:54:00 AM EDT completed eCW1 ([facility]) influenza, recombinant, quadrIvalent,injectable, prese rvative free 05/23/2020 11:54:00 AM EDT completed eCW1 ([facility]) influenza, recombinant, quadrIvalent,injectable, prese rvative free 05/23/2020 11:54:00 AM EDT completed eCW1 ([facility]) influenza, recombinant, quadrIvalent,injectable, prese rvative free 05/23/2020 11:54:00 AM EDT completed eCW1 ([facility]) influenza, recombinant, quadrIvalent,injectable, prese rvative free 05/23/2020 11:54:00 AM EDT completed eCW1 ([facility]) influenza, recombinant, quadrIvalent,injectable, prese rvative free 05/23/2020 11:54:00 AM EDT completed eCW1 ([facility]) influenza, recombinant, quadrIvalent,injectable, prese rvative free 05/23/2020 11:54:00 AM EDT completed eCW1 ([facility]) influenza, recombinant, quadrIvalent,injectable, prese rvative free 05/23/2020 11:54:00 AM EDT completed eCW1 ([facility]) influenza, recombinant, quadrIvalent,injectable, prese rvative free 05/23/2020 11:54:00 AM EDT completed eCW1 ([facility]) influenza, recombinant, quadrIvalent,injectable, prese rvative free 05/23/2020 11:54:00 AM EDT completed eCW1 ([facility]) influenza, recombinant, quadrIvalent,injectable, prese rvative free 05/23/2020 11:54:00 AM EDT completed eCW1 ([facility]) influenza, recombinant, quadrIvalent,injectable, prese rvative free 05/23/2020 11:54:00 AM EDT completed eCW1 ([facility]) influenza, recombinant, quadrIvalent,injectable, prese rvative free 05/23/2020 11:54:00 AM EDT completed eCW1 ([facility]) influenza, recombinant, quadrIvalent,injectable, prese rvative free 05/23/2020 11:54:00 AM EDT completed eCW1 ([facility]) influenza, recombinant, quadrIvalent,injectable, prese rvative free 05/23/2020 11:54:00 AM EDT completed eCW1 ([facility]) influenza, recombinant, quadrIvalent,injectable, prese rvative free 05/23/2020 11:54:00 AM EDT completed eCW1 ([facility]) influenza, recombinant, quadrIvalent,injectable, prese rvative free 05/23/2020 11:54:00 AM EDT completed eCW1 ([facility]) influenza, recombinant, quadrIvalent,injectable, prese rvative free 05/23/2020 11:54:00 AM EDT completed eCW1 ([facility]) influenza, recombinant, quadrIvalent,injectable, prese rvative free 05/23/2020 11:54:00 AM EDT completed eCW1 ([facility]) influenza, recombinant, quadrIvalent,injectable, prese rvative free 05/23/2020 11:54:00 AM EDT completed eCW1 ([facility]) influenza, recombinant, quadrIvalent,injectable, prese rvative free 05/23/2020 11:54:00 AM EDT completed eCW1 ([facility]) influenza, recombinant, quadrIvalent,injectable, prese rvative free 05/23/2020 11:54:00 AM EDT completed eCW1 ([facility]) influenza, recombinant, quadrIvalent,injectable, prese rvative free 05/23/2020 11:54:00 AM EDT completed eCW1 ([facility]) influenza, recombinant, quadrIvalent,injectable, prese rvative free 05/23/2020 11:54:00 AM EDT completed eCW1 ([facility]) influenza, recombinant, quadrIvalent,injectable, prese rvative free 05/23/2020 11:54:00 AM EDT completed eCW1 ([facility]) influenza, recombinant, quadrIvalent,injectable, prese rvative free 05/23/2020 11:54:00 AM EDT completed eCW1 ([facility]) influenza, recombinant, quadrIvalent,injectable, prese rvative free 05/23/2020 11:54:00 AM EDT completed eCW1 ([facility]) influenza, recombinant, quadrIvalent,injectable, prese rvative free 05/23/2020 11:54:00 AM EDT completed eCW1 ([facility]) influenza, recombinant, quadrIvalent,injectable, prese rvative free 05/23/2020 11:54:00 AM EDT completed eCW1 ([facility]) influenza, recombinant, quadrIvalent,injectable, prese rvative free 05/23/2020 11:54:00 AM EDT completed eCW1 ([facility]) influenza, recombinant, quadrIvalent,injectable, prese rvative free 05/23/2020 11:54:00 AM EDT completed eCW1 ([facility]) influenza, recombinant, quadrIvalent,injectable, prese rvative free 05/23/2020 11:54:00 AM EDT completed eCW1 ([facility]) influenza, recombinant, quadrIvalent,injectable, prese rvative free 05/23/2020 11:54:00 AM EDT completed eCW1 ([facility]) influenza, recombinant, quadrIvalent,injectable, prese rvative free 05/23/2020 11:54:00 AM EDT completed eCW1 ([facility]) influenza, recombinant, quadrIvalent,injectable, prese rvative free 05/23/2020 11:54:00 AM EDT completed eCW1 ([facility]) influenza, recombinant, quadrIvalent,injectable, prese rvative free 05/23/2020 11:54:00 AM EDT completed eCW1 ([facility]) influenza, recombinant, quadrIvalent,injectable, prese rvative free 05/23/2020 11:54:00 AM EDT completed eCW1 ([facility]) influenza, recombinant, quadrIvalent,injectable, prese rvative free 05/23/2020 11:54:00 AM EDT completed eCW1 ([facility]) influenza, recombinant, quadrIvalent,injectable, prese rvative free 05/23/2020 11:54:00 AM EDT completed eCW1 ([facility]) Medications Medication Brand Name Start Date Product Form Dose Route Admi nistrative Instructions Pharmacy Instructions Status Indications Reaction Description Data Source(s) 117 mg/0.75 mL 05/09/2021 12:00:00 AM EDT syringe 0 INJECT 1 SYRINGE INTRAMUSCULARLY ONCE A MONTH INJECT 1 SYRINGE INTRAMUSCULARLY ONCE A MONTH SOLD: 05/09/2021 [facility] 50 mg 05/09/2021 12:00:00 AM EDT tablet 120 TAKE ONE TABLET BY MOUTH EVERY 6 HOURS NEEDED FOR PAIN MAXIMUM DAILY DOSE = FOUR TABLETS TAKE ONE TABLET BY MOUTH EVERY 6 HOURS NEEDED FOR PAIN MAXIMUM DAILY DOSE = FOUR TABLETS SOLD: 05/09/2021 [facility] 0.5 mg 05/09/2021 12:00:00 AM EDT tablet 14 TAKE ONE-HALF TABLET BY MOUTH TWICE A DAY NEEDED FOR ANXIETY MAXIMUM DAILY DOSE = 1 TAKE ONE-HALF TABLET BY MOUTH TWICE A DAY NEEDED FOR ANXIETY MAXIMUM DAILY DOSE = 1 SOLD: 05/09/2021 [facility] tramadol hydrochloride 50 MG Oral Tablet traMADol HCl 50 MG traMADol HCl 50 MG 05/08/2021 12:00:00 AM EDT 1.0 {tablet} active traMADol HCl 50 MG eCW1 ([facility]) tramadol hydrochloride 50 MG Oral Tablet traMADol HCl 50 MG traMADol HCl 50 MG 05/08/2021 12:00:00 AM EDT 1.0 {tablet} active traMADol HCl 50 MG eCW1 ([facility]) tizanidine 2 MG Oral Tablet TIZANIDINE HCL 05/02/2021 12:00:00 AM EDT tablet 90 TAKE ONE TABLET BY MOUTH THREE TIMES A DAY TAKE ONE TA BLET BY MOUTH THREE TIMES A DAY SOLD: 05/05/2021 [facility] 250 mg 05/01/2021 12:00:00 AM EDT tablet 6 TAKE TWO TABLETS BY MOUTH AT ONCE ON THE FIRST DAY THEN TAKE ONE DAILY THEREAFTER TAKE TWO TABLETS BY MOUTH AT ONCE ON THE FIRST DAY THEN TAKE ONE DAILY THEREAFTER SOLD: 05/01/2021 [facility] Azithromycin 250 MG Oral Tablet Azithromycin 250 MG 05/01/2021 1 2:00:00 AM EDT active Azithromycin 250 MG eCW1 ([facility]) Azithromycin 250 MG Oral Tablet Azithromycin 250 MG 05/01/2021 1 2:00:00 AM EDT active Azithromycin 250 MG eCW1 ([facility]) Azithromycin 250 MG Oral Tablet Azithromycin 250 MG 05/01/2021 1 2:00:00 AM EDT active Azithromycin 250 MG eCW1 ([facility]) 600 mg 05/01/2021 12:00:00 AM EDT tablet 90 TAKE ONE TABLET BY MOUTH THREE TIMES A DAY WITH FOOD OR MILK FOR PAIN TAKE ONE TABLET BY MOUTH THREE TIMES A DAY WITH FOOD OR MILK FOR PAIN SOLD: 05/01/2021 [facility] 0.5 mg 04/21/2021 12:00:00 AM EDT tablet 14 TAKE 1/2 TABLET BY MOUTH TWO TIMES A DAY NEEDED FOR ANXIETY, MAXIMUM DAILY DOSE = 1 TAKE 1/2 TABLET BY MOUTH TWO TIMES A DAY NEEDED FOR ANXIETY, MAXIMUM DAILY DOSE = 1 SOLD: 04/22/2021 [facility] 5 mg 04/17/2021 12:00:00 AM EDT tablet 30 TAKE ONE TABLET BY MOUTH EVERY DAY WITH A MEAL TAKE ONE TABLET BY MOUTH EVERY DAY WITH A MEAL SOLD: 04/17/2021 [facility] pregabalin 200 MG Oral Capsule [Lyrica] Lyrica 200 MG Lyrica 200 MG 04/17/2021 12:00:00 AM EDT 1.0 {capsule} active L yrica 200 MG eCW1 ([facility]) 24 HR Metformin hydrochloride 500 MG Extended Release Oral T ablet METFORMIN HCL 04/17/2021 12:00:00 AM EDT tablet extended release 24 hr 180 TAKE ONE TABLET BY MOUTH TWICE A DAY TAKE ONE TABLET BY MOUTH TWICE A DAY SOLD: 04/17/2021 [facility] pregabalin 200 MG Oral Capsule [Lyrica] Lyrica 200 MG Lyrica 200 MG 04/17/2021 12:00:00 AM EDT 1.0 {capsule} active L yrica 200 MG eCW1 ([facility]) pregabalin 200 MG Oral Capsule [Lyrica] Lyrica 200 MG Lyrica 200 MG 04/17/2021 12:00:00 AM EDT 1.0 {capsule} active L yrica 200 MG eCW1 ([facility]) 10 mg 04/17/2021 12:00:00 AM EDT tablet 90 TAKE ONE TABLET BY MOUTH EVERY DAY TAKE ONE TABLET BY MOUTH EVERY DAY SOLD: 04/17/2021 [facility] 20 mg 04/17/2021 12:00:00 AM EDT capsule,delayed release (DR/EC) 180 TAKE TWO CAPSULES BY MOUTH EVERY DAY BEFORE A MEAL TAKE TWO CAPSULES BY MOUTH EVERY DAY BEFORE A MEAL SOLD: 04/17/2021 [facility] pregabalin 200 MG Oral Capsule [Lyrica] Lyrica 200 MG Lyrica 200 MG 04/17/2021 12:00:00 AM EDT 1.0 {capsule} active L yrica 200 MG eCW1 ([facility]) 200 mg 04/17/2021 12:00:00 AM EDT capsule 60 TAKE ONE CAPSULE BY MOUTH TWICE A DAY MAXIMUM DAILY DOSE = 2 CAPSULES TAKE ONE CAPSULE BY MOUTH TWICE A DAY MAXIMUM DAILY DOSE = 2 CAPSULES SOLD: 04/17/2021 [facility] tramadol hydrochloride 50 MG Oral Tablet traMADol HCl 50 MG traMADol HCl 50 MG 04/10/2021 12:00:00 AM EDT 1.0 {tablet} active traMADol HCl 50 MG eCW1 ([facility]) tramadol hydrochloride 50 MG Oral Tablet traMADol HCl 50 MG traMADol HCl 50 MG 04/10/2021 12:00:00 AM EDT 1.0 {tablet} active traMADol HCl 50 MG eCW1 ([facility]) 117 mg/0.75 mL 04/10/2021 12:00:00 AM EDT syringe 0 INJECT 1 SYRINGE INTRAMUSCULARLY EVERY MONTH INJECT 1 SYRINGE INTRAMUSCULARLY EVERY MONTH SOLD: 04/10/2021 [facility] tramadol hydrochloride 50 MG Oral Tablet traMADol HCl 50 MG traMADol HCl 50 MG 04/10/2021 12:00:00 AM EDT 1.0 {tablet} active traMADol HCl 50 MG eCW1 ([facility]) tramadol hydrochloride 50 MG Oral Tablet traMADol HCl 50 MG traMADol HCl 50 MG 04/10/2021 12:00:00 AM EDT 1.0 {tablet} active traMADol HCl 50 MG eCW1 ([facility]) 0.5 mg 04/10/2021 12:00:00 AM EDT tablet 10 TAKE ONE-HALF TABLET BY MOUTH TWICE A DAY NEEDED FOR ANXIETY MAXIMUM DAILY DOSE = 1 TABLET TAKE ONE-HALF TABLET BY MOUTH TWICE A DAY NEEDED FOR ANXIETY MAXIMUM DAILY DOSE = 1 TABLET SOLD: 04/10/2021 [facility] Levofloxacin 500 MG Oral Tablet Levaquin 500 MG Levaquin 500 MG 03/22/2021 12:00:00 AM EDT 1.0 {tablet} active Le vaquin 500 MG eCW1 ([facility]) Levofloxacin 500 MG Oral Tablet Levaquin 500 MG Levaquin 500 MG 03/22/2021 12:00:00 AM EDT 1.0 {tablet} active Le vaquin 500 MG eCW1 ([facility]) Levofloxacin 500 MG Oral Tablet Levaquin 500 MG Levaquin 500 MG 03/22/2021 12:00:00 AM EDT 1.0 {tablet} active Le vaquin 500 MG eCW1 ([facility]) Levofloxacin 500 MG Oral Tablet Levaquin 500 MG Levaquin 500 MG 03/22/2021 12:00:00 AM EDT 1.0 {tablet} active Le vaquin 500 MG eCW1 ([facility]) Levofloxacin 500 MG Oral Tablet Levaquin 500 MG Levaquin 500 MG 03/22/2021 12:00:00 AM EDT 1.0 {tablet} active Le vaquin 500 MG eCW1 ([facility]) Levofloxacin 500 MG Oral Tablet Levaquin 500 MG Levaquin 500 MG 03/22/2021 12:00:00 AM EDT 1.0 {tablet} active Le vaquin 500 MG eCW1 ([facility]) Levofloxacin 500 MG Oral Tablet Levaquin 500 MG Levaquin 500 MG 03/22/2021 12:00:00 AM EDT 1.0 {tablet} active Le vaquin 500 MG eCW1 ([facility]) Levofloxacin 500 MG Oral Tablet Levaquin 500 MG Levaquin 500 MG 03/22/2021 12:00:00 AM EDT 1.0 {tablet} active Le vaquin 500 MG eCW1 ([facility]) Levofloxacin 500 MG Oral Tablet Levaquin 500 MG Levaquin 500 MG 03/22/2021 12:00:00 AM EDT 1.0 {tablet} active Le vaquin 500 MG eCW1 ([facility]) pregabalin 200 MG Oral Capsule [Lyrica] Lyrica 200 MG Lyrica 200 MG 03/19/2021 12:00:00 AM EDT 1.0 {capsule} active L yrica 200 MG eCW1 ([facility]) pregabalin 200 MG Oral Capsule [Lyrica] Lyrica 200 MG Lyrica 200 MG 03/19/2021 12:00:00 AM EDT 1.0 {capsule} active L yrica 200 MG eCW1 ([facility]) pregabalin 200 MG Oral Capsule [Lyrica] Lyrica 200 MG Lyrica 200 MG 03/19/2021 12:00:00 AM EDT 1.0 {capsule} active L yrica 200 MG eCW1 ([facility]) pregabalin 200 MG Oral Capsule [Lyrica] Lyrica 200 MG Lyrica 200 MG 03/19/2021 12:00:00 AM EDT 1.0 {capsule} active L yrica 200 MG eCW1 ([facility]) pregabalin 200 MG Oral Capsule [Lyrica] Lyrica 200 MG Lyrica 200 MG 03/19/2021 12:00:00 AM EDT 1.0 {capsule} active L yrica 200 MG eCW1 ([facility]) pregabalin 200 MG Oral Capsule [Lyrica] Lyrica 200 MG Lyrica 200 MG 03/19/2021 12:00:00 AM EDT 1.0 {capsule} active L yrica 200 MG eCW1 ([facility]) tramadol hydrochloride 50 MG Oral Tablet traMADol HCl 50 MG traMADol HCl 50 MG 03/12/2021 12:00:00 AM EDT 1.0 {tablet} active traMADol HCl 50 MG eCW1 ([facility]) tramadol hydrochloride 50 MG Oral Tablet traMADol HCl 50 MG traMADol HCl 50 MG 03/12/2021 12:00:00 AM EDT 1.0 {tablet} active traMADol HCl 50 MG eCW1 ([facility]) tramadol hydrochloride 50 MG Oral Tablet traMADol HCl 50 MG traMADol HCl 50 MG 03/12/2021 12:00:00 AM EDT 1.0 {tablet} active traMADol HCl 50 MG eCW1 ([facility]) tramadol hydrochloride 50 MG Oral Tablet traMADol HCl 50 MG traMADol HCl 50 MG 03/12/2021 12:00:00 AM EDT 1.0 {tablet} active traMADol HCl 50 MG eCW1 ([facility]) tramadol hydrochloride 50 MG Oral Tablet traMADol HCl 50 MG traMADol HCl 50 MG 03/12/2021 12:00:00 AM EDT 1.0 {tablet} active traMADol HCl 50 MG eCW1 ([facility]) Nasonex 50 MCG/ACT Nasonex 50 MCG/ACT 02/12/2021 12:00:00 AM EDT 2.0 {sprays_in_each_nostril} active Nasonex 50 MCG/ACT eCW1 ([facility]) Nasonex 50 MCG/ACT Nasonex 50 MCG/ACT 02/12/2021 12:00:00 AM EDT 2.0 {sprays_in_each_nostril} active Nasonex 50 MCG/ACT eCW1 ([facility]) Breztri Aerosphere 160-9-4.8 MCG/ACT Breztri Aerosphere 160- 9-4.8 MCG/ACT 02/12/2021 12:00:00 AM EDT 2.0 {puffs} active Breztri Aerosphere 160-9-4.8 MCG/ACT eCW1 ([facility]) Nasonex 50 MCG/ACT Nasonex 50 MCG/ACT 02/12/2021 12:00:00 AM EDT 2.0 {sprays_in_each_nostril} active Nasonex 50 MCG/ACT eCW1 ([facility]) Breztri Aerosphere 160-9-4.8 MCG/ACT Breztri Aerosphere 160- 9-4.8 MCG/ACT 02/12/2021 12:00:00 AM EDT 2.0 {puffs} active Breztri Aerosphere 160-9-4.8 MCG/ACT eCW1 ([facility]) Breztri Aerosphere 160-9-4.8 MCG/ACT Breztri Aerosphere 160- 9-4.8 MCG/ACT 02/12/2021 12:00:00 AM EDT 2.0 {puffs} active Breztri Aerosphere 160-9-4.8 MCG/ACT eCW1 ([facility]) Breztri Aerosphere 160-9-4.8 MCG/ACT Breztri Aerosphere 160- 9-4.8 MCG/ACT 02/12/2021 12:00:00 AM EDT 2.0 {puffs} active Breztri Aerosphere 160-9-4.8 MCG/ACT eCW1 ([facility]) Breztri Aerosphere 160-9-4.8 MCG/ACT Breztri Aerosphere 160- 9-4.8 MCG/ACT 02/12/2021 12:00:00 AM EDT 2.0 {puffs} active Breztri Aerosphere 160-9-4.8 MCG/ACT eCW1 ([facility]) Nasonex 50 MCG/ACT Nasonex 50 MCG/ACT 02/12/2021 12:00:00 AM EDT 2.0 {sprays_in_each_nostril} active Nasonex 50 MCG/ACT eCW1 ([facility]) Breztri Aerosphere 160-9-4.8 MCG/ACT Breztri Aerosphere 160- 9-4.8 MCG/ACT 02/12/2021 12:00:00 AM EDT 2.0 {puffs} active Breztri Aerosphere 160-9-4.8 MCG/ACT eCW1 ([facility]) Breztri Aerosphere 160-9-4.8 MCG/ACT Breztri Aerosphere 160- 9-4.8 MCG/ACT 02/12/2021 12:00:00 AM EDT 2.0 {puffs} active Breztri Aerosphere 160-9-4.8 MCG/ACT eCW1 ([facility]) Breztri Aerosphere 160-9-4.8 MCG/ACT Breztri Aerosphere 160- 9-4.8 MCG/ACT 02/12/2021 12:00:00 AM EDT 2.0 {puffs} active Breztri Aerosphere 160-9-4.8 MCG/ACT eCW1 ([facility]) Breztri Aerosphere 160-9-4.8 MCG/ACT Breztri Aerosphere 160- 9-4.8 MCG/ACT 02/12/2021 12:00:00 AM EDT 2.0 {puffs} active Breztri Aerosphere 160-9-4.8 MCG/ACT eCW1 ([facility]) Breztri Aerosphere 160-9-4.8 MCG/ACT Breztri Aerosphere 160- 9-4.8 MCG/ACT 02/12/2021 12:00:00 AM EDT 2.0 {puffs} active Breztri Aerosphere 160-9-4.8 MCG/ACT eCW1 ([facility]) Breztri Aerosphere 160-9-4.8 MCG/ACT Breztri Aerosphere 160- 9-4.8 MCG/ACT 02/12/2021 12:00:00 AM EDT 2.0 {puffs} active Breztri Aerosphere 160-9-4.8 MCG/ACT eCW1 ([facility]) Breztri Aerosphere 160-9-4.8 MCG/ACT Breztri Aerosphere 160- 9-4.8 MCG/ACT 02/12/2021 12:00:00 AM EDT 2.0 {puffs} active Breztri Aerosphere 160-9-4.8 MCG/ACT eCW1 ([facility]) Breztri Aerosphere 160-9-4.8 MCG/ACT Breztri Aerosphere 160- 9-4.8 MCG/ACT 02/12/2021 12:00:00 AM EDT 2.0 {puffs} active Breztri Aerosphere 160-9-4.8 MCG/ACT eCW1 ([facility]) Zofran ODT 4 MG UNK 01/18/2021 12:00:00 AM EDT 1.0 {tablet_on_the_tongue_and_allow_to_dissolve} active Zofran ODT 4 MG eCW1 ([facility]) Zofran ODT 4 MG UNK 01/18/2021 12:00:00 AM EDT 1.0 {tablet_on_the_tongue_and_allow_to_dissolve} active Zofran ODT 4 MG eCW1 ([facility]) doxycycline hyclate 100 MG Oral Capsule Doxycycline Hy clate 100 MG Doxycycline Hyclate 100 MG 01/18/2021 12:00:00 AM EDT 1.0 {capsule} active Doxycycline Hyclate 100 MG eCW1 ([facility]) Zofran ODT 4 MG UNK 01/18/2021 12:00:00 AM EDT 1.0 {tablet_on_the_tongue_and_allow_to_dissolve} active Zofran ODT 4 MG eCW1 ([facility]) Zofran ODT 4 MG UNK 01/18/2021 12:00:00 AM EDT 1.0 {tablet_on_the_tongue_and_allow_to_dissolve} active Zofran ODT 4 MG eCW1 ([facility]) Prednisone 10 MG Oral Tablet predniSONE 10 MG predniSONE 10 MG 01/18/2021 12:00:00 AM EDT active predniSO NE 10 MG eCW1 ([facility]) Prednisone 10 MG Oral Tablet predniSONE 10 MG predniSONE 10 MG 01/18/2021 12:00:00 AM EDT active predniSO NE 10 MG eCW1 ([facility]) Prednisone 10 MG Oral Tablet predniSONE 10 MG predniSONE 10 MG 01/18/2021 12:00:00 AM EDT active predniSO NE 10 MG eCW1 ([facility]) Zofran ODT 4 MG UNK 01/18/2021 12:00:00 AM EDT 1.0 {tablet_on_the_tongue_and_allow_to_dissolve} active Zofran ODT 4 MG eCW1 ([facility]) Zofran ODT 4 MG UNK 01/18/2021 12:00:00 AM EDT 1.0 {tablet_on_the_tongue_and_allow_to_dissolve} active Zofran ODT 4 MG eCW1 ([facility]) doxycycline hyclate 100 MG Oral Capsule Doxycycline Hy clate 100 MG Doxycycline Hyclate 100 MG 01/18/2021 12:00:00 AM EDT 1.0 {capsule} active Doxycycline Hyclate 100 MG eCW1 ([facility]) Zofran ODT 4 MG UNK 01/18/2021 12:00:00 AM EDT 1.0 {tablet_on_the_tongue_and_allow_to_dissolve} active Zofran ODT 4 MG eCW1 ([facility]) doxycycline hyclate 100 MG Oral Capsule Doxycycline Hy clate 100 MG Doxycycline Hyclate 100 MG 01/18/2021 12:00:00 AM EDT 1.0 {capsule} active Doxycycline Hyclate 100 MG eCW1 ([facility]) Prednisone 10 MG Oral Tablet predniSONE 10 MG predniSONE 10 MG 01/18/2021 12:00:00 AM EDT active predniSO NE 10 MG eCW1 ([facility]) doxycycline hyclate 100 MG Oral Capsule Doxycycline Hy clate 100 MG Doxycycline Hyclate 100 MG 01/18/2021 12:00:00 AM EDT 1.0 {capsule} active Doxycycline Hyclate 100 MG eCW1 ([facility]) Prednisone 10 MG Oral Tablet predniSONE 10 MG predniSONE 10 MG 01/18/2021 12:00:00 AM EDT active predniSO NE 10 MG eCW1 ([facility]) Ondansetron 4 MG Disintegrating Oral Tablet ONDANSETRON 01/18/2021 12:00:00 AM EDT tablet,disintegrating 30 PUT ONE TA BLET ON THE TONGUE AND ALLOW TO DISSOLVE EVERY 8 HOURS NEEDED FOR 10 DAYS PUT ONE TABLET ON THE TONGUE AND ALLOW TO DISSOLVE EVERY 8 HOURS NEEDED FOR 10 DAYS SOLD: 01/18/2021 [facility] Prednisone 10 MG Oral Tablet predniSONE 10 MG predniSONE 10 MG 01/18/2021 12:00:00 AM EDT active predniSO NE 10 MG eCW1 ([facility]) Zofran ODT 4 MG UNK 01/18/2021 12:00:00 AM EDT 1.0 {tablet_on_the_tongue_and_allow_to_dissolve} active Zofran ODT 4 MG eCW1 ([facility]) Prednisone 10 MG Oral Tablet predniSONE 10 MG predniSONE 10 MG 01/18/2021 12:00:00 AM EDT active predniSO NE 10 MG eCW1 ([facility]) Zofran ODT 4 MG UNK 01/18/2021 12:00:00 AM EDT 1.0 {tablet_on_the_tongue_and_allow_to_dissolve} active Zofran ODT 4 MG eCW1 ([facility]) doxycycline hyclate 100 MG Oral Capsule Doxycycline Hy clate 100 MG Doxycycline Hyclate 100 MG 01/18/2021 12:00:00 AM EDT 1.0 {capsule} active Doxycycline Hyclate 100 MG eCW1 ([facility]) doxycycline hyclate 100 MG Oral Capsule DOXYCYCLINE HYCLATE 01/18/2021 12:00:00 AM EDT capsule 20 TAKE ONE CAPSULE TWO TIMES A DAY BY MOUTH TAKE ONE CAPSULE TWO TIMES A DAY BY MOUTH SOLD: 01/18/2021 [facility] doxycycline hyclate 100 MG Oral Capsule Doxycycline Hy clate 100 MG Doxycycline Hyclate 100 MG 01/18/2021 12:00:00 AM EDT 1.0 {capsule} active Doxycycline Hyclate 100 MG eCW1 ([facility]) Prednisone 10 MG Oral Tablet predniSONE 10 MG predniSONE 10 MG 01/18/2021 12:00:00 AM EDT active predniSO NE 10 MG eCW1 ([facility]) doxycycline hyclate 100 MG Oral Capsule Doxycycline Hy clate 100 MG Doxycycline Hyclate 100 MG 01/18/2021 12:00:00 AM EDT 1.0 {capsule} active Doxycycline Hyclate 100 MG eCW1 ([facility]) doxycycline hyclate 100 MG Oral Capsule Doxycycline Hy clate 100 MG Doxycycline Hyclate 100 MG 01/18/2021 12:00:00 AM EDT 1.0 {capsule} active Doxycycline Hyclate 100 MG eCW1 ([facility]) Prednisone 10 MG Oral Tablet predniSONE 10 MG predniSONE 10 MG 01/18/2021 12:00:00 AM EDT active predniSO NE 10 MG eCW1 ([facility]) 10 mg 01/18/2021 12:00:00 AM EDT tablet 30 TAKE 4 TABLETS FOR 3 DAYS, 3 TABLETS FOR 3 DAYS, 2 TABLETS FOR 3 DAYS, 1 TABLET FOR 3 DAYS ONCE A DAY FOR 12 DAYS TAKE 4 TABLETS FOR 3 DAYS, 3 TABLETS FOR 3 DAYS, 2 TABLETS FOR 3 DAYS, 1 TABLET FOR 3 DAYS ONCE A DAY FOR 12 DAYS SOLD: 01/18/2021 [facility] doxycycline hyclate 100 MG Oral Capsule Doxycycline Hy clate 100 MG Doxycycline Hyclate 100 MG 01/18/2021 12:00:00 AM EDT 1.0 {capsule} active Doxycycline Hyclate 100 MG eCW1 ([facility]) 200 mg 01/17/2021 12:00:00 AM EDT capsule 60 TAKE ONE CAPSULE BY MOUTH TWICE A DAY MAXIMUM DAILY DOSE = 2 TAKE ONE CAPSULE BY MOUTH TWICE A DAY ALYSON AUGUSTIN DAILY DOSE = 2 SOLD: 01/18/2021 [facility] 50 mg 01/11/2021 12:00:00 AM EDT tablet 120 TAKE ONE TABLET BY MOUTH EVERY 6 HOURS NEEDED FOR PAIN MAXIMUM DAILY DOSE = 4 TAKE ONE TABLET BY MOUTH EVERY 6 HOURS NEEDED FOR PAIN MAXIMUM DAILY DOSE = 4 SOLD: 01/11/2021 [facility] 200 mg 12/18/2020 12:00:00 AM EDT capsule 60 TAKE ONE CAPSULE BY MOUTH TWICE A DAY MAXIMUM DAILY DOSE = 2 TAKE ONE CAPSULE BY MOUTH TWICE A DAY MA XIMUM DAILY DOSE = 2 SOLD: 12/18/2020 [facility] 50 mg 12/13/2020 12:00:00 AM EDT tablet 120 TAKE ONE TABLET BY MOUTH EVERY 6 HOURS NEEDED FOR PAIN MAXIMUM DAILY DOSE = 4 TAKE ONE TABLET BY MOUTH EVERY 6 HOURS NEEDED FOR PAIN MAXIMUM DAILY DOSE = 4 SOLD: 12/13/2020 [facility] 90 mcg/actuation 12/06/2020 12:00:00 AM EDT HFA aerosol inha ler 18 INHALE TWO PUFFS BY MOUTH EVERY 4 HOURS NEEDED INHALE TWO PUFFS BY MOUTH EVERY 4 HOURS NEEDED SOLD: 12/06/2020 [facility] tizanidine 4 MG Oral Tablet TIZANIDINE HCL 12/06/2020 12:00:00 AM EDT tablet 90 TAKE ONE TABLET BY MOUTH THREE TIMES A DAY NEEDED T PAMELA ONE TABLET BY MOUTH THREE TIMES A DAY NEEDED SOLD: 12/06/2020 [facility] 600 mg 12/06/2020 12:00:00 AM EDT tablet 90 TAKE 1 TABLETS BY MOUTH THREE TIMES DAILY NEEDED FOR PAIN TAKE WITH FOOD OR MILK NEEDED TAKE 1 TABLETS BY MOUTH THREE TIMES DAILY NEEDED FOR PAIN TAKE WITH FOOD OR MILK NEEDED SOLD: 01/11/2021 [facility] 600 mg 12/06/2020 12:00:00 AM EDT tablet 90 TAKE 1 TABLETS BY MOUTH THREE TIMES DAILY NEEDED FOR PAIN TAKE WITH FOOD OR MILK NEEDED TAKE 1 TABLETS BY MOUTH THREE TIMES DAILY NEEDED FOR PAIN TAKE WITH FOOD OR MILK NEEDED SOLD: 12/06/2020 [facility] 5 mg 11/29/2020 12:00:00 AM EDT tablet 90 TAKE ONE TABLET BY MOUTH EVERY DAY WITH A MEAL TAKE ONE TABLET BY MOUTH EVERY DAY WITH A MEAL SOLD: 11/30/2020 [facility] 10 mg 11/29/2020 12:00:00 AM EDT tablet 90 TAKE ONE TABLET BY MOUTH EVERY DAY TAKE ONE TABLET BY MOUTH EVERY DAY SOLD: 11/30/2020 [facility] 1,250 mcg (50,000 unit) 11/16/2020 12:00:00 AM EDT capsule 12 TAKE 1 CAPSULE BY MOUTH ONCE WEEKLY WITH MEAL TAKE 1 CAPSULE BY MOUTH ONCE WEEKLY WITH MEAL SOLD: 11/16/2020 [facility] 50 mg 11/16/2020 12:00:00 AM EDT tablet 120 TAKE ONE TABLET BY MOUTH EVERY 4 HOURS NEEDED FOR PAIN - MAXIMUM DAILY DOSE = 4 TAKE ONE TABLET BY MOUTH EVERY 4 HOURS NEEDED FOR PAIN - MAXIMUM DAILY DOSE = 4 SOLD: 11/16/2020 [facility] 500 mg 11/15/2020 12:00:00 AM EDT tablet extended release 24 hr 180 TAKE ONE TABLET BY MOUTH TWICE A DAY TAKE ONE TABLET BY MOUTH TWICE A DAY SOLD: 11/16/2020 [facility] 20 mg 11/15/2020 12:00:00 AM EDT capsule,delayed release (/EC) 180 TAKE TWO CAPSULES BY MOUTH EVERY DAY TAKE TWO CAPSULES BY MOUTH EVERY DAY SOLD: 11/16/2020 [facility] 50 mcg/actuation 11/11/2020 12:00:00 AM EDT spray,suspension 16 SPRAY ONE TO TWO SPRAYS IN EACH NOSTRIL EVERY DAY SPRAY ONE TO TWO SPRAYS IN EACH NOSTRIL EVERY DAY SOLD: 11/11/2020 [facility] 117 mg/0.75 mL 09/24/2020 12:00:00 AM EST syringe 0 INJECT 1 SYRINGE INTRAMUSCULARLY ONCE A MONTH INJECT 1 SYRINGE INTRAMUSCULARLY ONCE A MONTH SOLD: 09/25/2020 [facility] 200 mg 09/20/2020 12:00:00 AM EST capsule 60 TAKE ONE CAPSULE BY MOUTH TWICE A DAY MAXIMUM DAILY DOSE = 2 TAKE ONE CAPSULE BY MOUTH TWICE A DAY MA XIMUM DAILY DOSE = 2 SOLD: 09/20/2020 [facility] 50 mg 09/19/2020 12:00:00 AM EST tablet 120 TAKE ONE TABLET BY MOUTH EVERY 4 HOURS NEEDED FOR PAIN MAXIMUM DAILY DOSE = 4 TAKE ONE TABLET BY MOUTH EVERY 4 HOURS NEEDED FOR PAIN MAXIMUM DAILY DOSE = 4 SOLD: 09/19/2020 [facility] 0.5 mg 09/09/2020 12:00:00 AM EST tablet 42 TAKE ONE TABLET BY MOUTH THREE TIMES A DAY NEEDED FOR ANXIETY, MAXIMUM DAILY DOSE = 3 TAKE ONE TABLET BY MOUTH THREE TIMES A DAY NEEDED FOR ANXIETY, MAXIMUM DAILY DOSE = 3 SOLD: 09/11/2020 [facility] 5 mg 09/02/2020 12:00:00 AM EST tablet 90 TAKE ONE TABLET BY MOUTH EVERY DAY WITH A MEAL TAKE ONE TABLET BY MOUTH EVERY DAY WITH A MEAL SOLD: 09/03/2020 [facility] 10 mg 09/02/2020 12:00:00 AM EST tablet 90 TAKE ONE TABLET BY MOUTH EVERY DAY TAKE ONE TABLET BY MOUTH EVERY DAY SOLD: 09/03/2020 [facility] 117 mg/0.75 mL 08/23/2020 12:00:00 AM EST syringe 0 INJECT ONE SYRINGE INTRAMUSCULARLY ONCE A MONTH INJECT ONE SYRINGE INTRAMUSCULARLY ONCE A MONTH SOLD: 08/25/2020 [facility] 50 mg 08/22/2020 12:00:00 AM EST tablet 28 TAKE ONE TABLET BY MOUTH EVERY 4 HOURS NEEDED FOR PAIN MAXIMUM DAILY DOSE = 4 TAKE ONE TABLET BY MOUTH EVERY 4 HOURS NEEDED FOR PAIN MAXIMUM DAILY DOSE = 4 SOLD: 08/22/2020 [facility] 50 mg 08/22/2020 12:00:00 AM EST tablet 92 TAKE ONE TABLET BY MOUTH EVERY 4 HOURS NEEDED FOR PAIN MAXIMUM DAILY DOSE = 4 TAKE ONE TABLET BY MOUTH EVERY 4 HOURS NEEDED FOR PAIN MAXIMUM DAILY DOSE = 4 SOLD: 08/29/2020 [facility] 200 mg 08/22/2020 12:00:00 AM EST capsule 60 TAKE ONE CAPSULE BY MOUTH TWICE A DAY MAXIMUM DAILY DOSE = 2 TAKE ONE CAPSULE BY MOUTH TWICE A DAY ALYSON AUGUSTIN DAILY DOSE = 2 SOLD: 08/22/2020 [facility] 500 mg 08/20/2020 12:00:00 AM EST tablet extended release 24 hr 60 TAKE ONE TABLET BY MOUTH TWICE A DAY TAKE ONE TABLET BY MOUTH TWICE A DAY SOLD: 08/21/2020 [facility] 20 mg 08/20/2020 12:00:00 AM EST capsule,delayed release (DR/EC) 180 TAKE TWO CAPSULES BY MOUTH EVERY DAY TAKE TWO CAPSULES BY MOUTH EVERY DAY SOLD: 08/21/2020 [facility] 0.5 mg 08/17/2020 12:00:00 AM EST tablet 42 TAKE ONE TABLET BY MOUTH THREE TIMES A DAY NEEDED ANXIETY MAXIMUM DAILY DOSE = 3 TAKE ONE TABLET BY MOUTH THREE TIMES A DAY NEEDED ANXIETY MAXIMUM DAILY DOSE = 3 SOLD: 08/21/2020 [facility] Prednisone 10 MG Oral Tablet PredniSONE 10 MG PredniSONE 10 MG 08/10/2020 12:00:00 AM EST active PredniSO NE 10 MG eCW1 ([facility]) Prednisone 10 MG Oral Tablet PredniSONE 10 MG PredniSONE 10 MG 08/10/2020 12:00:00 AM EST active PredniSO NE 10 MG eCW1 ([facility]) Prednisone 10 MG Oral Tablet PredniSONE 10 MG PredniSONE 10 MG 08/10/2020 12:00:00 AM EST active PredniSO NE 10 MG eCW1 ([facility]) Prednisone 10 MG Oral Tablet PredniSONE 10 MG PredniSONE 10 MG 08/10/2020 12:00:00 AM EST active PredniSO NE 10 MG eCW1 ([facility]) Prednisone 10 MG Oral Tablet PredniSONE 10 MG PredniSONE 10 MG 08/10/2020 12:00:00 AM EST active PredniSO NE 10 MG eCW1 ([facility]) Prednisone 10 MG Oral Tablet PredniSONE 10 MG PredniSONE 10 MG 08/10/2020 12:00:00 AM EST active PredniSO NE 10 MG eCW1 ([facility]) Prednisone 10 MG Oral Tablet PredniSONE 10 MG PredniSONE 10 MG 08/10/2020 12:00:00 AM EST active PredniSO NE 10 MG eCW1 ([facility]) 10 mg 08/10/2020 12:00:00 AM EST tablet 30 TAKE FOUR TABLETS BY MOUTH EVERY DAY FOR 3 DAYS THEN 3 TABLETS DAILY FOR 3 DAYS THEN 2 TABS. DAILY FOR 3 DAYS THEN 1 TAB. DAILY ; TAKE WITH FOOD TAKE FOUR TABLETS BY MOUTH EVERY DAY FOR 3 DAYS THEN 3 TABLETS DAILY FOR 3 DAYS THEN 2 TABS. DAILY FOR 3 DAYS THEN 1 TAB. DAILY ; TAKE WITH FOOD SOLD: 08/10/2020 [facility] 100 mg 08/10/2020 12:00:00 AM EST capsule 20 TAKE ONE CAPSULE BY MOUTH TWICE A DAY FOR 10 DAYS TAKE ONE CAPSULE BY MOUTH TWICE A DAY FOR 10 DAYS SOLD : 08/10/2020 [facility] Clotrimazole 10 MG Oral Lozenge Clotrimazole 10 MG 08/07/2020 12:00 :00 AM EST 1.0 {lenny} active Clotrimazole 10 MG eCW1 ([facility]) Clotrimazole 10 MG Oral Lozenge Clotrimazole 10 MG 08/07/2020 12:00 :00 AM EST 1.0 {lenny} active Clotrimazole 10 MG eCW1 ([facility]) Clotrimazole 10 MG Oral Lozenge Clotrimazole 10 MG 08/07/2020 12:00 :00 AM EST 1.0 {lenny} active Clotrimazole 10 MG eCW1 ([facility]) Clotrimazole 10 MG Oral Lozenge Clotrimazole 10 MG 08/07/2020 12:00 :00 AM EST 1.0 {lenny} active Clotrimazole 10 MG eCW1 ([facility]) Clotrimazole 10 MG Oral Lozenge Clotrimazole 10 MG 08/07/2020 12:00 :00 AM EST 1.0 {lenny} active Clotrimazole 10 MG eCW1 ([facility]) Clotrimazole 10 MG Oral Lozenge Clotrimazole 10 MG 08/07/2020 12:00 :00 AM EST 1.0 {lenny} active Clotrimazole 10 MG eCW1 ([facility]) Clotrimazole 10 MG Oral Lozenge Clotrimazole 10 MG 08/07/2020 12:00 :00 AM EST 1.0 {lenny} active Clotrimazole 10 MG eCW1 ([facility]) Clotrimazole 10 MG Oral Lozenge Clotrimazole 10 MG 08/07/2020 12:00 :00 AM EST 1.0 {lenny} active Clotrimazole 10 MG eCW1 ([facility]) Clotrimazole 10 MG Oral Lozenge Clotrimazole 10 MG 08/07/2020 12:00 :00 AM EST 1.0 {lenny} active Clotrimazole 10 MG eCW1 ([facility]) Clotrimazole 10 MG Oral Lozenge Clotrimazole 10 MG 08/07/2020 12:00 :00 AM EST 1.0 {lenny} active Clotrimazole 10 MG eCW1 ([facility]) Clotrimazole 10 MG Oral Lozenge Clotrimazole 10 MG 08/07/2020 12:00 :00 AM EST 1.0 {lenny} active Clotrimazole 10 MG eCW1 ([facility]) Clotrimazole 10 MG Oral Lozenge Clotrimazole 10 MG 08/07/2020 12:00 :00 AM EST 1.0 {lenny} active Clotrimazole 10 MG eCW1 ([facility]) Clotrimazole 10 MG Oral Lozenge Clotrimazole 10 MG 08/07/2020 12:00 :00 AM EST 1.0 {lenny} active Clotrimazole 10 MG eCW1 ([facility]) Clotrimazole 10 MG Oral Lozenge Clotrimazole 10 MG 08/07/2020 12:00 :00 AM EST 1.0 {lenny} active Clotrimazole 10 MG eCW1 ([facility]) Clotrimazole 10 MG Oral Lozenge Clotrimazole 10 MG 08/07/2020 12:00 :00 AM EST 1.0 {lenny} active Clotrimazole 10 MG eCW1 ([facility]) Clotrimazole 10 MG Oral Lozenge Clotrimazole 10 MG 08/07/2020 12:00 :00 AM EST 1.0 {lenny} active Clotrimazole 10 MG eCW1 ([facility]) Clotrimazole 10 MG Oral Lozenge Clotrimazole 10 MG 08/07/2020 12:00 :00 AM EST 1.0 {lenny} active Clotrimazole 10 MG eCW1 ([facility]) Clotrimazole 10 MG Oral Lozenge Clotrimazole 10 MG 08/07/2020 12:00 :00 AM EST 1.0 {lenny} active Clotrimazole 10 MG eCW1 ([facility]) Clotrimazole 10 MG Oral Lozenge Clotrimazole 10 MG 08/07/2020 12:00 :00 AM EST 1.0 {lenny} active Clotrimazole 10 MG eCW1 ([facility]) Clotrimazole 10 MG Oral Lozenge Clotrimazole 10 MG 08/07/2020 12:00 :00 AM EST 1.0 {lenny} active Clotrimazole 10 MG eCW1 ([facility]) Clotrimazole 10 MG Oral Lozenge Clotrimazole 10 MG 08/07/2020 12:00 :00 AM EST 1.0 {lenny} active Clotrimazole 10 MG eCW1 ([facility]) 10 mg 08/07/2020 12:00:00 AM EST lenny 70 TAKE ONE TABLET BY MOUTH FIVE TIMES A DAY TAKE ONE TABLET BY MOUTH FIVE TIMES A DAY SOLD: 08/07/2020 [facility] BLOOD-GLUCOSE METER 08/02/2020 12:00:00 AM EST misc 1 USE DIRECTED TWO TIMES A DAY AND NEEDED USE DIRECTED TWO TIMES A DAY AND NEEDED SOLD: 08/02/2020 [facility] BLOOD SUGAR DIAGNOSTIC 08/02/2020 12:00:00 AM EST strip 50 USE TO TEST BLOOD SUGAR TWO TIMES A DAY NEEDED USE TO TEST BLOOD SUGAR TWO TIMES A DAY NEEDED SOLD: 08/02/2020 [facility] LANCETS 08/02/2020 12:00:00 AM EST misc 100 USE DIRECTED TWO TIMES A DAY NEEDED USE DIRECTED TWO TIMES A DAY NEEDED SOLD: 08/02/2020 [facility] Lancets - Lancets - 08/01/2020 12:00:00 AM EST act laura Lancets - eCW1 ([facility]) Lancets - Lancets - 08/01/2020 12:00:00 AM EST act laura Lancets - eCW1 ([facility]) Glucose Monitor Dx E11.9 UNK 08/01/2020 12:00:00 AM EST active Glucose Monitor Dx E11.9 eCW1 ([facility]) Prednisone 20 MG Oral Tablet PredniSONE 20 MG PredniSONE 20 MG 08/01/2020 12:00:00 AM EST 1.0 {tablet_with_food} active PredniSONE 20 MG eCW1 ([facility]) Lancets - Lancets - 08/01/2020 12:00:00 AM EST act laura Lancets - eCW1 ([facility]) Lancets - Lancets - 08/01/2020 12:00:00 AM EST act laura Lancets - eCW1 ([facility]) Glucose Monitor Dx E11.9 UNK 08/01/2020 12:00:00 AM EST active Glucose Monitor Dx E11.9 eCW1 ([facility]) Lancets - Lancets - 08/01/2020 12:00:00 AM EST act laura Lancets - eCW1 ([facility]) Doxycycline Monohydrate 100 MG Oral Capsule Doxycycline King hydrate 100 MG 08/01/2020 12:00:00 AM EST 1.0 {capsule} active Doxycycline Monohydrate 100 MG eCW1 ([facility]) Glucose Monitor Dx E11.9 UNK 08/01/2020 12:00:00 AM EST active Glucose Monitor Dx E11.9 eCW1 ([facility]) Prednisone 20 MG Oral Tablet PredniSONE 20 MG PredniSONE 20 MG 08/01/2020 12:00:00 AM EST 1.0 {tablet_with_food} active PredniSONE 20 MG eCW1 ([facility]) Glucose Monitor Dx E11.9 UNK 08/01/2020 12:00:00 AM EST active Glucose Monitor Dx E11.9 eCW1 ([facility]) Glucose Monitor Dx E11.9 UNK 08/01/2020 12:00:00 AM EST active eCW1 ([facility]) Glucose Monitor Dx E11.9 UNK 08/01/2020 12:00:00 AM EST active Glucose Monitor Dx E11.9 eCW1 ([facility]) Glucose Monitor Dx E11.9 UNK 08/01/2020 12:00:00 AM EST active Glucose Monitor Dx E11.9 eCW1 ([facility]) Lancets - Lancets - 08/01/2020 12:00:00 AM EST act laura Lancets - eCW1 ([facility]) Glucose Monitor Dx E11.9 UNK 08/01/2020 12:00:00 AM EST active Glucose Monitor Dx E11.9 eCW1 ([facility]) Glucose Monitor Dx E11.9 UNK 08/01/2020 12:00:00 AM EST active Glucose Monitor Dx E11.9 eCW1 ([facility]) Lancets - Lancets - 08/01/2020 12:00:00 AM EST act laura Lancets - eCW1 ([facility]) Lancets - Lancets - 08/01/2020 12:00:00 AM EST act laura Lancets - eCW1 ([facility]) Lancets - Lancets - 08/01/2020 12:00:00 AM EST act laura Lancets - eCW1 ([facility]) Doxycycline Monohydrate 100 MG Oral Capsule Doxycycline King hydrate 100 MG 08/01/2020 12:00:00 AM EST 1.0 {capsule} active Doxycycline Monohydrate 100 MG eCW1 ([facility]) Glucose Monitor Dx E11.9 UNK 08/01/2020 12:00:00 AM EST active Glucose Monitor Dx E11.9 eCW1 ([facility]) Lancets - Lancets - 08/01/2020 12:00:00 AM EST act laura Lancets - eCW1 ([facility]) Prednisone 20 MG Oral Tablet PredniSONE 20 MG PredniSONE 20 MG 08/01/2020 12:00:00 AM EST 1.0 {tablet_with_food} active PredniSONE 20 MG eCW1 ([facility]) Glucose Monitor Dx E11.9 UNK 08/01/2020 12:00:00 AM EST active Glucose Monitor Dx E11.9 eCW1 ([facility]) Doxycycline Monohydrate 100 MG Oral Capsule Doxycycline King hydrate 100 MG 08/01/2020 12:00:00 AM EST 1.0 {capsule} active Doxycycline Monohydrate 100 MG eCW1 ([facility]) Glucose Monitor Dx E11.9 UNK 08/01/2020 12:00:00 AM EST active Glucose Monitor Dx E11.9 eCW1 ([facility]) Prednisone 20 MG Oral Tablet PredniSONE 20 MG PredniSONE 20 MG 08/01/2020 12:00:00 AM EST 1.0 {tablet_with_food} active PredniSONE 20 MG eCW1 ([facility]) Lancets - Lancets - 08/01/2020 12:00:00 AM EST act laura Lancets - eCW1 ([facility]) Prednisone 20 MG Oral Tablet PredniSONE 20 MG PredniSONE 20 MG 08/01/2020 12:00:00 AM EST 1.0 {tablet_with_food} active PredniSONE 20 MG eCW1 ([facility]) Lancets - Lancets - 08/01/2020 12:00:00 AM EST act laura Lancets - eCW1 ([facility]) Lancets - Lancets - 08/01/2020 12:00:00 AM EST act [facility] Lancets - eCW1 ([facility]) 100 mg 08/01/2020 12:00:00 AM EST capsule 20 TAKE ONE CAPSULE BY MOUTH TWICE A DAY TAKE ONE CAPSULE BY MOUTH TWICE A DAY SOLD: 08/02/2020 [facility] Doxycycline Monohydrate 100 MG Oral Capsule Doxycycline King hydrate 100 MG 08/01/2020 12:00:00 AM EST 1.0 {capsule} active Doxycycline Monohydrate 100 MG eCW1 ([facility]) Lancets - Lancets - 08/01/2020 12:00:00 AM EST act laura Lancets - eCW1 ([facility]) Doxycycline Monohydrate 100 MG Oral Capsule Doxycycline King hydrate 100 MG 08/01/2020 12:00:00 AM EST 1.0 {capsule} active Doxycycline Monohydrate 100 MG eCW1 ([facility]) Lancets - Lancets - 08/01/2020 12:00:00 AM EST act [facility]ura Lancets - eCW1 ([facility]) Glucose Monitor Dx E11.9 UNK 08/01/2020 12:00:00 AM EST active Glucose Monitor Dx E11.9 eCW1 ([facility]) Lancets - Lancets - 08/01/2020 12:00:00 AM EST act laura Lancets - eCW1 ([facility]) Lancets - Lancets - 08/01/2020 12:00:00 AM EST act laura Lancets - eCW1 ([facility]) Doxycycline Monohydrate 100 MG Oral Capsule Doxycycline King hydrate 100 MG 08/01/2020 12:00:00 AM EST 1.0 {capsule} active Doxycycline Monohydrate 100 MG eCW1 ([facility]) Lancets - Lancets - 08/01/2020 12:00:00 AM EST act [facility]ura Lancets - eCW1 ([facility]) Doxycycline Monohydrate 100 MG Oral Capsule Doxycycline King hydrate 100 MG 08/01/2020 12:00:00 AM EST 1.0 {capsule} active Doxycycline Monohydrate 100 MG eCW1 ([facility]) Prednisone 20 MG Oral Tablet PredniSONE 20 MG PredniSONE 20 MG 08/01/2020 12:00:00 AM EST 1.0 {tablet_with_food} active PredniSONE 20 MG eCW1 ([facility]) Prednisone 20 MG Oral Tablet PredniSONE 20 MG PredniSONE 20 MG 08/01/2020 12:00:00 AM EST 1.0 {tablet_with_food} active PredniSONE 20 MG eCW1 ([facility]) Doxycycline Monohydrate 100 MG Oral Capsule Doxycycline King hydrate 100 MG 08/01/2020 12:00:00 AM EST 1.0 {capsule} active Doxycycline Monohydrate 100 MG eCW1 ([facility]) Lancets - Lancets - 08/01/2020 12:00:00 AM EST act laura Lancets - eCW1 ([facility]) Doxycycline Monohydrate 100 MG Oral Capsule Doxycycline King hydrate 100 MG 08/01/2020 12:00:00 AM EST 1.0 {capsule} active Doxycycline Monohydrate 100 MG eCW1 ([facility]) Glucose Monitor Dx E11.9 UNK 08/01/2020 12:00:00 AM EST active Glucose Monitor Dx E11.9 eCW1 ([facility]) Prednisone 20 MG Oral Tablet PredniSONE 20 MG PredniSONE 20 MG 08/01/2020 12:00:00 AM EST 1.0 {tablet_with_food} active PredniSONE 20 MG eCW1 ([facility]) Glucose Monitor Dx E11.9 UNK 08/01/2020 12:00:00 AM EST active Glucose Monitor Dx E11.9 eCW1 ([facility]) Prednisone 20 MG Oral Tablet PredniSONE 20 MG PredniSONE 20 MG 08/01/2020 12:00:00 AM EST 1.0 {tablet_with_food} active PredniSONE 20 MG eCW1 ([facility]) Lancets - Lancets - 08/01/2020 12:00:00 AM EST act laura Lancets - eCW1 ([facility]) Glucose Monitor Dx E11.9 UNK 08/01/2020 12:00:00 AM EST active Glucose Monitor Dx E11.9 eCW1 ([facility]) 137 mcg (0.1 %) 08/01/2020 12:00:00 AM EST aerosol,spray 30 SPRAY TWO SPRAYS IN EACH NOSTRIL TWICE A DAY SPRAY TWO SPRAYS IN EACH NOSTRIL TWICE A DAY SOLD: 08/02/2020 [facility] Lancets - Lancets - 08/01/2020 12:00:00 AM EST act laura Lancets - eCW1 ([facility]) Glucose Monitor Dx E11.9 UNK 08/01/2020 12:00:00 AM EST active Glucose Monitor Dx E11.9 eCW1 ([facility]) Glucose Monitor Dx E11.9 UNK 08/01/2020 12:00:00 AM EST active Glucose Monitor Dx E11.9 eCW1 ([facility]) Glucose Monitor Dx E11.9 UNK 08/01/2020 12:00:00 AM EST active Glucose Monitor Dx E11.9 eCW1 ([facility]) Glucose Monitor Dx E11.9 UNK 08/01/2020 12:00:00 AM EST active Glucose Monitor Dx E11.9 eCW1 ([facility]) Glucose Monitor Dx E11.9 UNK 08/01/2020 12:00:00 AM EST active Glucose Monitor Dx E11.9 eCW1 ([facility]) Lancets - Lancets - 08/01/2020 12:00:00 AM EST act [facility]ura Lancets - eCW1 ([facility]) Doxycycline Monohydrate 100 MG Oral Capsule Doxycycline King hydrate 100 MG 08/01/2020 12:00:00 AM EST 1.0 {capsule} active Doxycycline Monohydrate 100 MG eCW1 ([facility]) Prednisone 20 MG Oral Tablet PredniSONE 20 MG PredniSONE 20 MG 08/01/2020 12:00:00 AM EST 1.0 {tablet_with_food} active PredniSONE 20 MG eCW1 ([facility]) Prednisone 20 MG Oral Tablet PredniSONE 20 MG PredniSONE 20 MG 08/01/2020 12:00:00 AM EST 1.0 {tablet_with_food} active PredniSONE 20 MG eCW1 ([facility]) Lancets - Lancets - 08/01/2020 12:00:00 AM EST act laura Lancets - eCW1 ([facility]) Glucose Monitor Dx E11.9 UNK 08/01/2020 12:00:00 AM EST active Glucose Monitor Dx E11.9 eCW1 ([facility]) Glucose Monitor Dx E11.9 UNK 08/01/2020 12:00:00 AM EST active Glucose Monitor Dx E11.9 eCW1 ([facility]) Lancets - Lancets - 08/01/2020 12:00:00 AM EST act laura Lancets - eCW1 ([facility]) Glucose Monitor Dx E11.9 UNK 08/01/2020 12:00:00 AM EST active Glucose Monitor Dx E11.9 eCW1 ([facility]) Glucose Monitor Dx E11.9 UNK 08/01/2020 12:00:00 AM EST active Glucose Monitor Dx E11.9 eCW1 ([facility]) Glucose Monitor Dx E11.9 UNK 08/01/2020 12:00:00 AM EST active Glucose Monitor Dx E11.9 eCW1 ([facility]) Glucose Monitor Dx E11.9 UNK 08/01/2020 12:00:00 AM EST active Glucose Monitor Dx E11.9 eCW1 ([facility]) Prednisone 20 MG Oral Tablet PredniSONE 20 MG PredniSONE 20 MG 08/01/2020 12:00:00 AM EST 1.0 {tablet_with_food} active PredniSONE 20 MG eCW1 ([facility]) Prednisone 20 MG Oral Tablet PredniSONE 20 MG PredniSONE 20 MG 08/01/2020 12:00:00 AM EST 1.0 {tablet_with_food} active PredniSONE 20 MG eCW1 ([facility]) Prednisone 20 MG Oral Tablet PredniSONE 20 MG PredniSONE 20 MG 08/01/2020 12:00:00 AM EST 1.0 {tablet_with_food} active PredniSONE 20 MG eCW1 ([facility]) Glucose Monitor Dx E11.9 UNK 08/01/2020 12:00:00 AM EST active Glucose Monitor Dx E11.9 eCW1 ([facility]) Lancets - Lancets - 08/01/2020 12:00:00 AM EST act laura Lancets - eCW1 ([facility]) Glucose Monitor Dx E11.9 UNK 08/01/2020 12:00:00 AM EST active Glucose Monitor Dx E11.9 eCW1 ([facility]) Lancets - Lancets - 08/01/2020 12:00:00 AM EST act laura Lancets - eCW1 ([facility]) Lancets - Lancets - 08/01/2020 12:00:00 AM EST act laura Lancets - eCW1 ([facility]) Lancets - Lancets - 08/01/2020 12:00:00 AM EST act laura eCW1 ([facility]) Prednisone 20 MG Oral Tablet PredniSONE 20 MG PredniSONE 20 MG 08/01/2020 12:00:00 AM EST 1.0 {tablet_with_food} active PredniSONE 20 MG eCW1 ([facility]) Glucose Monitor Dx E11.9 UNK 08/01/2020 12:00:00 AM EST active Glucose Monitor Dx E11.9 eCW1 ([facility]) Doxycycline Monohydrate 100 MG Oral Capsule Doxycycline King hydrate 100 MG 08/01/2020 12:00:00 AM EST 1.0 {capsule} active Doxycycline Monohydrate 100 MG eCW1 ([facility]) Lancets - Lancets - 08/01/2020 12:00:00 AM EST act laura Lancets - eCW1 ([facility]) Doxycycline Monohydrate 100 MG Oral Capsule Doxycycline King hydrate 100 MG 08/01/2020 12:00:00 AM EST 1.0 {capsule} active Doxycycline Monohydrate 100 MG eCW1 ([facility]) Lancets - Lancets - 08/01/2020 12:00:00 AM EST act laura Lancets - eCW1 ([facility]) Glucose Monitor Dx E11.9 UNK 08/01/2020 12:00:00 AM EST active Glucose Monitor Dx E11.9 eCW1 ([facility]) Doxycycline Monohydrate 100 MG Oral Capsule Doxycycline King hydrate 100 MG 08/01/2020 12:00:00 AM EST 1.0 {capsule} active Doxycycline Monohydrate 100 MG eCW1 ([facility]) Lancets - Lancets - 08/01/2020 12:00:00 AM EST act laura Lancets - eCW1 ([facility]) Doxycycline Monohydrate 100 MG Oral Capsule Doxycycline King hydrate 100 MG 08/01/2020 12:00:00 AM EST 1.0 {capsule} active Doxycycline Monohydrate 100 MG eCW1 ([facility]) Doxycycline Monohydrate 100 MG Oral Capsule Doxycycline King hydrate 100 MG 08/01/2020 12:00:00 AM EST 1.0 {capsule} active Doxycycline Monohydrate 100 MG eCW1 ([facility]) Glucose Monitor Dx E11.9 UNK 08/01/2020 12:00:00 AM EST active Glucose Monitor Dx E11.9 eCW1 ([facility]) Glucose Monitor Dx E11.9 UNK 08/01/2020 12:00:00 AM EST active Glucose Monitor Dx E11.9 eCW1 ([facility]) Prednisone 20 MG Oral Tablet PredniSONE 20 MG PredniSONE 20 MG 08/01/2020 12:00:00 AM EST 1.0 {tablet_with_food} active PredniSONE 20 MG eCW1 ([facility]) Prednisone 20 MG Oral Tablet PredniSONE 20 MG PredniSONE 20 MG 08/01/2020 12:00:00 AM EST 1.0 {tablet_with_food} active PredniSONE 20 MG eCW1 ([facility]) Doxycycline Monohydrate 100 MG Oral Capsule Doxycycline King hydrate 100 MG 08/01/2020 12:00:00 AM EST 1.0 {capsule} active Doxycycline Monohydrate 100 MG eCW1 ([facility]) Lancets - Lancets - 08/01/2020 12:00:00 AM EST act laura Lancets - eCW1 ([facility]) Glucose Monitor Dx E11.9 UNK 08/01/2020 12:00:00 AM EST active Glucose Monitor Dx E11.9 eCW1 ([facility]) Lancets - Lancets - 08/01/2020 12:00:00 AM EST act laura Lancets - eCW1 ([facility]) Prednisone 20 MG Oral Tablet PredniSONE 20 MG PredniSONE 20 MG 08/01/2020 12:00:00 AM EST 1.0 {tablet_with_food} active PredniSONE 20 MG eCW1 ([facility]) Lancets - Lancets - 08/01/2020 12:00:00 AM EST act laura Lancets - eCW1 ([facility]) Doxycycline Monohydrate 100 MG Oral Capsule Doxycycline King hydrate 100 MG 08/01/2020 12:00:00 AM EST 1.0 {capsule} active Doxycycline Monohydrate 100 MG eCW1 ([facility]) Glucose Monitor Dx E11.9 UNK 08/01/2020 12:00:00 AM EST active Glucose Monitor Dx E11.9 eCW1 ([facility]) Lancets - Lancets - 08/01/2020 12:00:00 AM EST act laura Lancets - eCW1 ([facility]) Glucose Monitor Dx E11.9 UNK 08/01/2020 12:00:00 AM EST active Glucose Monitor Dx E11.9 eCW1 ([facility]) Doxycycline Monohydrate 100 MG Oral Capsule Doxycycline King hydrate 100 MG 08/01/2020 12:00:00 AM EST 1.0 {capsule} active Doxycycline Monohydrate 100 MG eCW1 ([facility]) Prednisone 20 MG Oral Tablet PredniSONE 20 MG PredniSONE 20 MG 08/01/2020 12:00:00 AM EST 1.0 {tablet_with_food} active PredniSONE 20 MG eCW1 ([facility]) Lancets - Lancets - 08/01/2020 12:00:00 AM EST act laura Lancets - eCW1 ([facility]) Glucose Monitor Dx E11.9 UNK 08/01/2020 12:00:00 AM EST active Glucose Monitor Dx E11.9 eCW1 ([facility]) 20 mg 08/01/2020 12:00:00 AM EST tablet 10 TAKE ONE TABLET BY MOUTH TWICE A DAY WITH FOOD TAKE ONE TABLET BY MOUTH TWICE A DAY WITH FOOD SOLD: 08/02/2020 [facility] Lancets - Lancets - 08/01/2020 12:00:00 AM EST act laura Lancets - eCW1 ([facility]) Glucose Monitor Dx E11.9 UNK 08/01/2020 12:00:00 AM EST active Glucose Monitor Dx E11.9 eCW1 ([facility]) Prednisone 20 MG Oral Tablet PredniSONE 20 MG PredniSONE 20 MG 08/01/2020 12:00:00 AM EST 1.0 {tablet_with_food} active PredniSONE 20 MG eCW1 ([facility]) Doxycycline Monohydrate 100 MG Oral Capsule Doxycycline King hydrate 100 MG 08/01/2020 12:00:00 AM EST 1.0 {capsule} active Doxycycline Monohydrate 100 MG eCW1 ([facility]) Glucose Monitor Dx E11.9 UNK 08/01/2020 12:00:00 AM EST active Glucose Monitor Dx E11.9 eCW1 ([facility]) Lancets - Lancets - 08/01/2020 12:00:00 AM EST act laura Lancets - eCW1 ([facility]) Doxycycline Monohydrate 100 MG Oral Capsule Doxycycline King hydrate 100 MG 08/01/2020 12:00:00 AM EST 1.0 {capsule} active Doxycycline Monohydrate 100 MG eCW1 ([facility]) Prednisone 20 MG Oral Tablet PredniSONE 20 MG PredniSONE 20 MG 08/01/2020 12:00:00 AM EST 1.0 {tablet_with_food} active PredniSONE 20 MG eCW1 ([facility]) Lancets - Lancets - 08/01/2020 12:00:00 AM EST act laura Lancets - eCW1 ([facility]) Prednisone 20 MG Oral Tablet PredniSONE 20 MG PredniSONE 20 MG 08/01/2020 12:00:00 AM EST 1.0 {tablet_with_food} active PredniSONE 20 MG eCW1 ([facility]) Glucose Monitor Dx E11.9 UNK 08/01/2020 12:00:00 AM EST active Glucose Monitor Dx E11.9 eCW1 ([facility]) Lancets - Lancets - 08/01/2020 12:00:00 AM EST act laura Lancets - eCW1 ([facility]) Doxycycline Monohydrate 100 MG Oral Capsule Doxycycline King hydrate 100 MG 08/01/2020 12:00:00 AM EST 1.0 {capsule} active Doxycycline Monohydrate 100 MG eCW1 ([facility]) Lancets - Lancets - 08/01/2020 12:00:00 AM EST act laura Lancets - eCW1 ([facility]) Doxycycline Monohydrate 100 MG Oral Capsule Doxycycline King hydrate 100 MG 08/01/2020 12:00:00 AM EST 1.0 {capsule} active Doxycycline Monohydrate 100 MG eCW1 ([facility]) Glucose Monitor Dx E11.9 UNK 08/01/2020 12:00:00 AM EST active Glucose Monitor Dx E11.9 eCW1 ([facility]) 117 mg/0.75 mL 07/31/2020 12:00:00 AM EST syringe 0 INJECT ONE SYRINGE ONE MONTHLY INJECT ONE SYRINGE ONE MONTHLY SOLD: 07/31/2020 [facility] 0.5 mg 07/23/2020 12:00:00 AM EST tablet 42 TAKE ONE TABLET BY MOUTH THREE TIMES A DAY NEEDED FOR ANXIETY - MAXIMUM DAILY DOSE = 3 TABLETS TAKE ONE TABLET BY MOUTH THREE TIMES A DAY NEEDED FOR ANXIETY - MAXIMUM DAILY DOSE = 3 TABLETS SOLD: 07/26/2020 [facility] Fluticasone Furoate-Vilanterol 100-25 MCG/INH UNK 07/18/20 12:00:00 AM EST 1.0 {puff} active Fluticasone Furoate-V ilanterol 100-25 MCG/INH eCW1 ([facility]) Fluticasone Furoate-Vilanterol 100-25 MCG/INH UNK 07/18/20 12:00:00 AM EST 1.0 {puff} active Fluticasone Furoate-V ilanterol 100-25 MCG/INH eCW1 ([facility]) 28 ACTUAT tiotropium 0.0025 MG/ACTUAT Me tered Dose Inhaler [Spiriva] Spiriva Respimat 2.5 MCG/ACT Spiriva Respimat 2.5 MCG/ACT 07/18/2020 12:00:00 AM EST 2.0 {puffs} active Spiriva Respimat 2.5 MCG/ACT eCW1 ([facility]) 28 ACTUAT tiotropium 0.0025 MG/ACTUAT Me tered Dose Inhaler [Spiriva] Spiriva Respimat 2.5 MCG/ACT Spiriva Respimat 2.5 MCG/ACT 07/18/2020 12:00:00 AM EST 2.0 {puffs} active Spiriva Respimat 2.5 MCG/ACT eCW1 ([facility]) Meclizine Hydrochloride 25 MG Oral Tablet MECLIZINE HCL 07/08/2020 12:00:00 AM EST tablet 30 TAKE ONE TABLET BY MOUTH DANIEL RY 8 HOURS NEEDED FOR DIZZINESS TAKE ONE TABLET BY MOUTH EVERY 8 HOURS NEEDED FOR DIZZINESS SOLD: 07/08/2020 [facility] 0.5 mg 07/05/2020 12:00:00 AM EST tablet 42 TAKE ONE TABLET BY MOUTH THREE TIMES A DAY NEEDED FOR ANXIETY TAKE ONE TABLET BY MOUTH THREE TIMES A D AY NEEDED FOR ANXIETY SOLD: 07/05/2020 [facility] 100-62.5-25 mcg 06/29/2020 12:00:00 AM EST blister with monica ce 60 INHALE ONE PUFF BY MOUTH EVERY DAY INHALE ONE PUFF BY MOUTH EVERY DAY SOLD: 06/29/2020 [facility] Azithromycin 250 MG Oral Tablet Azithromycin 250 MG 05/15/2020 1 2:00:00 AM EDT active Azithromycin 250 MG eCW1 ([facility]) Prednisone 20 MG Oral Tablet PredniSONE 20 MG PredniSONE 20 MG 05/15/2020 12:00:00 AM EDT active PredniSO NE 20 MG eCW1 ([facility]) Azithromycin 250 MG Oral Tablet Azithromycin 250 MG 05/15/2020 1 2:00:00 AM EDT active Azithromycin 250 MG eCW1 ([facility]) Azithromycin 250 MG Oral Tablet Azithromycin 250 MG 05/15/2020 1 2:00:00 AM EDT active Azithromycin 250 MG eCW1 ([facility]) Prednisone 20 MG Oral Tablet PredniSONE 20 MG PredniSONE 20 MG 05/15/2020 12:00:00 AM EDT active PredniSO NE 20 MG eCW1 ([facility]) Azithromycin 250 MG Oral Tablet Azithromycin 250 MG 05/15/2020 1 2:00:00 AM EDT active Azithromycin 250 MG eCW1 ([facility]) Azithromycin 250 MG Oral Tablet Azithromycin 250 MG 05/15/2020 1 2:00:00 AM EDT active Azithromycin 250 MG eCW1 ([facility]) Azithromycin 250 MG Oral Tablet Azithromycin 250 MG 05/15/2020 1 2:00:00 AM EDT active Azithromycin 250 MG eCW1 ([facility]) Azithromycin 250 MG Oral Tablet Azithromycin 250 MG 05/15/2020 1 2:00:00 AM EDT active Azithromycin 250 MG eCW1 ([facility]) Azithromycin 250 MG Oral Tablet Azithromycin 250 MG 05/15/2020 1 2:00:00 AM EDT active Azithromycin 250 MG eCW1 ([facility]) Azithromycin 250 MG Oral Tablet Azithromycin 250 MG 05/15/2020 1 2:00:00 AM EDT active Azithromycin 250 MG eCW1 ([facility]) Azithromycin 250 MG Oral Tablet Azithromycin 250 MG 05/15/2020 1 2:00:00 AM EDT active Azithromycin 250 MG eCW1 ([facility]) Azithromycin 250 MG Oral Tablet Azithromycin 250 MG 05/15/2020 1 2:00:00 AM EDT active Azithromycin 250 MG eCW1 ([facility]) Azithromycin 250 MG Oral Tablet Azithromycin 250 MG 05/15/2020 1 2:00:00 AM EDT active Azithromycin 250 MG eCW1 ([facility]) Azithromycin 250 MG Oral Tablet Azithromycin 250 MG 05/15/2020 1 2:00:00 AM EDT active Azithromycin 250 MG eCW1 ([facility]) Prednisone 20 MG Oral Tablet PredniSONE 20 MG PredniSONE 20 MG 05/15/2020 12:00:00 AM EDT active PredniSO NE 20 MG eCW1 ([facility]) Azithromycin 250 MG Oral Tablet Azithromycin 250 MG 05/15/2020 1 2:00:00 AM EDT active Azithromycin 250 MG eCW1 ([facility]) Azithromycin 250 MG Oral Tablet Azithromycin 250 MG 05/15/2020 1 2:00:00 AM EDT active Azithromycin 250 MG eCW1 ([facility]) Prednisone 20 MG Oral Tablet PredniSONE 20 MG PredniSONE 20 MG 05/15/2020 12:00:00 AM EDT active PredniSO NE 20 MG eCW1 ([facility]) Azithromycin 250 MG Oral Tablet Azithromycin 250 MG 05/15/2020 1 2:00:00 AM EDT active Azithromycin 250 MG eCW1 ([facility]) Azithromycin 250 MG Oral Tablet Azithromycin 250 MG 05/15/2020 1 2:00:00 AM EDT active Azithromycin 250 MG eCW1 ([facility]) Azithromycin 250 MG Oral Tablet Azithromycin 250 MG 05/15/2020 1 2:00:00 AM EDT active Azithromycin 250 MG eCW1 ([facility]) Azithromycin 250 MG Oral Tablet Azithromycin 250 MG 05/15/2020 1 2:00:00 AM EDT active Azithromycin 250 MG eCW1 ([facility]) Azithromycin 250 MG Oral Tablet Azithromycin 250 MG 05/15/2020 1 2:00:00 AM EDT active Azithromycin 250 MG eCW1 ([facility]) Prednisone 20 MG Oral Tablet PredniSONE 20 MG PredniSONE 20 MG 05/15/2020 12:00:00 AM EDT active PredniSO NE 20 MG eCW1 ([facility]) Azithromycin 250 MG Oral Tablet Azithromycin 250 MG 05/15/2020 1 2:00:00 AM EDT active Azithromycin 250 MG eCW1 ([facility]) Azithromycin 250 MG Oral Tablet Azithromycin 250 MG 05/15/2020 1 2:00:00 AM EDT active Azithromycin 250 MG eCW1 ([facility]) Azithromycin 250 MG Oral Tablet Azithromycin 250 MG 05/15/2020 1 2:00:00 AM EDT active Azithromycin 250 MG eCW1 ([facility]) Azithromycin 250 MG Oral Tablet Azithromycin 250 MG 05/15/2020 1 2:00:00 AM EDT active Azithromycin 250 MG eCW1 ([facility]) Prednisone 20 MG Oral Tablet PredniSONE 20 MG PredniSONE 20 MG 05/15/2020 12:00:00 AM EDT active PredniSO NE 20 MG eCW1 ([facility]) Prednisone 20 MG Oral Tablet PredniSONE 20 MG PredniSONE 20 MG 05/15/2020 12:00:00 AM EDT active PredniSO NE 20 MG eCW1 ([facility]) Azithromycin 250 MG Oral Tablet Azithromycin 250 MG 05/15/2020 1 2:00:00 AM EDT active Azithromycin 250 MG eCW1 ([facility]) Prednisone 20 MG Oral Tablet PredniSONE 20 MG PredniSONE 20 MG 05/15/2020 12:00:00 AM EDT active PredniSO NE 20 MG eCW1 ([facility]) Prednisone 20 MG Oral Tablet PredniSONE 20 MG PredniSONE 20 MG 05/15/2020 12:00:00 AM EDT active PredniSO NE 20 MG eCW1 ([facility]) Azithromycin 250 MG Oral Tablet Azithromycin 250 MG 05/15/2020 1 2:00:00 AM EDT active Azithromycin 250 MG eCW1 ([facility]) Prednisone 20 MG Oral Tablet PredniSONE 20 MG PredniSONE 20 MG 05/15/2020 12:00:00 AM EDT active PredniSO NE 20 MG eCW1 ([facility]) Azithromycin 250 MG Oral Tablet Azithromycin 250 MG 05/15/2020 1 2:00:00 AM EDT active Azithromycin 250 MG eCW1 ([facility]) Azithromycin 250 MG Oral Tablet Azithromycin 250 MG 05/15/2020 1 2:00:00 AM EDT active Azithromycin 250 MG eCW1 ([facility]) Azithromycin 250 MG Oral Tablet Azithromycin 250 MG 05/15/2020 1 2:00:00 AM EDT active Azithromycin 250 MG eCW1 ([facility]) Azithromycin 250 MG Oral Tablet Azithromycin 250 MG 05/15/2020 1 2:00:00 AM EDT active Azithromycin 250 MG eCW1 ([facility]) Azithromycin 250 MG Oral Tablet Azithromycin 250 MG 05/15/2020 1 2:00:00 AM EDT active Azithromycin 250 MG eCW1 ([facility]) Prednisone 20 MG Oral Tablet PredniSONE 20 MG PredniSONE 20 MG 05/15/2020 12:00:00 AM EDT active PredniSO NE 20 MG eCW1 ([facility]) Prednisone 20 MG Oral Tablet PredniSONE 20 MG PredniSONE 20 MG 05/15/2020 12:00:00 AM EDT active PredniSO NE 20 MG eCW1 ([facility]) Azithromycin 250 MG Oral Tablet Azithromycin 250 MG 05/15/2020 1 2:00:00 AM EDT active Azithromycin 250 MG eCW1 ([facility]) Azithromycin 250 MG Oral Tablet Azithromycin 250 MG 05/15/2020 1 2:00:00 AM EDT active Azithromycin 250 MG eCW1 ([facility]) Azithromycin 250 MG Oral Tablet Azithromycin 250 MG 05/15/2020 1 2:00:00 AM EDT active Azithromycin 250 MG eCW1 ([facility]) Prednisone 20 MG Oral Tablet PredniSONE 20 MG PredniSONE 20 MG 05/15/2020 12:00:00 AM EDT active PredniSO NE 20 MG eCW1 ([facility]) Prednisone 20 MG Oral Tablet PredniSONE 20 MG PredniSONE 20 MG 05/15/2020 12:00:00 AM EDT active PredniSO NE 20 MG eCW1 ([facility]) 100-62.5-25 mcg 05/14/2020 12:00:00 AM EDT blister with monica ce 60 INHALE ONE PUFF BY MOUTH EVERY DAY INHALE ONE PUFF BY MOUTH EVERY DAY SOLD: 05/14/2020 [facility] doxycycline hyclate 100 MG Oral Capsule DOXYCYCLINE HYCLATE 05/08/2020 12:00:00 AM EDT capsule 20 TAKE ONE CAPSULE BY MOUTH TW ICE A DAY TAKE ONE CAPSULE BY MOUTH TWICE A DAY SOLD: 05/08/2020 [facility] doxycycline hyclate 100 MG Oral Capsule Doxycycline Hy clate 100 MG Doxycycline Hyclate 100 MG 05/08/2020 12:00:00 AM EDT 1.0 {capsule} active Doxycycline Hyclate 100 MG eCW1 ([facility]) doxycycline hyclate 100 MG Oral Capsule Doxycycline Hy clate 100 MG Doxycycline Hyclate 100 MG 05/08/2020 12:00:00 AM EDT 1.0 {capsule} active Doxycycline Hyclate 100 MG eCW1 ([facility]) doxycycline hyclate 100 MG Oral Capsule Doxycycline Hy clate 100 MG Doxycycline Hyclate 100 MG 05/08/2020 12:00:00 AM EDT 1.0 {capsule} active Doxycycline Hyclate 100 MG eCW1 ([facility]) Azelastine hydrochloride 0.206 MG/ACTUAT Metered Dose Nasal [place] 0.15 % (205.5 mcg) AZELASTINE HCL 05/08/2020 12:00:00 AM EDT spray,non-aerosol 30 USE 1 SPRAY IN EACH NOSTRIL TWO TIMES A DAY USE 1 SPRAY IN EACH NOSTRIL TWO TIMES A DAY SOLD: 05/08/2020 [facility] 10 mg 03/14/2020 12:00:00 AM EDT tablet 90 TAKE ONE TABLET BY MOUTH EVERY DAY TAKE ONE TABLET BY MOUTH EVERY DAY SOLD: 03/14/2020 [facility] 117 mg/0.75 mL 02/21/2020 12:00:00 AM EDT syringe 0 INJECT 1 SYRING PER MONTH INJECT 1 SYRING PER MONTH SOLD: 03/27/2020 [facility] Insurance Providers Payer name Policy type / Coverage type Policy ID Covered constitution party ID Covered constitution party's relationship to zamudio Policy Zamudio Plan Information MEDICARE [id number] SP [id number] A Medicare C [id number] SELF [id number] MEDICARE [id number] SP [id number] A MEDICARE [id number] SP [id number] A [facility] MEDICARE DUAL G [id number] Self [id number] MEDICARE [id number] Tere [id number] A [facility] MEDICARE DUAL G [id number] Self [id number] MEDICARE [id number] SP [id number] A MEDICARE A [id number] Self [id number] A Medicaid [facility] S D [id number] SELF [id number] Medicare C [id number] SELF [id number] A [facility] [place] A [facility] C [id number] SELF [id number] [place] Primary [id number] Self [id number] MEDICARE A [id number] Self [id number] MEDICARE [id number] SP [id number] Medicare [place] Primary [id number] Self [id number] Medicare [place] Medicare Primary [id number] Self 4 [id number] Medicare [place] Medicare Primary [id number] Self 4 [id number] Medicare [place] Medicare Primary [id number] Self 4 [id number] Medicare [place] Primary [id number] Self 4 [id number] Medicare [place] Medicare Primary [id number] Self 4 [id number] Medicaid [facility] Part B [id number] Self [id number] Medicare [place] Medicare Primary [id number] Self 4 [id number] Medicare [place] Primary [id number] Self 4 [id number] MEDICAID M [id number] Self [id number] [facility] [id number] SP [id number] MEDICAID [facility] [id number] SP [id number] MEDICAID [id number] Tere [id number] Medicaid [facility] S D [id number] SELF [id number] Medicare C [id number] SELF [id number] A MEDICAID [id number] SP [id number] [facility] UNITED MEDICARE DUAL G [id number] Self [id number] [facility] Comm Dual Plan Commercial [id number] Self [id number] [facility] Comm Dual Plan Commercial [id number] Self [id number] [facility] Comm Dual Plan Commercial [id number] Self [id number] [facility] MEDICARE DUAL G [id number] Self [id number] [facility] MEDICARE DUAL G [id number] Self [id number] ANSI-Not a Secondary Insurance [id number] ANSI-Medicare Part B [id number] ANSI-Medicaid [id number] ANSI-Commercial [id number] ANSI-Medicare Part B [id number] ANSI-Not a Secondary Insurance [id number] ANSI-Medicaid [id number] ANSI-Commercial [id number] ANSI-Medicare Part B [id number] ANSI-Not a Secondary Insurance [id number] ANSI-Medicaid [id number] ANSI-Not a Secondary Insurance [id number] ANSI-Commercial [id number] ANSI-Medicare Part B [id number] ANSI-Not a Secondary Insurance [id number] ANSI-Medicaid [id number] ANSI-Commercial [id number] ANSI-Medicare Part B [id number] ANSI-Commercial [id number]-[id number]-[id number] ANSI-Medicare Part B [id number]-z62g-[id number] ANSI-Not a Secondary Insurance [id number]-toay8 [id number]-wxog2rtg2979 ANSI-Medicaid [id number] ANSI-Medicaid [id number] ANSI-Commercial [id number]-[id number]-304w-[id number]-d0ky-0cwy-703x-08k1e99zw474 ANSI-Not a Secondary Insurance [id number]-[id number]-yo99-82q24 [id number]-6g67-4n66-[id number] ANSI-Medicare Part B [id number] ANSI-Not a Secondary Insurance [id number]-w89j-64285 [id number]-9065-8d98-[id number] ANSI-Commercial [id number]-[id number]-[id number]-y5bx-[id number] ANSI-Medicaid [id number] ANSI-Medicare Part B [id number] ANSI-Not a Secondary Insurance [id number]-48l88 [id number] [id number]-[id number] ANSI-Medicare Part B [id number] ANSI-Commercial [id number]-y178-380j-a248-7uko09wn92uh [id number]-i797-364h-t604-8ivp80wl46pm ANSI-Medicaid [id number] ANSI-Medicare Part B [id number] ANSI-Not a Secondary Insurance [id number]-56yi-u7m5q [id number] 522650ug-8106-1ouj-12eo-j8g9y5rw06wx ANSI-Medicaid [id number] ANSI-Commercial 79g007i9-3ye9-01wk-cs29-88430876669j 08i558s6-4fw1-12wz-fa69-36739063106t ANSI-Not a Secondary Insurance x5e5561l-0064-50qe-1t79-o40q1 56cx3r6 u1g9073z-6248-04ha-5d24-a53d354th5y1 ANSI-Medicaid [id number] 0sxo7r31-7c5a-29je-m40r-[id number] ANSI-Commercial e3977ovk-dz80-8x49-04a6-np27lm20o9fg p2818rrg-ri78-2x87-13z5-ks35hq63r3pa ANSI-Medicare Part B [id number]-7038-j2nt-[id number] dp60r1k5-y20j-0418-c1ko-ugt9833302w2 ANSI-Not a Secondary Insurance 2m6l7z50-8z91-59h0-m0l3-tb7xx bx25x2w 7g4o9e71-9w40-23p6-a5n6-sf0hfgd64y6w ANSI-Commercial 58nn6e6t-e9uh-4958-h8lv-c75p4c415m3j 17ap4v7w-q4bh-5823-q2xr-u39k6h700u2c ANSI-Medicare Part B [id number]-7957-[id number] 2dus3828-pr1f-5713-i069-6ciq08a555n0 ANSI-Medicaid [id number]-hbo8-1797-i12p-[id number] ANSI-Medicaid [id number] cc0779s1-0k69-59d5-n69r-52v5e1144140 ANSI-Commercial 89sf10ze-z188-0c36-kkc9-pe2wc5706yt1 60vo68qm-f940-1e26-dyd3-mx0ka5327hv6 ANSI-Medicare Part B [id number]-a965-[id number] 7221i0zv-z863-17k3-x196-c16t4073104l ANSI-Not a Secondary Insurance 05a05h4x-751e-761m-ki89-ub331 9mjq8bw 75z18j3v-384z-142q-mc85-rk1582wuc2hu Medicaid Medicaid [id number] MRN.936.9wz1ggd6-299e-2d5f-geia-6j6jsm5f 9dba Self [id number] ANSI-Commercial u5780p68-3v89-2611-x8qv-53h9371f86u1 l0891h37-1m71-2642-f6we-78b0234n25d2 ANSI-Medicare Part B [id number]-v337-1h21-426l-lk1x75hun2z0 914oqq94-c212-4s69-799w-bd5o30moh6o6 ANSI-Not a Secondary Insurance i7dxm381-ma7a-60ot-wf12-0tz7q p0066ph b8gge376-pf9p-20jc-jj44-7rk9hi9494or ANSI-Medicaid [id number]-080g-[id number]-564b-988a-[id number] ANSI-Medicaid [id number]-[id number]-r4l7-0n7g-20um-[id number] ANSI-Commercial 726v25nd-n6l9-2538-1150-l3f6wwgc7e51 739t54eu-w2u0-2608-3202-g7i1yioo8y13 ANSI-Not a Secondary Insurance i7vn9u39-za08-8vz2-hvu8-n86v9 1335934 p5pu1m59-dr79-2fz0-cpe6-g27d32307723 ANSI-Medicare Part B [id number]-1d56-pd4g9a4xgj56 5701332s-6582-9rzn-0w25-mq5y4g1dsb05 ANSI-Not a Secondary Insurance 16h8r68d-hb46-8kx0-9a80-4er26 1kcw305 44q2z94d-nz67-8im6-1l50-9bx013sbw177 ANSI-Commercial s1ayf260-4120-7l8f-o151-818vfjm848b9 n7fov572-9241-3m7c-l513-671ozyo537w5 ANSI-Medicare Part B [id number]-5730-fi4r-97w1557c8lok 17r024y2-w15s-3402-lz7r-08l5637e7iel ANSI-Medicaid [id number]-0s8z-uhft-[id number] ANSI-Commercial 4744u149-gcfz-9a7t-36g0-97b7zc4z214v 7733k657-ufmh-9r1m-44f9-36l7al2k775a ANSI-Medicaid [id number] ANSI-Not a Secondary Insurance 24t3t900-3727-8j2e-a3hw-5fhei 242l7se 90m7a237-0509-9u2c-x2iu-4nobd508v1tm ANSI-Medicare Part B [id number]-9486-1a37-995e32x91j81 p9en797y-6hct-6642-7g55-155q54h64w73 ANSI-Commercial 13w6la74-7x6s-9ljz-5564-202jyw410lu1 35m2au96-6k3v-5vya-8648-990hwc324kg3 ANSI-Medicaid [id number] z7fk8bqe-[id number] ANSI-Not a Secondary Insurance 3re9fbz4-0bs8-6d57-x557-1ub86 769ceed 2oy9yyh7-3iq5-1h53-k196-4dn18723qmto ANSI-Medicare Part B [id number]-27b0-9gpq-206bjg9023i0 p31l9108-lo8r-39l5-1tnf-041fso7951g7 ANSI-Not a Secondary Insurance 3s130917-876v-2lyg-9643-w73s9 3ddefcf 8d121599-946l-3ten-8905-r67c23wqzidd ANSI-Commercial 48562wq4-mu6u-6842-h199-2fm11j3l5h46 98718qt5-wh2d-2916-h941-3bm60a8p5j22 ANSI-Medicaid [id number]-[id number] ANSI-Medicare Part B [id number]-[id number]-26es-841059299l1o ANSI-Commercial 319982q2-jfd7-2x90-s8ck-r734ec37shui 722557y7-ovc5-5j84-h7cx-t699rx65gtyw ANSI-Not a Secondary Insurance h52ianvq-78y0-16t6-2416-445r3 oi2d9jx o67vnsvq-77e4-73r3-8439-433a9gs1g3mg ANSI-Medicaid [id number]-[id number] ANSI-Medicare Part B [id number]-[id number] 4li0vp1p-7911-1k03-jet8-b24m212821p5 ANSI-Medicare Part B [id number]-08yo-[id number] l0o4644r-66z1-332t-34ux-w359r312n5i0 ANSI-Commercial 5w5801g0-xzuj-4qn5-44x6-dha4ze59seu9 6m8986r8-azoj-1ep5-01e9-tpf4ki31rzx2 ANSI-Not a Secondary Insurance s8a45793-44g1-3968-59w2-6f3g9 ycd4ti0 v0v84472-93v4-9493-26u6-6z9w2mbs3ku2 ANSI-Medicaid [id number] ANSI-Commercial 33hh4vw5-1q95-22ca-11e8-z02k090540vs 02fz6bq9-7g33-12kh-87x9-y14y458633ak ANSI-Medicare Part B [id number]-[id number] 65qn3137-o2g1-5232-jhi6-77ow32g41dfq ANSI-Not a Secondary Insurance 3s3x2q43-3709-935r-v192-1e24i svcq0y3 0b5s5p85-3095-108n-m664-5e46pbntn1a0 ANSI-Medicaid [id number] MEDICARE PART A -O/P [id number] 18 [id number] MEDICAID -O/P [id number] 18 [id number] [facility] [id number] 18 [id number] MEDICAID [facility] [id number] 18 C [id number] ANSI-Medicaid [id number] ANSI-Medicare Part B [id number]-[id number] ANSI-Not a Secondary Insurance itz7e599-c78t-4z16-0j22-9l2c5 87i694h nlg5r335-z51q-6c48-1o26-9p7a828h836a ANSI-Commercial 9e95ze73-3a5p-4rs8-y542-ekb70115p64o 7y89ad12-0f7g-6rf5-q143-yyl26649z61p ANSI-Medicare Part B [id number]-j3x0-[id number] 86h2rb4n-3419-82o2-r9j2-a374g0h4nc00 ANSI-Medicaid [id number]-y31w-81r0-ffes-188s9q28ub64 ANSI-Not a Secondary Insurance o068s3k6-05g3-0438-22fz-52qla 21bk174 b272n3w1-06a3-6973-80ut-57qeq40br578 ANSI-Commercial febn7ja3-4n8s-62k7-kx0y-wb43t2356c49 lxwc7mp5-2u3x-65r9-we7e-dy73y5292l40 ANSI-Medicaid [id number] y1fffo02-2bc0-243s-78sb-[id number] ANSI-Commercial 9395zw4t-314d-65a9-djm9-07vn7o79zrz7 4638ec7c-651z-07m4-ozh0-21yk5x21lrj7 ANSI-Medicare Part B [id number]-1d4f-9260-[id number] 788xt333-s55z-8t6i-7796-s7tjab51yj2z ANSI-Not a Secondary Insurance 77d72j19-8jr0-1259-i54v-7851p 8s7h69n 69s06w90-4wm3-0128-f05n-0670q1h7t27x ANSI-Medicaid [id number]-[id number] ANSI-Not a Secondary Insurance z845k81h-41p6-0fm7-000x-y0j08 ql23zw3 l209g69d-16d8-5oc6-787m-b9g66ls16ih6 ANSI-Commercial 232702e6-3164-11kq-6937-30vm93vm6a57 939554n0-0171-21ij-2946-30tj84ta6b59 ANSI-Medicare Part B [id number]-891l-0ihc-hl7gx3q9593z 491x4zz7-6p7c-305r-9sam-os1ng2j1230c ANSI-Commercial 723ss402-4rcy-2747-02h2-508896712a0d 600zi354-7zij-2188-96e8-627238067n3i ANSI-Medicare Part B [id number]-[id number]-qb89-4d62-jese-[id number] ANSI-Medicaid [id number] ANSI-Not a Secondary Insurance m79678vi-e5j3-993z-7k3b-xu202 g49db38 c57782id-c0v2-935u-3j6c-uw846m28re43 ANSI-Not a Secondary Insurance n1o16r95-080c-71ch-3u42-7148u oq0k205 x1z74s11-194h-75kq-5h13-7671yru7j679 ANSI-Medicare Part B [id number] z6u9lt22-16mr-95t1-79lg-[id number] ANSI-Medicaid [id number]-[id number] ANSI-Commercial 6g4w0sg7-5649-0n4l-h46h-pszuv7v28mu9 2i9q3ux0-6603-9n8c-p16b-vbmuv1z76qm6 ANSI-Not a Secondary Insurance 55a3g2d2-d59o-1409-9ye1-2h48p o11wq8i 26n0h8i7-z67k-9505-8qd7-6b14fm53zt8s ANSI-Medicaid [id number] ANSI-Medicare Part B [id number]-873h-[id number] 5n4dp719-vh8g-518z-m39m-[id number] ANSI-Commercial b56x26vr-0485-908o-d1hl-14812t707r06 g44b17ky-0464-191h-u0tw-05567m563n42 MEDICARE [id number] SP [id number] ANSI-Medicaid [id number] ANSI-Medicare Part B [id number]-[id number] 971k4m19-i42z-4813-8629-39jqq33w4osb ANSI-Commercial e9w0j4o1-b484-88j6-34d2-512yk64isp52 g6s5m9e3-c247-25t9-63n0-164rv64qou43 ANSI-Not a Secondary Insurance y3o2yy95-n425-8cid-8w52-4002w 18k8198 i2n1uu45-f685-1ymk-3q24-8518t13i3715 ANSI-Medicare Part B [id number]-[id number] 94891rcm-c9jk-77t3-o9i2-0791083f04o0 ANSI-Not a Secondary Insurance d483hk0x-294u-7548-2z0y-00700 5072808 h674zv6e-672s-1705-9r9e-345258658437 ANSI-Commercial 4ywvk097-95n7-8893-5946-77497zo9536f 7fdek968-35l3-0050-2402-61756lx3958k ANSI-Medicaid [id number]-[id number] ANSI-Medicaid [id number] 2gk56z59-fyl2-2xyg-my83-n8g8u4x334ou ANSI-Not a Secondary Insurance 02w2mp39-8yq9-1l0b-9779-13b09 200703v 45j6oo58-1cq9-0i5z-5872-47f35737322o ANSI-Commercial 770iq67y-91mz-32vt-25i3-8330o3lf9x8j 324no36h-22zk-93aw-79a0-0644k3yc7r1z ANSI-Medicare Part B [id number]-e54z-[id number] 26mx4729-0894-6722-y86k-e9y40xtc7856 ANSI-Commercial m65q7991-c78a-68fg-1225-7412255p7298 c38k2849-s62w-58fk-0325-3286051k2268 ANSI-Medicaid [id number] ANSI-Not a Secondary Insurance t0rh305b-7505-37w9-e452-16x23 7x22e2h b1xt084z-4009-34g3-u065-09i188c74t0d ANSI-Medicare Part B [id number] [id number]-u41o-[id number] Medicaid Medicaid [id number] S elf [id number] Medicaid Medicaid [id number] S elf [id number] Medicaid Medicaid [id number] S elf [id number] [facility] Dual Plan Commercial [id number] [facility] [id number] [facility] MEDICARE COMPLETE -RECURRING [id number] 18 [id number] ANSI-Medicaid [id number] ANSI-Medicare Part B [id number]-[id number] ANSI-Commercial 041i6774-wrct-66e1-c43r-4t18304059x3 578g3113-ingr-12k2-m73k-9f34216215k4 ANSI-Medicaid [id number]-e60i-8cgs-kg5t-[id number] ANSI-Medicare Part B [id number]-neho-[id number] ANSI-Commercial 9z1187y7-9j4j-282l-182p-8gr66cdw3q97 3t9537z6-5w8i-551o-053d-9oq12bvg8h34 [facility] COMMUNITY PLAN XIX -RECURRING [id number] ANSI-Medicare Part B [id number]-[id number] 75k4y32b-yyja-83aq-[id number] ANSI-Medicaid [id number] ANSI-Commercial 6112vwq4-p945-1034-p0fn-l4s7n8a91529 8532gru5-x019-3906-l6lz-s2o1w6o03619 ANSI-Medicare Part B [id number]-[id number] 2212l8qx-u13t-55t3-6t53-16q43x9iim9j ANSI-Commercial m61288kz-l0w3-6671-s134-03037ol6o05i a67538gv-h4s2-7575-k047-19014kh2v71h ANSI-Medicaid [id number] MEDICARE PART A [facility] [id number] 18 [id number] ANSI-Medicare Part B [id number]-51p7-e1pe-[id number] hhcz5lwp-z3ne-31k0-u2vg-07wi2e2ruq64 ANSI-Not a Secondary Insurance r04w84jj-vu34-22we-1s45-0yk93 ececfc0 t03z83cu-ny33-04ot-0u20-4yz10zxymbf4 ANSI-Commercial u804o527-84vr-964j-5l28-i7nek68jv39a s931z529-27hu-644b-7n79-f3xgq46zu59p ANSI-Medicaid [id number] ANSI-Medicaid [id number]-f43e-89k4-x9r6-[id number] ANSI-Commercial a3am191q-9zy0-3oxs-g4tz-09o770k33d63 q0lx220q-1se6-4akp-i3ps-77i258u51x12 ANSI-Medicare Part B [id number]-13gb-[id number] 83a1vs61-ha8c-40ck-21g6-04312b1mr95d ANSI-Commercial 9vj4589x-o687-0o72-d005-525b1907u5l3 6ay9440m-l652-4m09-k883-500n8310w7e6 ANSI-Medicare Part B [id number]-[id number] wscn2qif-p893-0e45-27zm-8301aq13599e ANSI-Medicaid [id number]-[id number] ANSI-Medicaid [id number]-1i14-tf44-w3966qhh4k7d ANSI-Medicare Part B [id number] o8uyo70t-tx78-2f7f-so16-x7c21i610j06 ANSI-Commercial 0m8556cu-44a1-8721-p3hc-n85y57063540 1a7063oy-63q6-6494-z3fv-d03e99836885 ANSI-Commercial c45ee1x3-p205-7874-y621-06z0jlud96ac t44by8c3-e202-0570-p974-79m9cpwb85cq ANSI-Medicare Part B [id number]-[id number] [id number]-i514c0qvn915 ANSI-Medicaid [id number] 1jku5g7m-6446-2f0n-0v0i-e2j282b65hwf ANSI-Medicaid [id number]-[id number] ANSI-Medicare Part B [id number]-c4va-[id number] 98af2v08-0o77-3j28-c4lp-226a6pl3690p ANSI-Commercial w3605a6y-u436-4bja-093e-qor580e2120d y0243p5g-k314-3ezq-777n-gbp578y6186z ANSI-Medicaid [id number] ANSI-Medicare Part B [id number]-xwu0-931x-[id number] ANSI-Commercial 4h489n35-9o3y-2tm7-t540-7859i7h13p23 3s905w98-3z7f-2zi1-x054-8152j8c88u90 ANSI-Medicare Part B [id number]-659wh45c88k4 ANSI-Medicaid [id number]-[id number] ANSI-Commercial k4zj58cn-166r-519n-oh17-3338iiyg1l7e p7ix47cl-488e-757n-wa85-2408mwab1d0q ANSI-Commercial 8a8a9j40-72p3-8xc6-11rs-r1j2h2403741 0b6y6v38-89r8-5vd4-55rn-f8l2w7504878 ANSI-Medicare Part B [id number]-i20k-ijto3283o49d ANSI-Medicaid [id number] ANSI-Commercial 9o1u1577-9shj-1za1-q7zp-do711993hi2p 0n7p3556-0yvr-2xe7-q6ik-as105091fi5o ANSI-Medicare Part B [id number]-[id number] 37q88s29-9rc1-0b0g-5413-1514u0q0e4wi ANSI-Medicaid [id number] ANSI-Medicare Part B [id number] ANSI-Medicaid [id number] ANSI-Commercial x416z272-6m01-9rw4-6ysh-586ql171s215 x047u935-9f76-2bp7-3uji-240nn350a920 ANSI-Commercial g22sy168-x852-0148-a610-918e44ortj40 c80xc418-g872-3218-v527-823u69yuzd80 ANSI-Medicare Part B [id number]-257u-[id number] ANSI-Medicaid [id number] ANSI-Commercial de557n39-35g7-8214-l53u-1125j67846a4 ce302d70-90m3-4824-x77n-9766f44238w0 ANSI-Medicaid [id number] ANSI-Medicare Part B [id number] ANSI-Commercial 48014bm1-9i02-6352-vzjm-6783j64u4257 86837et7-3b13-1125-bqcn-7502z34y1398 ANSI-Medicare Part B [id number]-[id number] ANSI-Medicaid [id number] ANSI-Commercial b4s21t87-2160-69hi-r54z-4ps8v7586089 z2y25l57-1988-02lt-g43q-7pz3k5362199 ANSI-Medicare Part B [id number]-85g0-n5z0-1f77di79w4d3 ANSI-Medicaid [id number] ANSI-Medicare Part B [id number] 270tta83-2j2x-0651-f7n4-80rzkrm9f25o ANSI-Medicaid [id number] ANSI-Commercial 2ku21198-w9vl-30bo-336y-5m8546t74e5a 4ut16458-r2mq-15hn-909z-3w2074d60o2x ANSI-Medicare Part B [id number]-8e66-4737-[id number] ANSI-Commercial 2l845f51-64s5-32t9-h2us-08koslcb3547 2g025d81-56x9-07y7-q8pa-01ioxldz1966 ANSI-Medicaid [id number] ANSI-Medicare Part B [id number]-2w79-6xk2-xz5j-[id number] ANSI-Commercial q2533m44-7u28-30x5-3k30-6xn37tghcd33 y9651u91-5j71-35z1-3q05-8ry05shnie76 ANSI-Medicaid [id number]-[id number] ANSI-Medicaid [id number] ANSI-Medicare Part B [id number]-7z8s-48ig-[id number] ANSI-Commercial 44gg30gf-tk63-9o3t-29vg-79cy7o285252 10us61tl-jq59-7c6p-28mh-44np4d065697 ANSI-Commercial 3797i892-64q6-68nc-1a8x-4ud7m216s185 3014o255-33d2-92ny-1y7u-5vf5d080t297 ANSI-Medicare Part B [id number]-[id number] ANSI-Medicaid [id number]-[id number] ANSI-Medicaid [id number] ny1o8kj9-74vc-[id number] ANSI-Medicare Part B [id number]-31x6-[id number] ANSI-Commercial 1kt8433e-65g1-96cr-o1x7-81f76wpv8azv 5wo7694f-58r9-49fq-l9x2-46i26qwh9ziz ANSI-Medicare Part B [id number] ANSI-Medicaid [id number] f1g0p731-[id number] ANSI-Commercial ppi0k534-f1y7-70jh-k728-j5ipj80t20e7 mtu9g604-v2b8-33jk-o186-u4gfj95z61d3 ANSI-Medicare Part B [id number] ANSI-Medicaid [id number]-95b7mnn0wf1y ANSI-Commercial nz56l099-7u66-103g-z182-7y89g4f748h9 nq90q604-0b95-113f-b033-5f41l7n388g2 ANSI-Medicare Part B [id number]-73j8-834i-82f7-b67n4ttn232u ANSI-Medicaid [id number] h365nez2-7j09-0kpe-en77-a1ccy0vawa86 ANSI-Commercial s35753x1-u00b-21bw-54rf-m1e765l6i888 c32469c8-s06b-26mo-36vi-x1u175k9j163 ANSI-Medicare Part B [id number]-ib06-874c120j96al ANSI-Commercial 9h9215fr-0871-6g7k-r450-66w9u2r2z913 6e6694fb-5807-2g9u-p331-92s4j3a1w628 ANSI-Medicaid [id number]-t6l7-[id number] ANSI-Medicaid [id number]-r64t-[id number] ANSI-Medicare Part B [id number]-[id number] ANSI-Commercial gyc7k654-1co3-6035-6q65-25313e628k9g zkz0m107-9mw0-4363-3m37-78058k242x0f ANSI-Medicare Part B [id number]-82ln-42o2-3ei1-q85p24lmrr6u ANSI-Medicaid [id number] 240r3p19-u0kj-6h4v-eid1-j8h1uw9j0dha ANSI-Commercial b4a24vj0-p6tw-11lr-t214-s7147gu001jq h9d21nf8-x6il-46kd-z578-h2177so912vn ANSI-Medicaid [id number] ANSI-Medicare Part B [id number] ANSI-Commercial 4bv73i09-r44e-9y95-723v-y41f7q3r8708 0na12z96-k63b-4l74-263d-h15r3b7z5641 ANSI-Medicaid [id number]-818c-jj4a-[id number] ANSI-Commercial 9c22p265-o95a-1c5q-383n-qqu2wwyop987 9v80r790-e39e-6i4t-958i-dvs1nubmx255 ANSI-Medicare Part B [id number] takp32f4-9191-9e68-42ll-m337f0l4w13t ANSI-Commercial 3262796s-y175-07mv-q6v7-02r2e35o3xfk 6269739q-r967-72ee-j5e0-77m2c95g3vpq ANSI-Medicaid [id number] ANSI-Medicare Part B [id number] ANSI-Medicaid [id number] ANSI-Medicare Part B [id number] ANSI-Commercial 16a50n28-cd64-8d42-26x6-20089lz96ip9 07c11q83-mu80-6h68-16d2-86482nq23bl7 MEDICARE [id number] A MEDICAID M [id number] S [id number] MEDICARE C [id number] S [id number] A [facility] MED[facility]ID [id number] SP [id number] Medicare Part A [place] Primary [id number] Self [id number] MEDICARE PART A [facility] [id number] 18 [id number] MEDICAID -PHYSICIAN [id number] Medicaid [facility] Medicaid [id number] 10.7747.0 Self [id number] Medicare Part [place] [id number] Self 59 [id number] Medicaid [facility] Medicaid [id number]9.5 10.7747.0 Self [id number] [place] Part [place] [id number] Self 59 [id number] MEDICARE PART A -O/P [id number] 18 [id number] [place] Med[place] Part B [id number] [id number] Self [id number] Medicaid [facility] Medicaid [id number] 2.16.840.1.853714.3.227.99.5 10.7747.0 Self [id number] Medicare Part [place] [id number] Self 59 [id number] MEDICARE -RECURRING [id number] 18 [id number] MEDICAID -CLINIC [id number] 18 [id number] MEDICARE PART A -CLINIC [id number] 18 [id number] [id number] MEDICARE PART B C [id number] S [id number] [place] Part B [id number] Self Medicare [facility] Medicare Primary [id number] Self Medicaid [facility] Medicaid 770 Self Medicare Part A [place] Medicare Primary 769 Self MEDICAID -O/P RAD ONLY [id number] 18 [id number] MEDICARE -O/P [id number] 18 [id number] MEDICARE -RECURRING [id number] 18 [id number] MEDICAID -RECURRING [id number] 1 [id number] MEDICARE [id number] SP [id number] A MEDICARE PART-A [id number] 18 [id number] [facility] O [id number] S [id number] MEDICARE UNAVAILABLE SP UNAVAILA BLE [facility] [id number] SP [id number] [facility] INC UNAVAILABLE SP UNAVAILABLE [facility]. [id number] SP [id number] Medicaid [facility] Medicaid [id number] 10.7747.0 Self [id number] [employer] GOLD [id number] SP [id number] [employer] GOLD [id number] SP [id number] [employer] GOLD PLUS -PHYSICIAN [id number] [employer] GOLD PLUS -O/P [id number] 18 [id number] MEDICAID -O/P EMERGENCY ROOM [id number] 18 [id number] [employer] GOLD PLUS -O/P [id number] 18 [id number] [employer] CP DUAL COMP - FACILITY [id number] 18 [id number] [place] [id number] SP [id number] [facility] [id number] SP [id number] [employer] HMO [id number] SP [id number] [facility] [id number] SP [id number] [facility] [id number] SP [id number] MEDICAID [id number] SP [id number] MEDICARE COMPLETE [id number] SP [id number] ANSI-Not a Secondary Insurance [id number] ANSI-Medicare Part B [id number] ANSI-Medicaid [id number] ANSI-Commercial c1i2wd7x-0b72-8488-9234-9h3w768569r0 c4q0iv2h-4t52-6891-6491-7f0j249306o6 ANSI-Medicare Part B [id number] ANSI-Commercial [id number]-85tn-6f80-94qb-[id number] 4g59j42b-33bd-7z41-58rx-[id number] ANSI-Medicaid [id number] ANSI-Not a Secondary Insurance [id number] [id number]-e036-x6dplx3if849 ANSI-Medicare Part B [id number] ANSI-Not a Secondary Insurance [id number] [id number] xwm34zcy-7s72-593g-[id number] ANSI-Commercial iu76abm3-gun7-4ucv-9592-e2640996q6e6 lg96hqs7-llr7-4lsu-8486-a2220108z2z5 ANSI-Medicaid [id number] ANSI-Medicare Part B [id number] ANSI-Commercial 94ziu7r0-65z8-952e-0413-98r9v77q5o3v 27wfh4i5-98z0-043w-0939-75r9b92p6w3j ANSI-Not a Secondary Insurance [id number]-[id number]-919m-[id number] ANSI-Medicaid [id number] ANSI-Not a Secondary Insurance [id number]-[id number] [id number] ANSI-Medicaid [id number] ANSI-Commercial [id number] ANSI-Medicare Part B [id number] ANSI-Commercial [id number] ANSI-Medicaid [id number] Problems, Conditions, and Diagnoses Code Display Name Description Problem Type Effective Dates Data Source(s) N59729 Personal history of other (healed) physi [place] injury and trauma Personal history of other (healed) physical injury and trauma Diagnosis 0 11/11/2020 09:16:[address] [facility] Z6832 Body mass index [BMI] 32.0-32.9, adult B dayday mass index [BMI] 32.0-32.9, adult Diagnosis [facility]itis, unspecified A cute maxillary sinusitis, unspecified Diagnosis [facility] Obesity, unspecified Obesity, unspecified Diagnosis 11/11/2020 09:16:[address] [facility] G90354 Nicotine dependence, cigarettes, uncompl icated Nicotine dependence, cigarettes, uncomplicated Diagnosis 11/11/2020 09:16:00 AM [facility] S57099 Chronic tension-type headache, intractab le Chronic tension-type headache, intractable Diagnosis 11/11/2020 09:16:[address] [facility] R519 Headache, unspecified Headache, unspecified Diagnosis 11/11/2020 09:16:[address] [facility] M91138 Bathroom of unspecified non- institutional (private) residence as the place of occurrence of the external cause Bathroom of unspecified non- institutional (private) residence as the place of occurrence of the external cause Diagnosis 10/25/2020 11:15:[address] [facility] [id number] Fall from or off toilet with subsequent striking against object, initial encounter Fall from or off toilet with subsequent striking against object, initial encounter Diagnosis 10/25/2020 11:15:[address] 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 drugs Diagnosis 10/25/2020 11:15:00 AM [facility] E119 Type 2 diabetes mellitus without complic ations Type 2 diabetes mellitus without complications Diagnosis 10/25/2020 11:15:00 AM EDT [facility] [id number] Contusion of other part of head, initial encounter Contusion of other part of head, initial encounter Diagnosis 10/25/2020 11:15:00 AM EDT [facility] [id number] Unspecified injury of head, initial enco unter Unspecified injury of head, initial encounter Diagnosis 10/25/2020 11:15:00 AM EDT [facility] [id number] Other stone 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 stone 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 Diagnosis 07/08/2020 08:29:00 AM [facility] H9311 Tinnitus, right ear Tinnitus, right ear Diagnosis 1 09/08/2019 08:29:00 AM [facility] E785 Hyperlipidemia, unspecified Hyperlipidemia, unspecifie d Diagnosis 07/08/2020 08:29:00 AM [facility] J449 Chronic obstructive pulmonary disease, u nspecified Chronic obstructive pulmonary disease, unspecified Diagnosis 07/08/2020 08:29:00 AM [facility] I2510 Atherosclerotic heart diseas e of [place] coronary artery without angina pectoris Atherosclerotic heart disease of [place] coronary artery without angina pectoris Diagnosis 07/08/2020 08:29:00 AM [facility] N17449 Episodic tension-type headache, intracta ble Episodic tension-type headache, intractable Diagnosis 07/08/2020 08:29:00 AM [facility] Surgeries/Procedures Procedure Description Date Indications Data Source(s) Immunization: Flublok Quadrivalent (18 years & older) 0.5mL IM (Influenza) 05/23/2020 12:00:00 AM EDT eCW1 ([facility]) Results ID Date Data Source [id number] 01/18/2021 11:40:00 AM EDT [facility] Name Value Range Interpretation Code Description Data Herminia rce(s) Supporting Document(s) SARS-CoV-2 (COVID-19) RNA [Presence] in Respiratory specimen by NICOLLE with probe detection Not Detected [facility] This lab was ordered by [facility] and reported by [facility]. ID Date Data Source [id number] 01/18/2021 10:10:00 AM EDT [facility] Name Value Range Interpretation Code Description Data Herminia rce(s) Supporting Document(s) SARS COVID ANTIGEN NEGATIVE [facility] This lab was ordered by [facility] a nd reported by [facility]. ID Date Data Source INNA COVID AG (Point of Care) 01/18/2021 12:00:00 AM EDT eC W1 ([facility]) Name Value Range Interpretation Code Description Data Herminia rce(s) Supporting Document(s) NEGATIVE NEGATIVE INNA COVID ANTIGEN eCW1 ([facility]) ID Date Data Source Coronavirus 2019 Nasopharygeal (Send Out) COVID 01/18/2021 1 2:00:00 AM EDT eCW1 ([facility]) Name Value Range Interpretation Code Description Data Herminia rce(s) Supporting Document(s) Coronavirus 2019 Nasophar ygeal (Send Out) COVID eCW1 ([facility]) ID Date Data Source VITAMIN D 25-HYDROXY 12/05/2020 12:00:00 AM EDT eCW1 ([facility]) Name Value Range Interpretation Code Description Data Herminia rce(s) Supporting Document(s) 46.7 30.0-100.0 TOTAL 25(OH) VITAMIN D eC W1 ([facility]) ID Date Data Source [id number] 12/05/2020 12:00:00 AM EDT eCW1 ([facility]) Name Value Range Interpretation Code Description Data Herminia rce(s) Supporting Document(s) Microalbumin/Creatinine [Mass Ratio] in Urine < 13.0 CREATININE, URINE eCW1 ([facility]) Microalbumin/Creatinine [Ratio] in Urine 38.0 0.0-30.0 AUGIE/CREAT RATIO eCW1 ([facility]) Albumin/Creatinine [Mass Ratio] in Urine < 5.0 MALB URINE SIEMENS eCW1 ([facility]) ID Date Data Source [id number] 12/05/2020 12:00:00 AM EDT eCW1 ([facility]) Name Value Range Interpretation Code Description Data Herminia rce(s) Supporting Document(s) Hemoglobin A1c/Hemoglobin.total in Blood 6.1 HEMOGLOBIN A1c eCW1 ([facility]) ID Date Data Source Comprehensive Metabolic Profile (CMP) 12/05/2020 12:00:00 AM EDT eCW1 ([facility]) Name Value Range Interpretation Code Description Data Herminia rce(s) Supporting Document(s) 143 70-100 GLUCOSE, FASTING eCW1 ([facility]) 139 136-145 SODIUM LEVEL eCW1 ([facility]) 6 7-18 BLOOD UREA NITROGEN eCW1 ([facility]) 0.52 0.55-1.30 CREATININE FOR GFR eCW1 ([facility]) > 60.0 >51 GLOMERULAR FILTRATION RATE eCW 1 ([facility]) 4.0 3.5-5.1 POTASSIUM SERUM eCW1 ([facility]) 105 98-107 CHLORIDE LEVEL eCW1 ([facility]) 29 21-32 CARBON DIOXIDE LEVEL eCW1 ([facility]) 9.5 8.5-10.1 CALCIUM LEVEL eCW1 ([facility]) 13 7-37 AST/SGOT eCW1 ([facility]) 119 45-117 ALKALINE PHOSPHATASE eCW1 ([facility]) 0.3 0.2-1.0 BILIRUBIN,TOTAL eCW1 ([facility]) 23 12-78 ALT/SGPT eCW1 ([facility]) 6.5 6.4-8.2 TOTAL PROTEIN eCW1 ([facility]) 4.1 3.2-5.2 ALBUMIN eCW1 ([facility]) 1.7 1.2-2.2 ALBUMIN/GLOBULIN RATIO eCW1 ([facility]) ID Date Data Source [id number] 11/11/2020 09:16:00 AM EDT [facility] 1 OrderSheet [facility] Emergency Department [address] [place] [address] Phone #: ext- [phone] 11/11/2020 09:10 Patient: BRAD VASQUEZ Sex: F : 1960 Age: 60yWEIGHT:79.8 kg (S) HEIGHT:62 inches (S) BMI:32.2ALLERGIES: Clindamycin, Lithobid, Paxil, Sulfa AntibioticsCHIEF COMPLAINT: headache, facial painDIAGNOSIS: Headache, SinusitisLAB ORDERSOrder Description Priority Entered Acknowledged InitialedDIAGNOSTIC STUDY ORDERSOrder Description Priority Entered Acknowledged InitialedMEDICATION/IV/DRIP/FLUID ORDERSOrder Description Priority Entered Acknowledged InitialedToradol IM 60 mg 09:31 11/11/2020 09:38 Christopher(NOW) Mary Stafford RN ;GENERAL ORDERSOrder Description Priority Entered Acknowledged Initialed[Electronically signed by Jadyn White RN (10:11/11/2020)][Electronically signed by Mary Stafford (11:04 11/11/2020)][Electronically locked by Jadyn White RN (10:11/11/2020)] Name Value Range Interpretation Code Description Data Herminia rce(s) Supporting Document(s) ID Date Data Source [id number] 11/11/2020 09:16:00 AM EDT [facility] 1 Medication Reconciliation Report [facility] Emergency Department [address] [place] [address] Phone #: ext- [phone] 11/11/2020 09:10 Patient: BRAD VASQUEZ Sex: F : 1960 Age: 60yWeight: 79.8 kgHeight/Length: 62 in.BMI: 32.2ALLERGIES: Clindamycin, Lithobid, Paxil, Sulfa AntibioticsThe patient's Home Medications are listed below:STOP TAKING THE FOLLOWING MEDICATIONS: Tramadol HCL Oral, last dose 4 pmCONTINUE TAKING THE FOLLOWING MEDICATIONS: Ibuprofen Oral Invega Sustenna Intramuscular, last dose: last thursday Lantus Subcutaneous Lisinopril Oral LORazepam Oral metFORMIN HCl Oral Omeprazole [facility] Pregabalin Oral tiZANidine HCl OralThe source(s) of the original Home Medication information:patientThe following Medications were given to the patient in the Emergency Department: 2 Medication Reconciliation Report [facility] Emergency Department [address] [place] [address] Phone #: ext- [phone] 11/11/2020 09:10 Patient: BRAD VASQUEZ Sex: F : 1960 Age: 60yToradol [IM] IM 60 mg, administered: 09:38 11/11/2020The following Medications were prescribed to the patient:Flonase Allergy Relief 50 mcg/ac tuation nasal spray,suspension [place] 1-2 spray once a day for 7 days-- Dispense 1 nasal inhaler. Refills: 0. Substitution permitted. Note to Pharmacy - Rx Discount Card:21.27. Use: BIN:[id number], PCN:[id number], Group:[id number], ID:[id number].Pharmacy - [facility] - [address] ; [place], [place] [id number]. . -- Mary Stafford Name Value Range Interpretation Code Description Data Herminia rce(s) Supporting Document(s) ID Date Data Source [id number] 11/11/2020 09:16:00 AM EDT [facility] 1 Medication Administration Record [facility] Emergency Department [address] [place] [address] Phone #: ext- [phone] 11/11/2020 09:10 Patient: BRAD VASQUEZ Sex: F : 1960 Age: 60yWeight: 79.8 kgHeight/Length: 62 inBMI: 32.2ALLERGIES: Clindamycin, Lithobid, Paxil, Sulfa Antibiotics Date/Time Medication Administered Medication OrderedGiven TORADOL [IM] (KETOROLAC Toradol IM 60 mg (NOW)09:38 11/11/2020 TROMETHAMINE)Jadyn White RN Dose: 60 mg IM Name Value Range Interpretation Code Description Data Herminia rce(s) Supporting Document(s) ID Date Data Source [id number] 11/11/2020 09:16:00 AM EDT [facility] 1 General Instructions [facility] Emergency Department [address] [place] [address] Phone #: ext- [phone] 11/11/2020 09:10 Patient: BRAD VASQUEZ Sex: F : 1960 Age: 60yChronic, poorly controlled tension headache.Viral acute maxillary sinusitis.INSTRUCTIONS(take tylenol or motrin for the headache. use the nasal spray for your sinus congestion. follow up withyour doctor in 2 to 3 days if not better).Your Current Medications: Your current home medications have been reviewed.STOP TAKING THE FOLLOWING MEDICATIONS:Tramadol HCL Oral : last dose 4 pm.CONTINUE TAKING THE FOLLOWING MEDICATIONS:Ibuprofen Oral.Invega Sustenna Intramuscular : Last: last thursday.Lantus Subcutaneous.Lisinopril Oral.LORazepam Oral.metFORMIN HCl Oral.Omeprazole Oral.Pharmacy [facility]*.Pregabalin Oral.tiZANidine HCl Oral.Prescription Medications:Flonase Allergy Relief 50 mcg/actuation nasal spray,suspension [place] 1-2 spray once a day for 7 days-- Dispense 1 nasal inhaler. Refills: 0. Substitution permitted. Note to Pharmacy - Rx Discount Card:21.27. Use: BIN:[id number], PCN:OMAR, Group:[id number], ID:[id number].Pharmacy - [email or web address] #[facility] - [address] [facility] ; [place], [place] [id number]. .Follow-up:Follow up with your healthcare provider in three days if not better. Summary of care provided to patient viapaper. Blood pressure screening was not performed during this visit because the patient has an activediagnosis of hypertension. The patient should follow up with a primary care provider for blood pressuremanagement. ADDITIONAL INFORMATION 2 General Instructions [facility] Emergency Department [address] [place] [address] Phone #: ext- [phone] 11/11/2020 09:10 Patient: BRAD VASQUEZ Sex: F : 1960 Age: 60ySinus HeadacheThe sinuses are air-filled spaces in the bones of the face. They connect to the inside of the nose.Sinusitis is an inflammation of the tissue lining the sinus cavities. Sinus inflammation can occur duringa cold or hay fever (allergies to pollens and other particles in the air). It can cause symptoms of sinuscongestion and fullness and perhaps a low-grade fever. An infection is often present when there isalso facial pain or headache and green or yellow drainage from the nose or into the back of the throat(postnasal drip). Antibiotics may be prescribed to treat this condition.Sinus headache may cause pain in different places, depending on which sinuses are infected. Theremay be pain in the temples, forehead, top of the head, behind or around the eye, across thecheekbone, or into the upper teeth.You may find that changing your position will bring some relief. Try sitting upright or lying down.Home careThese guidelines will help you care for yourself at home: Drink plenty of water, hot tea, and other liquids to stay well hydrated. This thins the mucus and helps your sinuses drain. Apply heat to the painful areas of the face. Use a towel soaked in hot water. Or closing coordinator the shower with the hot spray on your face. This is a good way to breathe in warm water vapor and get heat on your face at the same time. Cover your mouth and nose with your hands so you can still breathe as you do this. 3 General Instructions [facility] Emergency Department [address] [place] [address] Phone #: ext- [phone] 11/11/2020 09:10 Patient: BRAD VASQUEZ Sex: F : 1960 Age: 60y Use a cool mist vaporizer at night. Suck on peppermint, menthol, or eucalyptus hard candies during the day. An rwlc-pqj-dgqduqy expectorant containing guaifenesin helps thin the mucus. It also helps your sinuses drain. You may use gtim-hir-trauqtt decongestants unless a similar medicine was prescribed. Nasal sprays or drops work the fastest. Use one that contains phenylephrine or oxymetazoline. First blow your nose gently to remove mucus. Then apply the spray or drops. Don't use decongestant nasal sprays or drops more often than the label says or for more than 3 days. This can make symptoms worse. Nasal sprays or drops prescribed by your healthcare provider typically don't have these limits. Check with your provider or pharmacist. You may also use tablets that have pse udoephedrine. Side effects from oral decongestants tend to be worse than with nasal sprays or drops, and may keep you from using them. Many sinus remedies combine ingredients, which may increase side effects. Also, if you are taking a combination medicine with another medicine, be sure you are not taking a double dose of anything by mistake. Read the labels or ask the pharmacist for help. Talk with your provider before using decongestants if you have high blood pressure, heart disease, glaucoma, or prostate trouble. Antihistamines may help if allergies are causing your sinusitis. You can get chlorpheniramine and diphenhydramine over the counter, but these can make you drowsy. Don't use these if you have glaucoma or if you are a man with trouble urinating due to an enlarged prostate. Fnhi-ibr-fuitzdw antihistamines containing loratadine and cetirizine cause less drowsiness. They may be a better choice for daytime use. When allergies cause your sinusitis, a saline nasal rinse may give relief. A saline nasal rinse reduces swelling and clears excess mucus. This lets the sinuses drain. Packaged kits are sold at most pharmacies. These contain premixed salt packets and an irrigation device. If antibiotics have been prescribed to treat an acute sinus infection, talk with your provider before using a nasal rinse. This is to be sure it is safe for you. You may use yukz-hye-iwkckgv medicine to control pain and fever, unless another pain medicine was prescribed. Talk with your provider before using acetaminophen or ibuprofen if you have chronic liver or kidney disease. Also talk with your provider if you have ever had a stomach ulcer. Aspirin should never be used by anyone younger than 19 unless directed by a provider. It may cause a life -threatening condition called Tony syndrome. If antibiotics were given, finish all of them, even if you are feeling better after a few days.Follow-up careFollow up with your healthcare provider, or as advised, if your symptoms aren't better in 1 week.Call 911 4 General Instructions [facility] Emergency Department [address] [place] [address] Phone #: ext- [phone] 11/11/2020 09:10 Patient: BRAD VASQUEZ Sex: F : 1960 Age: 60yCall 911 if any of these occur: Abnormal drowsiness or confusion Swelling of the forehead or eyelids Vision problems including blurred or double vision Seizure Feeling of doom Trouble breathing Feeling dizzy Loss of consciousness or faintingWhen to get medical adviceCall your healthcare provider right away if any of these occur: Facial pain or headache becomes worse Stiff neck Fever of 100.4F (38C) or higher, or as directed by your healthcare provider Bleeding from the nose or throat 5360-9730 [employer]. [address] [place] [address]. All rights reserved. This information is not intended as asubstitute for professional medical care. Always follow your healthcare professional's instructions.Tension Headache 5 General Instructions [facility] Emergency Department [address] [place] [address] Phone #: ext- [phone] 11/11/2020 09:10 Patient: BRAD VASQUEZ Sex: F : 1960 Age: 60yA muscle tension headache is a very common cause of head pain. It's also called a stress headache.When some people are under stress, they tense the muscles of their shoulder, neck, and scalpwithout knowing it. If this tension lasts long enough, a headache can occur. A tension headache canbe quite painful. It can last for hours or even days.Home careFollow these tips when caring for yourself at home: Don't drive yourself home if you were given pain medicine for your headache. Instead, have someone else drive you home. Try to sleep when you get home. You should feel much better when you wake up. Put heat on the back of your neck to help ease neck spasm.How to prevent tension-type headaches Figure out what is causing stress in your life. Learn new ways to handle your stress. Ideas include regular exercise, biofeedback, self-hypnosis, yoga, and meditation. Talk with your healthcare provider to find out more information about managing stress. Many books and digital media are also available on this subject. Take time out at the first sign of a tension headache, if possible. Take yourself out of the stressful situation. Find a quiet, comfort able place to sit or lie down and let yourself relax. Heat and deep massage of the tight areas in the neck and shoulders may help ease muscle spasm. You may also get relief from a medicine such as acetaminophen, ibuprofen, naproxen, or a prescribed muscle relaxant. 6 General Instructions [facility] Emergency Department [address] [place] [address] Phone #: ext- [phone] 11/11/2020 09:10 Patient: BRAD VASQUEZ Sex: F : 1960 Age: 60yFollow-up careFollow up with your healthcare provider, or as advised. Talk with your provider if you have frequentheadaches. He or she can figure out a treatment plan. Ask if you can have medicine to take at homethe next time you get a bad headache. This may keep you from having to visit the emergencydepartment in the future. You may need to see a headache specialist (neurologist) if you continue tohave headaches.When to seek medical adviceCall your healthcare provider right away if any of these occur: Your head pain gets worse during sexual intercourse or strenuous activity Your head pain doesn't get better within 24 hours You aren't able to keep liquids down (repeated vomiting) Fever of 100.4F (38C) or higher, or as directed by your healthcare provider Stiff neck Extreme drowsiness, confusion, or fainting Dizziness or dizziness with spinning sensation (vertigo) Weakness in an arm or leg or one side of your face You have trouble speaking Your vision changes [phone] [employer]. [address] [place] [address], [place] [address]. All rights reserved. This information is not intended as asubstitute for professional medical care. Always follow your healthcare professional's instructions.Sinusitis (No Antibiotics) 7 General Instructions [facility] Emergency Department [address] [place] [address] Phone #: ext- [phone] 11/11/2020 09:10 Patient: BRAD VASQUEZ Sex: F : 1960 Age: 60yThe sinuses are air-filled spaces within the bones of the face. They connect to the inside of thenose. Sinusitis is an inflammation of the tissue that lines the sinuses. Sinusitis can occur during acold. It can also happen due to allergies to pollens and other particles in the air. It can causesymptoms such as sinus congestion, headache, sore throat, facial swelling, and a feeling of fullness.It may also cause a low-grade fever. Your sinusitis does not include an infection with bacteria.Because of this, antibiotics are not used to treat this problem.Home care Drink plenty of water, hot tea, and other liquids. This may help thin nasal mucus. It also may help your sinuses drain fluids. Heat may help soothe painful areas of your face. Use a towel soaked in hot water. Or, closing coordinator the shower and direct the warm spray onto your face. Using a vaporizer along with a menthol rub at night may also help soothe symptoms. An expectorant with guaifenesin may help thin nasal mucus and help your sinuses drain fluids. You can use an zmni-aom-oeujhue decongestant, unless a similar medicine was prescribed to you. Nasal sprays work the fastest. Use one that contains phenylephrine or oxymetazoline. First blow your nose gently. Then use the spray. Do not use these medicines more often than directed on the label. If you do, your symptoms may get worse. You may also take pills that contain pseudoephedrine. Don't use products that combine multiple medicines. This is because side effects may be increased. Read all medicine labels. You can also ask the pharmacist for help. (People with high blood pressure should not use decongestants. They can 8 General Instructions [facility] Emergency Department [address] [place] [address] Phone #: ext- [phone] 11/11/2020 09:10 [id number] Sex: F : 1960 Age: 60y raise blood pressure.) Aiqs-luk-zifxrhs antihistamines may help if allergies contributed to your sinusitis. Use acetaminophen or ibuprofen to control pain, unless another pain medicine was prescribed to you. If you have chronic liver or kidney disease or ever had a stomach ulcer, talk with your healthcare provider before using these medicines. (Aspirin should never be taken by anyone under age 18 who is ill with a fever. It may cause severe liver damage.) Use nasal rinses or irrigation as instructed by your healthcare provider. Don't smoke. This can make symptoms worse.Follow-up careFollow up with your healthcare provider or our staff if you are not better in 1 week.When to seek medical adviceCall your healthcare provider if any of these occur: Green or yellow fluid draining from your nose or into your throat Facial pain or headache that gets worse Stiff neck Unusual drowsiness or confusion Swelling of your forehead or eyelids Vision problems, such as blurred or double vision Fever of 100.4F (38C) or higher, or as directed by your healthcare provider Seizure Breathing problems Symptoms that don't go away in 10 days [id number] [employer]. [address] [place] [address]. All rights reserved. This information is not intended as asubstitute for professional medical care. Always follow your healthcare professional's instructions. You have been given the following additional information: Sinus Headache Headache, Tension Sinusitis (No Antibiotics) 9 General Instructions [facility] Emergency Department [address] [place] [address] Phone #: ext- [phone] 11/11/2020 09:10 Patient: BRAD VASQUEZ Sex: F : 1960 Age: 60y(Electronically signed by Mary Stafford 11/11/2020 11:04) Name Value Range Interpretation Code Description Data Herminia rce(s) Supporting Document(s) ID Date Data Source [id number] 11/11/2020 09:16:00 AM EDT [facility] 1 Clinical Report - Nurses [facility] Emergency Department [address] [place] [address] Phone #: ext- [phone] 11/11/2020 09:10 Patient: BRAD VASQUEZ Sex: F : 1960 Age: 60yTRIAGEArrived by private vehicle. Historian: patient. ( presents with granddaughter with c/o headache and sinuspain, injured head on 10/25 but now thinks she has sinus infection.).Triage time: 09:18 11/11/2020. Acuity: LEVEL 4.Chief Complaint: HEADACHE and FACIAL PAIN.Alert. No acute distress.This started 2 days. She has had sinus pain.Treatment QUALITY INTERN:Took ibuprofen. (800mg at 0600, tizanadine).SEPSIS SCREEN: SIRS SCREEN NEGATIVE. SEPSIS SCREEN NEGATIVE. No suspected or confirmedsigns of infection present. --09:11/11/20 Jadyn White RN09:17 11/11/20. BP: 169/85. MAP: 113. HR: 77. RR: 16. O2 saturation: 95%. Temp: 98.3 F. Pain levelnow: 05/05. --09:11/11/20 Jadyn White RN. Weight: 79.8 kg stated. Height/Length: 62 inches Per Patient. BMI: 32.2. --09:11/11/20 Jadyn White RN.MedicationsIbuprofen Oral. Invega Sustenna Intramuscular, last dose last thursday. Lantus Subcutaneous. Lisinopril Oral. LORazepam Oral. metFORMIN HCl Oral. Omeprazole Oral. [facility]. Pregabalin Oral. tiZANidine HCl Oral. Tramadol HCL Oral (last dose 4 pm). --09:11/11/20 Jadyn White RN.AllergiesClindamycin.Lithobid.Paxil.Sulfa Antibiotics. --:11/11/20 Jadyn White RN. 2 Clinical Report - Nurses [facility] Emergency Department [address] [place] [address] Phone #: ext- [phone] 11/11/2020 09:10 Patient: BRAD VASQUEZ Sex: F : 1960 Age: 60yPROBLEMS:Seasonal allergic rhinitis.Spinal Stenosis.Herpetic Gingivostomatitis.Lung Disease.Hypercholesterolemia.Hyperlipidemia. --:11/11/20 Jadyn White RNThe following entry was modified by Jadyn White RN, 11/11/20Herniated Disk: (In neck and low back). --:11/11/20 Jadyn White RNThe following entry was modified by Jadyn White RN, 11/11/20Hypertension. --:10/25 Jadyn White RN.Medication/allergy information source: the patient and patient's previous visit record. --11/11/20Jadyn White RN.ADDITIONAL SURGERIES:Cataract Surgery ( Left eye October 2015).Colonoscopy.Hand surgery (Left).Hysterectomy.Left hand.Lung Biopsy (Left).R hand surgery. --:11/11/20 Jadyn White RN.HistorySOCIAL HX: Heavy tobacco smoker- 1 pack per day. Occasional alcohol use. No drug use. No recenttravel. No known contact with a sick individual. She was offered HIV testing but declined and hepatitis Ctesting but declined. She has not traveled outside the [place]Infectious disease exposure: No infectious disease exposure. (covid vaccine).SELF HARM ASSESSMENT: Self harm assessment was performed. The patient answered "no" to thequestion(s) "Have you recently felt down, depressed, or hopeless?".ABUSE ASSESSMENT: No report of abuse.NUTRITIONAL RISK ASSESSMENT: The nutritional risk assessment revealed no deficiencies.FUNCTIONAL ASSESSMENT: Functional assessment: no impairments noted.LEARNING NEEDS ASSESSMENT: The learning needs assessment revealed no barriers.FALL RISK ASSESSMENT: Fall risk assessment completed. No risk factors identified. 3 Clinical Report - Nurses [facility] Emergency Department [address] [place] [address] Phone #: ext- [phone] 11/11/2020 09:10 Patient: BRAD VASQUEZ Sex: F : 1960 Age: 60y SKIN INTEGRITY ASSESSMENT: Skin integrity risk assessment completed. No skin integrity risk identified. --:11/11/20 Jadyn White RN.PHYSICAL ASSESSMENTAmbulatory to room.GENERAL / NEURO / PSYCH: Alert. Oriented X 4. Appears in no acute distress. Speech within normallimits.HEENT: No facial asymmetry noted. Pupils equal, round and reactive to light.RESPIRATORY: Respirations not labored. Breath sounds within normal limits.CVS: Capillary refill less than 2 seconds.GI / : Abdomen soft and nontender.SKIN: Skin is warm and dry. --:11/11/20 Jadyn White RN.NURSING PROGRESS NOTESReassurance given. Two patient identifiers checked. Bed placed in lowest po sition. Brakes of bed on.Patient ready for evaluation. --:11/11/20 Jadyn White RN 09:38 11/11/2020 Toradol (Ketorolac Tromethamine) IM 60 mg given. Given in the left gluteus [place]. Allergies verified and confirmed 5 rights. Information reviewed with patient including reason for taking this medication. Verbalizes understanding. --09:38 11/11/20 Jadyn White RN 09:50 11/11/2020 Toradol IM Response: no adverse reaction pain is improving. Symptoms have improved the patient feels better. --09:50 11/11/20 Jadyn White RN.DISPOSITION / DISCHARGE 09:45 11/11/20. BP: 149/84. MAP: 105. HR: 70. RR: 16. O2 saturation: 96%. Temp: 98.2 F. Pain level now: 02/02. --09:46 [facility]11/20 [facility] Departure time: 09:49 11/11/2020. --09:49 11/11/20 Jadyn White RN Condition at departure: improved and stable. No learning barriers present. Discharge instructions provided and reviewed with the patient. Reviewed medication(s) side effects, precautions, dosing and course information. Prescription(s) sent electronically to pharmacy. Reviewed referral to a primary care physician. Patient verbalized understanding. Written instructions provided in [place]. The patient was discharged by the physician. She was discharged home and unaccompanied at time of discharge. She left ambulatory and via private vehicle. Patient driving. --09:50 11/11/20 Jadyn White RN.Locked/Released at 11/11/2020 10:14 by aJdyn White RN 4 Clinical Report - Nurses [facility] Emergency Department [address] [place] [address] Phone #: ext- [phone] 11/11/2020 09:10 Patient: BRAD VASQUEZ Sex: F : 1960 Age: 60y Name Value Range Interpretation Code Description Data Herminia rce(s) Supporting Document(s) ID Date Data Source [id number] 11/11/2020 09:16:00 AM EDT [facility] 1 Clinical Report - Physicians/Mid Levels [facility] Emergency Department [address] [place] [address] Phone #: ext- [phone] 11/11/2020 09:10 Patient: BRAD VASQUEZ Sex: F : 1960 Age: 60y Time Seen: 09:11 11/11/2020; initial patient contact, initial documentation. Arrived- By private vehicle. Historian- patient. Disposition decision: 09:45 11/11/2020.HISTORY OF PRESENT ILLNESS Chief Complaint: HEADACHE and FACIAL PAIN. Is still present (persistent). Onset during head injury 18 days ago. This started 18 days ago. It was gradual in onset. It is described as similar to previous headaches and pressure. No neck pain. Located in the facial region. At its maximum, severity described as moderate. When seen in the E.D., severity described as moderate. Modifying factors: relieved by nothing. Not worsened by anything. No preceding symptoms, blurred vision, photophobia, associated nausea or numbness. No weakness or vomiting. (Patient states that she hit her head 18 days ago ion the frontal area. was seen in the ER then and prescribed ultram. she ran out of the ultram . she states that she now has pain on her face. she thinks she might have a sinus infection as she has been having clear nasal discharge since 1 week ago. denies fever. admits to pain on the frontal and maxillary area. denies any double vision, nausea, vomiting or neurodeficits).REVIEW OF SYSTEMSNo fever, muscle aches, ear pain, sore throat or chest pain. No difficulty breathing, cough, abdominalpain, diarrhea or pain with urination. No skin rash, enlarged lymph nodes or back pain. The patient hashad sinus pressure. All other systems reviewed and are negative.PAST HISTORYSee nurses notes. Problems: Seasonal allergic rhinitis. Spinal Stenosis. Herpetic Gingivostomatitis. Lung Disease. Hypercholesterolemia. Hyperlipidemia. Headache. Additional Surgeries: Cataract Surgery. ( Left eye October 2015) Colonoscopy. Hand surgery. (Left) Hysterectomy. 2 Clinical Report - Physicians/Mid Levels [facility] Emergency Department [address] [place] [address] Phone #: ext- [phone] 11/11/2020 09:10 Patient: BRAD VASQUEZ Sex: F : 1960 Age: 60y Left hand. Lung Biopsy. (Left) R hand surgery. Medications: Ibuprofen Oral. Invega Sustenna Intramuscular, last dose last thursday. Lantus Subcutaneous. Lisinopril Oral. LORazepam Oral. metFORMIN HCl Oral. Omeprazole Oral. [facility]. Pregabalin Oral. tiZANidine HCl Oral. Tramadol HCL Oral (last dose 4 pm). Allergies: Clindamycin. Lithobid. Paxil. Sulfa Antibiotics.SOCIAL HISTORYCurrent every day heavy tobacco smoker (cigarette)- less than 1 pack per day. Occasional alcohol use.No drug use.ADDITIONAL NOTESThe nursing notes have been reviewed.PHYSICAL EXAMVital Signs: 11/11/2020 09:17 BP: 169/85. MAP: 113. HR: 77. RR: 16. O2 saturation: 95%. Temp: 98.3 F.Pain level now: 05/05. Have been reviewed. Oxygen saturation normal.Appearance: Alert. No acute distress.Head: Tenderness present to percussion/palpation of the sinuses: moderate right and left frontaltenderness, maxillary tenderness.Eyes: Pupils equal, round and reactive to light. Eyes normal inspection. (swollen turbinates B/L clearnasal discharge).ENT: Pharynx normal.Neck: Normal inspection. Neck supple.CVS: Normal heart rate. Heart sounds normal. Pulses normal.Respiratory: No respiratory distress. Painless inspiration. Rhonchi present. No wheezes.Abdomen: Soft and nontender. No organomegaly. Obese.Back: Normal inspection. No CVA tenderness.Skin: Skin warm and dry. Normal skin color. No rash. Normal skin turgor. 3 Clinical Report - Physicians/[facility] Emergency Department [address] [place] [address] Phone #: ext- [phone] 11/11/2020 09:10 Patient: BRAD VASQUEZ Sex: F : 1960 Age: 60y Extremities: Extremities exhibit normal ROM. No lower extremity edema. Neuro: Oriented X 3. Verbal response is not abnormal. Response to pain is not abnormal. No aphasia. Alert. No dysphasia or dysarthria. Cranial nerves normal (as tested). No cerebellar findings. No motor deficit. No sensory deficit.PROGRESS AND PROCEDURESPatient counseled in person regarding the patient's stable condition, diagnosis and need for follow-up.Patient agrees with plan of care. 09:44. Disposition orders written. Disposition: Discharged home in good condition (09:44). Condition: good and stable. Discharge decision based on the following: patient's condition is stable; patient's exam is stable; stable condition on multiple repeat evaluations; social support is adequate; transportation is available; follow-up is available; clinical impression is consistent with outpatient treatment.CLINICAL IMPRESSION Chronic, poorly controlled tension headache. Viral acute maxillary sinusitis.INSTRUCTIONS (take tylenol or motrin for the headache. use the nasal spray for your sinus congestion. follow up with your doctor in 2 to 3 days if not better). Your Current Medications: Your current home medications have been reviewed. STOP TAKING THE FOLLOWING MEDICATIONS: Tramadol HCL Oral : last dose 4 pm. CONTINUE TAKING THE FOLLOWING MEDICATIONS: Ibuprofen Oral. Invega Sustenna Intramuscular : Last: last thursday. Lantus Subcutaneous. Lisinopril Oral. LORazepam Oral. metFORMIN HCl Oral. Omeprazole Oral. [facility] Pregabalin Oral. tiZANidine HCl Oral. Prescription Medications: 4 Clinical Report - Physicians/[facility] Emergency Department [address] [place] [address] Phone #: ext- [phone] 11/11/2020 09:10 Patient: BRAD VASQUEZ Sex: F : 1960 Age: 60y Flonase Allergy Relief 50 mcg/actuation nasal spray,suspension [place] 1-2 spray once a day for 7 days -- Dispense 1 nasal inhaler. Refills: 0. Substitution permitted. Note to Pharmacy - Rx Discount Card: 21.27. Use: BIN:[id number], PCN:[id number], Group:[id number], ID:[id number]. Pharmacy - [id number] [address], [place] [id number]. Phone: . Follow-up: Follow up with your healthcare provider in three days if not better. Summary of care provided to patient via paper. Blood pressure screening was not performed during this visit because the patient has an active diagnosis of hypertension. The patient should follow up with a primary care provider for blood pressure management.(Electronically signed by Mary Stafford 11/11/2020 11:04) Name Value Range Interpretation Code Description Data Herminia rce(s) Supporting Document(s) ID Date Data Source [id number] 10/25/2020 11:15:00 AM EDT [facility] 1 OrderSheet [facility] Emergency Department [address] [place] [address] Phone #: ext- [phone] 10/25/2020 11:09 Patient: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 [id number] 07/08/2020 08:29:00 AM [facility] 1 OrderSheet [facility] Emergency Department [address] [place] [address] Phone #: ext- [phone] 07/08/2020 08:21 Patient: BRAD VASQUEZ Sex: F : 1960 Age: 59yWEIGHT:72.5 kg (S) HEIGHT:62 inches (S) BMI:29.3ALLERGIES: Clindamycin, Lithobid, Sulfa AntibioticsCHIEF COMPLAINT: dizzinessDIAGNOSIS: Headache, Tinnitus, DizzinessLAB ORDERSOrder Description Priority Entered Acknowledged InitialedUrinalysis (Clean STAT 08:51 07/08/2020 09:10 Rahel) Geovanny Hernandez RN Physician;Urine Drug Screen STAT 08:51 07/08/2020 09:10 Kalyan Hernandez RN Physician; Troponin-T STAT 08:51 07/08/2020 08:52 Kalyan Hernandez RN Physician;BNP STAT 08:51 07/08/2020 08:52 Kalyan Hernandez RN Physician;CBC w Diff STAT 08:51 07/08/2020 08:52 Kalyan Hernandez RN Physician;CMP STAT 08:51 07/08/2020 08:52 Kalyan Hernandez RN Physician;D-Dimer STAT 08:51 07/08/2020 08:52 Kalyan Hernandez RN Physician;DIAGNOSTIC STUDY ORDERSOrder Description Priority Entered Acknowledged InitialedCT Head W/O Cont STAT 08:51 07/08/2020 08:52 Kalyan(Oxygen?(No)) Geovanny Hernandez RN Physician; Reason for Study: Headache, Vertigo/DizzinessUS Carotid STAT 08:51 07/08/2020 08:52 Kalyan(Oxygen?(No)) Geovanny Hernandez RN Physician; 2 OrderSheet [facility] Emergency Department [address] [place] [address] Phone #: ext- [phone] 07/08/2020 08:21 --- Patient: BRAD VASQUEZ Sex: F : 1960 Age: 59y NOTES: R tinnitus Reason for Study: DizzinessMEDICATION/IV/DRIP/FLUID ORDERSOrder Description Priority Entered Acknowledged InitialedMeclizine PO 25 mg 09:11 07/08/2020 09:16 Kalyan(NOW) Geovanny Hernandez RN Physician;GENERAL ORDERSOrder Description Priority Entered Acknowledged InitialedEKG 08:52 07/08/2020 08:52 Kalyan Hernandez RN Physician;Heat Treating Operator 08:52 07/08/2020 08:52 Kalyan(continuous) Geovanny Hernandez RN Physician;Pulse oximeter 08:52 07/08/2020 08:52 Kalyan(Spot Check) Geovanny Hernandez RN Physician;Saline Lock 08:52 07/08/2020 08:53 Kalyan Hernandez RN Physician;[Electronically signed by Kalyan Hernandez RN (16:15 07/08/2020)][Electronically signed by Geovanny Love Physician (22:20 07/08/2020)][Electronically locked by Kalyan Hernandez RN (16:15 07/08/2020)] Name Value Range Interpretation Code Description Data Herminia rce(s) Supporting Document(s) ID Date Data Source [id number] 07/08/2020 08:29:00 AM EST [facility] 1 Medication Reconciliation Report [facility] Emergency Department [address] [place] [address] Phone #: ext- [phone] 07/08/2020 08:21 Patient: BRAD VASQUEZ Sex: F : 1960 Age: 59yWeight: 72.5 kgHeight/Length: 62 in.BMI: 29.3ALLERGIES: Clindamycin, Lithobid, Sulfa AntibioticsThe patient's Home Medications are listed below:THE FOLLOWING MEDICATIONS NEED TO BE RECONCILED: Ibuprofen Oral Invega Sustenna Intramuscular, last dose: last thursday Lantus Subcutaneous Lisinopril Oral LORazepam Oral metFORMIN HCl Oral Omeprazole Oral [facility] Pregabalin Oral tiZANidine HCl Oral Tramadol HCL Oral, last dose 4 pmThe source(s) of the original Home Medication information:Not obtained.The following Medications were given to the patient in the Emergency Department:Meclizine [PO] PO 25 mg, administered: 09:16 07/08/2020 2 Medication Reconciliation Report [facility] Emergency Department [address] [place] [address] Phone #: ext- [phone] 07/08/2020 08:21 Patient: BRAD VASQUEZ Sex: F : 1960 Age: 59yThe following Medications were prescribed to the patient:meclizine 25 mg tablet Take 1 tablet every eight hours as needed for 10 days -- for dizziness. Nflythem97 tablet. Refills: 0. Substitution permitted.Pharmacy - [id number] [address] [place], [place] [id number]. . -- Geovanny Love, Physician Name Value Range Interpretation Code Description Data Herminia rce(s) Supporting Document(s) ID Date Data Source [id number] 07/08/2020 08:29:00 AM EST [facility] 1 Medication Administration Record [facility] Emergency Department [address] [place] [address] Phone #: ncc- [phone] 07/08/2020 08:21 Patient: BRAD VASQUEZ Sex: F : 1960 Age: 59yWeight: 72.5 kgHeight/Length: 62 inBMI: 29.3ALLERGIES: Clindamycin, Lithobid, Sulfa Antibiotics Date/Time Medication Administered Medication OrderedGiven MECLIZINE [PO] Meclizine PO 25 mg (NOW)09:16 07/08/2020 Dose: 25 mg Tablets David Hernandez RN Name Value Range Interpretation Code Description Data Herminia rce(s) Supporting Document(s) ID Date Data Source [id number] 07/08/2020 08:29:00 AM EST [facility] 1 General Instructions [facility] Emergency Department [address] [place] [address] Phone #: ext- [phone] 07/08/2020 08:21 Patient: BRAD VASQUEZ Sex: F : 1960 Age: 59yChronic dizziness (Resolved).Episodic, poorly controlled tension headache- resistant to treatment (Resolved). No migraine headache.Tinnitus in the right ear (Resolved).INSTRUCTIONSDrink plenty of fluids. Do not smoke.(Follow-up with ENT if tinnitus persists and consider MRI / MRA headConsider outpatient MRI / MRA head if headache / dizziness persists.).Warnings: Further evaluation is necessary.GENERAL WARNINGS: Return or contact your physician immediately if your condition worsens orchanges unexpectedly, if not improving as expected, or if other problems arise.Prescription Medications:meclizine 25 mg tablet Take 1 tablet every eight hours as needed for 10 days -- for dizziness. [id number] tablet. Refills: 0. Substitution permitted.Pharmacy - [id number] - [address] [place], [place] [id number]. .Follow-up:Follow up with an ear, nose and throat physician (an dispatcher automobile rental) if not better. Call for an appointment.Reason for referral: evaluation, treatment and Headache / Dizziness / Tinnitus. Follow up with your doctorif not better. Call for an appointment. Reason for referral: evaluation, treatment and Headache / Dizziness /R ear tinnitus.Understanding of the discharge instructions verbalized by patient. ADDITIONAL INFORMATIONDizziness (Uncertain Cause)Dizziness is a common symptom. It may be described as lightheadedness, spinning, or feeling likeyou are going to faint. Dizziness can have many causes.Tell the healthcare provider about: All medicines you take, including prescription, pqui-xhu-vbmbccz, herbs, and supplements 2 General Instructions [facility] Emergency Department [address] [place] [address] Phone #: ext- [phone] 07/08/2020 08:21 Patient: BRAD VASQUEZ Sex: F : 1960 Age: 59y Any other symptoms you have Any health problems you are being treated for Any past major health problems you've had, such as a heart attack, balance issues, hearing problems, or blood pressure problems Anything that causes the dizziness to get worse or betterToday's exam did not show an exact cause for your dizziness . Other tests may be needed. Follow upwith your healthcare provider.Home care Dizziness that occurs with sudden standing may be a sign of mild dehydration. Drink extra fluids for the next few days. If you recently started a new medicine, stopped a medicine, or had the dose of a current medicine changed, talk with the prescribing healthcare provider. Your medicine plan may need adjustment. If dizziness lasts more than a few seconds, sit or lie down until it passes. This may help prevent injury in case you pass out. Get up slowly when you feel better. Don't drive or use power tools or dangerous equipment until you have had no dizziness for at least 48 hours.Follow-up careFollow up with your healthcare provider for further evaluation in the next 7 days, or as advised.When to get medical adviceCall your healthcare provider for any of the following: Worsening of symptoms or new symptoms Repeated vomiting Headache Vision or hearing changesCall 911Call 911, or get medical care right away if any of these occur: Chest, arm, neck, back, or jaw pain 3 General Instructions [facility] Emergency Department [address] [place] [address] Phone #: ext- [phone] 07/08/2020 08:21 Patient: BRAD VASQUEZ Sex: F : 1960 Age: 59y Weakness of an arm or leg or one side of the face Blood in vomit or stool (black or red color) Shortness of breath Feeling that your heart is fluttering or beating fast or hard (palpitations) Passing out or seizure Trouble walking or speaking [employer]. [address] [place] [address]. All rights reserved. This information is not intended as asubstitute for professional medical care. Always follow your healthcare professional's instructions.Tension HeadacheA muscle tension headache is a very common cause of head pain. It's also called a stress headache.When some people are under stress, they tense the muscles of their shoulder, neck, and scalpwithout knowing it. If this tension lasts long enough, a headache can occur. A tension headache canbe quite painful. It can last for hours or even days.Home careFollow these tips when caring for yourself at home: Don't drive yourself home if you were given pain medicine for your headache. Instead, have someone else drive you home. Try to sleep when you get home. You should feel much better 4 General Instructions [facility] Emergency Department [address] [place], [place] [address] Phone #: ext- [phone] 07/08/2020 08:21 Patient: BRAD VASQUEZ Sex: F : 1960 Age: 59y when you wake up. Put heat on the back of your neck to help ease neck spasm.How to prevent tension-type headaches Figure out what is causing stress in your life. Learn new ways to handle your stress. Ideas include regular exercise, biofeedback, self-hypnosis, yoga, and meditation. Talk with your healthcare provider to find out more information about managing stress. Many books and digital media are also available on this subject. Take time out at the first sign of a tension headache, if possible. Take yourself out of the stressful situation. Find a quiet, comfortable place to sit or lie down and let yourself relax. Heat and deep massage of the tight areas in the neck and shoulders may help ease muscle spasm. You may also get relief from a medicine such as acetaminophen, ibuprofen, naproxen, or a prescribed muscle relaxant.Follow-up careFollow up with your healthcare provider, or as advised. Talk with your provider if you have frequentheadaches. He or she can figure out a treatment plan. Ask if you can have medicine to take at homethe next time you get a bad headache. This may keep you from having to visit the emergencydepartment in the future. You may need to see a headache specialist (neurologist) if you continue tohave headaches.When to seek medical adviceCall your healthcare provider right away if any of these occur: Your head pain gets worse during sexual intercourse or strenuous activity Your head pain doesn't get better within 24 hours You aren't able to keep liquids down (repeated vomiting) Fever of 100.4F (38C) or higher, or as directed by your healthcare provider Stiff neck Extreme drowsiness, confusion, or fainting Dizziness or dizziness with spinning sensation (vertigo) Weakness in an arm or leg or one side of your face You have trouble speaking 5 General Instructions [facility] Emergency Department [address] [place] [address] Phone #: rve- [phone] 07/08/2020 08:21 Patient: BRAD VASQUEZ Sex: F : 1960 Age: 59y Your vision changes [phone] [employer]. [address] [place] [address]. All rights reserved. This information is not intended as asubstitute for professional medical care. Always follow your healthcare professional's instructions. You have been given the following additional information: Dizziness, Uncertain Cause Headache, Tensio n(Electronically signed by Geovanny Love, Physician 07/08/2020 22:20) Name Value Range Interpretation Code Description Data Herminai rce(s) Supporting Document(s) ID Date Data Source [id number] 07/08/2020 08:29:00 AM EST [facility] 1 Clinical Report - Nurses [facility] Emergency Department [address] [place] [address] Phone #: ext- [phone] 07/08/2020 08:21 Patient: RBAD VASQUEZ Sex: F : 1960 Age: 59yTRIAGEArrived by private vehicle. Historian: patient. ( pt c/o ringing in right ear x 2 weeks with pain starting lastnight, pt c/o right posterior headache since last thursday after Invega injection, hx herniated disc in c spine,this morning dizzy and nausea from ears ringing).Triage time: 08:24 07/08/2020. Acuity: LEVEL 4.Chief Complaint: HEADACHE and (right ear pain / ringing).08:36 07/08/20.This started last night. She has had nausea. No vomiting, weakness, numbness, fever or sinus pain.Treatment QUALITY INTERN:None.SEPSIS SCREEN: SIRS SCREEN NEGATIVE. SEPSIS SCREEN NEGATIVE. No suspected or confirmedsigns of infection present. (08:35 07/08/2020). --08:36 07/08/20 Kalyan Hernandez RN08:29 07/08/20. BP: 156/68 (regular adult cuff) taken on the right arm, via an automated monitor, whilelying. MAP: 97. HR: 81. RR: 18. O2 saturation: 95% on room air. Temp: 97.1 F (oral). Pain level now: 02/02.--08:36 07/08/20 Kalyan Hernandez RN.Weight: 72.5 kg stated. Height/Length: 62 inches Per Patient. BMI: 29.3. --08:28 07/08/20 Kalyan Hernandez RN.MedicationsIbuprofen Oral. Invega Sustenna Intramuscular, last dose last thursday. Lantus Subcutaneous. Lisinopril Oral. LORazepam Oral. metFORMIN HCl Oral. [facility]ole [facility]. [facility] Pregabalin Oral. tiZANidine HCl Oral. Tramadol HCL Oral (last dose 4 pm). --08:32 07/08/20 Kalyan Hernandez RN.AllergiesClindamycin.Lithobid. 2 Clinical Report - Nurses [facility] Emergency Department [address] [place] [address] Phone #: ext- [phone] 07/08/2020 08:21 Patient: BRAD VASQUEZ Sex: F : 1960 Age: 59y Sulfa Antibiotics. --08:32 07/08/20 Kalyan Hernandez RN. History 08:36 07/08/20. PAST MEDICAL HX: Headaches. The patient has had a hysterectomy. SOCIAL HX: Heavy tobacco smoker- 1 pack per day. No alcohol use or drug use. Recent travel- (no). She has had contact with a sick individual. (no). She was offered HIV testing but declined and hepatitis C testing but declined. She has not traveled outside the [place] Infectious disease exposure: No infectious disease exposure. SELF HARM ASSESSMENT: Self harm assessment was performed. The patient answered "no" to the question(s) "Have you recently felt down, depressed, or hopeless?", "Do you have thoughts of harming or killing yourself?", "Do you have a plan for harming or killing yourself?", "Have you recently had thoughts about harming or killing others?", "Do you have any dangerous items in your possession?", "Have you noticed less interest or pleasure in doing things?", "Are you here because you tried to hurt yourself?" and "Have you ever tried to hurt yourself before today?". ABUSE ASSESSMENT: Abuse history: reports abuse. (no). Abuse assessment. No suspicion of abuse. NUTRITIONAL RISK ASSESSMENT: The nutritional risk assessment revealed no deficiencies. FUNCTIONAL ASSESSMENT: Functional assessment: no impairments noted. LEARNING NEEDS ASSESSMENT: The learning needs assessment revealed no barriers. FALL RISK ASSESSMENT: Fall risk assessment completed. No risk factors identified. SKIN INTEGRITY ASSESSMENT: Skin integrity risk assessment completed. No skin integrity risk identified. --08:36 07/08/20 Kalyan Hernandez RN. Interventions 08:36 07/08/20. Identification band on patient. To treatment room. --08:36 07/08/20 Kalyan Hernandez RN.PHYSICAL TLOOTUNNTR16:37 07/08/20. Ambulatory to room.GENERAL / NEURO / PSYCH: Alert. Oriented X 4. Speech within normal limits.HEENT: No facial asymmetry noted.RESPIRATORY: Respirations not labored. Breath sounds within normal limits.CVS: Capillary refill less than 2 seconds.GI / : Abdomen soft and nontender.SKIN: Skin is warm and dry. --08:37 07/08/20 Kalyan Hernandez RN. 3 Clinical Report - Nurses [facility] Emergency Department [address] [place] [address] Phone #: ext- [phone] 07/08/2020 08:21 Patient: BRAD VASQUEZ Sex: F : 1960 Age: 59yNURSING PROGRESS NOTES08:38 07/08/20. Head of bed elevated 60 degrees. Two patient identifiers checked. Call light placed inreach. Bed placed in lowest position. Brakes of bed on. Patient ready for evaluation- ED physiciannotified. --08:38 07/08/20 Kalyan Hernandez RN 09:12 07/08/20. BP: 132/73. MAP: 92. HR: 69. RR: 14. O2 saturation: 94%. --09:12 07/08/20 [facility] TechTracy ER Tech1 08:56 07/08/2020 Site #1 started via IV in the right antecubital space with an 20g angiocath; one attempt. Blood drawn: rainbow set. --09:16 07/08/20 Kalyan Hernandez RN 09:16 07/08/2020 Meclizine PO Tablets 25 mg given. Allergies verified and confirmed 5 rights. Information reviewed with valeria washington. --09:16 07/08/20 Kalyan Hernandez RN 09:18 07/08/20. Cardiac rhythm: normal sinus rhythm; (9114). cafeteria monitor, NIBP monitor and pulse oximeter placed on patient; court recording monitor- Lead II; monitor alarms on; monitor strip added to paper chart (9094). Checked patient name and birthdate: patient confirmed. Blood samples drawn from the right antecubital space peripheral IV site by nurse per protocol ; labeled in presence of the patient and sent to lab. Initial blood discarded. Line flushed with 10 mL normal saline post blood draw (9392). Patient gowned. Checked patient name and birthdate: patient confirmed. Clean catch urine collected; sample sent to lab for urinalysis and drug screen. Specimen labeled in the presence of the patient (6814). --09:18 07/08/20 Kalyan Hernandez RN Checked patient name and birthdate. Blood samples drawn by tech: blue top. (8072). [facility] and scientific technical writer. (3807 at bedside). --09:27 07/08/20 Kalyan Hernandez RN Patient transported to radiology by wheelchair with mask and tech. --09:57 07/08/20 Richa Singletary 09:58 07/08/20. BP: 126/79. MAP: 94. HR: 66. RR: 14. O2 saturation: 92%. --09:58 07/08/20 Mcgrann adapted physical education specialist, [facility], ER Tech1 Patient transported to CT by wheelchair with mask and scientific technical writer. (0955). --10:00 07/08/20 Kalyan Hernandez RN Patient returned from CT by wheelchair with mask and scientific technical writer. (1004). --10:04 07/08/20 Kalyan Hernandez RN 10:05 07/08/2020 Meclizine PO Response: symptoms have improved the patient feels better. ED physician notified. --10:05 07/08/20 Kalyan Hernandez RN 10:27 07/08/20. BP: 128/71. MAP: 90. HR: 68. RR: 15. O2 saturation: 91%. --10:27 07/08/20 Mcgrann adapted physical education specialist, [facility], ER Tech1.DISPOSITION / DISCHARGE 4 Clinical Report - Nurses [facility] Emergency Department [address] [place] [address] Phone #: ext- [phone] 07/08/2020 08:21 Patient: BRAD VASQUEZ Sex: F : 1960 Age: 59y 10:38 07/08/20. BP: 127/73 (regular adult cuff) taken on the right arm, via an automated monitor, while lying. MAP: 91. HR: 68. RR: 17. O2 saturation: 97% on room air. Temp: 97.9 F (oral). Pain level now: 0/10. --10:38 07/08/20 Kalyan Hernandez RN 10:51 07/08/20. Departure time: 10:51 07/08/2020. Condition at departure: improved. No learning barriers present. Discharge instructions provided and reviewed with the patient. Reviewed medication(s) side effects, precautions, dosing and course information. Prescription(s) sent electronically to pharmacy. Treatments reviewed (increase fluids). Reviewed referral to an ear, nose, and throat specialist (dispatcher automobile rental). --10:51 07/08/20 Kalyan Hernandez RN.Locked/Released at 07/08/2020 16:15 by Kalyan Hernandez RN Name Value Range Interpretation Code Description Data Herminia rce(s) Supporting Document(s) ID Date Data Source [id number] 07/08/2020 08:29:00 AM [facility] 1 Clinical Report - Physicians/Mid Levels [facility] Emergency Department [address] [place] [address] Phone #: ext- [phone] 07/08/2020 08:21 Patient: BRAD VASQUEZ Sex: F : 1960 Age: 59y Time Seen: 08:43 07/08/2020. Arrived- By private vehicle. Historian- patient. Disposition decision: 10:37 07/08/2020.HISTORY OF PRESENT ILLNESS Chief Complaint: DIZZINESS. ( Headache / dizziness / R tinnitus - For 2 weeks. Pt. is heavy smoker.). Not described as a sense of rotation, movement, falling or confusion. Not described as feeling faint or weak all over. Described as feeling off balance and light-headed. This started 2 weeks ago and is still present. It was abrupt in onset and has been waxing/waning. (02/02). Modifying factors- worsened by turning head, standing up and changing position. No nausea, vomiting, hearing loss or ear pain. She has had moderate right-sided tinnitus. The tinnitus on the right has been constant and associated with ringing. Similar symptoms previously. (for 2 weeks). Recent medical care: Not recently seen/assessed.REVIEW OF SYSTEMSThe patient has had a moderate, intermittent, throbbing global headache. The headache was gradual inonset and has been associated with nausea. The patient has a history of chronic headaches. No doublevision, weakness, fainting episodes, head injury or chest pain. No palpitations, black stools, abnormalvaginal bleeding, numbness or bloody stools. No fever, sore throat, cough, difficulty breathing orabdominal pain. No diarrhea, difficulty with urination, skin rash, enlarged lymph nodes or chills. No jointpain. The patient has had mild difficulty walking (Uses a cane).PAST HISTORYPast history not negative. See nurses notes. Moderate type II diabetes mellitus. Heart disease. Lungdisease. GI disease. Other disease. ( GERDCADCOPD / Tobacco AbuseDiverticulitisFibromyalgiaAnxietyChest wall painSeasonal Allergic RhinitisSpinal StenosisHerpetic GingivostomatitisHemorrhoidsHyperlipidemia). Surgeries: Cataract surgery on the left eye. Colonoscopy. Hysterectomy. (L hand surgery L lung bx R hand surgery 2 Clinical Report - Physicians/Mid Levels [facility] Emergency Department [address] [place] [address] Phone #: ext- [phone] 07/08/2020 08:21 Patient: BRAD VASQUEZ Sex: F : 1960 Age: 59y Trigger thumb).SOCIAL HISTORYHeavy tobacco smoker (cigarette)- 1 pack per day. No alcohol use or drug use. No recent travel.ADDITIONAL NOTESThe nursing notes have been reviewed with agreement regarding the chief complaint, HPI, ROS, PMH andpatient medications and allergies.PHYSICAL EXAMVital Signs: 07/08/2020 08:29 BP: lying 156/68. MAP: 97. HR: 81. RR: 18. O2 saturation: 95% on roomair. Temp: 97.1 F. Pain level now: 7/10. Have been reviewed and appear to be correct. Hypertensive.Heart rate normal. Respiratory rate normal. Temperature normal. Oxygen saturation normal.Appearance: Alert. Anxious. Appears to be in pain. Patient in moderate distress. In distress.Eyes: Pupils equal, round and reactive to light. No nystagmus. Extraocular movements normal.ENT: Normal ENT inspection. TM's normal. Moist mucous membranes. Pharynx normal.Neck: Normal inspection. Neck supple.CVS: Normal heart rate and rhythm. Heart sounds normal. Pulses normal.Respiratory: No respiratory distress. Painless inspiration. Breath sounds normal.Abdomen: Soft and nontender. No organomegaly.Back: Normal inspection.Skin: Skin warm and dry. Normal skin color. No rash. Normal skin turgor.Extremities: Extremities exhibit normal ROM. No lower extremity edema.Neuro: Alert. Oriented X 3. Mood/affect normal. Speech normal. Cranial nerves normal (as tested).No cerebellar findings. No motor deficit. No sensory deficit.LABS, X-RAYS, AND EKGEKG: Normal EKG.CT Head: No acute disease.Laboratory Tests: Laboratory tests have been ordered, with results reviewed and considered in themedical decision making process. Urinalysis: (MYLA: 07/08/2020 09:10) ( MsgRcvd 07/08/2020 09:33) Final results Test Result Flag Units (Reference) URINALYSIS URINALYSIS SOURCE R COLOR Yellow (NORMAL: Yello CLARITY Clear (NORMAL: Clear SPEC GRAVITY 1.005 (1.001 - 1.030 pH 6 (5 - 9) GLUCOSE NORM (NORMAL: Negat BILIRUBIN NEG (NORMAL: Negat KETONE NEG (NORMAL: Negat PROTEIN NEG (NORMAL: Negat NITRITE NEG (NORMAL: Negat BLOOD NEG (NORMAL: Negat LEUK EST NEG (NORMAL: Negat 3 Clinical Report - Physicians/Mid Levels [facility] Emergency Department [address] [place] [address] Phone #: ext- [phone] 07/08/2020 08:21 Patient: BRAD VASQUEZ Sex: F : 1960 Age: 59y UROBILINOGEN NOR (less than 1.0 MICROSCOPIC Not IndicateDrug Screen-Urine: (MYLA: 07/08/2020 09:10) ( [facility] 07/08/2020 09:48) Final results Test Result Flag Units (Reference) DRUG SCREEN URINE URINE DRUG SCREEN AMPHETAMINES NEGATIVE (NORMAL: NEGAT BARBITURATES NEGATIVE (NORMAL: NEGAT BENZO NEGATIVE (NORMAL: NEGAT COCAINE NEGATIVE (NORMAL: NEGAT THC NEGATIVE (NORMAL: NEGAT OPIATES NEGATIVE (NORMAL: NEGAT PCP NEGATIVE (NORMAL: NEGAT \\BLDo\\URINE DRUG SCREEN INTERPRETATION\\BLDx\\ THE CUTOFFF LEVELS FORDETECTION ARE FOLLOWS: AMPHETAMINES 1000 ng/mlBARBITUARATES 200 ng/ml BENZODIAZEPINES 100 ng/mlTHC 50 ng/ml PHENCYCLIDINE 25 ng/mlOPIATES 300 ng/ml COCAINE 300 ng/mlALL POSITIVES ARE CONSIDERED PRESUMPTIVE POSITIVE CONFIRMATION [facility].Troponin-T: (MYLA: 07/08/2020 09:00) ( [facility] 07/08/2020 09:51) Final results Test Result Flag Units (Reference) TROPONIN T <0.01 NG/ML (0.00 - 0.10) TROPONIN T0.1 ng/ml Recommended as the clinical threshold value forTroponin T.BNP: (MYLA: 07/08/2020 09:00) ( [facility] 07/08/2020 09:54) Final results Test Result Flag Units (Reference) BNP 60 PG/ML (0 - 125)CBC w Diff: (MYLA: 07/08/2020 09:00) ( [facility] 07/08/2020 09:50) Final results Test Result Flag Units (Reference) CBC W/AUTOMATED DIFF COMPLETE BLOOD COUNT WBC 6.1 10/uL (4.2 - 11.0) RBC 4.34 10/uL (4.20 - 5.40) HEMOGLOBIN 13.9 g/dL (12.0 - 16.0) HEMATOCRIT 39.0 % (37.0 - 47.0) MCV 89.9 fL (81.0 - 101) MCH 32.0 pg (27.0 - 34.0) MCHC 35.6 g/dL (31.0 - 36.0) RDW 11.9 % (11.5 - 14.5) PLATELETS 214 10/uL (150 - 450) MPV 10.3 fL (7.4 - 10.4) NEUT 51.9 % (37.0 - 80.0) LYMPH 36.9 % (25.0 - 40.0) MONO 6.9 % (3.0 - 8.0) EOS 3.3 % (0.0 - 7.0) BASO 0.8 % (0.0 - 2.5) %IG 0.2 H % (0.0 - 0.0) %NRBC 0.0 % (0.0 - 0.0) #NEUT 3.16 10/uL (2.00 - 6.90) #LYMPH 2.25 10/uL (0.60 - 3.40) 4 Clinical Report - Physicians/Mid Levels [facility] Emergency Department [address] [place] [address] Phone #: ext- [phone] 07/08/2020 08:21 Patient: BRAD VASQUEZ Sex: F : 1960 Age: 59y #MONO 0.42 10/uL (0.00 - 0.90) #EOS 0.20 10/uL (0.00 - 0.70) #BASO 0.05 10/uL (0.00 - 0.20) #IG 0.01 10/uL (0.00 - 0.10) #NRBC 0.00 10/uL (0.00 - 0.00) MANUAL DIFF NOT INDICATED RBC MORPH NOT INDICATEDCMP: (MYLA: 07/08/2020 09:00) ( MsgRcvd 07/08/2020 10:04) Final results Test Result Flag Units (Reference) COMPREHENSIVE METABOLIC PANEL COMPREHENSIVE METABOLIC PANEL SODIUM 135 mEq/L (134 - 153) POTASSIUM 4.5 mEq/L (3.6 - 5.0) CHLORIDE 99 mEq/L (98 - 107) CO2 27 MEQ/L (22 - 30) GLUCOSE 119 H MG/DL (65 - 110) BUN 10 MG/DL (7 - 21) CREATININE 0.5 L MG/DL (0.7 - 1.5) BUN/CREAT 20 (8 - 27) TOTAL PROTEIN 6.4 G/DL (6.3 - 8.2) ALBUMIN 4.1 G/DL (3.9 - 5.0) GLOBULIN 2.3 L GM/DL (2.4 - 3.2) A/G RATIO 1.8 (0.8 - 2.0) CALCIUM 9.5 MG/DL (8.4 - 10.2) TOTAL BILI <0.7 MG/DL (0.2 - 1.3) ALKALINE PHOS 94 U/L (38 - 126) SGOT/AST 18 U/L (5 - 40) SGPT/ALT 13 U/L (7 - 56) ANION GAP 9.0 mmol/L (8.0 - 16.0) AGE 59 yrs NON-AA GFR >60 mL/min AFR AMER GFR >60 mL/min Male GFR Interprentation 20-49 yrs >60 mL/min Htfvqy78-34 yrs >56 mL/min Normal 60-69 yrs >49 mL/min Normal 70-79yrs>42 mL/min Normal 80 and above >35 mL/min Normal Female GFRInterpretation 20-39 yrs >60 mL/min Normal 40-49 yrs >58 mL/minNormal 50-59 yrs >51 mL/min Normal 60-69 yrs >45 mL/min Bzvbsc00-22 yrs >39 mL/min Normal 80 and above >32 mL/min NormalD- Dimer: (MYLA: 07/08/2020 09:00) ( MsgRcvd 07/08/2020 10:04) Fi nal results Test Result Flag Units (Reference) D-DIMER QUANT <0.27 ug/mL (0.27 - 0.50)CT Head W/O Cont: (MYLA: 07/08/2020 08:51) ( MsgRcvd 07/08/2020 18:44) In Progress Exam [place] [address] PHONE: [phone] FAX: [phone] Name .................. : PEDRO SALINAS Acct Number.................. : [id number] ROOM. ................. : [facility] MR Number ................... : [id number] Stay type ............. : E/R Discharge Date......... ... : 07/08/20 Admit Date ......... : 07/08/20 Admit Phys .................... : IVAN TATE Date of ....... : 1960 Family Phys ................... : GIANLUCA ARDON 5 Clinical Report - Physicians/Mid Levels [facility] Emergency Department [address] [place] [address] Phone #: ext- [phone] 07/08/2020 08:21 Patient: BRAD VASQUEZ Sex: F : 1960 Age: 59y Phone .................. : [phone] Age ................................ : 59 Film# .................. .:[id number] Sex ................................. : F Unsigned transcriptions are preliminary reports and do not represent a medical or legal document CT HEAD W/O CONTRAST [id number] COMPLETE:07/08/20 08:51 97 Reason(s): Headache Vertigo/Dizziness CT OF THE HEAD WITHOUT CONTRAST: HISTORY: Headache. FINDINGS: No intra-axial or extra-axial collections of fluid. Ventricles and sulci unremarkable. No midline shift or mass effect. Visualized paranasal sinuses and mastoid air cells unremarkable. IMPRESSION: No acute intracranial process. While performing the above CT examination, radiation dose reduction was accomplished utilizing automated exposure control, adjusting of the mA and kV based on the patient's body size and/or the use of imperative reconstructive techniques. CT dose: mGycm Electronically Reviewed and Signed By DCTNAME , SIGNDATE, [facility] Transcribe Initials: JERRY , Transcribe Date: 07/08/20 11:31, Dictation Date: <<REPDIST>> Page 1of 1US Carotid: (MYLA: 07/08/2020 08:51) ( MsgRcvd 07/08/2020 11:51) In ProgressUS CAROTIDReason(s): DizzinessTRANSPORTATION: WC IV? O2? Oxygen?(No) Room: ED: Menopause CMTS: R tinnitus Exam CAROTID [facility] [address] [place] [address] PHONE: [phone] FAX: [phone] Name .................. : PEDRO SALINAS Acct Number.................. : [id number] ROOM. ................. : TR-06 MR Number ................... : [id number] Clinical Report - Physicians/Mid Levels [facility] Emergency Department [address] [place] [address] Phone #: ext- [phone] 07/08/2020 08:21 Patient: BRAD VASQUEZ Sex: F : 1960 Age: 59y Stay type ............. : E/R Discharge Date......... ... : 07/08/20 Admit Date ......... : 07/08/20 Admit Phys .................... : IVAN TATE Date of ....... : 1960 Family Phys ................... : GIANLUCA ARDON Phone .................. : [phone] Age ................................ : 59 Film# .................. .:[id number] Sex ................................. : F Unsigned transcriptions are preliminary reports and do not represent a medical or legal document CAROTID [id number] COMPLETE:07/08/20 09:55 MCM 98 Reason(s): Dizziness CAROTID ULTRASOUND: FINDINGS: There is minimal atherosclerotic disease in the bilateral carotid bulbs. There is no hemodynamically significant stenosis noted. The peak systolic velocity on the right ICA is 98 cm/s and the peak systolic velocity of the right CCA is 81 cm/s. The ratio is 1.2. The peak systolic velocity of the left ICA is 101 cm/s. The peak systolic velocity of the left CCA is 99.7 cm/s. ICA/CCA ratio is 1.0. There is antegrade flow noted in the bilateral vertebral arteries. There is an incidentally noted 5 mm cystic nodule noted in the right thyroid lobe. IMPRESSION: No evidence of hemodynamically significant stenosis by NASCET criteria. NASCET was utilized while determining the amount of stenosis on the ultrasound of the carotids. Electronically Reviewed and Signed By DCTNAME , SIGNDATE, S Transcribe Initials: Yonathan EDWARDS nscribe Date: 07/08/20 11:47, Dictation Date: <<REPDIST>> Page 1 of 1 . Note - Tests: (Carotid ultrasound - Less than 50% stenosis.).PROGRESS AND PROCEDURESCourse of Care: :Jul 08 2020. Patient is stable. Symptoms better. :Jul 08 2020. Dizziness and tinnitus and headache gone. CT head / carotid ultrasound are unremarkable. Labs unremarkable. No evidence of infection. Will discharge pt. with Rx for Meclizine. Consider MRI / MRA head if symptoms persist. Critical care performed (130 minutes). Time includes: direct patient care, patient reassessment, 7 Clinical Report - Physicians/Mid Levels [facility] Emergency Department [address] [place] [address] Phone #: ext- [phone] 07/08/2020 08:21 [id number] Sex: F : 1960 Age: 59y interpretation of data (laboratory data and pulse oximetry), review of patient's medical records and documentation of patient care- see progress notes. Procedures included in critical care time: peripheral IV placement and phlebotomy- see progress notes. Disposition: Discharged home in good and improved condition (10:37 Jul 08 2020). Condition: good.CLINICAL IMPRESSION Chronic dizziness (Resolved). Episodic, poorly controlled tension headache- resistant to treatment (Resolved). No migraine headache. Tinnitus in the right ear (Resolved).INSTRUCTIONS Drink plenty of fluids. Do not smoke. (Follow-up with ENT if tinnitus persists and consider MRI / MRA head Consider outpatient MRI / MRA head if headache / dizziness persists.). Warnings: Further evaluation is necessary. GENERAL WARNINGS: Return or contact your physician immediately if your condition worsens or changes unexpectedly, if not improving as expected, or if other problems arise. Prescription Medications: meclizine 25 mg tablet Take 1 tablet every eight hours as needed for 10 days -- for dizziness. Dispense 30 tablet. Refills: 0. Substitution permitted. Pharmacy - [id number] - [address], [place] [id number]. . Follow-up: Follow up with an ear, nose and throat physician (an [employer]cher [employer]) if not better. Call for an appointment. Reason for referral: evaluation, treatment and Headache / Dizziness / Tinnitus. Follow up with your doctor if not better. Call for an appointment. Reason for referral: evaluation, treatment and Headache / Dizziness / R ear tinnitus. Understanding of the discharge instructions verbalized by patient.(Electronically signed by Geovanny Love, Physician 07/08/2020 22:20) 8Clinical Report - Physicians/Mid Levels [facility] Emergency Department [address] [place] [address] Phone #: ext- [phone] 07/08/2020 08:21 Patient: BRAD VASQUEZ Sex: F : 1960 Age: 59y Name Value Range Interpretation Code Description Data Herminia rce(s) Supporting Document(s) ID Date Data Source [id number] 07/08/2020 09:48:00 AM EST [facility] Name Value Range Interpretation Code Description Data Herminia rce(s) Supporting Document(s) DRUG SCREEN URINE [facility] URINE DRUG SCREEN Amphetamine [Presence] in Urine by Screen method NEGATIVE NORMAL: N EGATIVE [facility] BARBITURATES NEGATIVE NORMAL: NEGATIVE [facility] BENZO NEGATIVE NORMAL: NEGATIVE [facility] COCAINE NEGATIVE NORMAL: NEGATIVE [facility] Tetrahydrocannabinol [Presence] in Urine NEGATIVE NORMAL: NEGATIVE [facility] OPIATES NEGATIVE NORMAL: NEGATIVE [facility] Phencyclidine [Presence] in Urine by Screen method NEGATIVE NOR MAL: NEGATIVE [facility] \\BLDo\\URINE DRUG SCR EEN INTERPRETATION\\BLDx\\ THE CUTOFFF LEVELS FOR DETECTION ARE FOLLOWS: AMPHETAMINES 1000 ng/ml BARBITUARATES 200 ng/ml BENZODIAZEPINES 100 ng/ml THC 50 ng/ml PHENCYCLIDINE 25 ng/ml OPIATES 300 ng/ml COCAINE 300 ng/ml ALL POSITIVES ARE CONSIDERED PRESUMPTIVE POSITIVE CONFIRMATION WILL BE PERFORMED AT PHYSICIAN REQUEST. ID Date Data Source [id number] 07/08/2020 09:33:00 AM EST [facility] Name Value Range Interpretation Code Description Data [facility] rce(s) Supporting Document(s) [facility] Yellow NORMAL: Yellow [facility] CLARITY Clear NORMAL: Clear [facility] Specific gravity of Urine by Test strip 1.005 1.001 - 1.030 [facility] pH 6 5 - 9 [facility] al Glucose [Mass/volume] in Urine by Test strip NORM NORMAL: Negat [facility] Bilirubin.total [Presence] in Urine by Test strip NEG NORMAL: Negative [facility] Ketones [Presence] in Urine by Test strip NEG NORMAL: Negative [facility] Protein [Mass/volume] in Urine by Test strip NEG NORMAL: Negat [facility] Nitrite [Presence] in Urine by Test strip NEG NORMAL: Negative [facility] BLOOD NEG NORMAL: Negative [facility] Leukocyte esterase [Presence] in Urine by Test strip NEG CALLIE L: Negative [facility] Urobilinogen [Mass/volume] in Urine by Test strip NOR less idris n 1.0 mg/dL [facility] MICROSCOPIC Not Indicate [facility] ID Date Data Source [id number] 07/08/2020 10:04:00 AM EST [facility] Name Value Range Interpretation Code Description Data Herminia rce(s) Supporting Document(s) Fibrin D-dimer FEU [Mass/volume] in Platelet poor plasma <0. 27 ug/mL 0.27 - 0.50 [facility] ID Date Data Source [id number] 07/08/2020 10:04:00 AM EST [facility] Name Value Range Interpretation Code Description Data Herminia rce(s) Supporting Document(s) COMPREHENSIVE METABOLIC PANEL [facility] COMPREHENSIVE METABOLIC PANEL Sodium [Moles/volume] in Serum or Plasma 135 mEq/L 134 - 153 [facility] Potassium [Moles/volume] in Serum or Plasma 4.5 mEq/L 3.6 - 5.0 [facility] Chloride [Moles/volume] in Serum or Plasma 99 mEq/L 98 - 107 [facility] Carbon dioxide, total [Moles/volume] in Serum or Plasma 27 MEQ/L 22 - 30 [facility] Glucose [Mass/volume] in Serum or Plasma 119 MG/DL 65 - 110 H [facility] BUN 10 MG/DL 7 - 21 [facility] al Creatinine [Mass/volume] in Serum or Plasma 0.5 MG/DL 0.7 - 1.5 L [facility] BUN/CREAT 20 8 - 27 [facility] al Protein [Mass/volume] in Serum or Plasma 6.4 G/DL 6.3 - 8.2 [facility] Albumin [Mass/volume] in Serum or Plasma 4.1 G/DL 3.9 - 5.0 [facility] Globulin [Mass/volume] in Serum by calculation 2.3 GM/DL 2.4 - 3.2 L [facility] A/G RATIO 1.8 0.8 - 2.0 [facility] Calcium [Mass/volume] in Serum or Plasma 9.5 MG/DL 8.4 - 10.2 [facility] Bilirubin.total [Mass/volume] in Serum or Plasma <0.7 MG/DL 0.2 - 1.3 [facility] Alkaline phosphatase [Enzymatic activity/volume] in Serum or Plasma 94 U/L 38 - 126 [facility] Aspartate aminotransferase [Enzymatic activity/volume] in Serum or Plasma 18 U/L 5 - 40 [facility] Alanine aminotransferase [Enzymatic activity/volume] in Seru m or Plasma 13 U/L 7 - 56 [facility] Anion gap 3 in Serum or Plasma 9.0 mmol/L 8.0 - 16.0 [facility] AGE 59 yrs [facility] GFR >60 mL/min [facility] ital AFR AMER GFR >60 mL/min [facility] Male GFR In terprentation 20-49 yrs >60 mL/min Normal 50-59 yrs >56 mL/min Normal 60-69 yrs >49 mL/min Normal 70-79yrs >42 mL/min Normal 80 and above >35 mL/min Normal Female GFR Interpretation 20-39 yrs >60 mL/min Normal 40-49 yrs >58 mL/min Normal 50-59 yrs >51 mL/min Normal 60-69 yrs >45 mL/min Normal 70-79 yrs >39 mL/min Normal 80 and above >32 mL/min Normal ID Date Data Source [id number] 07/08/2020 09:54:00 AM EST [facility] Name Value Range Interpretation Code Description Data Herminia rce(s) Supporting Document(s) BNP 60 PG/ML 0 - 125 [facility] ID Date Data Source [id number] 07/08/2020 09:51:00 AM [facility] Name Value Range Interpretation Code Description Data Herminia rce(s) Supporting Document(s) TROPONIN T <0.01 NG/ML 0.00 - 0.10 [facility] TROPONIN T0.1 ng/ml Recommended as the c linical threshold value forTroponin T. ID Date Data Source [id number] 07/08/2020 09:50:00 AM [facility] Name Value Range Interpretation Code Description Data Herminia rce(s) Supporting Document(s) CBC W/AUTOMATED DIFF [facility] COMPLETE BLOOD COUNT Leukocytes [#/volume] in Blood by Automated count 6.1 10^3/uL 4.2 - 1 1.0 [facility] Erythrocytes [#/volume] in Blood by Automated count 4.34 10^6/uL 4. 20 - 5.40 [facility] Hemoglobin [Mass/volume] in Blood 13.9 g/dL 12.0 - 16.0 [facility] Hematocrit [Volume Fraction] of Blood by Automated count 39.0 % 3 7.0 - 47.0 [facility] Erythrocyte mean corpuscular volume [Entitic volume] by Auto mated count 89.9 fL 81.0 - 101 [facility] Erythrocyte mean corpuscular hemoglobin [Entitic mass] by Automated count 32.0 pg 27.0 - 34.0 [facility] Erythrocyte mean corpuscular hemoglobin concentration [Mass/volume] by Automated count 35.6 g/dL 31.0 - 36.0 [facility] Erythrocyte distribution width [Ratio] by Automated count 11.9 % 11.5 - 14.5 [facility] Platelets [#/volume] in Blood by Automated count 214 10^3/uL 150 - 45 0 [facility] Platelet mean volume [Entitic volume] in Blood by Automated count 10.3 fL 7.4 - 10.4 [facility] Neutrophils/100 leukocytes in Blood by Automated count 51.9 % 37. 0 - 80.0 [facility] Lymphocytes/100 leukocytes in Blood by Manual count 36.9 % 25.0 - 40.0 [facility] Monocytes/100 leukocytes in Blood by Automated count 6.9 % 3.0 - 8.0 [facility] Eosinophils/100 leukocytes in Blood by Automated count 3.3 % 0.0 - 7.0 [facility] Basophils/100 leukocytes in Blood by Automated count 0.8 % 0.0 - 2.5 [facility] %IG 0.2 % 0.0 - 0.0 H [facility] al %NRBC 0.0 % 0.0 - 0.0 [facility] al Neutrophils [#/volume] in Blood by Automated count 3.16 10^3/uL 2.00 - 6.90 [facility] Lymphocytes [#/volume] in Blood by Automated count 2.25 10^3/uL 0.60 - 3.40 [facility] Monocytes [#/volume] in Blood by Automated count 0.42 10^3/uL 0.00 - 0.90 [facility] Eosinophils [#/volume] in Blood by Automated count 0.20 10^3/uL 0.00 - 0.70 [facility] Basophils [#/volume] in Blood by Automated count 0.05 10^3/uL 0.00 - 0.20 [facility] #IG 0.01 10^3/uL 0.00 - 0.10 [facility] #NRBC 0.00 10^3/uL 0.00 - 0.00 [facility] MANUAL DIFF NOT INDICATED [facility] RBC MORPH NOT INDICATED [facility] ID Date Data Source CBC with Differential 05/15/2020 05:51:10 AM EDT eCW1 ([facility]) Name Value Range Interpretation Code Description Data Herminia rce(s) Supporting Document(s) 4.31 RED BLOOD COUNT eCW1 ([facility]) 7.4 WHITE BLOOD COUNT eCW1 ([facility]) 13.5 HEMOGLOBIN eCW1 ([facility], 1928–1983) 31.3 MEAN CORPUSCULAR HEMOGLOBIN eC W1 ([facility]) 39.7 HEMATOCRIT eCW1 ([facility], 1928[facility]1983) 92.1 MEAN CORPUSCULAR VOLUME eCW1 ( [facility]) 34.0 MEAN CORPUSCULAR HGB CONC eCW1 ([facility]) 58.8 NEUTROPHILS % eCW1 ([facility]) 201 PLATELET COUNT, AUTOMATED eCW1 ([facility]) 12.3 RED CELL DISTRIBUTION WIDTH eC W1 ([facility]) 3.6 EOS % eCW1 ([facility]) 0.8 BASO % eCW1 ([facility]) 30.6 LYMPH % eCW1 ([facility]) 5.9 MONO % eCW1 ([facility]) 4.4 NEUTROPHILS # eCW1 ([facility]) 2.3 LYMPH # eCW1 ([facility]) 0.4 MONO # eCW1 ([facility]) 0.3 EOS # eCW1 ([facility]) 0.1 BASO # eCW1 ([facility]) Procedure Social History Code Duration Value Status Description Data Source(s ) Smoking 05/01/2021 12:00:00 AM EDT Current Smoker completed Curre nt Smoker eCW1 ([facility]) Smoking 05/01/2021 12:00:00 AM EDT Current Smoker completed Curre nt Smoker eCW1 ([facility]) Smoking 05/01/2021 12:00:00 AM EDT Current Smoker completed Curre nt Smoker eCW1 ([facility]) Smoking 03/22/2021 12:00:00 AM EDT Current Smoker completed Curre nt Smoker eCW1 ([facility]) Smoking 03/22/2021 12:00:00 AM EDT Current Smoker completed Curre nt Smoker eCW1 ([facility]) Smoking 03/22/2021 12:00:00 AM EDT Current Smoker completed Curre nt Smoker eCW1 ([facility]) Smoking 03/22/2021 12:00:00 AM EDT Current Smoker completed Curre nt Smoker eCW1 ([facility]) Smoking 03/22/2021 12:00:00 AM EDT Current Smoker completed Curre nt Smoker eCW1 ([facility]) Smoking 03/22/2021 12:00:00 AM EDT Current Smoker completed Curre nt Smoker eCW1 ([facility]) Smoking 02/12/2021 12:00:00 AM EDT Current Smoker completed Curre nt Smoker eCW1 ([facility]) Smoking 02/12/2021 12:00:00 AM EDT Current Smoker completed Curre nt Smoker eCW1 ([facility]) Smoking 02/12/2021 12:00:00 AM EDT Current Smoker completed Curre nt Smoker eCW1 ([facility]) Smoking 02/12/2021 12:00:00 AM EDT Current Smoker completed Curre nt Smoker eCW1 ([facility]) Smoking 01/18/2021 12:00:00 AM EDT Current Smoker completed Curre nt Smoker eCW1 ([facility]) Smoking 01/18/2021 12:00:00 AM EDT Current Smoker completed Curre nt Smoker eCW1 ([facility]) Smoking 01/18/2021 12:00:00 AM EDT Current Smoker completed Curre nt Smoker eCW1 ([facility]) Smoking 01/18/2021 12:00:00 AM EDT Current Smoker completed Curre nt Smoker eCW1 ([facility]) Smoking 01/18/2021 12:00:00 AM EDT Current Smoker completed Curre nt Smoker eCW1 ([facility]) Smoking 12/07/2020 12:00:00 AM EDT Current Smoker completed Curre nt Smoker eCW1 ([facility]) Smoking 12/07/2020 12:00:00 AM EDT Current Smoker completed Curre nt Smoker eCW1 ([facility]) Smoking 12/07/2020 12:00:00 AM EDT Current Smoker completed Curre nt Smoker eCW1 ([facility]) Smoking 12/07/2020 12:00:00 AM EDT Current Smoker completed Curre nt Smoker eCW1 ([facility]) Smoking 12/07/2020 12:00:00 AM EDT Current Smoker completed Curre nt Smoker eCW1 ([facility]) Smoking 12/07/2020 12:00:00 AM EDT Current Smoker completed Curre nt Smoker eCW1 ([facility]) Smoking 12/07/2020 12:00:00 AM EDT Current Smoker completed Curre nt Smoker eCW1 ([facility]) Smoking 12/07/2020 12:00:00 AM EDT Current Smoker completed Curre nt Smoker eCW1 ([facility]) Smoking 12/07/2020 12:00:00 AM EDT Current Smoker completed Curre nt Smoker eCW1 ([facility]) Smoking 12/05/2020 12:00:00 AM EDT Current Smoker completed Curre nt Smoker eCW1 ([facility]) Smoking 08/10/2020 12:00:00 AM EST Current Smoker completed Curre nt Smoker eCW1 ([facility]) Smoking 08/10/2020 12:00:00 AM EST Current Smoker completed Curre nt Smoker eCW1 ([facility]) Smoking 08/10/2020 12:00:00 AM EST Current Smoker completed Curre nt Smoker eCW1 ([facility]) Smoking 08/10/2020 12:00:00 AM EST Current Smoker completed Curre nt Smoker eCW1 ([facility]) Smoking 08/10/2020 12:00:00 AM EST Current Smoker completed Curre nt Smoker eCW1 ([facility]) Smoking 08/10/2020 12:00:00 AM EST Current Smoker completed Curre nt Smoker eCW1 ([facility]) Smoking 08/10/2020 12:00:00 AM EST Current Smoker completed Curre nt Smoker eCW1 ([facility]) Smoking 08/10/2020 12:00:00 AM EST Current Smoker completed Curre nt Smoker eCW1 ([facility]) Smoking 08/10/2020 12:00:00 AM EST Current Smoker completed Curre nt Smoker eCW1 ([facility]) Smoking 08/10/2020 12:00:00 AM EST Current Smoker completed Curre nt Smoker eCW1 ([facility]) Smoking 08/10/2020 12:00:00 AM EST Current Smoker completed Curre nt Smoker eCW1 ([facility]) Smoking 08/10/2020 12:00:00 AM EST Current Smoker completed Curre nt Smoker eCW1 ([facility]) Smoking 08/10/2020 12:00:00 AM EST Current Smoker completed Curre nt Smoker eCW1 ([facility]) Smoking 08/10/2020 12:00:00 AM EST Current Smoker completed Curre nt Smoker eCW1 ([facility]) Smoking 08/10/2020 12:00:00 AM EST Current Smoker completed Curre nt Smoker eCW1 ([facility]) Smoking 08/10/2020 12:00:00 AM EST Current Smoker completed Curre nt Smoker eCW1 ([facility]) Smoking 08/10/2020 12:00:00 AM EST Current Smoker completed Curre nt Smoker eCW1 ([facility]) Smoking 08/10/2020 12:00:00 AM EST Current Smoker completed Curre nt Smoker eCW1 ([facility]) Smoking 08/10/2020 12:00:00 AM EST Current Smoker completed Curre nt Smoker eCW1 ([facility]) Smoking 08/10/2020 12:00:00 AM EST Current Smoker completed Curre nt Smoker eCW1 ([facility]) Smoking 08/01/2020 12:00:00 AM EST Current Smoker completed Curre nt Smoker eCW1 ([facility]) Smoking 08/01/2020 12:00:00 AM EST Current Smoker completed Curre nt Smoker eCW1 ([facility]) Smoking 05/23/2020 12:00:00 AM EDT Current Smoker completed Curre nt Smoker eCW1 ([facility]) Smoking 05/23/2020 12:00:00 AM EDT Current Smoker completed Curre nt Smoker eCW1 ([facility]) Smoking 05/23/2020 12:00:00 AM EDT Current Smoker completed Curre nt Smoker eCW1 ([facility]) Smoking 05/23/2020 12:00:00 AM EDT Current Smoker completed Curre nt Smoker eCW1 ([facility]) Smoking 05/23/2020 12:00:00 AM EDT Current Smoker completed Curre nt Smoker eCW1 ([facility]) Smoking 05/23/2020 12:00:00 AM EDT Current Smoker completed Curre nt Smoker eCW1 ([facility]) Smoking 05/23/2020 12:00:00 AM EDT Current Smoker completed Curre nt Smoker eCW1 ([facility]) Smoking 05/23/2020 12:00:00 AM EDT Current Smoker completed Curre nt Smoker eCW1 ([facility]) Smoking 05/15/2020 12:00:00 AM EDT Current Smoker completed Curre nt Smoker eCW1 ([facility]) Smoking 05/15/2020 12:00:00 AM EDT Current Smoker completed Curre nt Smoker eCW1 ([facility]) Smoking 05/15/2020 12:00:00 AM EDT Current Smoker completed Curre nt Smoker eCW1 ([facility]) Smoking 05/15/2020 12:00:00 AM EDT Current Smoker completed Curre nt Smoker eCW1 ([facility]) Smoking 05/08/2020 12:00:00 AM EDT Current Smoker completed Curre nt Smoker eCW1 ([facility]) Smoking 05/08/2020 12:00:00 AM EDT Current Smoker completed Curre nt Smoker eCW1 ([facility]) Smoking 05/08/2020 12:00:00 AM EDT Current Smoker completed Curre nt Smoker eCW1 ([facility]) Vital Signs ID Date Data Source UNK Name Value Range Interpretation Code Description Data Source(s) Systolic blood pressure 114 mm[Hg] 114 mm[Hg] e CW1 ([facility]) Diastolic blood pressure 64 mm[Hg] 64 mm[Hg] eCW1 ([facility]) Body weight 169 [lb_av] 169 [lb_av] eCW1 ([facility]) Body weight 76.66 kg 76.66 kg eCW1 ([facility]) Body height 63.5 [in_i] 63.5 [in_i] eCW1 ([facility]) Body mass index (BMI) [Ratio] 29.46 kg/m2 29.46 kg/m2 eCW1 ([facility]) Heart rate 87 /min 87 /min eCW1 ([facility]) Respiratory rate 18 /min 18 /min eCW1 ([facility]) Body temperature 97.2 [degF] 97.2 [degF] eCW1 ( [facility]) Body weight 177.4 [lb_av] 177.4 [lb_av] eCW1 ([facility]) Body height 63.5 [in_i] 63.5 [in_i] eCW1 ([facility]) Body mass index (BMI) [Ratio] 30.93 kg/m2 30.93 kg/m2 eCW1 ([facility]) Heart rate 130 /min 130 /min eCW1 ([facility]) Respiratory rate 20 /min 20 /min eCW1 ([facility]) Body temperature 97.2 [degF] 97.2 [degF] eCW1 ( [facility]) Systolic blood pressure 140 mm[Hg] 140 mm[Hg] e CW1 ([facility]) Diastolic blood pressure 82 mm[Hg] 82 mm[Hg] eCW1 ([facility]) Diastolic blood pressure 74 mm[Hg] 74 mm[Hg] eCW1 ([facility]) Body weight 188 [lb_av] 188 [lb_av] eCW1 ([facility]) Body height 63.5 [in_i] 63.5 [in_i] eCW1 ([facility]) Body mass index (BMI) [Ratio] 32.78 kg/m2 32.78 kg/m2 eCW1 ([facility]) Heart rate 95 /min 95 /min eCW1 ([facility]) Respiratory rate 20 /min 20 /min eCW1 ([facility]) Body temperature 97.2 [degF] 97.2 [degF] eCW1 ( [facility]) Systolic blood pressure 126 mm[Hg] 126 mm[Hg] e CW1 ([facility]) Systolic blood pressure 124 mm[Hg] 124 mm[Hg] e CW1 ([facility]) Body weight 179 [lb_av] 179 [lb_av] eCW1 ([facility]) Diastolic blood pressure 70 mm[Hg] 70 mm[Hg] eCW1 ([facility]) Body height 63.5 [in_i] 63.5 [in_i] eCW1 ([facility]) Body mass index (BMI) [Ratio] 31.21 kg/m2 31.21 kg/m2 eCW1 ([facility]) Heart rate 80 /min 80 /min eCW1 ([facility]) Respiratory rate 20 /min 20 /min eCW1 ([facility]) Body temperature 97.4 [degF] 97.4 [degF] eCW1 ( [facility]) Body weight 180 [lb_av] 180 [lb_av] eCW1 ([facility]) Body height 63.5 [in_i] 63.5 [in_i] eCW1 ([facility]) Body mass index (BMI) [Ratio] 31.38 kg/m2 31.38 kg/m2 eCW1 ([facility]) Heart rate 84 /min 84 /min eCW1 ([facility]) Respiratory rate 18 /min 18 /min eCW1 ([facility]) Body temperature 97 [degF] 97 [degF] eCW1 ([facility]) Systolic blood pressure 124 mm[Hg] 124 mm[Hg] e CW1 ([facility]) Diastolic blood pressure 70 mm[Hg] 70 mm[Hg] eCW1 ([facility]) Body weight 176 [lb_av] 176 [lb_av] eCW1 ([facility]) Body height 63.5 [in_i] 63.5 [in_i] eCW1 ([facility]) Body mass index (BMI) [Ratio] 30.68 kg/m2 30.68 kg/m2 eCW1 ([facility]) Heart rate 84 /min 84 /min eCW1 ([facility]) Respiratory rate 20 /min 20 /min eCW1 ([facility]) Body temperature 97.1 [degF] 97.1 [degF] eCW1 ( [facility]) Systolic blood pressure 120 mm[Hg] 120 mm[Hg] e CW1 ([facility]) Diastolic blood pressure 74 mm[Hg] 74 mm[Hg] eCW1 ([facility]) Respiratory rate 20 /min 20 /min eCW1 ([facility]) Body temperature 98.3 [degF] 98.3 [degF] eCW1 ( [facility]) Systolic blood pressure 122 mm[Hg] 122 mm[Hg] e CW1 ([facility]) Diastolic blood pressure 70 mm[Hg] 70 mm[Hg] eCW1 ([facility]) Body weight 165 [lb_av] 165 [lb_av] eCW1 ([facility]) Body height 63.5 [in_i] 63.5 [in_i] eCW1 ([facility]) Body mass index (BMI) [Ratio] 28.77 kg/m2 28.77 kg/m2 eCW1 ([facility]) Heart rate 84 /min 84 /min eCW1 ([facility]) Body weight 164 [lb_av] 164 [lb_av] eCW1 ([facility]) Body height 63.5 [in_i] 63.5 [in_i] eCW1 ([facility]) Body mass index (BMI) [Ratio] 28.59 kg/m2 28.59 kg/m2 eCW1 ([facility]) Heart rate 83 /min 83 /min eCW1 ([facility]) Respiratory rate 20 /min 20 /min eCW1 ([facility]) Body temperature 97.9 [degF] 97.9 [degF] eCW1 ( [facility]) Systolic blood pressure 120 mm[Hg] 120 mm[Hg] e CW1 ([facility]) Diastolic blood pressure 70 mm[Hg] 70 mm[Hg] eCW1 ([facility]) Body weight 169 [lb_av] 169 [lb_av] eCW1 ([facility]) Body height 63.5 [in_i] 63.5 [in_i] eCW1 ([facility]) Body mass index (BMI) [Ratio] 29.46 kg/m2 29.46 kg/m2 eCW1 ([facility]) Heart rate 80 /min 80 /min eCW1 ([facility]) Respiratory rate 20 /min 20 /min eCW1 ([facility]) Body temperature 97 [degF] 97 [degF] eCW1 ([facility]) Systolic blood pressure 122 mm[Hg] 122 mm[Hg] e CW1 ([facility]) Diastolic blood pressure 70 mm[Hg] 70 mm[Hg] eCW1 ([facility]) Patient Treatment Plan of Care Planned Activity Planned Date Details Description Data Source (s) tramadol hydrochloride 50 MG Oral Tablet 05/08/2021 12:00:00 AM EDT eCW1 ([facility]) tramadol hydrochloride 50 MG Oral Tablet 05/08/2021 12:00:00 AM EDT eCW1 ([facility]) Azithromycin 250 MG Oral Tablet 05/01/2021 12:00:00 AM EDT eCW1 ([facility]) Azithromycin 250 MG Oral Tablet 05/01/2021 12:00:00 AM EDT eCW1 ([facility]) Azithromycin 250 MG Oral Tablet 05/01/2021 12:00:00 AM EDT eCW1 ([facility]) pregabalin 200 MG Oral Capsule [Lyrica] 04/17/2021 12:00:00 AM EDT eCW1 ([facility]) tramadol hydrochloride 50 MG Oral Tablet 04/10/2021 12:00:00 AM EDT eCW1 ([facility]) tramadol hydrochloride 50 MG Oral Tablet 04/10/2021 12:00:00 AM EDT eCW1 ([facility]) tramadol hydrochloride 50 MG Oral Tablet 04/10/2021 12:00:00 AM EDT eCW1 ([facility]) tramadol hydrochloride 50 MG Oral Tablet 04/10/2021 12:00:00 AM EDT eCW1 ([facility]) Levofloxacin 500 MG Oral Tablet 03/22/2021 12:00:00 AM EDT eCW1 ([facility]) Levofloxacin 500 MG Oral Tablet 03/22/2021 12:00:00 AM EDT eCW1 ([facility]) Levofloxacin 500 MG Oral Tablet 03/22/2021 12:00:00 AM EDT eCW1 ([facility]) Levofloxacin 500 MG Oral Tablet 03/22/2021 12:00:00 AM EDT eCW1 ([facility]) Levofloxacin 500 MG Oral Tablet 03/22/2021 12:00:00 AM EDT eCW1 ([facility]) Levofloxacin 500 MG Oral Tablet 03/22/2021 12:00:00 AM EDT eCW1 ([facility]) pregabalin 200 MG Oral Capsule [Lyrica] 03/19/2021 12:00:00 AM EDT eCW1 ([facility]) tramadol hydrochloride 50 MG Oral Tablet 03/12/2021 12:00:00 AM EDT eCW1 ([facility]) tramadol hydrochloride 50 MG Oral Tablet 03/12/2021 12:00:00 AM EDT eCW1 ([facility]) Breztri Aerosphere 160-9-4.8 MCG/ACT 02/12/2021 12:00:00 AM EDT eCW1 ([facility]) Nasonex 50 MCG/ACT 02/12/2021 12:00:00 AM EDT eCW1 ([facility]) Breztri Aerosphere 160-9-4.8 MCG/ACT 02/12/2021 12:00:00 AM EDT eCW1 ([facility]) Nasonex 50 MCG/ACT 02/12/2021 12:00:00 AM EDT eCW1 ([facility]) Nasonex 50 MCG/ACT 02/12/2021 12:00:00 AM EDT eCW1 ([facility]) Breztri Aerosphere 160-9-4.8 MCG/ACT 02/12/2021 12:00:00 AM EDT eCW1 ([facility]) Nasonex 50 MCG/ACT 02/12/2021 12:00:00 AM EDT eCW1 ([facility]) Breztri Aerosphere 160-9-4.8 MCG/ACT 02/12/2021 12:00:00 AM EDT eCW1 ([facility]) Prednisone 10 MG Oral Tablet 01/18/2021 12:00:00 AM EDT eCW1 ([facility]) Prednisone 10 MG Oral Tablet 01/18/2021 12:00:00 AM EDT eCW1 ([facility]) doxycycline hyclate 100 MG Oral Capsule 01/18/2021 12:00:00 AM EDT eCW1 ([facility]) Zofran ODT 4 MG 01/18/2021 12:00:00 AM EDT eCW1 ([facility]) Zofran ODT 4 MG 01/18/2021 12:00:00 AM EDT eCW1 ([facility]) doxycycline hyclate 100 MG Oral Capsule 01/18/2021 12:00:00 AM EDT eCW1 ([facility]) Prednisone 10 MG Oral Tablet 01/18/2021 12:00:00 AM EDT eCW1 ([facility]) doxycycline hyclate 100 MG Oral Capsule 01/18/2021 12:00:00 AM EDT eCW1 ([facility]) Zofran ODT 4 MG 01/18/2021 12:00:00 AM EDT eCW1 ([facility]) Prednisone 10 MG Oral Tablet 01/18/2021 12:00:00 AM EDT eCW1 ([facility]) doxycycline hyclate 100 MG Oral Capsule 01/18/2021 12:00:00 AM EDT eCW1 ([facility]) Zofran ODT 4 MG 01/18/2021 12:00:00 AM EDT eCW1 ([facility]) Zofran ODT 4 MG 01/18/2021 12:00:00 AM EDT eCW1 ([facility]) doxycycline hyclate 100 MG Oral Capsule 01/18/2021 12:00:00 AM EDT eCW1 ([facility]) Prednisone 10 MG Oral Tablet 01/18/2021 12:00:00 AM EDT eCW1 ([facility]) Prednisone 10 MG Oral Tablet 08/10/2020 12:00:00 AM EST eCW1 ([facility]) Prednisone 10 MG Oral Tablet 08/10/2020 12:00:00 AM EST eCW1 ([facility]) Prednisone 10 MG Oral Tablet 08/10/2020 12:00:00 AM EST eCW1 ([facility]) Prednisone 10 MG Oral Tablet 08/10/2020 12:00:00 AM EST eCW1 ([facility]) Prednisone 10 MG Oral Tablet 08/10/2020 12:00:00 AM EST eCW1 ([facility]) Prednisone 10 MG Oral Tablet 08/10/2020 12:00:00 AM EST eCW1 ([facility]) Prednisone 10 MG Oral Tablet 08/10/2020 12:00:00 AM EST eCW1 ([facility]) Clotrimazole 10 MG Oral Lozenge 08/07/2020 12:00:00 AM EST eCW1 ([facility]) Doxycycline Monohydrate 100 MG Oral Capsule 08/01/2020 12:00:00 AM EST eCW1 ([facility]) Doxycycline Monohydrate 100 MG Oral Capsule 08/01/2020 12:00:00 AM EST eCW1 ([facility]) Doxycycline Monohydrate 100 MG Oral Capsule 08/01/2020 12:00:00 AM EST eCW1 ([facility]) Doxycycline Monohydrate 100 MG Oral Capsule 08/01/2020 12:00:00 AM EST eCW1 ([facility]) Doxycycline Monohydrate 100 MG Oral Capsule 08/01/2020 12:00:00 AM EST eCW1 ([facility]) Doxycycline Monohydrate 100 MG Oral Capsule 08/01/2020 12:00:00 AM EST eCW1 ([facility]) Doxycycline Monohydrate 100 MG Oral Capsule 08/01/2020 12:00:00 AM EST eCW1 ([facility]) Doxycycline Monohydrate 100 MG Oral Capsule 08/01/2020 12:00:00 AM EST eCW1 ([facility]) Doxycycline Monohydrate 100 MG Oral Capsule 08/01/2020 12:00:00 AM EST eCW1 ([facility]) Doxycycline Monohydrate 100 MG Oral Capsule 08/01/2020 12:00:00 AM EST eCW1 ([facility]) Doxycycline Monohydrate 100 MG Oral Capsule 08/01/2020 12:00:00 AM EST eCW1 ([facility]) Doxycycline Monohydrate 100 MG Oral Capsule 08/01/2020 12:00:00 AM EST eCW1 ([facility]) Doxycycline Monohydrate 100 MG Oral Capsule 08/01/2020 12:00:00 AM EST eCW1 ([facility]) Doxycycline Monohydrate 100 MG Oral Capsule 08/01/2020 12:00:00 AM EST eCW1 ([facility]) Doxycycline Monohydrate 100 MG Oral Capsule 08/01/2020 12:00:00 AM EST eCW1 ([facility]) Doxycycline Monohydrate 100 MG Oral Capsule 08/01/2020 12:00:00 AM EST eCW1 ([facility]) Doxycycline Monohydrate 100 MG Oral Capsule 08/01/2020 12:00:00 AM EST eCW1 ([facility]) Prednisone 20 MG Oral Tablet 08/01/2020 12:00:00 AM EST eCW1 ([facility]) Lancets - 08/01/2020 12:00:00 AM EST e CW1 ([facility]) Doxycycline Monohydrate 100 MG Oral Capsule 08/01/2020 12:00:00 AM EST eCW1 ([facility]) Glucose Monitor Dx E11.9 08/01/2020 12:00:00 AM EST eCW1 ([facility]) Prednisone 20 MG Oral Tablet 08/01/2020 12:00:00 AM EST eCW1 ([facility]) Doxycycline Monohydrate 100 MG Oral Capsule 08/01/2020 12:00:00 AM EST eCW1 ([facility]) Doxycycline Monohydrate 100 MG Oral Capsule 08/01/2020 12:00:00 AM EST eCW1 ([facility]) Doxycycline Monohydrate 100 MG Oral Capsule 08/01/2020 12:00:00 AM EST eCW1 ([facility]) Doxycycline Monohydrate 100 MG Oral Capsule 08/01/2020 12:00:00 AM EST eCW1 ([facility]) Glucose Monitor Dx E11.9 08/01/2020 12:00:00 AM EST eCW1 ([facility]) Lancets - 08/01/2020 12:00:00 AM EST e CW1 ([facility]) Fluticasone Furoate-Vilanterol 100-25 MCG/INH 07/18/2020 12:00:00 A M EST eCW1 ([facility]) 28 ACTUAT tiotropium 0.0025 MG/ACTUAT Metered Dose Inh aler [Spiriva] 07/18/2020 12:00:00 AM EST eCW1 ([facility]) Fluticasone Furoate-Vilanterol 100-25 MCG/INH 07/18/2020 12:00:00 A M EST eCW1 ([facility]) 28 ACTUAT tiotropium 0.0025 MG/ACTUAT Metered Dose Inh aler [Spiriva] 07/18/2020 12:00:00 AM EST eCW1 ([facility]) Azithromycin 250 MG Oral Tablet 05/15/2020 12:00:00 AM EDT eCW1 ([facility]) Prednisone 20 MG Oral Tablet 05/15/2020 12:00:00 AM EDT eCW1 ([facility]) Azithromycin 250 MG Oral Tablet 05/15/2020 12:00:00 AM EDT eCW1 ([facility]) Prednisone 20 MG Oral Tablet 05/15/2020 12:00:00 AM EDT eCW1 ([facility]) Azithromycin 250 MG Oral Tablet 05/15/2020 12:00:00 AM EDT eCW1 ([facility]) Prednisone 20 MG Oral Tablet 05/15/2020 12:00:00 AM EDT eCW1 ([facility]) Azithromycin 250 MG Oral Tablet 05/15/2020 12:00:00 AM EDT eCW1 ([facility]) Prednisone 20 MG Oral Tablet 05/15/2020 12:00:00 AM EDT eCW1 ([facility]) doxycycline hyclate 100 MG Oral Capsule 05/08/2020 12:00:00 AM EDT eCW1 ([facility]) doxycycline hyclate 100 MG Oral Capsule 05/08/2020 12:00:00 AM EDT eCW1 ([facility]) doxycycline hyclate 100 MG Oral Capsule 05/08/2020 12:00:00 AM EDT eCW1 ([facility])
--- OUTSIDE RECORDS SUMMARY | 2021-05-12 01:28 | CCD ---
Author Author [facility] Organization [facility] Address Unknown Phone Unavailable Support Name Relationship Address Phone VENUS BERRY Next Of Kin [address] [place] [address] CITLALY LUU Next Of Kin [address] [place] [address] NYLA MANN Next Of Kin [address] [place], [place] [id number] VENUS KRISHNAMURTHY Next Of Kin [address] [place] [address] AVILA (ART GALLERY DIRECTOR) ALIREZA Next Of Kin [address] [place] [address] ALIREZA CHO Next Of Kin [address] [place] [address] VASHTI LEDEZMA Next Of Kin [facility] [address] [place] [address] [place] [address] OP[place] [address] VICKI VASQUEZ Next Of Kin [address] [facility] [address] [place] [address] TANG VASQUEZ Next Of Kin [address] [place] [address] OPAL VASQUEZ Next Of Kin Unknown UE Next Of Kin Unknown Unavailable DISABLED Next Of Kin Unknown PEDRO N TANG Next Of Kin [address] [place] [address] VENUS BERRY ECON [address] [place] [address] Unavailable Nyla Mann ECON [address] [place], [place] Unavailable JaviVenus ECON [address] [place] [address] vashti ledezma ECON [address] [place] [address] Unavailable TANG VASQUEZ ECON [address] [place] [address] [phone] Care Team Providers Care Curb Attendant Name Role Phone RUIZ, H REVA APPLICATION DEVELOPER MANAGER Unavailable Unavailable RUIZ, H REVA APPLICATION DEVELOPER MANAGER Unavailable Unavailable RUIZ, H REVA APPLICATION DEVELOPER MANAGER Unavailable Unavailable RUIZ, H REVA APPLICATION DEVELOPER MANAGER Unavailable Unavailable RUIZ, H REVA APPLICATION DEVELOPER MANAGER Unavailable Unavailable RUIZ, H REVA APPLICATION DEVELOPER MANAGER Unavailable Unavailable RUIZ, H REVA APPLICATION DEVELOPER MANAGER Unavailable Unavailable RUIZ, H REVA APPLICATION DEVELOPER MANAGER Unavailable Unavailable RUIZ, H REVA APPLICATION DEVELOPER MANAGER Unavailable Unavailable RUIZ, H REVA APPLICATION DEVELOPER MANAGER Unavailable Unavailable RUIZ, H REVA APPLICATION DEVELOPER MANAGER Unavailable Unavailable RUIZ, H REVA APPLICATION DEVELOPER MANAGER Unavailable Unavailable RUIZ, H REVA APPLICATION DEVELOPER MANAGER Unavailable Unavailable RUIZ, H REVA APPLICATION DEVELOPER MANAGER Unavailable Unavailable RUIZ, H REVA APPLICATION DEVELOPER MANAGER Unavailable Unavailable RUIZ, H REVA APPLICATION DEVELOPER MANAGER Unavailable Unavailable RUIZ, H REVA APPLICATION DEVELOPER MANAGER Unavailable Unavailable RUIZ, H REVA APPLICATION DEVELOPER MANAGER Unavailable Unavailable RUIZ, H REVA APPLICATION DEVELOPER MANAGER Unavailable Unavailable RUIZ, H REVA APPLICATION DEVELOPER MANAGER Unavailable Unavailable RUIZ, H REVA APPLICATION DEVELOPER MANAGER Unavailable Unavailable RUIZ, H REVA APPLICATION DEVELOPER MANAGER Unavailable Unavailable RUIZ, H REVA APPLICATION DEVELOPER MANAGER Unavailable Unavailable RUIZ, H REVA APPLICATION DEVELOPER MANAGER Unavailable Unavailable RUIZ, H REVA APPLICATION DEVELOPER MANAGER Unavailable Unavailable RUIZ, H REVA APPLICATION DEVELOPER MANAGER Unavailable Unavailable RUIZ, H REVA APPLICATION DEVELOPER MANAGER Unavailable Unavailable RUIZ, H REVA APPLICATION DEVELOPER MANAGER Unavailable Unavailable RUIZ, H REVA APPLICATION DEVELOPER MANAGER Unavailable Unavailable RUIZ, H REVA APPLICATION DEVELOPER MANAGER Unavailable Unavailable RUIZ, H REVA APPLICATION DEVELOPER MANAGER Unavailable Unavailable RUIZ, H REVA APPLICATION DEVELOPER MANAGER Unavailable Unavailable RUIZ, H REVA APPLICATION DEVELOPER MANAGER Unavailable Unavailable RUIZ, H REVA APPLICATION DEVELOPER MANAGER Unavailable Unavailable RUIZ, H REVA APPLICATION DEVELOPER MANAGER Unavailable Unavailable RUIZ, H REVA APPLICATION DEVELOPER MANAGER Unavailable Unavailable RUIZ, H REVA APPLICATION DEVELOPER MANAGER Unavailable Unavailable RUIZ, H REVA APPLICATION DEVELOPER MANAGER Unavailable Unavailable RUIZ, H REVA APPLICATION DEVELOPER MANAGER Unavailable Unavailable RUIZ, H REVA APPLICATION DEVELOPER MANAGER Unavailable Unavailable RUIZ, H REVA APPLICATION DEVELOPER MANAGER Unavailable Unavailable RUIZ, H REVA APPLICATION DEVELOPER MANAGER Unavailable Unavailable RUIZ, H REVA APPLICATION DEVELOPER MANAGER Unavailable Unavailable RUIZ, H REVA APPLICATION DEVELOPER MANAGER Unavailable Unavailable RUIZ, H REVA APPLICATION DEVELOPER MANAGER Unavailable Unavailable RUIZ, H REVA APPLICATION DEVELOPER MANAGER Unavailable Unavailable RUIZ, H REVA APPLICATION DEVELOPER MANAGER Unavailable Unavailable RUIZ, H REVA APPLICATION DEVELOPER MANAGER Unavailable Unavailable RUIZ, H REVA APPLICATION DEVELOPER MANAGER Unavailable Unavailable RUIZ, H REVA APPLICATION DEVELOPER MANAGER Unavailable Unavailable RUIZ, H REVA APPLICATION DEVELOPER MANAGER Unavailable Unavailable RUIZ, H REVA APPLICATION DEVELOPER MANAGER Unavailable Unavailable RUIZ, H REVA APPLICATION DEVELOPER MANAGER Unavailable Unavailable RUIZ, H REVA APPLICATION DEVELOPER MANAGER Unavailable Unavailable RUIZ, H REVA APPLICATION DEVELOPER MANAGER Unavailable Unavailable RUIZ, H REVA APPLICATION DEVELOPER MANAGER Unavailable Unavailable Mack, Pérez MD Unavailable Unavailable [...] is protected by Article 27-F of the [facility] Public [employer] law. If you continue you may have access to information: Regarding HIV / AIDS; Provided by facilities licensed or operated by the [facility] Office of Mental Health; or Provided by the [facility] Office for People With Developmental Disabilities. If such information is present, then the following [facility] mandated warning applies: This information has been [...] law may result in a fine or [place] health [place] sentence or both. A general authorization for the release of medical or other information is NOT sufficient authorization for further disc losure. Allergies and Adverse Reactions Type Description Substance Reaction Status Data Source(s ) Propensity to adverse reactions PAXIL PAXIL [facility] Propensity to adverse reactions LITHOBID LITHOBID [facility] Drug allergy [facility] Propensity to adverse reactions SULFA (sulfonamide) SULFA (sulfonam nikki) [facility] Propensity to adverse reactions PCN (penicillin) PCN (penicillin) [facility] Family History Family Member Name Family Member Gender Family Member Status Date o f Status Description Data Source(s) Unknown Male Problem [facility] ([facility] Encounters Encounter Providers Location Date Indications Data Source(s ) Unknown [address] [facility] [place] [address] 05/08/2021 12:00:00 AM EDT eCW1 ([facility]) Unknown [address] [facility] [place] [address] 05/07/2021 12:00:00 AM EDT eCW1 ([facility]) Unknown [address] [facility] [place] [address] 05/01/2021 12:00:00 AM EDT eCW1 ([facility]) Unknown [address] [facility] [place] [address] 04/16/2021 12:00:00 AM EDT eCW1 ([facility]) Unknown [address] [facility] [place] [address] 04/15/2021 12:00:00 AM EDT eCW1 ([facility]) [place] [address] [facility] [place] [address] 04/10/2021 12:00:00 AM EDT eCW1 ([facility]) [place] [address] [facility] [address] 04/09/2021 12:00:00 AM EDT eCW1 ([facility]) [place] [address] [facility] [place] [address] 04/09/2021 12:00:00 AM EDT eCW1 ([facility]) [place] [address] [facility] [place] [address] 03/22/2021 12:00:00 AM EDT eCW1 ([facility]) [place] [address] [facility] [address] 03/21/2021 12:00:00 AM EDT eCW1 ([facility]) [place] [address] [facility] [place] [address] 03/11/2021 12:00:00 AM EDT eCW1 ([facility]) [place] [address] [facility] [place] [address] 02/19/2021 12:00:00 AM EDT eCW1 ([facility]) [place] [address] [facility] [place] [address] 02/12/2021 12:00:00 AM EDT eCW1 ([facility]) [place] [address] [facility] [place] [address] 02/06/2021 12:00:00 AM EDT eCW1 ([facility]) Unknown [address] [facility] [place] [address] 02/06/2021 12:00:00 AM EDT eCW1 ([facility]) [place] [address] [facility] [place] [address] 02/01/2021 12:00:00 AM EDT eCW1 ([facility]) [place] [address] [facility] [place] [address] 02/01/2021 12:00:00 AM EDT eCW1 ([facility]) [place] [address] [facility] [place] [address] 01/18/2021 12:00:00 AM EDT eCW1 ([facility]) [place] [address] [facility] [place] [address] 01/17/2021 12:00:00 AM EDT eCW1 ([facility]) Unknown [address] [facility] [place] [address] 01/11/2021 12:00:00 AM EDT eCW1 ([facility]) [place] [address] [facility] [place] [address] 01/09/2021 12:00:00 AM EDT eCW1 ([facility]) Unknown [address] [facility] [place] [address] 12/18/2020 12:00:00 AM EDT eCW1 ([facility]) [place] [address] [facility] [place] [address] 12/13/2020 12:00:00 AM EDT eCW1 ([facility]) [place] [address] [facility] [place] [address] 12/13/2020 12:00:00 AM EDT eCW1 ([facility]) [place] [address] [facility] [place] [address] 12/11/2020 12:00:00 AM EDT eCW1 ([facility]) Out[place] [address] [facility] [place] [address] 12/07/2020 12:00:00 AM EDT eCW1 ([facility]) [place] [address] [facility] [place] [address] 12/06/2020 12:00:00 AM EDT eCW1 ([facility]) [place] [address] [facility] [place] [address] 12/05/2020 12:00:00 AM EDT eCW1 ([facility]) Unknown [address] [facility] [place] [address] 11/29/2020 12:00:00 AM EDT eCW1 ([facility]) Unknown [address] [facility] [place] [address] 11/19/2020 12:00:00 AM EDT eCW1 ([facility]) Unknown [address] [facility] [address] 11/15/2020 12:00:00 AM EDT eCW1 ([facility]) Unknown [address] [facility] [place] [address] 11/15/2020 12:00:00 AM EDT eCW1 ([facility]) [place] [address] [facility] [place] [address] 11/12/2020 12:00:00 AM EDT eCW1 ([facility]) Emergency Attender: MARY STAFFORD MDConsultant: REVA RUIZ APPLICATION DEVELOPER MANAGER 11/11/2020 09:16:00 AM EDT - 11/11/2020 09:49:00 AM EDT [facility] Patient discharged. [place] [address] [facility] [place] [address] 11/09/2020 12:00:00 AM EDT eCW1 ([facility]) [place] [address] [facility] [place] [address] 11/09/2020 12:00:00 AM EDT eCW1 ([facility]) [place] [address] [facility] [place] [address] 11/09/2020 12:00:00 AM EDT eCW1 ([facility]) Emergency Attender: Pérez Mack MDConsultant: REVA RUIZ APPLICATION DEVELOPER MANAGER 10/25/2020 11:15:00 AM EDT - 10/25/2020 11:45:00 AM EDT [facility] Patient admitted. [place] [address] [facility] [place] [address] 10/25/2020 12:00:00 AM EDT eCW1 ([facility]) [place] [address] [facility] [place] [address] 10/18/2020 12:00:00 AM EDT eCW1 ([facility]) [place] [address] [facility] [place] [address] 10/16/2020 12:00:00 AM EDT eCW1 ([facility]) [place] [address] [facility] [place] [address] 09/26/2020 12:00:00 AM EST eCW1 ([facility]) [place] [address] [facility] [place] [address] 09/20/2020 12:00:00 AM EST eCW1 ([facility]) [place] [address] [facility] [place] [address] 09/10/2020 12:00:00 AM EST eCW1 ([facility]) [place] [address] [facility] [place] [address] 09/07/2020 12:00:00 AM EST eCW1 ([facility]) [place] [address] [facility] [place] [address] 09/04/2020 12:00:00 AM EST eCW1 ([facility]) [place] [address] [facility] [place] [address] 08/21/2020 12:00:00 AM EST eCW1 ([facility]) [place] [address] [facility] [place] [address] 08/21/2020 12:00:00 AM EST eCW1 ([facility]) [place] [address] [facility] [place] [address] 08/20/2020 12:00:00 AM EST eCW1 ([facility]) Office Visit, Est Pt., Level 3 PC [address] [place] [address] 08/10/2020 12:00:00 AM EST eCW1 ([facility]) Unknown [address] [facility] [place] [address] 08/07/2020 12:00:00 AM EST eCW1 ([facility]) [place] [address] [facility] [place] [address] 08/01/2020 12:00:00 AM EST eCW1 ([facility]) Unknown [address] [facility] [place] [address] 07/30/2020 12:00:00 AM EST eCW1 ([facility]) Unknown [address] [facility] [place] [address] 07/18/2020 12:00:00 AM EST [facility]) [place] [address] [facility] [place] [address] 07/16/2020 12:00:00 AM EST [facility]CW1 ([facility]) Emergency Attender: GEOVANNY LOVE MDConsultant: REVA RUIZ NP 07/08/2020 08:29:00 AM EST - 07/08/2020 10:52:00 AM EST [facility] Patient discharged. [place] [address] [facility] [place] [address] 06/14/2020 12:00:00 AM EST [facility]CW1 ([facility]) Unknown [address] [facility] [place] [address] 06/12/2020 12:00:00 AM EST [facility]CW1 ([facility]) Unknown [address] [facility] [place] [address] 06/11/2020 12:00:00 AM EST [facility]CW1 [facility]) [place] [address] [facility] [place] [address] 05/23/2020 12:00:00 AM EDT [facility]CW1 ([facility]) Unknown [address] [facility] [place] [address] 05/21/2020 12:00:00 AM EDT eCW1 ([facility]) [place] [address] [facility] [place] [address] 05/15/2020 12:00:00 AM EDT [facility] [place] [address] [facility] [place] [address] 05/14/2020 12:00:00 AM EDT [facility] Unknown [address] [facility] [place] [address] 05/14/2020 12:00:00 AM EDT eCW1 ([facility]) Unknown [address] [facility] [place] [address] 05/10/2020 12:00:00 AM EDT eCW1 ([facility]) Outpatient [address] [facility] [place] [address] 05/08/2020 12:00:00 AM EDT eCW1 ([facility]) Unknown [address] [facility] [place] [address] 05/08/2020 12:00:00 AM EDT eCW1 ([facility]) Unknown [address] [facility] [place] [address] 05/07/2020 12:00:00 AM EDT eCW1 ([facility]) Immunizations Vaccine Date Status Description Data Source(s) COVID-19 dose #1 given elsewhere Unspecified 12/05/2020 09:5 0:00 AM EDT completed eCW1 ([facility]) COVID-19 dose #1 given elsewhere Unspecified 12/05/2020 09:5 0:00 AM EDT completed eCW1 ([facility]) COVID-19 dose #1 given elsewhere Unspecified 12/05/2020 09:5 0:00 AM EDT completed eCW1 ([facility]) COVID-19 dose #1 given elsewhere Unspecified 12/05/2020 09:5 0:00 AM EDT completed eCW1 ([facility]) COVID-19 dose #1 given elsewhere Unspecified 12/05/2020 09:5 0:00 AM EDT completed eCW1 ([facility]) COVID-19 dose #1 given elsewhere Unspecified 12/05/2020 09:5 0:00 AM EDT completed eCW1 ([facility]) COVID-19 dose #1 given elsewhere Unspecified 12/05/2020 09:5 0:00 AM EDT completed eCW1 ([facility]) COVID-19 dose #1 given elsewhere Unspecified 12/05/2020 09:5 0:00 AM EDT completed eCW1 ([facility]) COVID-19 dose #1 given elsewhere Unspecified 12/05/2020 09:5 0:00 AM EDT completed eCW1 ([facility]) COVID-19 dose #1 given elsewhere Unspecified 12/05/2020 09:5 0:00 AM EDT completed eCW1 ([facility]) COVID-19 dose #1 given elsewhere Unspecified 12/05/2020 09:5 0:00 AM EDT completed eCW1 ([facility]) COVID-19 dose #1 given elsewhere Unspecified 12/05/2020 09:5 0:00 AM EDT completed eCW1 ([facility]) COVID-19 dose #1 given elsewhere Unspecified 12/05/2020 09:5 0:00 AM EDT completed eCW1 ([facility]) COVID-19 dose #1 given elsewhere Unspecified 12/05/2020 09:5 0:00 AM EDT completed eCW1 ([facility]) COVID-19 dose #1 given elsewhere Unspecified 12/05/2020 09:5 0:00 AM EDT completed eCW1 ([facility]) COVID-19 dose #1 given elsewhere Unspecified 12/05/2020 09:5 0:00 AM EDT completed eCW1 ([facility]) COVID-19 dose #1 given elsewhere Unspecified 12/05/2020 09:5 0:00 AM EDT completed eCW1 ([facility]) COVID-19 dose #1 given elsewhere Unspecified 12/05/2020 09:5 0:00 AM EDT completed eCW1 ([facility]) COVID-19 dose #1 given elsewhere Unspecified 12/05/2020 09:5 0:00 AM EDT completed eCW1 ([facility]) COVID-19 dose #1 given elsewhere Unspecified 12/05/2020 09:5 0:00 AM EDT completed eCW1 ([facility]) COVID-19 dose #1 given elsewhere Unspecified 12/05/2020 09:5 0:00 AM EDT completed eCW1 ([facility]) COVID-19 dose #1 given elsewhere Unspecified 12/05/2020 09:5 0:00 AM EDT completed eCW1 ([facility]) COVID-19 dose #1 given elsewhere Unspecified 12/05/2020 09:5 0:00 AM EDT completed eCW1 ([facility]) COVID-19 dose #1 given elsewhere Unspecified 12/05/2020 09:5 0:00 AM EDT completed eCW1 ([facility]) COVID-19 dose #1 given elsewhere Unspecified 12/05/2020 09:5 0:00 AM EDT completed eCW1 ([facility]) COVID-19 dose #1 given elsewhere Unspecified 12/05/2020 09:5 0:00 AM EDT completed eCW1 ([facility]) COVID-19 dose #1 given elsewhere Unspecified 12/05/2020 09:5 0:00 AM EDT completed eCW1 ([facility]) COVID-19 dose #1 given elsewhere Unspecified 12/05/2020 09:5 0:00 AM EDT completed eCW1 ([facility]) COVID-19 dose #2 given elsewhere Unspecified 11/09/2020 08:2 0:00 AM EDT completed eCW1 ([facility]) COVID-19 dose #2 given elsewhere Unspecified 11/09/2020 08:2 0:00 AM EDT completed eCW1 ([facility]) COVID-19 dose #2 given elsewhere Unspecified 11/09/2020 08:2 0:00 AM EDT completed eCW1 ([facility]) COVID-19 dose #2 given elsewhere Unspecified 11/09/2020 08:2 0:00 AM EDT completed eCW1 ([facility]) COVID-19 dose #2 given elsewhere Unspecified 11/09/2020 08:2 0:00 AM EDT completed eCW1 ([facility]) COVID-19 dose #2 given elsewhere Unspecified 11/09/2020 08:2 0:00 AM EDT completed eCW1 ([facility]) COVID-19 dose #2 given elsewhere Unspecified 11/09/2020 08:2 0:00 AM EDT completed eCW1 ([facility]) COVID-19 dose #2 given elsewhere Unspecified 11/09/2020 08:2 0:00 AM EDT completed eCW1 ([facility]) COVID-19 dose #2 given elsewhere Unspecified 11/09/2020 08:2 0:00 AM EDT completed eCW1 ([facility]) COVID-19 dose #2 given elsewhere Unspecified 11/09/2020 08:2 0:00 AM EDT completed eCW1 ([facility]) COVID-19 dose #2 given elsewhere Unspecified 11/09/2020 08:2 0:00 AM EDT completed eCW1 ([facility]) COVID-19 dose #2 given elsewhere Unspecified 11/09/2020 08:2 0:00 AM EDT completed eCW1 ([facility]) COVID-19 dose #2 given elsewhere Unspecified 11/09/2020 08:2 0:00 AM EDT completed eCW1 ([facility]) COVID-19 dose #2 given elsewhere Unspecified 11/09/2020 08:2 0:00 AM EDT completed eCW1 ([facility]) COVID-19 dose #2 given elsewhere Unspecified 11/09/2020 08:2 0:00 AM EDT completed eCW1 ([facility]) COVID-19 dose #2 given elsewhere Unspecified 11/09/2020 08:2 0:00 AM EDT completed eCW1 ([facility]) COVID-19 dose #2 given elsewhere Unspecified 11/09/2020 08:2 0:00 AM EDT completed eCW1 ([facility]) COVID-19 dose #2 given elsewhere Unspecified 11/09/2020 08:2 0:00 AM EDT completed eCW1 ([facility]) COVID-19 dose #2 given elsewhere Unspecified 11/09/2020 08:2 0:00 AM EDT completed eCW1 ([facility]) COVID-19 dose #2 given elsewhere Unspecified 11/09/2020 08:2 0:00 AM EDT completed eCW1 ([facility]) COVID-19 dose #2 given elsewhere Unspecified 11/09/2020 08:2 0:00 AM EDT completed eCW1 ([facility]) COVID-19 dose #2 given elsewhere Unspecified 11/09/2020 08:2 0:00 AM EDT completed eCW1 ([facility]) COVID-19 dose #2 given elsewhere Unspecified 11/09/2020 08:2 0:00 AM EDT completed eCW1 ([facility]) COVID-19 dose #2 given elsewhere Unspecified 11/09/2020 08:2 0:00 AM EDT completed eCW1 ([facility]) COVID-19 dose #2 given elsewhere Unspecified 11/09/2020 08:2 0:00 AM EDT completed eCW1 ([facility]) COVID-19 dose #2 given elsewhere Unspecified 11/09/2020 08:2 0:00 AM EDT completed eCW1 ([facility]) COVID-19 dose #2 given elsewhere Unspecified 11/09/2020 08:2 0:00 AM EDT completed eCW1 ([facility]) COVID-19 dose #2 given elsewhere Unspecified 11/09/2020 08:2 0:00 AM EDT completed eCW1 ([facility]) COVID-19 dose #2 given elsewhere Unspecified 11/09/2020 08:2 0:00 AM EDT completed eCW1 ([facility]) COVID-19 dose #2 given elsewhere Unspecified 11/09/2020 08:2 0:00 AM EDT completed eCW1 ([facility]) COVID-19 dose #2 given elsewhere Unspecified 11/09/2020 08:2 0:00 AM EDT completed eCW1 ([facility]) COVID-19 dose #2 given elsewhere Unspecified 11/09/2020 08:2 0:00 AM EDT completed eCW1 ([facility]) COVID-19 dose #2 given elsewhere Unspecified 11/09/2020 08:2 0:00 AM EDT completed eCW1 ([facility]) COVID-19 dose #2 given elsewhere Unspecified 11/09/2020 08:2 0:00 AM EDT completed eCW1 ([facility]) COVID-19 dose #2 given elsewhere Unspecified 11/09/2020 08:2 0:00 AM EDT completed eCW1 ([facility]) COVID-19 dose #2 given elsewhere Unspecified 11/09/2020 08:2 0:00 AM EDT completed eCW1 ([facility]) COVID-19 VACCINE Moderna 11/08/2020 12:00:00 AM EDT completed [facility] Vaccine Series Complete: YESThis Data wa s Submitted to [facility] Via [employer]. COVID-19 VACCINE Moderna 10/11/2020 12:00:00 AM EDT completed [facility] Vaccine Series Complete: NOThis Data was Submitted to [facility] Via [employer]. influenza, recombinant, quadrIvalent,injectable, prese rvative free 05/23/2020 11:54:00 AM EDT completed eCW1 ([facility]) influenza, recombinant, quadrIvalent,injectable, prese rvative free 05/23/2020 11:54:00 AM EDT completed eCW1 ([facility]) influenza, recombinant, quadrIvalent,injectable, prese rvative free 05/23/2020 11:54:00 AM EDT completed eCW1 ([facility]) influenza, recombinant, quadrIvalent,injectable, prese rvative free 05/23/2020 11:54:00 AM EDT completed eCW1 ([facility]) influenza, recombinant, quadrIvalent,injectable, prese rvative free 05/23/2020 11:54:00 AM EDT completed eCW1 ([facility]) influenza, recombinant, quadrIvalent,injectable, prese rvative free 05/23/2020 11:54:00 AM EDT completed eCW1 ([facility]) influenza, recombinant, quadrIvalent,injectable, prese rvative free 05/23/2020 11:54:00 AM EDT completed eCW1 ([facility]) influenza, recombinant, quadrIvalent,injectable, prese rvative free 05/23/2020 11:54:00 AM EDT completed eCW1 ([facility]) influenza, recombinant, quadrIvalent,injectable, prese rvative free 05/23/2020 11:54:00 AM EDT completed eCW1 ([facility]) influenza, recombinant, quadrIvalent,injectable, prese rvative free 05/23/2020 11:54:00 AM EDT completed eCW1 ([facility]) influenza, recombinant, quadrIvalent,injectable, prese rvative free 05/23/2020 11:54:00 AM EDT completed eCW1 ([facility]) influenza, recombinant, quadrIvalent,injectable, prese rvative free 05/23/2020 11:54:00 AM EDT completed eCW1 ([facility]) influenza, recombinant, quadrIvalent,injectable, prese rvative free 05/23/2020 11:54:00 AM EDT completed eCW1 ([facility]) influenza, recombinant, quadrIvalent,injectable, prese rvative free 05/23/2020 11:54:00 AM EDT completed eCW1 ([facility]) influenza, recombinant, quadrIvalent,injectable, prese rvative free 05/23/2020 11:54:00 AM EDT completed eCW1 ([facility]) influenza, recombinant, quadrIvalent,injectable, prese rvative free 05/23/2020 11:54:00 AM EDT completed eCW1 ([facility]) influenza, recombinant, quadrIvalent,injectable, prese rvative free 05/23/2020 11:54:00 AM EDT completed eCW1 ([facility]) influenza, recombinant, quadrIvalent,injectable, prese rvative free 05/23/2020 11:54:00 AM EDT completed eCW1 ([facility]) influenza, recombinant, quadrIvalent,injectable, prese rvative free 05/23/2020 11:54:00 AM EDT completed eCW1 ([facility]) influenza, recombinant, quadrIvalent,injectable, prese rvative free 05/23/2020 11:54:00 AM EDT completed eCW1 ([facility]) influenza, recombinant, quadrIvalent,injectable, prese rvative free 05/23/2020 11:54:00 AM EDT completed eCW1 ([facility]) influenza, recombinant, quadrIvalent,injectable, prese rvative free 05/23/2020 11:54:00 AM EDT completed eCW1 ([facility]) influenza, recombinant, quadrIvalent,injectable, prese rvative free 05/23/2020 11:54:00 AM EDT completed eCW1 ([facility]) influenza, recombinant, quadrIvalent,injectable, prese rvative free 05/23/2020 11:54:00 AM EDT completed eCW1 ([facility]) influenza, recombinant, quadrIvalent,injectable, prese rvative free 05/23/2020 11:54:00 AM EDT completed eCW1 ([facility]) influenza, recombinant, quadrIvalent,injectable, prese rvative free 05/23/2020 11:54:00 AM EDT completed eCW1 ([facility]) influenza, recombinant, quadrIvalent,injectable, prese rvative free 05/23/2020 11:54:00 AM EDT completed eCW1 ([facility]) influenza, recombinant, quadrIvalent,injectable, prese rvative free 05/23/2020 11:54:00 AM EDT completed eCW1 ([facility]) influenza, recombinant, quadrIvalent,injectable, prese rvative free 05/23/2020 11:54:00 AM EDT completed eCW1 ([facility]) influenza, recombinant, quadrIvalent,injectable, prese rvative free 05/23/2020 11:54:00 AM EDT completed eCW1 ([facility]) influenza, recombinant, quadrIvalent,injectable, prese rvative free 05/23/2020 11:54:00 AM EDT completed eCW1 ([facility]) influenza, recombinant, quadrIvalent,injectable, prese rvative free 05/23/2020 11:54:00 AM EDT completed eCW1 ([facility]) influenza, recombinant, quadrIvalent,injectable, prese rvative free 05/23/2020 11:54:00 AM EDT completed eCW1 ([facility]) influenza, recombinant, quadrIvalent,injectable, prese rvative free 05/23/2020 11:54:00 AM EDT completed eCW1 ([facility]) influenza, recombinant, quadrIvalent,injectable, prese rvative free 05/23/2020 11:54:00 AM EDT completed eCW1 ([facility]) influenza, recombinant, quadrIvalent,injectable, prese rvative free 05/23/2020 11:54:00 AM EDT completed eCW1 ([facility]) influenza, recombinant, quadrIvalent,injectable, prese rvative free 05/23/2020 11:54:00 AM EDT completed eCW1 ([facility]) influenza, recombinant, quadrIvalent,injectable, prese rvative free 05/23/2020 11:54:00 AM EDT completed eCW1 ([facility]) influenza, recombinant, quadrIvalent,injectable, prese rvative free 05/23/2020 11:54:00 AM EDT completed eCW1 ([facility]) influenza, recombinant, quadrIvalent,injectable, prese rvative free 05/23/2020 11:54:00 AM EDT completed eCW1 ([facility]) influenza, recombinant, quadrIvalent,injectable, prese rvative free 05/23/2020 11:54:00 AM EDT completed eCW1 ([facility]) influenza, recombinant, quadrIvalent,injectable, prese rvative free 05/23/2020 11:54:00 AM EDT completed eCW1 ([facility]) influenza, recombinant, quadrIvalent,injectable, prese rvative free 05/23/2020 11:54:00 AM EDT completed eCW1 ([facility]) influenza, recombinant, quadrIvalent,injectable, prese rvative free 05/23/2020 11:54:00 AM EDT completed eCW1 ([facility]) influenza, recombinant, quadrIvalent,injectable, prese rvative free 05/23/2020 11:54:00 AM EDT completed eCW1 ([facility]) influenza, recombinant, quadrIvalent,injectable, prese rvative free 05/23/2020 11:54:00 AM EDT completed eCW1 ([facility]) influenza, recombinant, quadrIvalent,injectable, prese rvative free 05/23/2020 11:54:00 AM EDT completed eCW1 ([facility]) influenza, recombinant, quadrIvalent,injectable, prese rvative free 05/23/2020 11:54:00 AM EDT completed eCW1 ([facility]) influenza, recombinant, quadrIvalent,injectable, prese rvative free 05/23/2020 11:54:00 AM EDT completed eCW1 ([facility]) influenza, recombinant, quadrIvalent,injectable, prese rvative free 05/23/2020 11:54:00 AM EDT completed eCW1 ([facility]) influenza, recombinant, quadrIvalent,injectable, prese rvative free 05/23/2020 11:54:00 AM EDT completed eCW1 ([facility]) influenza, recombinant, quadrIvalent,injectable, prese rvative free 05/23/2020 11:54:00 AM EDT completed eCW1 ([facility]) influenza, recombinant, quadrIvalent,injectable, prese rvative free 05/23/2020 11:54:00 AM EDT completed eCW1 ([facility]) influenza, recombinant, quadrIvalent,injectable, prese rvative free 05/23/2020 11:54:00 AM EDT completed eCW1 ([facility]) influenza, recombinant, quadrIvalent,injectable, prese rvative free 05/23/2020 11:54:00 AM EDT completed eCW1 ([facility]) influenza, recombinant, quadrIvalent,injectable, prese rvative free 05/23/2020 11:54:00 AM EDT completed eCW1 ([facility]) influenza, recombinant, quadrIvalent,injectable, prese rvative free 05/23/2020 11:54:00 AM EDT completed eCW1 ([facility]) influenza, recombinant, quadrIvalent,injectable, prese rvative free 05/23/2020 11:54:00 AM EDT completed eCW1 ([facility]) Medications Medication Brand Name Start Date Product [...] {tablet} active traMADol HCl 50 MG eCW1 ([facility]) tramadol hydrochloride 50 MG Oral Tablet traMADol HCl 50 MG traMADol HCl 50 MG 05/08/2021 12:00:00 AM EDT 1.0 {tablet} active traMADol HCl 50 MG eCW1 ([facility]) tizanidine 2 MG Oral Tablet TIZANIDINE HCL 05/02/2021 12:00:00 AM EDT tablet 90 TAKE ONE TABLET BY MOUTH THREE TIMES A DAY TAKE ONE TA BLET BY MOUTH THREE TIMES A DAY SOLD: 05/05/2021 [facility] 250 mg 05/01/2021 12:00:00 AM EDT tablet 6 TAKE TWO TABLETS BY MOUTH AT ONCE ON THE FIRST DAY THEN TAKE ONE DAILY THEREAFTER TAKE TWO TABLETS BY MOUTH AT ONCE ON THE FIRST DAY THEN TAKE ONE DAILY THEREAFTER SOLD: 05/01/2021 [facility] Azithromycin 250 MG Oral Tablet Azithromycin 250 MG 05/01/2021 1 2:00:00 AM EDT active Azithromycin 250 MG eCW1 ([facility]) Azithromycin 250 MG Oral Tablet Azithromycin 250 MG 05/01/2021 1 2:00:00 AM EDT active Azithromycin 250 MG eCW1 ([facility]) Azithromycin 250 MG Oral Tablet Azithromycin 250 MG 05/01/2021 1 2:00:00 AM EDT active Azithromycin 250 MG eCW1 ([facility]) 600 mg 05/01/2021 12:00:00 AM EDT tablet [...] {capsule} active L yrica 200 MG eCW1 ([facility]) 24 HR Metformin hydrochloride 500 MG Extended [...] {capsule} active L yrica 200 MG eCW1 ([facility]) pregabalin 200 MG Oral Capsule [Lyrica] Lyrica 200 MG Lyrica 200 MG 04/17/2021 12:00:00 AM EDT 1.0 {capsule} active L yrica 200 MG eCW1 ([facility]) 10 mg 04/17/2021 12:00:00 AM EDT tablet [...] {capsule} active L yrica 200 MG eCW1 ([facility]) 200 mg 04/17/2021 12:00:00 AM EDT capsule 60 TAKE ONE CAPSULE BY MOUTH TWICE A DAY MAXIMUM DAILY DOSE = 2 CAPSULES TAKE ONE CAPSULE BY MOUTH TWICE A DAY MAXIMUM DAILY DOSE = 2 CAPSULES SOLD: 04/17/2021 [facility] tramadol hydrochloride 50 MG Oral Tablet traMADol HCl 50 MG traMADol HCl 50 MG 04/10/2021 12:00:00 AM EDT 1.0 {tablet} active traMADol HCl 50 MG eCW1 ([facility]) tramadol hydrochloride 50 MG Oral Tablet traMADol HCl 50 MG traMADol HCl 50 MG 04/10/2021 12:00:00 AM EDT 1.0 {tablet} active traMADol HCl 50 MG eCW1 ([facility]) 117 mg/0.75 mL 04/10/2021 12:00:00 AM EDT syringe 0 INJECT 1 SYRINGE INTRAMUSCULARLY EVERY MONTH INJECT 1 SYRINGE INTRAMUSCULARLY EVERY MONTH SOLD: 04/10/2021 [facility] tramadol hydrochloride 50 MG Oral Tablet traMADol HCl 50 MG traMADol HCl 50 MG 04/10/2021 12:00:00 AM EDT 1.0 {tablet} active traMADol HCl 50 MG eCW1 ([facility]) tramadol hydrochloride 50 MG Oral Tablet traMADol HCl 50 MG traMADol HCl 50 MG 04/10/2021 12:00:00 AM EDT 1.0 {tablet} active traMADol HCl 50 MG eCW1 ([facility]) 0.5 mg 04/10/2021 12:00:00 AM EDT tablet 10 TAKE ONE-HALF TABLET BY MOUTH TWICE A DAY NEEDED FOR ANXIETY MAXIMUM DAILY DOSE = 1 TABLET TAKE ONE-HALF TABLET BY MOUTH TWICE A DAY NEEDED FOR ANXIETY MAXIMUM DAILY DOSE = 1 TABLET SOLD: 04/10/2021 [facility] Levofloxacin 500 MG Oral Tablet Levaquin 500 MG Levaquin 500 MG 03/22/2021 12:00:00 AM EDT 1.0 {tablet} active Le vaquin 500 MG eCW1 ([facility]) Levofloxacin 500 MG Oral Tablet Levaquin 500 MG Levaquin 500 MG 03/22/2021 12:00:00 AM EDT 1.0 {tablet} active Le vaquin 500 MG eCW1 ([facility]) Levofloxacin 500 MG Oral Tablet Levaquin 500 MG Levaquin 500 MG 03/22/2021 12:00:00 AM EDT 1.0 {tablet} active Le vaquin 500 MG eCW1 ([facility]) Levofloxacin 500 MG Oral Tablet Levaquin 500 MG Levaquin 500 MG 03/22/2021 12:00:00 AM EDT 1.0 {tablet} active Le vaquin 500 MG eCW1 ([facility]) Levofloxacin 500 MG Oral Tablet Levaquin 500 MG Levaquin 500 MG 03/22/2021 12:00:00 AM EDT 1.0 {tablet} active Le vaquin 500 MG eCW1 ([facility]) Levofloxacin 500 MG Oral Tablet Levaquin 500 MG Levaquin 500 MG 03/22/2021 12:00:00 AM EDT 1.0 {tablet} active Le vaquin 500 MG eCW1 ([facility]) Levofloxacin 500 MG Oral Tablet Levaquin 500 MG Levaquin 500 MG 03/22/2021 12:00:00 AM EDT 1.0 {tablet} active Le vaquin 500 MG eCW1 ([facility]) Levofloxacin 500 MG Oral Tablet Levaquin 500 MG Levaquin 500 MG 03/22/2021 12:00:00 AM EDT 1.0 {tablet} active Le vaquin 500 MG eCW1 ([facility]) Levofloxacin 500 MG Oral Tablet Levaquin 500 MG Levaquin 500 MG 03/22/2021 12:00:00 AM EDT 1.0 {tablet} active Le vaquin 500 MG eCW1 ([facility]) pregabalin 200 MG Oral Capsule [Lyrica] Lyrica 200 MG Lyrica 200 MG 03/19/2021 12:00:00 AM EDT 1.0 {capsule} active L yrica 200 MG eCW1 ([facility]) pregabalin 200 MG Oral Capsule [Lyrica] Lyrica 200 MG Lyrica 200 MG 03/19/2021 12:00:00 AM EDT 1.0 {capsule} active L yrica 200 MG eCW1 ([facility]) pregabalin 200 MG Oral Capsule [Lyrica] Lyrica 200 MG Lyrica 200 MG 03/19/2021 12:00:00 AM EDT 1.0 {capsule} active L yrica 200 MG eCW1 ([facility]) pregabalin 200 MG Oral Capsule [Lyrica] Lyrica 200 MG Lyrica 200 MG 03/19/2021 12:00:00 AM EDT 1.0 {capsule} active L yrica 200 MG eCW1 ([facility]) pregabalin 200 MG Oral Capsule [Lyrica] Lyrica 200 MG Lyrica 200 MG 03/19/2021 12:00:00 AM EDT 1.0 {capsule} active L yrica 200 MG eCW1 ([facility]) pregabalin 200 MG Oral Capsule [Lyrica] Lyrica 200 MG Lyrica 200 MG 03/19/2021 12:00:00 AM EDT 1.0 {capsule} active L yrica 200 MG eCW1 ([facility]) tramadol hydrochloride 50 MG Oral Tablet traMADol HCl 50 MG traMADol HCl 50 MG 03/12/2021 12:00:00 AM EDT 1.0 {tablet} active traMADol HCl 50 MG eCW1 ([facility]) tramadol hydrochloride 50 MG Oral Tablet traMADol HCl 50 MG traMADol HCl 50 MG 03/12/2021 12:00:00 AM EDT 1.0 {tablet} active traMADol HCl 50 MG eCW1 ([facility]) tramadol hydrochloride 50 MG Oral Tablet traMADol HCl 50 MG traMADol HCl 50 MG 03/12/2021 12:00:00 AM EDT 1.0 {tablet} active traMADol HCl 50 MG eCW1 ([facility]) tramadol hydrochloride 50 MG Oral Tablet traMADol HCl 50 MG traMADol HCl 50 MG 03/12/2021 12:00:00 AM EDT 1.0 {tablet} active traMADol HCl 50 MG eCW1 ([facility]) tramadol hydrochloride 50 MG Oral Tablet traMADol HCl 50 MG traMADol HCl 50 MG 03/12/2021 12:00:00 AM EDT 1.0 {tablet} active traMADol HCl 50 MG eCW1 ([facility]) Nasonex 50 MCG/ACT Nasonex 50 MCG/ACT 02/12/2021 12:00:00 AM EDT 2.0 {sprays_in_each_nostril} active Nasonex 50 MCG/ACT eCW1 ([facility]) Nasonex 50 MCG/ACT Nasonex 50 MCG/ACT 02/12/2021 12:00:00 AM EDT 2.0 {sprays_in_each_nostril} active Nasonex 50 MCG/ACT eCW1 ([facility]) Breztri Aerosphere 160-9-4.8 MCG/ACT Breztri Aerosphere 160- 9-4.8 MCG/ACT 02/12/2021 12:00:00 AM EDT 2.0 {puffs} active Breztri Aerosphere 160-9-4.8 MCG/ACT eCW1 ([facility]) Nasonex 50 MCG/ACT Nasonex 50 MCG/ACT 02/12/2021 12:00:00 AM EDT 2.0 {sprays_in_each_nostril} active Nasonex 50 MCG/ACT eCW1 ([facility]) Breztri Aerosphere 160-9-4.8 MCG/ACT Bre[facility]tri Aerosphere 160- 9-4.8 MCG/ACT 02/12/2021 12:00:00 AM EDT 2.0 {puffs} active Breztri Aerosphere 160-9-4.8 MCG/ACT eCW1 ([facility]) Breztri Aerosphere 160-9-4.8 MCG/ACT Bre[facility]tri Aerosphere 160- 9-4.8 MCG/ACT 02/12/2021 12:00:00 AM EDT 2.0 {puffs} active Breztri Aerosphere 160-9-4.8 MCG/ACT eCW1 ([facility]) Breztri Aerosphere 160-9-4.8 MCG/ACT Breztri Aerosphere 160- 9-4.8 MCG/ACT 02/12/2021 12:00:00 AM EDT 2.0 {puffs} active Breztri Aerosphere 160-9-4.8 MCG/ACT eCW1 ([facility]) Breztri Aerosphere 160-9-4.8 MCG/ACT Breztri Aerosphere 160- 9-4.8 MCG/ACT 02/12/2021 12:00:00 AM EDT 2.0 {puffs} active Breztri Aerosphere 160-9-4.8 MCG/ACT eCW1 ([facility]) Nasonex 50 MCG/ACT Nasonex 50 MCG/ACT 02/12/2021 12:00:00 AM EDT 2.0 {sprays_in_each_nostril} active Nasonex 50 MCG/ACT eCW1 ([facility]) Breztri Aerosphere 160-9-4.8 MCG/ACT Breztri Aerosphere 160- 9-4.8 MCG/ACT 02/12/2021 12:00:00 AM EDT 2.0 {puffs} active Breztri Aerosphere 160-9-4.8 MCG/ACT eCW1 ([facility]) Breztri Aerosphere 160-9-4.8 MCG/ACT Breztri Aerosphere 160- 9-4.8 MCG/ACT 02/12/2021 12:00:00 AM EDT 2.0 {puffs} active Breztri Aerosphere 160-9-4.8 MCG/ACT eCW1 ([facility]) Breztri Aerosphere 160-9-4.8 MCG/ACT Bre[facility]tri Aerosphere 160- 9-4.8 MCG/ACT 02/12/2021 12:00:00 AM EDT 2.0 {puffs} active Breztri Aerosphere 160-9-4.8 MCG/ACT eCW1 ([facility]) Breztri Aerosphere 160-9-4.8 MCG/ACT Bre[facility]tri Aerosphere 160- 9-4.8 MCG/ACT 02/12/2021 12:00:00 AM EDT 2.0 {puffs} active Breztri Aerosphere 160-9-4.8 MCG/ACT eCW1 ([facility]) Breztri Aerosphere 160-9-4.8 MCG/ACT Bre[facility]tri Aerosphere 160- 9-4.8 MCG/ACT 02/12/2021 12:00:00 AM EDT 2.0 {puffs} active Breztri Aerosphere 160-9-4.8 MCG/ACT eCW1 ([facility]) Breztri Aerosphere 160-9-4.8 MCG/ACT Bre[facility]tri Aerosphere 160- 9-4.8 MCG/ACT 02/12/2021 12:00:00 AM EDT 2.0 {puffs} active Breztri Aerosphere 160-9-4.8 MCG/ACT eCW1 ([facility]) Breztri Aerosphere 160-9-4.8 MCG/ACT Bre[facility]tri Aerosphere 160- 9-4.8 MCG/ACT 02/12/2021 12:00:00 AM EDT 2.0 {puffs} active Breztri Aerosphere 160-9-4.8 MCG/ACT eCW1 ([facility]) Breztri Aerosphere 160-9-4.8 MCG/ACT Bre[facility]tri Aerosphere 160- 9-4.8 MCG/ACT 02/12/2021 12:00:00 AM EDT 2.0 {puffs} active Breztri Aerosphere 160-9-4.8 MCG/ACT eCW1 ([facility]) Zofran ODT 4 MG UNK 01/18/2021 12:00:00 AM EDT 1.0 {tablet_on_the_tongue_and_allow_to_dissolve} active Zofran ODT 4 MG eCW1 ([facility]) Zofran ODT 4 MG UNK 01/18/2021 12:00:00 AM EDT 1.0 {tablet_on_the_tongue_and_allow_to_dissolve} active Zofran ODT 4 MG eCW1 ([facility]) doxycycline hyclate 100 MG Oral Capsule Doxycycline Hy clate 100 MG Doxycycline Hyclate 100 MG 01/18/2021 12:00:00 AM EDT 1.0 {capsule} active Doxycycline Hyclate 100 MG eCW1 ([facility]) Zofran ODT 4 MG UNK 01/18/2021 12:00:00 AM EDT 1.0 {tablet_on_the_tongue_and_allow_to_dissolve} active Zofran ODT 4 MG eCW1 ([facility]) Zofran ODT 4 MG UNK 01/18/2021 12:00:00 AM EDT 1.0 {tablet_on_the_tongue_and_allow_to_dissolve} active Zofran ODT 4 MG eCW1 ([facility]) Prednisone 10 MG Oral Tablet predniSONE 10 MG predniSONE 10 MG 01/18/2021 12:00:00 AM EDT active predniSO NE 10 MG eCW1 ([facility]) Prednisone 10 MG Oral Tablet predniSONE 10 MG predniSONE 10 MG 01/18/2021 12:00:00 AM EDT active predniSO NE 10 MG eCW1 ([facility]) Prednisone 10 MG Oral Tablet predniSONE 10 MG predniSONE 10 MG 01/18/2021 12:00:00 AM EDT active predniSO NE 10 MG eCW1 ([facility]) Zofran ODT 4 MG UNK 01/18/2021 12:00:00 AM EDT 1.0 {tablet_on_the_tongue_and_allow_to_dissolve} active Zofran ODT 4 MG eCW1 ([facility]) Zofran ODT 4 MG UNK 01/18/2021 12:00:00 AM EDT 1.0 {tablet_on_the_tongue_and_allow_to_dissolve} active Zofran ODT 4 MG eCW1 ([facility]) doxycycline hyclate 100 MG Oral Capsule Doxycycline Hy clate 100 MG Doxycycline Hyclate 100 MG 01/18/2021 12:00:00 AM EDT 1.0 {capsule} active Doxycycline Hyclate 100 MG eCW1 ([facility]) Zofran ODT 4 MG UNK 01/18/2021 12:00:00 AM EDT 1.0 {tablet_on_the_tongue_and_allow_to_dissolve} active Zofran ODT 4 MG eCW1 ([facility]) doxycycline hyclate 100 MG Oral Capsule Doxycycline Hy clate 100 MG Doxycycline Hyclate 100 MG 01/18/2021 12:00:00 AM EDT 1.0 {capsule} active Doxycycline Hyclate 100 MG eCW1 ([facility]) Prednisone 10 MG Oral Tablet predniSONE 10 MG predniSONE 10 MG 01/18/2021 12:00:00 AM EDT active predniSO NE 10 MG eCW1 ([facility]) doxycycline hyclate 100 MG Oral Capsule Doxycycline Hy clate 100 MG Doxycycline Hyclate 100 MG 01/18/2021 12:00:00 AM EDT 1.0 {capsule} active Doxycycline Hyclate 100 MG eCW1 ([facility]) Prednisone 10 MG Oral Tablet predniSONE 10 MG predniSONE 10 MG 01/18/2021 12:00:00 AM EDT active predniSO NE 10 MG eCW1 ([facility]) Ondansetron 4 MG Disintegrating Oral Tablet ONDANSETRON [...] EDT active predniSO NE 10 MG eCW1 ([facility]) Zofran ODT 4 MG UNK 01/18/2021 12:00:00 AM EDT 1.0 {tablet_on_the_tongue_and_allow_to_dissolve} active Zofran ODT 4 MG eCW1 ([facility]) Prednisone 10 MG Oral Tablet predniSONE 10 MG predniSONE 10 MG 01/18/2021 12:00:00 AM EDT active predniSO NE 10 MG eCW1 ([facility]) Zofran ODT 4 MG UNK 01/18/2021 12:00:00 AM EDT 1.0 {tablet_on_the_tongue_and_allow_to_dissolve} active Zofran ODT 4 MG eCW1 ([facility]) doxycycline hyclate 100 MG Oral Capsule Doxycycline Hy clate 100 MG Doxycycline Hyclate 100 MG 01/18/2021 12:00:00 AM EDT 1.0 {capsule} active Doxycycline Hyclate 100 MG eCW1 ([facility]) doxycycline hyclate 100 MG Oral Capsule DOXYCYCLINE HYCLATE 01/18/2021 12:00:00 AM EDT capsule 20 TAKE ONE CAPSULE TWO TIMES A DAY BY MOUTH TAKE ONE CAPSULE TWO TIMES A DAY BY MOUTH SOLD: 01/18/2021 [facility] doxycycline hyclate 100 MG Oral Capsule Doxycycline Hy clate 100 MG Doxycycline Hyclate 100 MG 01/18/2021 12:00:00 AM EDT 1.0 {capsule} active Doxycycline Hyclate 100 MG eCW1 ([facility]) Prednisone 10 MG Oral Tablet predniSONE 10 MG predniSONE 10 MG 01/18/2021 12:00:00 AM EDT active predniSO NE 10 MG eCW1 ([facility]) doxycycline hyclate 100 MG Oral Capsule Doxycycline Hy clate 100 MG Doxycycline Hyclate 100 MG 01/18/2021 12:00:00 AM EDT 1.0 {capsule} active Doxycycline Hyclate 100 MG eCW1 ([facility]) doxycycline hyclate 100 MG Oral Capsule Doxycycline Hy clate 100 MG Doxycycline Hyclate 100 MG 01/18/2021 12:00:00 AM EDT 1.0 {capsule} active Doxycycline Hyclate 100 MG eCW1 ([facility]) Prednisone 10 MG Oral Tablet predniSONE 10 MG predniSONE 10 MG 01/18/2021 12:00:00 AM EDT active predniSO NE 10 MG eCW1 ([facility]) 10 mg 01/18/2021 12:00:00 AM EDT tablet [...] {capsule} active Doxycycline Hyclate 100 MG eCW1 ([facility]) 200 mg 01/17/2021 12:00:00 AM EDT capsule [...] EST active PredniSO NE 10 MG eCW1 ([facility]) Prednisone 10 MG Oral Tablet PredniSONE 10 MG PredniSONE 10 MG 08/10/2020 12:00:00 AM EST active PredniSO NE 10 MG eCW1 ([facility]) Prednisone 10 MG Oral Tablet PredniSONE 10 MG PredniSONE 10 MG 08/10/2020 12:00:00 AM EST active PredniSO NE 10 MG eCW1 ([facility]) Prednisone 10 MG Oral Tablet PredniSONE 10 MG PredniSONE 10 MG 08/10/2020 12:00:00 AM EST active PredniSO NE 10 MG eCW1 ([facility]) Prednisone 10 MG Oral Tablet PredniSONE 10 MG PredniSONE 10 MG 08/10/2020 12:00:00 AM EST active PredniSO NE 10 MG eCW1 ([facility]) Prednisone 10 MG Oral Tablet PredniSONE 10 MG PredniSONE 10 MG 08/10/2020 12:00:00 AM EST active PredniSO NE 10 MG eCW1 ([facility]) Prednisone 10 MG Oral Tablet PredniSONE 10 MG PredniSONE 10 MG 08/10/2020 12:00:00 AM EST active PredniSO NE 10 MG eCW1 ([facility]) 10 mg 08/10/2020 12:00:00 AM EST tablet [...] 1.0 {lenny} active Clotrimazole 10 MG eCW1 ([facility]) Clotrimazole 10 MG Oral Lozenge Clotrimazole 10 MG 08/07/2020 12:00 :00 AM EST 1.0 {lenny} active Clotrimazole 10 MG eCW1 ([facility]) Clotrimazole 10 MG Oral Lozenge Clotrimazole 10 MG 08/07/2020 12:00 :00 AM EST 1.0 {lenny} active Clotrimazole 10 MG eCW1 ([facility]) Clotrimazole 10 MG Oral Lozenge Clotrimazole 10 MG 08/07/2020 12:00 :00 AM EST 1.0 {lenny} active Clotrimazole 10 MG eCW1 ([facility]) Clotrimazole 10 MG Oral Lozenge Clotrimazole 10 MG 08/07/2020 12:00 :00 AM EST 1.0 {lenny} active Clotrimazole 10 MG eCW1 ([facility]) Clotrimazole 10 MG Oral Lozenge Clotrimazole 10 MG 08/07/2020 12:00 :00 AM EST 1.0 {lenny} active Clotrimazole 10 MG eCW1 ([facility]) Clotrimazole 10 MG Oral Lozenge Clotrimazole 10 MG 08/07/2020 12:00 :00 AM EST 1.0 {lenny} active Clotrimazole 10 MG eCW1 ([facility]) Clotrimazole 10 MG Oral Lozenge Clotrimazole 10 MG 08/07/2020 12:00 :00 AM EST 1.0 {lenny} active Clotrimazole 10 MG eCW1 ([facility]) Clotrimazole 10 MG Oral Lozenge Clotrimazole 10 MG 08/07/2020 12:00 :00 AM EST 1.0 {lenny} active Clotrimazole 10 MG eCW1 ([facility]) Clotrimazole 10 MG Oral Lozenge Clotrimazole 10 MG 08/07/2020 12:00 :00 AM EST 1.0 {lenny} active Clotrimazole 10 MG eCW1 ([facility]) Clotrimazole 10 MG Oral Lozenge Clotrimazole 10 MG 08/07/2020 12:00 :00 AM EST 1.0 {lenny} active Clotrimazole 10 MG eCW1 ([facility]) Clotrimazole 10 MG Oral Lozenge Clotrimazole 10 MG 08/07/2020 12:00 :00 AM EST 1.0 {lenny} active Clotrimazole 10 MG eCW1 ([facility]) Clotrimazole 10 MG Oral Lozenge Clotrimazole 10 MG 08/07/2020 12:00 :00 AM EST 1.0 {lenny} active Clotrimazole 10 MG eCW1 ([facility]) Clotrimazole 10 MG Oral Lozenge Clotrimazole 10 MG 08/07/2020 12:00 :00 AM EST 1.0 {lenny} active Clotrimazole 10 MG eCW1 ([facility]) Clotrimazole 10 MG Oral Lozenge Clotrimazole 10 MG 08/07/2020 12:00 :00 AM EST 1.0 {lenny} active Clotrimazole 10 MG eCW1 ([facility]) Clotrimazole 10 MG Oral Lozenge Clotrimazole 10 MG 08/07/2020 12:00 :00 AM EST 1.0 {lenny} active Clotrimazole 10 MG eCW1 ([facility]) Clotrimazole 10 MG Oral Lozenge Clotrimazole 10 MG 08/07/2020 12:00 :00 AM EST 1.0 {lenny} active Clotrimazole 10 MG eCW1 ([facility]) Clotrimazole 10 MG Oral Lozenge Clotrimazole 10 MG 08/07/2020 12:00 :00 AM EST 1.0 {lenny} active Clotrimazole 10 MG eCW1 ([facility]) Clotrimazole 10 MG Oral Lozenge Clotrimazole 10 MG 08/07/2020 12:00 :00 AM EST 1.0 {lenny} active Clotrimazole 10 MG eCW1 ([facility]) Clotrimazole 10 MG Oral Lozenge Clotrimazole 10 MG 08/07/2020 12:00 :00 AM EST 1.0 {lenny} active Clotrimazole 10 MG eCW1 ([facility]) Clotrimazole 10 MG Oral Lozenge Clotrimazole 10 MG 08/07/2020 12:00 :00 AM EST 1.0 {lenny} active Clotrimazole 10 MG eCW1 ([facility]) 10 mg 08/07/2020 12:00:00 AM EST lenny 72 TAKE ONE TABLET BY MOUTH FIVE TIMES A DAY TAKE ONE TABLET BY MOUTH FIVE TIMES A DAY SOLD: 08/07/2020 Ram Kahub BLOOD-GLUCOSE METER 08/02/2020 12:00:00 AM EST misc [...] AM EST act laura Lancets - eCW1 ([facility]) Lancets - Lancets - 08/01/2020 12:00:00 AM EST act laura Lancets - eCW1 ([facility]) Glucose Monitor Dx E11.9 UNK 08/01/2020 12:00:00 AM EST active Glucose Monitor Dx E11.9 eCW1 ([facility]) Prednisone 20 MG Oral Tablet PredniSONE 20 MG PredniSONE 20 MG 08/01/2020 12:00:00 AM EST 1.0 {tablet_with_food} active PredniSONE 20 MG eCW1 ([facility]) Lancets - Lancets - 08/01/2020 12:00:00 AM EST act laura Lancets - eCW1 ([facility]) Lancets - Lancets - 08/01/2020 12:00:00 AM EST act laura Lancets - eCW1 ([facility]) Glucose Monitor Dx E11.9 UNK 08/01/2020 12:00:00 AM EST active Glucose Monitor Dx E11.9 eCW1 ([facility]) Lancets - Lancets - 08/01/2020 12:00:00 AM EST act laura Lancets - eCW1 ([facility]) Doxycycline Monohydrate 100 MG Oral Capsule Doxycycline [place] hydrate 100 MG 08/01/2020 12:00:00 AM EST 1.0 {capsule} active Doxycycline Monohydrate 100 MG eCW1 ([facility]) Glucose Monitor Dx E11.9 UNK 08/01/2020 12:00:00 AM EST active Glucose Monitor Dx E11.9 eCW1 ([facility]) Prednisone 20 MG Oral Tablet PredniSONE 20 MG PredniSONE 20 MG 08/01/2020 12:00:00 AM EST 1.0 {tablet_with_food} active PredniSONE 20 MG eCW1 ([facility]) Glucose Monitor Dx E11.9 UNK 08/01/2020 12:00:00 AM EST active Glucose Monitor Dx E11.9 eCW1 ([facility]) Glucose Monitor Dx E11.9 UNK 08/01/2020 12:00:00 AM EST active eCW1 ([facility]) Glucose Monitor Dx E11.9 UNK 08/01/2020 12:00:00 AM EST active Glucose Monitor Dx E11.9 eCW1 ([facility]) Glucose Monitor Dx E11.9 UNK 08/01/2020 12:00:00 AM EST active Glucose Monitor Dx E11.9 eCW1 ([facility]) Lancets - Lancets - 08/01/2020 12:00:00 AM EST act laura Lancets - eCW1 ([facility]) Glucose Monitor Dx E11.9 UNK 08/01/2020 12:00:00 AM EST active Glucose Monitor Dx E11.9 eCW1 ([facility]) Glucose Monitor Dx E11.9 UNK 08/01/2020 12:00:00 AM EST active Glucose Monitor Dx E11.9 eCW1 ([facility]) Lancets - Lancets - 08/01/2020 12:00:00 AM EST act laura Lancets - eCW1 ([facility]) Lancets - Lancets - 08/01/2020 12:00:00 AM EST act laura Lancets - eCW1 ([facility]) Lancets - Lancets - 08/01/2020 12:00:00 AM EST act laura Lancets - eCW1 ([facility]) Doxycycline Monohydrate 100 MG Oral Capsule Doxycycline [place] hydrate 100 MG 08/01/2020 12:00:00 AM EST 1.0 {capsule} active Doxycycline Monohydrate 100 MG eCW1 ([facility]) Glucose Monitor Dx E11.9 UNK 08/01/2020 12:00:00 AM EST active Glucose Monitor Dx E11.9 eCW1 ([facility]) Lancets - Lancets - 08/01/2020 12:00:00 AM EST act laura Lancets - eCW1 ([facility]) Prednisone 20 MG Oral Tablet PredniSONE 20 MG PredniSONE 20 MG 08/01/2020 12:00:00 AM EST 1.0 {tablet_with_food} active PredniSONE 20 MG eCW1 ([facility]) Glucose Monitor Dx E11.9 UNK 08/01/2020 12:00:00 AM EST active Glucose Monitor Dx E11.9 eCW1 ([facility]) Doxycycline Monohydrate 100 MG Oral Capsule Doxycycline [place] hydrate 100 MG 08/01/2020 12:00:00 AM EST 1.0 {capsule} active Doxycycline Monohydrate 100 MG eCW1 ([facility]) Glucose Monitor Dx E11.9 UNK 08/01/2020 12:00:00 AM EST active Glucose Monitor Dx E11.9 eCW1 ([facility]) Prednisone 20 MG Oral Tablet PredniSONE 20 MG PredniSONE 20 MG 08/01/2020 12:00:00 AM EST 1.0 {tablet_with_food} active PredniSONE 20 MG eCW1 ([facility]) Lancets - Lancets - 08/01/2020 12:00:00 AM EST act laura Lancets - eCW1 ([facility]) Prednisone 20 MG Oral Tablet PredniSONE 20 MG PredniSONE 20 MG 08/01/2020 12:00:00 AM EST 1.0 {tablet_with_food} active PredniSONE 20 MG eCW1 ([facility]) Lancets - Lancets - 08/01/2020 12:00:00 AM EST act laura Lancets - eCW1 ([facility]) Lancets - Lancets - 08/01/2020 12:00:00 AM EST act laura Lancets - eCW1 ([facility]) 100 mg 08/01/2020 12:00:00 AM EST capsule 20 TAKE ONE CAPSULE BY MOUTH TWICE A DAY TAKE ONE CAPSULE BY MOUTH TWICE A DAY SOLD: 08/02/2020 [facility] Doxycycline Monohydrate 100 MG Oral Capsule Doxycycline [place] hydrate 100 MG 08/01/2020 12:00:00 AM EST 1.0 {capsule} active Doxycycline Monohydrate 100 MG eCW1 ([facility]) Lancets - Lancets - 08/01/2020 12:00:00 AM EST act laura Lancets - eCW1 ([facility]) Doxycycline Monohydrate 100 MG Oral Capsule Doxycycline [place] hydrate 100 MG 08/01/2020 12:00:00 AM EST 1.0 {capsule} active Doxycycline Monohydrate 100 MG eCW1 ([facility]) Lancets - Lancets - 08/01/2020 12:00:00 AM EST act laura Lancets - eCW1 ([facility]) Glucose Monitor Dx E11.9 UNK 08/01/2020 12:00:00 AM EST active Glucose Monitor Dx E11.9 eCW1 ([facility]) Lancets - Lancets - 08/01/2020 12:00:00 AM EST act laura Lancets - eCW1 ([facility]) Lancets - Lancets - 08/01/2020 12:00:00 AM EST act laura Lancets - eCW1 ([facility]) Doxycycline Monohydrate 100 MG Oral Capsule Doxycycline [place] hydrate 100 MG 08/01/2020 12:00:00 AM EST 1.0 {capsule} active Doxycycline Monohydrate 100 MG eCW1 ([facility]) Lancets - Lancets - 08/01/2020 12:00:00 AM EST act laura Lancets - eCW1 ([facility]) Doxycycline Monohydrate 100 MG Oral Capsule Doxycycline [place] hydrate 100 MG 08/01/2020 12:00:00 AM EST 1.0 {capsule} active Doxycycline Monohydrate 100 MG eCW1 ([facility]) Prednisone 20 MG Oral Tablet PredniSONE 20 MG PredniSONE 20 MG 08/01/2020 12:00:00 AM EST 1.0 {tablet_with_food} active PredniSONE 20 MG eCW1 ([facility]) Prednisone 20 MG Oral Tablet PredniSONE 20 MG PredniSONE 20 MG 08/01/2020 12:00:00 AM EST 1.0 {tablet_with_food} active PredniSONE 20 MG eCW1 ([facility]) Doxycycline Monohydrate 100 MG Oral Capsule Doxycycline [place] hydrate 100 MG 08/01/2020 12:00:00 AM EST 1.0 {capsule} active Doxycycline Monohydrate 100 MG eCW1 ([facility]) Lancets - Lancets - 08/01/2020 12:00:00 AM EST act laura Lancets - eCW1 ([facility]) Doxycycline Monohydrate 100 MG Oral Capsule Doxycycline [place] hydrate 100 MG 08/01/2020 12:00:00 AM EST 1.0 {capsule} active Doxycycline Monohydrate 100 MG eCW1 ([facility]) Glucose Monitor Dx E11.9 UNK 08/01/2020 12:00:00 AM EST active Glucose Monitor Dx E11.9 eCW1 ([facility]) Prednisone 20 MG Oral Tablet PredniSONE 20 MG PredniSONE 20 MG 08/01/2020 12:00:00 AM EST 1.0 {tablet_with_food} active PredniSONE 20 MG eCW1 ([facility]) Glucose Monitor Dx E11.9 UNK 08/01/2020 12:00:00 AM EST active Glucose Monitor Dx E11.9 eCW1 ([facility]) Prednisone 20 MG Oral Tablet PredniSONE 20 MG PredniSONE 20 MG 08/01/2020 12:00:00 AM EST 1.0 {tablet_with_food} active PredniSONE 20 MG eCW1 ([facility]) Lancets - Lancets - 08/01/2020 12:00:00 AM EST act laura Lancets - eCW1 ([facility]) Glucose Monitor Dx E11.9 UNK 08/01/2020 12:00:00 AM EST active Glucose Monitor Dx E11.9 eCW1 ([facility]) 137 mcg (0.1 %) 08/01/2020 12:00:00 AM EST aerosol,spray 30 SPRAY TWO SPRAYS IN EACH NOSTRIL TWICE A DAY SPRAY TWO SPRAYS IN EACH NOSTRIL TWICE A DAY SOLD: 08/02/2020 [facility] Lancets - Lancets - 08/01/2020 12:00:00 AM EST act laura Lancets - eCW1 ([facility]) Glucose Monitor Dx E11.9 UNK 08/01/2020 12:00:00 AM EST active Glucose Monitor Dx E11.9 eCW1 ([facility]) Glucose Monitor Dx E11.9 UNK 08/01/2020 12:00:00 AM EST active Glucose Monitor Dx E11.9 eCW1 ([facility]) Glucose Monitor Dx E11.9 UNK 08/01/2020 12:00:00 AM EST active Glucose Monitor Dx E11.9 eCW1 ([facility]) Glucose Monitor Dx E11.9 UNK 08/01/2020 12:00:00 AM EST active Glucose Monitor Dx E11.9 eCW1 ([facility]) Glucose Monitor Dx E11.9 UNK 08/01/2020 12:00:00 AM EST active Glucose Monitor Dx E11.9 eCW1 ([facility]) Lancets - Lancets - 08/01/2020 12:00:00 AM EST act laura Lancets - eCW1 ([facility]) Doxycycline Monohydrate 100 MG Oral Capsule Doxycycline [place] hydrate 100 MG 08/01/2020 12:00:00 AM EST 1.0 {capsule} active Doxycycline Monohydrate 100 MG eCW1 ([facility]) Prednisone 20 MG Oral Tablet PredniSONE 20 MG PredniSONE 20 MG 08/01/2020 12:00:00 AM EST 1.0 {tablet_with_food} active PredniSONE 20 MG eCW1 ([facility]) Prednisone 20 MG Oral Tablet PredniSONE 20 MG PredniSONE 20 MG 08/01/2020 12:00:00 AM EST 1.0 {tablet_with_food} active PredniSONE 20 MG eCW1 ([facility]) Lancets - Lancets - 08/01/2020 12:00:00 AM EST act laura Lancets - eCW1 ([facility]) Glucose Monitor Dx E11.9 UNK 08/01/2020 12:00:00 AM EST active Glucose Monitor Dx E11.9 eCW1 ([facility]) Glucose Monitor Dx E11.9 UNK 08/01/2020 12:00:00 AM EST active Glucose Monitor Dx E11.9 eCW1 ([facility]) Lancets - Lancets - 08/01/2020 12:00:00 AM EST act laura Lancets - eCW1 ([facility]) Glucose Monitor Dx E11.9 UNK 08/01/2020 12:00:00 AM EST active Glucose Monitor Dx E11.9 eCW1 ([facility]) Glucose Monitor Dx E11.9 UNK 08/01/2020 12:00:00 AM EST active Glucose Monitor Dx E11.9 eCW1 ([facility]) Glucose Monitor Dx E11.9 UNK 08/01/2020 12:00:00 AM EST active Glucose Monitor Dx E11.9 eCW1 ([facility]) Glucose Monitor Dx E11.9 UNK 08/01/2020 12:00:00 AM EST active Glucose Monitor Dx E11.9 eCW1 ([facility]) Prednisone 20 MG Oral Tablet PredniSONE 20 MG PredniSONE 20 MG 08/01/2020 12:00:00 AM EST 1.0 {tablet_with_food} active PredniSONE 20 MG eCW1 ([facility]) Prednisone 20 MG Oral Tablet PredniSONE 20 MG PredniSONE 20 MG 08/01/2020 12:00:00 AM EST 1.0 {tablet_with_food} active PredniSONE 20 MG eCW1 ([facility]) Prednisone 20 MG Oral Tablet PredniSONE 20 MG PredniSONE 20 MG 08/01/2020 12:00:00 AM EST 1.0 {tablet_with_food} active PredniSONE 20 MG eCW1 ([facility]) Glucose Monitor Dx E11.9 UNK 08/01/2020 12:00:00 AM EST active Glucose Monitor Dx E11.9 eCW1 ([facility]) Lancets - Lancets - 08/01/2020 12:00:00 AM EST act laura Lancets - eCW1 ([facility]) Glucose Monitor Dx E11.9 UNK 08/01/2020 12:00:00 AM EST active Glucose Monitor Dx E11.9 eCW1 ([facility]) Lancets - Lancets - 08/01/2020 12:00:00 AM EST act laura Lancets - eCW1 ([facility]) Lancets - Lancets - 08/01/2020 12:00:00 AM EST act laura Lancets - eCW1 ([facility]) Lancets - Lancets - 08/01/2020 12:00:00 AM EST act laura eCW1 ([facility]) Prednisone 20 MG Oral Tablet PredniSONE 20 MG PredniSONE 20 MG 08/01/2020 12:00:00 AM EST 1.0 {tablet_with_food} active PredniSONE 20 MG eCW1 ([facility]) Glucose Monitor Dx E11.9 UNK 08/01/2020 12:00:00 AM EST active Glucose Monitor Dx E11.9 eCW1 ([facility]) Doxycycline Monohydrate 100 MG Oral Capsule Doxycycline [place] hydrate 100 MG 08/01/2020 12:00:00 AM EST 1.0 {capsule} active Doxycycline Monohydrate 100 MG eCW1 ([facility]) Lancets - Lancets - 08/01/2020 12:00:00 AM EST act laura Lancets - eCW1 ([facility]) Doxycycline Monohydrate 100 MG Oral Capsule Doxycycline [place] hydrate 100 MG 08/01/2020 12:00:00 AM EST 1.0 {capsule} active Doxycycline Monohydrate 100 MG eCW1 ([facility]) Lancets - Lancets - 08/01/2020 12:00:00 AM EST act laura Lancets - eCW1 ([facility]) Glucose Monitor Dx E11.9 UNK 08/01/2020 12:00:00 AM EST active Glucose Monitor Dx E11.9 eCW1 ([facility]) Doxycycline Monohydrate 100 MG Oral Capsule Doxycycline [place] hydrate 100 MG 08/01/2020 12:00:00 AM EST 1.0 {capsule} active Doxycycline Monohydrate 100 MG eCW1 ([facility]) Lancets - Lancets - 08/01/2020 12:00:00 AM EST act laura Lancets - eCW1 ([facility]) Doxycycline Monohydrate 100 MG Oral Capsule Doxycycline [place] hydrate 100 MG 08/01/2020 12:00:00 AM EST 1.0 {capsule} active Doxycycline Monohydrate 100 MG eCW1 ([facility]) Doxycycline Monohydrate 100 MG Oral Capsule Doxycycline [place] hydrate 100 MG 08/01/2020 12:00:00 AM EST 1.0 {capsule} active Doxycycline Monohydrate 100 MG eCW1 ([facility]) Glucose Monitor Dx E11.9 UNK 08/01/2020 12:00:00 AM EST active Glucose Monitor Dx E11.9 eCW1 ([facility]) Glucose Monitor Dx E11.9 UNK 08/01/2020 12:00:00 AM EST active Glucose Monitor Dx E11.9 eCW1 ([facility]) Prednisone 20 MG Oral Tablet PredniSONE 20 MG PredniSONE 20 MG 08/01/2020 12:00:00 AM EST 1.0 {tablet_with_food} active PredniSONE 20 MG eCW1 ([facility]) Prednisone 20 MG Oral Tablet PredniSONE 20 MG PredniSONE 20 MG 08/01/2020 12:00:00 AM EST 1.0 {tablet_with_food} active PredniSONE 20 MG eCW1 ([facility]) Doxycycline Monohydrate 100 MG Oral Capsule Doxycycline [place] hydrate 100 MG 08/01/2020 12:00:00 AM EST 1.0 {capsule} active Doxycycline Monohydrate 100 MG eCW1 ([facility]) Lancets - Lancets - 08/01/2020 12:00:00 AM EST act laura Lancets - eCW1 ([facility]) Glucose Monitor Dx E11.9 UNK 08/01/2020 12:00:00 AM EST active Glucose Monitor Dx E11.9 eCW1 ([facility]) Lancets - Lancets - 08/01/2020 12:00:00 AM EST act laura Lancets - eCW1 ([facility]) Prednisone 20 MG Oral Tablet PredniSONE 20 MG PredniSONE 20 MG 08/01/2020 12:00:00 AM EST 1.0 {tablet_with_food} active PredniSONE 20 MG eCW1 ([facility]) Lancets - Lancets - 08/01/2020 12:00:00 AM EST act laura Lancets - eCW1 ([facility]) Doxycycline Monohydrate 100 MG Oral Capsule Doxycycline [place] hydrate 100 MG 08/01/2020 12:00:00 AM EST 1.0 {capsule} active Doxycycline Monohydrate 100 MG eCW1 ([facility]) Glucose Monitor Dx E11.9 UNK 08/01/2020 12:00:00 AM EST active Glucose Monitor Dx E11.9 eCW1 ([facility]) Lancets - Lancets - 08/01/2020 12:00:00 AM EST act laura Lancets - eCW1 ([facility]) Glucose Monitor Dx E11.9 UNK 08/01/2020 12:00:00 AM EST active Glucose Monitor Dx E11.9 eCW1 ([facility]) Doxycycline Monohydrate 100 MG Oral Capsule Doxycycline [place] hydrate 100 MG 08/01/2020 12:00:00 AM EST 1.0 {capsule} active Doxycycline Monohydrate 100 MG eCW1 ([facility]) Prednisone 20 MG Oral Tablet PredniSONE 20 MG PredniSONE 20 MG 08/01/2020 12:00:00 AM EST 1.0 {tablet_with_food} active PredniSONE 20 MG eCW1 ([facility]) Lancets - Lancets - 08/01/2020 12:00:00 AM EST act laura Lancets - eCW1 ([facility]) Glucose Monitor Dx E11.9 UNK 08/01/2020 12:00:00 AM EST active Glucose Monitor Dx E11.9 eCW1 ([facility]) 20 mg 08/01/2020 12:00:00 AM EST tablet 10 TAKE ONE TABLET BY MOUTH TWICE A DAY WITH FOOD TAKE ONE TABLET BY MOUTH TWICE A DAY WITH FOOD SOLD: 08/02/2020 [facility] Lancets - Lancets - 08/01/2020 12:00:00 AM EST act laura Lancets - eCW1 ([facility]) Glucose Monitor Dx E11.9 UNK 08/01/2020 12:00:00 AM EST active Glucose Monitor Dx E11.9 eCW1 ([facility]) Prednisone 20 MG Oral Tablet PredniSONE 20 MG PredniSONE 20 MG 08/01/2020 12:00:00 AM EST 1.0 {tablet_with_food} active PredniSONE 20 MG eCW1 ([facility]) Doxycycline Monohydrate 100 MG Oral Capsule Doxycycline [place] hydrate 100 MG 08/01/2020 12:00:00 AM EST 1.0 {capsule} active Doxycycline Monohydrate 100 MG eCW1 ([facility]) Glucose Monitor Dx E11.9 UNK 08/01/2020 12:00:00 AM EST active Glucose Monitor Dx E11.9 eCW1 ([facility]) Lancets - Lancets - 08/01/2020 12:00:00 AM EST act laura Lancets - eCW1 ([facility]) Doxycycline Monohydrate 100 MG Oral Capsule Doxycycline [place] hydrate 100 MG 08/01/2020 12:00:00 AM EST 1.0 {capsule} active Doxycycline Monohydrate 100 MG eCW1 ([facility]) Prednisone 20 MG Oral Tablet PredniSONE 20 MG PredniSONE 20 MG 08/01/2020 12:00:00 AM EST 1.0 {tablet_with_food} active PredniSONE 20 MG eCW1 ([facility]) Lancets - Lancets - 08/01/2020 12:00:00 AM EST act laura Lancets - eCW1 ([facility]) Prednisone 20 MG Oral Tablet PredniSONE 20 MG PredniSONE 20 MG 08/01/2020 12:00:00 AM EST 1.0 {tablet_with_food} active PredniSONE 20 MG eCW1 ([facility]) Glucose Monitor Dx E11.9 UNK 08/01/2020 12:00:00 AM EST active Glucose Monitor Dx E11.9 eCW1 ([facility]) Lancets - Lancets - 08/01/2020 12:00:00 AM EST act laura Lancets - eCW1 ([facility]) Doxycycline Monohydrate 100 MG Oral Capsule Doxycycline [place] hydrate 100 MG 08/01/2020 12:00:00 AM EST 1.0 {capsule} active Doxycycline Monohydrate 100 MG eCW1 ([facility]) Lancets - Lancets - 08/01/2020 12:00:00 AM EST act laura Lancets - eCW1 ([facility]) Doxycycline Monohydrate 100 MG Oral Capsule Doxycycline [place] hydrate 100 MG 08/01/2020 12:00:00 AM EST 1.0 {capsule} active Doxycycline Monohydrate 100 MG eCW1 ([facility]) Glucose Monitor Dx E11.9 UNK 08/01/2020 12:00:00 AM EST active Glucose Monitor Dx E11.9 eCW1 ([facility]) 117 mg/0.75 mL 07/31/2020 12:00:00 AM EST [...] active Fluticasone Furoate-V ilanterol 100-25 MCG/INH eCW1 ([facility]) Fluticasone Furoate-Vilanterol 100-25 MCG/INH UNK 07/18/20 12:00:00 AM EST 1.0 {puff} active Fluticasone Furoate-V ilanterol 100-25 MCG/INH eCW1 ([facility]) 28 ACTUAT tiotropium 0.0025 MG/ACTUAT Me tered Dose Inhaler [Spiriva] Spiriva Respimat 2.5 MCG/ACT Spiriva Respimat 2.5 MCG/ACT 07/18/2020 12:00:00 AM EST 2.0 {puffs} active Spiriva Respimat 2.5 MCG/ACT eCW1 ([facility]) 28 ACTUAT tiotropium 0.0025 MG/ACTUAT Me tered Dose Inhaler [Spiriva] Spiriva Respimat 2.5 MCG/ACT Spiriva Respimat 2.5 MCG/ACT 07/18/2020 12:00:00 AM EST 2.0 {puffs} active Spiriva Respimat 2.5 MCG/ACT eCW1 ([facility]) Meclizine Hydrochloride 25 MG Oral Tablet MECLIZINE [...] AM EDT active Azithromycin 250 MG eCW1 ([facility]) Prednisone 20 MG Oral Tablet PredniSONE 20 MG PredniSONE 20 MG 05/15/2020 12:00:00 AM EDT active PredniSO NE 20 MG eCW1 ([facility]) Azithromycin 250 MG Oral Tablet Azithromycin 250 MG 05/15/2020 1 2:00:00 AM EDT active Azithromycin 250 MG eCW1 ([facility]) Azithromycin 250 MG Oral Tablet Azithromycin 250 MG 05/15/2020 1 2:00:00 AM EDT active Azithromycin 250 MG eCW1 ([facility]) Prednisone 20 MG Oral Tablet PredniSONE 20 MG PredniSONE 20 MG 05/15/2020 12:00:00 AM EDT active PredniSO NE 20 MG eCW1 ([facility]) Azithromycin 250 MG Oral Tablet Azithromycin 250 MG 05/15/2020 1 2:00:00 AM EDT active Azithromycin 250 MG eCW1 ([facility]) Azithromycin 250 MG Oral Tablet Azithromycin 250 MG 05/15/2020 1 2:00:00 AM EDT active Azithromycin 250 MG eCW1 ([facility]) Azithromycin 250 MG Oral Tablet Azithromycin 250 MG 05/15/2020 1 2:00:00 AM EDT active Azithromycin 250 MG eCW1 ([facility]) Azithromycin 250 MG Oral Tablet Azithromycin 250 MG 05/15/2020 1 2:00:00 AM EDT active Azithromycin 250 MG eCW1 ([facility]) Azithromycin 250 MG Oral Tablet Azithromycin 250 MG 05/15/2020 1 2:00:00 AM EDT active Azithromycin 250 MG eCW1 ([facility]) Azithromycin 250 MG Oral Tablet Azithromycin 250 MG 05/15/2020 1 2:00:00 AM EDT active Azithromycin 250 MG eCW1 ([facility]) Azithromycin 250 MG Oral Tablet Azithromycin 250 MG 05/15/2020 1 2:00:00 AM EDT active Azithromycin 250 MG eCW1 ([facility]) Azithromycin 250 MG Oral Tablet Azithromycin 250 MG 05/15/2020 1 2:00:00 AM EDT active Azithromycin 250 MG eCW1 ([facility]) Azithromycin 250 MG Oral Tablet Azithromycin 250 MG 05/15/2020 1 2:00:00 AM EDT active Azithromycin 250 MG eCW1 ([facility]) Azithromycin 250 MG Oral Tablet Azithromycin 250 MG 05/15/2020 1 2:00:00 AM EDT active Azithromycin 250 MG eCW1 ([facility]) Prednisone 20 MG Oral Tablet PredniSONE 20 MG PredniSONE 20 MG 05/15/2020 12:00:00 AM EDT active PredniSO NE 20 MG eCW1 ([facility]) Azithromycin 250 MG Oral Tablet Azithromycin 250 MG 05/15/2020 1 2:00:00 AM EDT active Azithromycin 250 MG eCW1 ([facility]) Azithromycin 250 MG Oral Tablet Azithromycin 250 MG 05/15/2020 1 2:00:00 AM EDT active Azithromycin 250 MG eCW1 ([facility]) Prednisone 20 MG Oral Tablet PredniSONE 20 MG PredniSONE 20 MG 05/15/2020 12:00:00 AM EDT active PredniSO NE 20 MG eCW1 ([facility]) Azithromycin 250 MG Oral Tablet Azithromycin 250 MG 05/15/2020 1 2:00:00 AM EDT active Azithromycin 250 MG eCW1 ([facility]) Azithromycin 250 MG Oral Tablet Azithromycin 250 MG 05/15/2020 1 2:00:00 AM EDT active Azithromycin 250 MG eCW1 ([facility]) Azithromycin 250 MG Oral Tablet Azithromycin 250 MG 05/15/2020 1 2:00:00 AM EDT active Azithromycin 250 MG eCW1 ([facility]) Azithromycin 250 MG Oral Tablet Azithromycin 250 MG 05/15/2020 1 2:00:00 AM EDT active Azithromycin 250 MG eCW1 ([facility]) Azithromycin 250 MG Oral Tablet Azithromycin 250 MG 05/15/2020 1 2:00:00 AM EDT active Azithromycin 250 MG eCW1 ([facility]) Prednisone 20 MG Oral Tablet PredniSONE 20 MG PredniSONE 20 MG 05/15/2020 12:00:00 AM EDT active PredniSO NE 20 MG eCW1 ([facility]) Azithromycin 250 MG Oral Tablet Azithromycin 250 MG 05/15/2020 1 2:00:00 AM EDT active Azithromycin 250 MG eCW1 ([facility]) Azithromycin 250 MG Oral Tablet Azithromycin 250 MG 05/15/2020 1 2:00:00 AM EDT active Azithromycin 250 MG eCW1 ([facility]) Azithromycin 250 MG Oral Tablet Azithromycin 250 MG 05/15/2020 1 2:00:00 AM EDT active Azithromycin 250 MG eCW1 ([facility]) Azithromycin 250 MG Oral Tablet Azithromycin 250 MG 05/15/2020 1 2:00:00 AM EDT active Azithromycin 250 MG eCW1 ([facility]) Prednisone 20 MG Oral Tablet PredniSONE 20 MG PredniSONE 20 MG 05/15/2020 12:00:00 AM EDT active PredniSO NE 20 MG eCW1 ([facility]) Prednisone 20 MG Oral Tablet PredniSONE 20 MG PredniSONE 20 MG 05/15/2020 12:00:00 AM EDT active PredniSO NE 20 MG eCW1 ([facility]) Azithromycin 250 MG Oral Tablet Azithromycin 250 MG 05/15/2020 1 2:00:00 AM EDT active Azithromycin 250 MG eCW1 ([facility]) Prednisone 20 MG Oral Tablet PredniSONE 20 MG PredniSONE 20 MG 05/15/2020 12:00:00 AM EDT active PredniSO NE 20 MG eCW1 ([facility]) Prednisone 20 MG Oral Tablet PredniSONE 20 MG PredniSONE 20 MG 05/15/2020 12:00:00 AM EDT active PredniSO NE 20 MG eCW1 ([facility]) Azithromycin 250 MG Oral Tablet Azithromycin 250 MG 05/15/2020 1 2:00:00 AM EDT active Azithromycin 250 MG eCW1 ([facility]) Prednisone 20 MG Oral Tablet PredniSONE 20 MG PredniSONE 20 MG 05/15/2020 12:00:00 AM EDT active PredniSO NE 20 MG eCW1 ([facility]) Azithromycin 250 MG Oral Tablet Azithromycin 250 MG 05/15/2020 1 2:00:00 AM EDT active Azithromycin 250 MG eCW1 ([facility]) Azithromycin 250 MG Oral Tablet Azithromycin 250 MG 05/15/2020 1 2:00:00 AM EDT active Azithromycin 250 MG eCW1 ([facility]) Azithromycin 250 MG Oral Tablet Azithromycin 250 MG 05/15/2020 1 2:00:00 AM EDT active Azithromycin 250 MG eCW1 ([facility]) Azithromycin 250 MG Oral Tablet Azithromycin 250 MG 05/15/2020 1 2:00:00 AM EDT active Azithromycin 250 MG eCW1 ([facility]) Azithromycin 250 MG Oral Tablet Azithromycin 250 MG 05/15/2020 1 2:00:00 AM EDT active Azithromycin 250 MG eCW1 ([facility]) Prednisone 20 MG Oral Tablet PredniSONE 20 MG PredniSONE 20 MG 05/15/2020 12:00:00 AM EDT active PredniSO NE 20 MG eCW1 ([facility]) Prednisone 20 MG Oral Tablet PredniSONE 20 MG PredniSONE 20 MG 05/15/2020 12:00:00 AM EDT active PredniSO NE 20 MG eCW1 ([facility]) Azithromycin 250 MG Oral Tablet Azithromycin 250 MG 05/15/2020 1 2:00:00 AM EDT active Azithromycin 250 MG eCW1 ([facility]) Azithromycin 250 MG Oral Tablet Azithromycin 250 MG 05/15/2020 1 2:00:00 AM EDT active Azithromycin 250 MG eCW1 ([facility]) Azithromycin 250 MG Oral Tablet Azithromycin 250 MG 05/15/2020 1 2:00:00 AM EDT active Azithromycin 250 MG eCW1 ([facility]) Prednisone 20 MG Oral Tablet PredniSONE 20 MG PredniSONE 20 MG 05/15/2020 12:00:00 AM EDT active PredniSO NE 20 MG eCW1 ([facility]) Prednisone 20 MG Oral Tablet PredniSONE 20 MG PredniSONE 20 MG 05/15/2020 12:00:00 AM EDT active PredniSO NE 20 MG eCW1 ([facility]) 100-62.5-25 mcg 05/14/2020 12:00:00 AM EDT blister with monica ce 60 INHALE ONE PUFF BY MOUTH EVERY DAY INHALE ONE PUFF BY MOUTH EVERY DAY SOLD: 05/14/2020 [facility] doxycycline hyclate 100 MG Oral Capsule DOXYCYCLINE HYCLATE 05/08/2020 12:00:00 AM EDT capsule 20 TAKE ONE CAPSULE BY MOUTH TW ICE A DAY TAKE ONE CAPSULE BY MOUTH TWICE A DAY SOLD: 05/08/2020 [facility] doxycycline hyclate 100 MG Oral Capsule Doxycycline Hy clate 100 MG Doxycycline Hyclate 100 MG 05/08/2020 12:00:00 AM EDT 1.0 {capsule} active Doxycycline Hyclate 100 MG eCW1 ([facility]) doxycycline hyclate 100 MG Oral Capsule Doxycycline Hy clate 100 MG Doxycycline Hyclate 100 MG 05/08/2020 12:00:00 AM EDT 1.0 {capsule} active Doxycycline Hyclate 100 MG eCW1 ([facility]) doxycycline hyclate 100 MG Oral Capsule Doxycycline Hy clate 100 MG Doxycycline Hyclate 100 MG 05/08/2020 12:00:00 AM EDT 1.0 {capsule} active Doxycycline Hyclate 100 MG eCW1 ([facility]) Azelastine hydrochloride 0.206 MG/ACTUAT Metered Dose Nasal [place] 0.15 % (205.5 mcg) AZELASTINE HCL 05/08/2020 [...] to zamudio Policy [employer] Plan Information MEDICARE [id number] SP [id number] A Medicare C [id number] SELF [id number] MEDICARE [id number] SP [id number] U93 [id number] A MEDICARE [id number] SP [id number] A [facility] MEDICARE DUAL G [id number] Self [id number] MEDICARE [id number] Tere [id number] A [facility] MEDICARE DUAL G [id number] Self [id number] MEDICARE [id number] SP [id number] A MEDICARE A [id number] Self [id number] A Medicaid [facility] S D [id number] SELF [id number] Medicare C [id number] SELF [id number] [place] [facility] [place] [facility] C [id number] SELF [id number] [place] [id number] Self [id number] MEDICARE A [id number] Self [id number] MEDICARE [id number] SP [id number] [id number] [place] Primary [id number] Self [id number] [place] Primary [id number] Self [id number] [place] Primary [id number] Self [id number] [place] Medicare Primary [id number] 2.16.840.1.888987.3.227.99.991.26779.0 Self 4 [id number] Medicare [place] Medicare Primary [id number] 2.16.840.1.570577.3.227.99.991.13505.0 Self 4 [id number] Medicare [place] Medicare Primary [id number] 2.16.840.1.793502.3.227.99.991.78935.0 Self 4 [id number] Medicaid [facility] Part B [id number] 2.16.840.1.878807.3.227.99.991. 69948.0 Self [id number] Medicare [place] Medicare Primary [id number] 2.16.840.1.001922.3.227.99.991.31854.0 Self 4 [id number] Medicare [place] Medicare Primary [id number] 2.16.840.1.579638.3.227.99.991.97356.0 Self 4 [id number] MEDICAID M [id number] Self [id number] [facility] [id number] SP [id number] MEDICAID [facility] [id number] SP CN [id number] MEDICAID [id number] [place] [id number] Medicaid [facility] S D [id number] SELF [id number] Medicare C [id number] SELF [id number] A MEDICAID [id number] SP [id number] [facility] UNITED MEDICARE DUAL G [id number] Self [id number] [facility] Comm Dual Plan Commercial [id number] 2.840.1.752618.3.22 7.99.936.73624.0 Self [id number] [facility] Comm Dual Plan Commercial [id number] 7.99.936.83494.0 Self [id number] [facility] Comm Dual Plan Commercial [id number] MRN.[id number]-rsdb-8r4yht2a3vep Self [id number] [facility] MEDICARE DUAL G [id number] Self [id number] [facility] MEDICARE DUAL G [id number] Self [id number] ANSI-Not a Secondary Insurance [id number]-4e23-8c6l-3320-l1998 60c66fj 5v0885un-5v56-4w7b-5256-d184353d78ds ANSI-Medicare Part B [id number] ANSI-Medicaid [id number] ANSI-Commercial [id number]-b22t-752f-rk43-we894m3071jv 3s415273-f60o-919o-ta19-ku273c4937go ANSI-Medicare Part B [id number]-[id number] ANSI-Not a Secondary Insurance [id number]-n6i9-07j7-1pts-4u66s 534f92i 2orj38y1-l2x3-44h3-0uai-0x12y438g44o ANSI-Medicaid [id number] ANSI-Commercial [id number]-p5s3-5q6o-15r5-0104p16k7fd7 541915pw-f3i8-4d1w-60g8-9540e23v6qv1 ANSI-Medicare Part B [id number]-[id number] ANSI-Not a Secondary Insurance [id number]-n02e-05z4-5czo-1lh66 v81j34q 22z75872-x08m-26b5-2foi-7sx30m70g11g ANSI-Medicaid [id number]-gd8p-[id number] ANSI-Not a Secondary Insurance 15f36qo7-3500-875f-959b-gj6m3 35w1r52 86w02rf2-9022-689v-196q-bx1w089u2e23 ANSI-Commercial 986u6s8s-8417-7f64-c940-d7f0645vmc87 891l2w9e-3317-0k01-s701-u3t4466fan80 ANSI-Medicare Part B [id number] ce5oxpg3-4bbk-45cs-9klv-c85360v51g1w ANSI-Not a Secondary Insurance [id number]-934c-a1y36 eec5wr0 4xc31o81-6207-8z9d-828j-g7h01ltp0ug7 ANSI-Medicaid [id number] ANSI-Commercial y1t738h0-672f-6fh5-p5e4-a245g7zh202q i5y664q2-584z-0oe3-i6w1-u008m4hr080m ANSI-Medicare Part B [id number]-9l29-406u-e6if-[id number] ANSI-Commercial 377814se-30n2-3z98-94yu-7395301j8295 682709cr-55k3-7x31-17il-6963949u7046 ANSI-Medicare Part B [id number]-a31t-[id number] 5w5fy4t9-0ry3-38dq-y77x-ze4306qkvw77 ANSI-Not a Secondary Insurance 95f2k223-8bz2-0177-9x8e-oiiv8 usz1772 27j4o954-7bm0-4195-7f2k-ywkg0xtj5948 ANSI-Medicaid [id number]-4i33-67ku-4l1b-761b2au02f3l ANSI-Medicaid [id number]-ax99-5jrwtxf47d8v ANSI-Commercial 1042yr3p-b4bi-0hev-799b-51h3g93ql395 1836qm2a-u8ca-7qio-245z-01c4e16ad890 ANSI-Not a Secondary Insurance 6vjp209o-9l57-7t15-hv56-49y79 8v87218 9fnm456r-6f27-7u41-bf56-47a445t68003 ANSI-Medicare Part B [id number]-[id number] 50l0589z-p06e-5cwb-p870-q8ld62566370 ANSI-Not a Secondary Insurance uc508n1e-7459-3e83-w12z-67818 n070698 mm175w6q-5397-0d03-g31j-04305j655140 ANSI-Commercial m0225113-80u9-5l2x-x6yx-39930p00z5j1 r4632168-81j5-6x0l-b5ta-64787o41v4x6 ANSI-Medicaid [id number]-[id number] ANSI-Medicare Part B [id number]-[id number]-[id number] 44q8g7m4-v66q-4803-0v32-u759jz5821ds ANSI-Not a Secondary Insurance 21o458w0-3769-3020-800b-32y20 c2m2d79 33c439z5-7235-9925-910u-08v34g4d5f93 ANSI-Medicare Part B [id number]-7nnt-y3wz-[id number] 181l119x-0d4y-3juu-u4xv-kue451cp7054 ANSI-Commercial spg1971y-z655-952h-l507-7jwm18bn81ks lnx1674l-v940-939s-r168-1dld33na42we ANSI-Medicaid [id number] ANSI-Medicare Part B [id number]-834n-[id number] 2u378471-l8mf-8usz-116l-5b59w38qczh3 ANSI-Not a Secondary Insurance 859556nr-9371-4ztr-98hs-e1t1j 2jt39zt 136816bz-6244-9wud-75ee-p9w9p4nr68pg ANSI-Medicaid [id number] ANSI-Commercial 90h274u0-4wl6-15dd-ch53-09764755398o 04y778u8-2ic6-12bn-ul07-20258792731u ANSI-Not a Secondary Insurance b4o4389k-6237-22mp-2l94-q23c9 45ho8p3 h1s7209c-8653-12pd-4c11-b44d876ww4n2 ANSI-Medicaid [id number]-[id number]-61za-[id number] ANSI-Commercial r7746tsz-ui55-4v71-30u6-iz76fd35o2of x8850lbb-qi91-0v77-76v4-it02yr98k5or ANSI-Medicare Part B [id number]-r96o-4363-v1lk-[id number] ec81d8m8-q51e-0335-m9bd-mxg2211966v3 ANSI-Not a Secondary Insurance 8r0c5d99-9j30-64d5-z0p1-jq2pb xi91m5v 7a8u0h00-9x50-24s6-a2o5-lo4loaa41a5g ANSI-Commercial 25jh5i6s-p0wq-1730-r9lj-u09z0r834y8s 75rw5k0m-t7cp-8972-z7tg-b33s0g246g5y ANSI-Medicare Part B [id number]-8406-[id number] 1itf1546-ym6p-4795-b988-2fyl15v958i8 ANSI-Medicaid [id number]-gpu9-5193-a51s-w5613544lqg2 ANSI-Medicaid [id number] ANSI-Commercial 67wa36ja-x390-3q40-icz3-hc1mb6521jl2 34xp60zh-n875-0j63-iqk4-tz5jh1124an9 ANSI-Medicare Part B [id number]-a231-[id number] 4969j0sc-b952-84q2-i553-i23z1158732m ANSI-Not a Secondary Insurance 56r38c3b-021q-356s-hn95-qz187 7pry1jp 23a06n7l-368v-753u-qd77-tw4175trv2qp Medicaid Medicaid [id number] MRN.936.3yu4gab6-331a-2q4g-kign-3p9vmb0x 9dba Self [id number] ANSI-Commercial q7579x12-4c08-8252-a6ac-74g3864c59l8 z9069j91-2a53-9571-j4sw-85r6603x10n4 ANSI-Medicare Part B [id number]-ly1m40ylo9y8 607nps09-n354-4v21-961m-cj3w63xpn2q8 ANSI-Not a Secondary Insurance d8otb609-gc4q-96we-lq19-3uu6f j7815me a9kbs705-eu4g-45gm-ep45-0ft6dw5457ra ANSI-Medicaid [id number]-852q-386p-[id number] ANSI-Medicaid 455guf93-p2c9-0k3n-43hr-0882fcv0urpu 943hte29-f8e1-2z4o-57ii-1440owm4oqjx ANSI-Commercial 288h71ly-p5j7-2609-5110-b4c1sbcc1h57 941q67sj-o1p6-7627-2121-b1j3yake9s06 ANSI-Not a Secondary Insurance f1js9k86-ki49-9qh3-jrj4-q78j8 4319820 v7pd8w25-yj59-0vn5-ylv3-q49g39670736 ANSI-Medicare Part B [id number]-2t81-qv4z4d1gfo88 7814111p-3935-9srw-7l12-bt2n1q7nfi12 ANSI-Not a Secondary Insurance 73e1q68z-tz25-5dm9-3s03-5ad06 6avt483 09p9s56g-to57-5at2-5r63-9kx935qiv752 ANSI-Commercial p9prx757-0827-0r2f-k981-196xdax810k7 r7gsv546-6950-0f7i-l605-491vnxs385g9 ANSI-Medicare Part B [id number]-5877-mm0g-32m1838y8xmf 44a793b5-g37t-8522-az3j-24x1085z8pfx ANSI-Medicaid [id number] d4994d79-20md-3u5z-cdil-[id number] ANSI-Commercial 8169r214-ykjc-9w4e-30a9-88p7bo0p939r 1342m735-nltk-3m0v-42a5-55m0yf7m908j ANSI-Medicaid [id number]-jy81-5e84-197c-[id number] ANSI-Not a Secondary Insurance 22u3d394-6851-0a0x-n7hf-5sxsi 180j7ah 04u9j533-6033-3p0k-t3mf-7hgqn803a0zj ANSI-Medicare Part B [id number] [id number]-6dud-[id number] ANSI-Commercial 78x5ce82-3s2d-7tgb-8152-852qjk212dl8 47x3ym98-6m3b-8tru-5726-206rxp671lt1 ANSI-Medicaid [id number] ANSI-Not a Secondary Insurance 9cp3ybd9-6mm4-1t12-m916-3lz44 769ceed 8oq3tpl2-9xp6-7m87-l673-7sj24588fvny ANSI-Medicare Part B [id number]-[id number] p30c1759-yg5q-31y2-8hsh-940lil0674x6 ANSI-Not a Secondary Insurance 2l456928-378c-9pas-0260-o63n6 3ddefcf 6g346784-229l-4xzx-2223-d63k51acipag ANSI-Commercial 83180fg9-kh9y-2188-b109-5wx29p4h0i60 45447yw1-gd1r-8044-d176-9hi44g4a3y96 ANSI-Medicaid [id number]-[id number] ANSI-Medicare Part B [id number]-[id number] c9541zg8-6413-06sa-05xi-480663740t4u ANSI-Commercial 698010b8-nyq7-9v94-h6ox-t999gr48pajq 277089o9-jsx3-1z46-i7zk-q369ol49ufnf ANSI-Not a Secondary Insurance z56iumfq-35r8-05f6-4720-404d8 id9d8jd o18zdksl-93v0-83m1-3054-756p9iz8j4vj ANSI-Medicaid [id number]-[id number] ANSI-Medicare Part B [id number]-qhw5-[id number] 9rq3hy2n-5176-3m57-czl9-k75r314931f9 ANSI-Medicare Part B [id number]-27qm-j192e285m6w0 j1t1317c-87b4-562k-47xf-t245k090f1u5 ANSI-Commercial 1x6462b8-mkva-6lx8-91k2-svo9xi21afp2 1k1243c4-wird-4cr4-93j1-xxf9oo79dbq6 ANSI-Not a Secondary Insurance d9p07552-35n9-0829-48v5-8q7p5 qad5ew6 c8q86124-88i4-4622-99i9-1u8n6onr9xj3 ANSI-Medicaid [id number] ANSI-Commercial 71ua7xm7-6b04-51zz-47v4-u78d494063xc 33pp3hx9-2r27-23zv-96p6-f71n973523hu ANSI-Medicare Part B [id number]-whc8-95tj25f92qpm 39em3210-u2e2-7055-whk2-48qo69y62elh ANSI-Not a Secondary Insurance 6p5p4y18-8756-967k-i451-1p48l ojcd7c8 4f5v3h09-0909-862e-d220-9b52nzpil7s3 ANSI-Medicaid [id number] MEDICARE PART A -O/P [id number] MEDICAID -O/P [id number] 18 [id number] [facility] [id number] 18 [id number] MEDICAID [facility] [id number] 18 C [id number] ANSI-Medicaid [id number] ANSI-Medicare Part B [id number]-w303-68p1-[id number] ANSI-Not a Secondary Insurance vpz6x260-r88k-8t15-5a80-1n1s1 59x202k zbs7j312-q42t-8e47-1w49-3a6h161c197m ANSI-Commercial 6g46yh33-6p3c-7ha5-p184-nul61178f81u 9b62kc67-4d8z-6fo8-k759-kaj42090r81b ANSI-Medicare Part B [id number]-c1c0-[id number] 45n8ua3w-1829-65o6-w8h8-j927g9n7yq76 ANSI-Medicaid [id number]-p41f-50m7-kelw-[id number] ANSI-Not a Secondary Insurance l318g8v1-87e2-2120-10ip-04lqr 82sm916 g576k0x7-01y5-9525-20gf-56gvf79uo924 ANSI-Commercial rwyv7ih3-5r2w-01q2-ei3c-um42z6249d97 dedi3yh7-1l2s-47i2-xe0p-ru55v9712u72 ANSI-Medicaid [id number] ANSI-Commercial 6244tn7p-916d-69w3-jyu4-30de4i24ist2 6248th6l-972v-93r9-kck9-92zu7h01moi7 ANSI-Medicare Part B [id number]-2h4y-9518-t0kwzr64sc6d 292az066-s85t-1k3d-8037-r8nmlb28pj5w ANSI-Not a Secondary Insurance 16g94z40-0cw8-0605-b32c-6101a 7j5u40b 89l19f35-3ty4-1784-l13b-6704s9i4c71w ANSI-Medicaid [id number]-[id number] ANSI-Not a Secondary Insurance s621l10p-74z4-9dz9-625h-u2v64 te71cq9 m170k93h-36o5-8px3-167f-r9r13ei14yv9 ANSI-Commercial 977921r1-4896-78dt-5595-53ta00fa4t37 990295u5-8715-54xw-5200-43jf18pa3a81 ANSI-Medicare Part B [id number]-828z-3bnp-he6cw4y7221q 860b7er8-3y9k-969d-1bgo-dj0fv8q3639b ANSI-Commercial 140gf020-5flp-1545-46z9-016182736h5v 233zm791-0snn-3314-78e8-026065724g7z ANSI-Medicare Part B [id number]-xsqe-[id number] z412zi8a-yj14-7j59-litu-0076072i6268 ANSI-Medicaid [id number]-[id number] ANSI-Not a Secondary Insurance z89606bc-p6z7-657d-1v8x-pv392 v56sg78 v74147fj-k8c3-085g-1f7i-fb011t20ne72 ANSI-Not a Secondary Insurance c5r69e18-719z-35zg-4o39-3470a sm4b429 a5b79j77-433s-48oh-3x54-0615oty2q750 ANSI-Medicare Part B [id number] w4b3td73-08vh-34n9-01jo-[id number] ANSI-Medicaid [id number]-c61x-92l9-4m3u-qd0z7wv9h5t8 ANSI-Commercial 6e6f6nb7-1199-4w5n-y00g-ydkal0m94sr1 5b1u9sk7-4763-7q4d-s52q-pcrqe7d36wj9 ANSI-Not a Secondary Insurance 09b6a3v5-t32n-3293-2ts3-2u92x c34zc5v 20v5q2w5-j37q-2313-3go0-0d08xm54pm8h ANSI-Medicaid [id number] ANSI-Medicare Part B [id number]-611r-m19a-[id number] 9j3jn603-ng7j-456s-p28y-086k36028n3r ANSI-Commercial e27d77lp-8127-840i-l9qj-44032l913i31 t31t34ku-9851-848t-x4ic-48951o239b45 MEDICARE [id number] SP [id number] ANSI-Medicaid [id number] ANSI-Medicare Part B [id number]-[id number] 966o4h63-x21e-8451-3745-57qjj75j0zfb ANSI-Commercial y8r6r9n9-t841-19p1-11r5-617hq62nlv74 v8v0x6u9-v224-51h7-15y9-457mc11qyu16 ANSI-Not a Secondary Insurance j3k7lq34-f582-2wsi-1y48-8518i 40w9640 b2s9fx87-z707-1lyy-9d23-3558d17j3958 ANSI-Medicare Part B [id number]-70a6-[id number] 12981rei-c5ip-78j5-b4s3-8314477m43u2 ANSI-Not a Secondary Insurance l456ii4c-355t-5991-8r3u-34048 9024229 c145qc7j-255j-4457-4m2i-468922559432 ANSI-Commercial 8jqzz786-17v2-8430-0082-06547ro8326k 4qawx201-97t6-2599-3187-90997jk8262h ANSI-Medicaid [id number] ANSI-Medicaid [id number]-vz13-r2v5u4b184sw ANSI-Not a Secondary Insurance 34i8nj11-6ds6-8n1o-6427-01f54 422309j 35q2gr38-2wj5-1a1a-9626-48a24749788t ANSI-Commercial 636iu24k-60rj-69aw-27x5-8862w6lf6p7y 255xa93p-97cd-51uz-17l4-1640m0uc8g8z ANSI-Medicare Part B [id number]-n31d-[id number] 25bu0113-5751-3618-b44g-n7d67tjn7381 ANSI-Commercial u04v1107-x31s-11ah-5262-1421741w8593 n87r0538-t56i-59bx-5689-9148417g4881 ANSI-Medicaid [id number]-y764-6279-h6t4-f5107uw864qo ANSI-Not a Secondary Insurance p3lz236q-3224-67v0-n063-24j59 7p45u3l j6fj888z-0225-35w7-t765-72v938i23y3z ANSI-Medicare Part B [id number] Medicaid Medicaid [id number] S elf [id number] Medicaid Medicaid [id number] [place] [id number] Medicaid Medicaid [id number] [facility] Dual Plan Commercial [id number] [facility] [id number] [facility] MEDIC[facility] COMPLETE -RECURRING [id number] 18 [id number] ANSI-Medicaid [id number] ANSI-Medicare Part B [id number] ANSI-Commercial 552r6333-znlr-22a8-d58n-1h90781264g3 246m7833-qwib-25t5-t94y-5s23343737c2 ANSI-Medicaid [id number] ANSI-Medicare Part B [id number] ANSI-Commercial 9x7548d2-9x9y-775i-817i-8kf13hpq1d13 9p3625u7-0e9b-769v-257m-1ud21tct6a72 [facility] PLAN XIX -RECURRING [id number] 18 [id number] ANSI-Medicare Part B [id number] ANSI-Medicaid [id number] ANSI-Commercial 8438mqs2-w351-4149-o1rh-m6f3n2c11017 5020kol4-p595-6154-m0po-n0o9f5l46419 ANSI-Medicare Part B [id number]-d52i-[id number] ANSI-Commercial h80959kt-w7q6-9166-q153-20070ah1b19i a52044af-p2s2-7328-y937-97754au9c59y ANSI-Medicaid [id number] MEDICARE PART A [facility] [id number] 18 [id number] ANSI-Medicare Part B [id number]-[id number] ANSI-Not a Secondary Insurance [id number]-kg99-01rs-8g07-7lx34 ececfc0 n80z53ff-qa58-14lv-9k56-9yj74hdvmiv3 ANSI-Commercial z349l616-94am-543l-6z03-m9dlp27mh10d d302v232-84pw-722r-9r65-j5rse31kd31g ANSI-Medicaid [id number] ANSI-Medicaid [id number]-[id number] ANSI-Commercial r9vg965c-9zb1-8xkl-x9di-39k014i48f70 u2st663m-3ax6-8hyo-f3ck-84j568l07q16 ANSI-Medicare Part B [id number]-98xj-[id number] ANSI-Commercial 3bj5019p-o857-0w87-t786-101o8323u7w2 5sx5381k-o207-1j88-o065-284i4616d7z4 ANSI-Medicare Part B [id number]-[id number] ANSI-Medicaid [id number] ANSI-Medicaid [id number] ANSI-Medicare Part B [id number]-hp02-2a5s-ec90-u9l50y420j53 ANSI-Commercial 7v3113mu-70p9-9749-i2vd-w02m77527141 1z5556rv-56b5-3288-f3ko-z63g85331530 ANSI-Commercial e53nw1f4-n261-8459-y078-34i6fhhc13nh m66di8x6-t675-6953-f740-66q7zzic13rh ANSI-Medicare Part B [id number]-[id number] ANSI-Medicaid [id number]-8735-5c5q-5o1x-[id number] ANSI-Medicaid [id number] ANSI-Medicare Part B [id number]-[id number]-[id number] ANSI-Commercial a6836d5w-o722-7xhj-095c-bpj953m2744g l9493s4q-x537-8wdv-543n-syf895x2226g ANSI-Medicaid [id number] ANSI-Medicare Part B [id number] ANSI-Commercial 2r097p81-2h8h-8yq6-c132-7324h5p51b12 2b625u27-1s6j-3kr6-a943-6601l7h18y92 ANSI-Medicare Part B [id number] ANSI-Medicaid [id number]-[id number] ANSI-Commercial z3eg14qt-524d-717e-zw16-7193nwpk9g1o r2wb03pw-423a-324l-fo74-0211gjtg1k4l ANSI-Commercial 6s2a6e15-65d9-9tu4-45bm-o8n4y5151664 0e2q6n78-27t3-8kf2-11ln-k0l6r9073963 ANSI-Medicare Part B [id number] ANSI-Medicaid [id number] ANSI-Commercial 0i4j1812-3dxs-5un5-p1aq-tn058345wb7x 3s1x3371-3tbt-3ul7-p2sk-rr575825sj9n ANSI-Medicare Part B [id number]-[id number] ANSI-Medicaid [id number]-[id number] ANSI-Medicare Part B [id number]-[id number] ANSI-Medicaid [id number]-[id number] ANSI-Commercial e812i086-3y22-8eo0-3wpx-040cd685h236 t184k390-1z34-1cz2-7nxo-639zi366p098 ANSI-Commercial g80dw632-o122-5445-c680-003g97lzlq99 j01ht703-h789-7598-u763-858t13mhye35 ANSI-Medicare Part B [id number]-797o-[id number] ANSI-Medicaid [id number]-8s29-h5q7-[id number] ANSI-Commercial nm439s52-41u4-1161-j25y-6770p08814v0 jm064l25-07e2-6607-f04p-3456v17874i5 ANSI-Medicaid [id number] ANSI-Medicare Part B [id number]-99uc-[id number] ANSI-Commercial 85333bg3-5t75-1526-vtgw-5224p38z0649 32991vt2-6j70-9467-njfz-8732h56w8366 ANSI-Medicare Part B [id number]-1g2x-8bq9-212z-0028bh1g6f0r ANSI-Medicaid [id number] ANSI-Commercial e5h18g02-3842-42gd-e48p-6jy8g7814319 l5u47x97-5219-10lc-i53l-8az5y1121514 ANSI-Medicare Part B [id number]-30vl-78l5-u9h5-3k86le11b6c0 ANSI-Medicaid [id number] ANSI-Medicare Part B [id number]-1952-z2c7-92yajgc7f48m ANSI-Medicaid [id number] 6y3fo8ha-ipjx-[id number] ANSI-Commercial 2gj64852-l5sj-71mq-397p-8h2929z06j7r 1aw06057-i0rj-99km-458h-8i1001o11l5m ANSI-Medicare Part B [id number]-n1qw-6y01-5168-[id number] ANSI-Commercial 1c042x06-09g2-13p9-t7lz-00mhesvv6175 7b922s15-62u7-33g5-m9lr-83zarflw2313 ANSI-Medicaid [id number] ANSI-Medicare Part B [id number]-9r92-8bs6-cv2j-[id number] ANSI-Commercial h0065g64-8m88-01u4-0s99-0jl37vdyre14 v6521q11-2m96-33c2-3s77-4qp73ayauf35 ANSI-Medicaid [id number]-5rxy-[id number] ANSI-Medicaid [id number]-[id number] ANSI-Medicare Part B [id number]-[id number]-[id number] ANSI-Commercial 69ft89ic-ta40-2b5w-77ug-07xy6c086335 23tj44hj-bd15-1z7o-02rm-63sn3v166946 ANSI-Commercial 3262x345-56b6-54vb-7q5l-6mk2u482h391 3797z334-31n7-71wt-7v8g-1be3c158j368 ANSI-Medicare Part B [id number]-[id number] ANSI-Medicaid [id number] a7kl52gm-t4u0-82v2-46wx-2ngqr8070foq ANSI-Medicaid [id number]-21u2-[id number] ANSI-Medicare Part B [id number]-12c2-[id number] ANSI-Commercial 6nv5603p-49z2-46yi-l8y0-67g73cpj6owe 1kt6649l-79u9-33lb-i8d4-12o43bmh2xrv ANSI-Medicare Part B [id number] cjt3j05a-[id number] ANSI-Medicaid [id number]-[id number] ANSI-Commercial ogn4i946-z4p5-48ty-n817-k2bow22g11w2 eie2f363-p9u0-50dn-o482-l8gsu24u62m5 ANSI-Medicare Part B [id number] ANSI-Medicaid [id number] 7r3i2h04-9815-3888-56gk-16q1jhf8le8p ANSI-Commercial ut88f834-5c92-400m-j539-5f31z2c909a5 pd45f239-9w41-656i-t712-7s09b4f848f3 ANSI-Medicare Part B [id number] [id number]-09s5-407b-62f4-d08i7tau500p ANSI-Medicaid [id number]-[id number] [id number]-vu33-k0kyk6sugn95 ANSI-Commercial n24715s6-m73q-05bk-32vg-i0j439g2l910 s80483w1-r27h-16ig-21ar-i0l135e7c805 ANSI-Medicare Part B [id number]-[id number] [id number]-[id number] ANSI-Commercial 4x7741qg-4795-3o6c-k139-93o9f6t4l028 9q8493mg-7696-1w2u-a580-46m7n7s7p963 ANSI-Medicaid [id number]-z3o2-[id number] ANSI-Medicaid [id number]-l97o-[id number] ANSI-Medicare Part B [id number]-[id number] ANSI-Commercial wwt7e261-6xg4-8365-4y98-78028j831i9s fas9v616-1zx1-8305-6c03-59799w753l3i ANSI-Medicare Part B [id number] 2g31uc1a-62yz-10f7-6vq4-s07i96oljc7v ANSI-Medicaid [id number]-4l7x-tcj0-[id number] 468s3y34-s2ev-7z9h-jtk3-o3s5tb4m8wvt ANSI-Commercial p0i06lx1-v4ag-00kx-i251-q7066ia020ej p8t42zu8-f9lw-04lk-j459-f5627mi707xn ANSI-Medicaid [id number]-[id number] ANSI-Medicare Part B [id number]-e768-21zi-9h6a-[id number] ANSI-Commercial 0kb76v50-e16j-6m32-319g-q09i3k7r1817 8hs23t24-e45z-1y29-634k-k20p3y8s8725 ANSI-Medicaid [id number]-hk9f-[id number] [id number]-485q-ql8r-b312m5li48hr ANSI-Commercial 0g39x079-a49c-1y6k-638m-fpl9ranvl074 8b10i770-k13j-0g2m-727l-vki0zuybh880 ANSI-Medicare Part B [id number] nuue22e1-3970-8v66-68pp-g948w1s0x79u ANSI-Commercial 4547142c-a019-29de-n7p4-48w6s29n8wxf [id number] ANSI-Medicaid [id number] ANSI-Medicare Part B [id number] ANSI-Medicaid [id number] ANSI-Medicare Part B [id number] ANSI-Commercial [id number] MEDICARE [id number] A MEDICAID M [id number] S [id number] MEDICARE C [id number] S [id number] A [facility] MEDICAID [id number] SP [id number] W Medicare Part A [place] Medicare Primary [id number] Self 59 [id number] MEDICARE PART A [facility] [id number] 18 [id number] MEDICAID -PHYSICIAN [id number] Medicaid [facility] Medicaid [id number] Self [id number] Medicare Part A [place] Medicare Primary [id number] Self 59 [id number] Medicaid [facility] Medicaid [id number] 10.7747.0 Self [id number] Medicare Part A [place] Medicare Primary [id number] Self 59 [id number] MEDICARE PART A -O/P [id number] 18 [id number] Medicaid [place] Medigap Part B [id number] Self [id number] Medicaid [facility] Medicaid [id number] 10.7747.0 Self [id number] Medicare Part A [place] Medicare Primary [id number] Self 59 [id number] MEDICARE -RECURRING [id number] 18 [id number] MEDICAID -CLINIC [id number] 18 [id number] MEDICARE PART A -CLINIC [id number] 18 [id number] [place] MEDICARE PART B C [id number] S [id number] Medicaid [place] Medigap Part B [id number] Self Medicare [facility] Medicare Primary [id number] Self Medicaid [facility] Medicaid [id number] Self Medicare Part A [place] Medicare Primary 769 Self MEDICAID -O/P RAD ONLY [id number] 18 [id number] MEDICARE -O/P [id number] 18 [id number] MEDICARE -RECURRING [id number] 18 [id number] MEDICAID -RECURRING [id number] 1 8 [id number] MEDICARE [id number] SP [id number] A MEDICARE PART-A [id number] 18 [id number] [facility] O [id number] S [id number] MEDICARE UNAVAILABLE SP UNAVAILA BLE [facility] INC [id number] SP [id number] [facility] HP INC UNAVAILABLE SP UNAVAILABLE [facility] HP, INC. [id number] SP [id number] Medicaid [facility] Medicaid [id number] 10.7747.0 Self [id number] [employer] GOLD [id number] SP [id number] HUMANA GOLD [id number] SP [id number] [employer]MANA GOLD PLUS -PHYSICIAN [id number] 1 [id number] [employer] GOLD PLUS -O/P [id number] 18 [id number] MEDICAID -O/P EMERGENCY ROOM [id number] 18 [id number] [employer]NA GOLD PLUS -O/P [id number] 18 [id number] UNHC CP DUAL COMP - FACILITY [id number] 18 [id number] [facility] [id number] SP [id number] [facility] [id number] SP [id number] HUMANA HMO [id number] SP [id number] [facility] [id number] SP [id number] [facility] [id number] SP [id number] MEDICAID [id number] SP [id number] MEDICARE COMPLETE [id number] SP [id number] ANSI-Not a Secondary Insurance [id number] ANSI-Medicare Part B [id number] ANSI-Medicaid [id number] ANSI-Commercial [id number] ANSI-Medicare Part B [id number] ANSI-Commercial [id number] ANSI-Medicaid [id number] ANSI-Not a Secondary Insurance [id number] ANSI-Medicare Part B [id number] ANSI-Not a Secondary Insurance [id number] ANSI-Commercial [id number] ANSI-Medicaid [id number] ANSI-Medicare Part B [id number] ANSI-Commercial [id number] ANSI-Not a Secondary Insurance [id number] ANSI-Medicaid [id number] ANSI-Not a Secondary Insurance [id number] ANSI-Medicaid [id number] ANSI-Commercial [id number] ANSI-Medicare Part B [id number] ANSI-Commercial [id number] ANSI-Medicaid [id number] Problems, Conditions, and Diagnoses Code Display Name Description Problem Type Effective Dates Data Source(s) X76197 Personal history of other (healed) physi sydney injury and trauma Personal history of other (healed) physical injury and trauma Diagnosis 0 11/11/2020 09:16:00 AM [facility] Z6832 Body mass index [BMI] 32.0-32.9, adult B dayday mass index [BMI] 32.0-32.9, adult Diagnosis [facility] maxillary sinusitis, unspecified A cute maxillary sinusitis, unspecified Diagnosis [facility] Obesity, unspecified Obesity, unspecified Diagnosis 11/11/2020 09:16:00 AM [facility] A05250 Nicotine dependence, cigarettes, uncompl icated Nicotine dependence, cigarettes, uncomplicated Diagnosis 11/11/2020 09:16:00 AM [facility] B46841 Chronic tension-type headache, intractab le Chronic tension-type headache, intractable Diagnosis 11/11/2020 09:16:00 AM [facility] R519 Headache, unspecified Headache, unspecified Diagnosis 11/11/2020 09:16:00 AM [facility] P54920 Bathroom of unspecified non- institutional (private) residence as the place of occurrence of the external cause Bathroom of unspecified non- institutional (private) residence as the place of occurrence of the external cause Diagnosis 10/25/2020 11:15:00 AM [facility] [id number] Fall from or off toilet with subsequent striking against object, initial encounter Fall from or off toilet with subsequent striking against object, initial encounter Diagnosis 10/25/2020 11:15:00 AM [facility] 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 Diagnosis 10/25/2020 11:15:00 AM T [facility] E119 Type 2 diabetes mellitus without complic ations Type 2 diabetes mellitus without complications Diagnosis 10/25/2020 11:15:00 AM EDT [facility] [id number] Contusion of other part of head, initial encounter Contusion of other part of head, initial encounter Diagnosis 10/25/2020 11:15:00 AM EDT [facility] [id number] Unspecified injury of head, initial enco unter Unspecified injury of head, initial encounter Diagnosis 10/25/2020 11:15:00 AM EDT [facility] P34857 Other lobsterman (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 lobsterman (current) drug therapy Diagnosis 07/08/2020 08:29:00 AM [facility] H9311 Tinnitus, right ear Tinnitus, right ear Diagnosis 1 09/08/2019 08:29:00 AM [facility] E785 Hyperlipidemia, unspecified Hyperlipidemia, unspecifie d Diagnosis 07/08/2020 08:29:00 AM [facility] J449 Chronic obstructive pulmonary disease, u nspecified Chronic obstructive pulmonary disease, unspecified Diagnosis 07/08/2020 08:29:00 AM [facility] 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 Diagnosis 07/08/2020 08:29:00 AM [facility] V74868 Episodic tension-type headache, intracta ble Episodic tension-type headache, intractable Diagnosis 07/08/2020 08:29:00 AM [facility] Surgeries/Procedures Procedure Description Date Indications Data Source(s) Immunization: Flublok Quadrivalent (18 years & older) 0.5mL IM (Influenza) 05/23/2020 12:00:00 AM EDT eCW1 ([facility]) Results ID Date Data Source [id number] 01/18/2021 11:40:00 AM EDT [facility] Name Value Range Interpretation Code Description Data Herminia rce(s) Supporting Document(s) SARS-CoV-2 (COVID-19) RNA [Presence] in Respiratory specimen by NICOLLE with probe detection Not Detected [facility] This lab was ordered by [facility] and reported by [employer]. ID Date Data Source [id number] 01/18/2021 10:10:00 AM EDT [facility] Name Value Range Interpretation Code Description Data Herminia rce(s) Supporting Document(s) SARS COVID ANTIGEN NEGATIVE [facility] This lab was ordered by [facility] a nd reported by [facility]. ID Date Data Source INNA COVID AG (Point of Care) 01/18/2021 12:00:00 AM EDT eC W1 ([facility]) Name Value Range Interpretation Code Description Data Herminia rce(s) Supporting Document(s) NEGATIVE NEGATIVE [facility]NA COVID ANTIGEN eCW1 ([facility]) ID Date Data Source Coronavirus 2019 Nasopharygeal (Send Out) COVID 01/18/2021 1 2:00:00 AM EDT eCW1 ([facility]) Name Value Range Interpretation Code Description Data Herminia rce(s) Supporting Document(s) Coronavirus 2019 Nasophar ygeal (Send Out) COVID eCW1 ([facility]) ID Date Data Source VITAMIN D 25-HYDROXY 12/05/2020 12:00:00 AM EDT eCW1 ([facility]) Name Value Range Interpretation Code Description Data Herminia rce(s) Supporting Document(s) 46.7 30.0-100.0 TOTAL 25(OH) VITAMIN D eC W1 ([facility]) ID Date Data Source [id number] 12/05/2020 12:00:00 AM EDT eCW1 ([facility]) Name Value Range Interpretation Code Description Data Herminia rce(s) Supporting Document(s) Microalbumin/Creatinine [Mass Ratio] in Urine < 13.0 CREATININE, URINE eCW1 ([facility]) Microalbumin/Creatinine [Ratio] in Urine 38.0 0.0-30.0 AUGIE/CREAT RATIO eCW1 ([facility]) Albumin/Creatinine [Mass Ratio] in Urine < 5.0 MALB URINE SIEMENS eCW1 ([facility]) ID Date Data Source [id number] 12/05/2020 12:00:00 AM EDT eCW1 ([facility]) Name Value Range Interpretation Code Description Data Herminia rce(s) Supporting Document(s) Hemoglobin A1c/Hemoglobin.total in Blood 6.1 HEMOGLOBIN A1c eCW1 ([facility]) ID Date Data Source Comprehensive Metabolic Profile (CMP) 12/05/2020 12:00:00 AM EDT eCW1 ([facility]) Name Value Range Interpretation Code Description Data Herminia rce(s) Supporting Document(s) 143 70-100 GLUCOSE, FASTING eCW1 ([facility]) 139 136-145 SODIUM LEVEL eCW1 ([facility]) 6 7-18 BLOOD UREA NITROGEN eCW1 ([facility]) 0.52 0.55-1.30 CREATININE FOR GFR eCW1 ([facility]) > 60.0 >51 GLOMERULAR FILTRATION RATE eCW 1 ([facility]) 4.0 3.5-5.1 POTASSIUM SERUM eCW1 ([facility]) 105 98-107 CHLORIDE LEVEL eCW1 ([facility]) 29 21-32 CARBON DIOXIDE LEVEL eCW1 ([facility]) 9.5 8.5-10.1 CALCIUM LEVEL eCW1 ([facility]) 13 7-37 AST/SGOT eCW1 ([facility]) 119 45-117 ALKALINE PHOSPHATASE eCW1 ([facility]) 0.3 0.2-1.0 BILIRUBIN,TOTAL eCW1 ([facility]) 23 12-78 ALT/SGPT eCW1 ([facility]) 6.5 6.4-8.2 TOTAL PROTEIN eCW1 ([facility]) 4.1 3.2-5.2 ALBUMIN eCW1 ([facility]) 1.7 1.2-2.2 ALBUMIN/GLOBULIN RATIO eCW1 ([facility]) ID Date Data Source [id number] 11/11/2020 09:16:00 AM EDT [facility] 1 OrderSheet [facility] Emergency Department [address] [place] [address] Phone #: ext- [phone] 11/11/2020 09:10 Patient: [...] rce(s) Supporting Document(s) ID Date Data Source [id number] 11/11/2020 09:16:00 AM EDT [facility] 1 Medication Reconciliation Report [facility] Emergency Department [address] [place] [address] Phone #: ext- [phone] 11/11/2020 09:10 Patient: [...] Oral metFORMIN HCl Oral Omeprazole Oral [facility] Pregabalin Oral tiZANidine HCl OralThe source(s) of the original Home Medication information:patientThe following Medications were given to the patient in the Emergency Department: 2 Medication Reconciliation Report [facility] Emergency Department [address] [place] [address] Phone #: ext- [phone] 11/11/2020 09:10 Patient: BRAD VASQUEZ Sex: F : 1960 Age: 60yToradol [IM] IM 60 mg, administered: 09:38 11/11/2020The following Medications were prescribed to the patient:Flonase Allergy Relief 50 mcg/ac tuation nasal spray,suspension [place] 1-2 spray once a day for 7 days-- Dispense 1 nasal inhaler. Refills: 0. Substitution permitted. Note to Pharmacy - Rx Discount Card:21.27. Use: BIN:[id number], PCN:OMAR, Group:EMR, ID:[id number].Pharmacy - [facility] [address] ; [place], [place] [id number]. . -- Mary Stafford Name Value Range Interpretation Code Description Data Herminia rce(s) Supporting Document(s) ID Date Data Source [id number] 11/11/2020 09:16:00 AM EDT [facility] 1 Medication Administration Record [facility] Emergency Department [address] [place] [address] Phone #: ext- [phone] 11/11/2020 09:10 Patient: BRAD VASQUEZ Sex: F : 1960 Age: 60yWeight: 79.8 kgHeight/Length: 62 inBMI: 32.2ALLERGIES: Clindamycin, Lithobid, Paxil, Sulfa Antibiotics Date/Time Medication Administered Medication OrderedGiven TORADOL [IM] (KETOROLAC Toradol IM 60 mg (NOW)09:38 11/11/2020 TROMETHAMINE)Jadyn White RN Dose: 60 mg IM Name Value Range Interpretation Code Description Data Herminia rce(s) Supporting Document(s) ID Date Data Source [id number] 11/11/2020 09:16:00 AM EDT [facility] 1 General Instructions [facility] Emergency Department [address] [place] [address] Phone #: ext- [phone] 11/11/2020 09:10 Patient: [...] thursday.Lantus Subcutaneous.Lisinopril Oral.LORazepam Oral.metFORMIN HCl Oral.Omeprazole Oral.Pharmacy [facility]*.Pregabalin Oral.tiZANidine HCl Oral.Prescription Medications:Flonase Allergy Relief 50 mcg/actuation nasal spray,suspension [place] 1-2 spray once a day for 7 days-- Dispense 1 nasal inhaler. Refills: 0. Substitution permitted. Note to Pharmacy - Rx Discount Card:21.27. Use: BIN:[id number], PCN:OMAR, Group:EMR, ID:[id number].Pharmacy - [facility] [address] ; [place], [place] [id number]. .Follow-up:Follow up with your healthcare provider in three days if not better. Summary of care provided to patient viapaper. Blood pressure screening was not performed during this visit because the patient has an activediagnosis of hypertension. The patient should follow up with a primary care provider for blood pressuremanagement. ADDITIONAL INFORMATION 2 General Instructions [facility] Emergency Department [address] [place] [address] Phone #: ext- [phone] 11/11/2020 09:10 Patient: BRAD VASQUEZ Sex: F [...] a towel soaked in hot water. Or sales marketing the shower with the hot spray on your face. This is a good way to breathe in warm water vapor and get heat on your face at the same time. Cover your mouth and nose with your hands so you can still breathe as you do this. 3 General Instructions [facility] Emergency Department [address] [place] [address] Phone #: ext- [phone] 11/11/2020 09:10 Patient: BRAD VASQUEZ Sex: F : 1960 Age: 60y Use a cool mist vaporizer at night. Suck on peppermint, menthol, or eucalyptus hard candies during the day. An bmgq-vgs-kiqxnyr expectorant containing guaifenesin helps thin the mucus. It also helps your sinuses drain. You may use wwxa-exg-jfqfkvu decongestants unless a similar medicine was prescribed. [...] trouble urinating due to an enlarged prostate. Aizk-yjg-mhagdkq antihistamines containing loratadine and cetirizine cause less [...] is safe for you. You may use tosr-zys-uuwjgql medicine to control pain and fever, unless [...] in 1 week.Call 911 4 General Instructions [facility] Emergency Department [address] [place] [address] Phone #: ext- [phone] 11/11/2020 09:10 Patient: BRAD VASQUEZ Sex: F [...] provider Bleeding from the nose or throat [phone] [employer]. [address] [place] [address]. All rights reserved. This information is not intended as asubstitute for professional medical care. Always follow your healthcare professional's instructions.Tension Headache 5 General Instructions [facility] Emergency Department [address] [place] [address] Phone #: ext- [phone] 11/11/2020 09:10 Patient: [...] a prescribed muscle relaxant. 6 General Instructions [facility] Emergency Department [address] [place] [address] Phone #: ext- [phone] 11/11/2020 09:10 Patient: [...] You have trouble speaking Your vision changes [phone] [employer]. [address] [place] [address], [place] [address]. All rights reserved. This information is not intended as asubstitute for professional medical care. Always follow your healthcare professional's instructions.Sinusitis (No Antibiotics) 7 General Instructions [facility] Emergency Department [address] [place] [address] Phone #: ext- [phone] 11/11/2020 09:10 Patient: [...] a towel soaked in hot water. Or, sales marketing the shower and direct the warm spray onto your face. Using a vaporizer along with a menthol rub at night may also help soothe symptoms. An expectorant with guaifenesin may help thin nasal mucus and help your sinuses drain fluids. You can use an czil-bgf-qpxtqlo decongestant, unless a similar medicine was prescribed [...] use decongestants. They can 8 General Instructions [facility] Emergency Department [address] [place] [address] Phone #: ext- [phone] 11/11/2020 09:10 [id number] Sex: F : 1960 Age: 60y raise blood pressure.) Kmbf-yvd-lmtpuvj antihistamines may help if allergies contributed to [...] that don't go away in 10 days [phone] [employer]. [address] [place] [address]. All rights reserved. This information is not intended as asubstitute for professional medical care. Always follow your healthcare professional's instructions. You have been given the following additional information: Sinus Headache Headache, Tension Sinusitis (No Antibiotics) 9 General Instructions [facility] Emergency Department [address] [place] [address] Phone #: ext- [phone] 11/11/2020 09:10 Patient: BRAD VASQUEZ Sex: F : 1960 Age: 60y(Electronically signed by Mary Stafford 11/11/2020 11:04) Name Value Range Interpretation Code Description Data Herminia rce(s) Supporting Document(s) ID Date Data Source [id number] 11/11/2020 09:16:00 AM EDT [facility] 1 Clinical Report - Nurses [facility] Emergency Department [address] [place] [address] Phone #: ext- [phone] 11/11/2020 09:10 Patient: BRAD VASQUEZ Sex: F : 1960 Age: 60yTRIAGEArrived by private vehicle. Historian: patient. ( presents with granddaughter with c/o headache and sinuspain, injured head on 10/25 but now thinks she has sinus infection.).Triage time: 09:18 11/11/2020. Acuity: LEVEL 4.Chief Complaint: HEADACHE and FACIAL PAIN.Alert. No acute distress.This started 2 days. 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 (800mg at 0600, tizanadine).SEPSIS SCREEN: SIRS [...] Oral. metFORMIN HCl Oral. Omeprazole Oral. [facility]. Pregabalin Oral. tiZANidine HCl Oral. Tramadol HCL Oral (last dose 4 pm). --09:11/11/20 Jadyn White RN.AllergiesClindamycin.Lithobid.Paxil.Sulfa Antibiotics. --:11/11/20 Jadyn White RN. 2 Clinical Report - Nurses [facility] Emergency Department [address] [place] [address] Phone #: ext- [phone] 11/11/2020 09:10 Patient: [...] factors identified. 3 Clinical Report - Nurses [facility] Emergency Department [address] [place] [address] Phone #: ext- [phone] 11/11/2020 09:10 Patient: [...] F. Pain level now: 02/02. --09:46 [facility]11/[address] [facility] Departure time: 09:49 11/11/2020. --09:49 11/11/20 Jadyn White RN Condition at departure: improved and stable. No learning barriers present. Discharge instructions provided and reviewed with the patient. Reviewed medication(s) side effects, precautions, dosing and course information. Prescription(s) sent electronically to pharmacy. Reviewed referral to a primary care physician. Patient verbalized understanding. Written instructions provided in [place]. The patient was discharged by the physician. She was discharged home and unaccompanied at time of discharge. She left ambulatory and via private vehicle. Patient driving. --09:50 11/11/20 Jadyn White RN.Locked/Released at 11/11/2020 10:14 by Jadyn White RN 4 Clinical Report - Nurses [facility] Emergency Department [address] [place] [address] Phone #: ext- [phone] 11/11/2020 09:10 Patient: BRAD VASQUEZ Sex: F : 1960 Age: 60y Name Value Range Interpretation Code Description Data Herminia rce(s) Supporting Document(s) ID Date Data Source [id number] 11/11/2020 09:16:00 AM EDT [facility] 1 Clinical Report - Physicians/Mid Levels [facility] Emergency Department [address] [place] [address] Phone #: ext- [phone] 11/11/2020 09:10 Patient: BRAD VASQUEZ Sex: F [...] Hysterectomy. 2 Clinical Report - Physicians/Mid Levels [facility] Emergency Department [address] [place] [address] Phone #: ext- [phone] 11/11/2020 09:10 Patient: BRAD VASQUEZ Sex: F : 1960 Age: 60y Left hand. Lung Biopsy. (Left) R hand surgery. Medications: Ibuprofen Oral. Invega Sustenna Intramuscular, last dose last thursday. Lantus Subcutaneous. Lisinopril Oral. LORazepam Oral. metFORMIN HCl Oral. Omeprazole Oral. [facility]. Pregabalin Oral. tiZANidine HCl Oral. Tramadol [...] Normal skin turgor. 3 Clinical Report - Physicians/[facility] Emergency Department [address] [place] [address] Phone #: ext- [phone] 11/11/2020 09:10 Patient: [...] Oral. metFORMIN HCl Oral. Omeprazole Oral. [facility] Pregabalin Oral. tiZANidine HCl Oral. Prescription Medications: 4 Clinical Report - Physicians/Mid [facility] Emergency Department [address] [place] [address] Phone #: ext- [phone] 11/11/2020 09:10 Patient: BRAD VASQUEZ Sex: F : 1960 Age: 60y Flonase Allergy Relief 50 mcg/actuation nasal spray,suspension [place] 1-2 spray once a day for 7 days -- Dispense 1 nasal inhaler. Refills: 0. Substitution permitted. Note to Pharmacy - Rx Discount Card: 21.27. Use: BIN:[id number], PCN:OMAR, Group:EMR, ID:[id number]. Pharmacy - [facility] [address] [place], [place] [phone]. Phone: . Follow-up: Follow up with your [...] rce(s) Supporting Document(s) ID Date Data Source [id number] 10/25/2020 11:15:00 AM EDT [facility] 1 OrderSheet [facility] Emergency Department [address] [place] [address] Phone #: ext- [phone] 10/25/2020 11:09 Patient: BRAD VASQUEZ Sex: F : 1960 Age: 60yWEIGHT:76.6 kg (S) HEIGHT:62 inches (S) BMI:30.9ALLERGIES: Clindamycin, Lithobid, Paxil, Sulfa AntibioticsCHIEF COMPLAINT: headDIAGNOSIS: ContusionLAB ORDERSOrder Description Priority Entered Acknowledged InitialedDIAGNOSTIC STUDY ORDERSOrder Description Priority Entered Acknowledged InitialedMEDICATION/IV/DRIP/FLUID ORDERSOrder Description Priority Entered Acknowledged InitialedAcetaminophen PO 11:32 10/25/2020 Cancelled: Patient Refusal 11:45 Ugxoj275 mg (NOW x1) Pérez Mack ; Nika DUNCAN Reason for ordering with alerts: Benefits outweigh risks -- 11:32 10/25/2020 Pérez MackGENERAL ORDERSOrder Description Priority Entered Acknowledged Initialed[Electronically signed by Pérez Mack (11:47 10/25/2020)][Electronically signed by Kalina Maher RN (11:47 10/25/2020)][Electronically locked by Kalina Maher RN (11:47 10/25/2020)] Name Value Range Interpretation Code Description Data Herminia rce(s) Supporting Document(s) ID Date Data Source [id number] 10/25/2020 11:15:00 AM EDT [facility] 1 Medication Reconciliation Report [facility] Emergency Department [address] [place] [address] Phone #: ext- [phone] 10/25/2020 11:09 Patient: BRAD VASQUEZ Sex: F : 1960 Age: 60yWeight: 76.6 kgHeight/Length: 62 in.BMI: 30.9ALLERGIES: Clindamycin, Lithobid, Paxil, Sulfa AntibioticsThe patient's Home Medications are listed below:THE FOLLOWING MEDICATIONS NEED TO BE RECONCILED: Ibuprofen Oral Invega Sustenna Intramuscular, last dose: last thursday Lantus Subcutaneous Lisinopril Oral LORazepam Oral metFORMIN HCl Oral Omeprazole Oral Pharmacy [facility] Pregabalin Oral tiZANidine HCl Oral Tramadol HCL Oral, last dose 4 pmThe source(s) of the original Home Medication information:Not obtained.The following Medications were given to the patient in the Emergency Department:None. 2 Medication Reconciliation Report [facility] Emergency Department [address] [place] [address] Phone #: ext- [phone] 10/25/2020 11:09 Patient: BRAD VASQUEZ Sex: F : [birth year] Age: 60yThe following Medications were prescribed to the patient:None. Name Value Range Interpretation Code Description Data Herminia [facility](s) Supporting Document(s) ID Date Data Source [id number] 10/25/2020 11:15:00 AM EDT [facility] 1 Medication Administration Record [facility] Emergency Department [address] [place] [address] Phone #: ext- [phone] 10/25/2020 11:09 Patient: BRAD VASQUEZ Sex: F : 1960 Age: 60yWeight: 76.6 kgHeight/Length: 62 inBMI: 30.9ALLERGIES: Paxil, Clindamycin, Lithobid, Sulfa AntibioticsDate/Time Medication Administered Medication Ordered Name Value Range Interpretation Code Description Data Herminia rce(s) Supporting Document(s) ID Date Data Source [id number] 10/25/2020 11:15:00 AM EDT [facility] 1 General Instructions [facility] Emergency Department [address] [place] [address] Phone #: ext- [phone] 10/25/2020 11:09 Patient: BRAD VASQUEZ Sex: F : 1960 Age: 60ySingle contusion to the forehead.INSTRUCTIONSWarnings: GENERAL WARNINGS: Return or contact your physician immediately if your conditionworsens or changes unexpectedly, if not improving as expected, or if other problems arise.Understanding of the discharge instructions verbalized by patient.Follow- up with: Sheryl Ruiz, , , [address] [place] [address], [id number] Follow up as needed. Call for an [...] These include: Nausea Vomiting 2 General Instructions [facility] Emergency Department [address] [place] [address] Phone #: ypu- [phone] 10/25/2020 11:09 Patient: BRAD VASQUEZ Sex: F [...] hea d injury.Follow-up care 3 General Instructions [facility] Emergency Department [address] [place] [address] Phone #: ext- [phone] 10/25/2020 11:09 Patient: [...] loss, dizziness, headache, behavior, speech, or vision [phone] [employer] [place] [address]. All rights reserved. This information is not [...] until the swelling goes 4 General Instructions [facility] Emergency Department [address] [place] [address] Phone #: ext- [phone] 10/25/2020 11:09 Patient: RBAD VASQUEZ Sex: F : 1960 Age: 60y [...] in a dazeFollow-up care 5 General Instructions [facility] Emergency Department [address] [place] [address] Phone #: ext- [phone] 10/25/2020 11:09 Patient: [...] or as directed by your healthcare providerCall [id number] [phone] if any of the following occur: Repeated vomiting Unusual drowsiness or trouble awakening Fainting or loss of consciousness Seizure Worsening confusion, memory loss, dizziness, headache, behavior, speech, or vision [phone] [employer]. [address] [place] [address], [place] [address]. All rights reserved. This information is not intended as asubstitute for professional medical care. Always follow your healthcare professional's instructions. You have been given the following additional information: Facial Contusion with Sleep Monitoring Facial Contusion(Electronically signed by Pérez Mack 10/25/2020 11:47) Name Value Range Interpretation Code Description Data Herminia rce(s) Supporting Document(s) ID Date Data Source [id number] 10/25/2020 11:15:00 AM EDT [facility] 1 Clinical Report - Nurses [facility] Emergency Department [address] [place] [address] Phone #: pvd- [phone] 10/25/2020 11:09 Patient: BRAD VASQUEZ Sex: F : 1960 Age: 60yTRIAGEArrived by private vehicle. Historian: patient. Unaccompanied. ( bending down and hit forehead ontoilet caitlyn bravo, no bruising noted states when she just moved her head she felt dizzy).Acuity: LEVEL 4.Chief Complaint: INJURY TO FOREHEAD.Alert.Occurred at home. Occurred 19:00 10/24/2020. Mechanism of injury: a blow. 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 (tramadol 2 hours ago).SEPSIS SCREEN: SIRS [...] Oral. --11:15 10/25/20 Erendira Gonzalez R.N. Pharmacy [facility]. Pregabalin Oral. tiZANidine HCl Oral. Tramadol HCL Oral (last dose 4 pm). --11:15 10/25/20 Erendira Gonzalez R.N.AllergiesClindamycin.Lithobid.Sulfa Antibiotics. --11:15 10/25/20 Erendira Gonzalez R.N.Paxil. --11:15 10/25/20 Erendira Gonzalez R.N. 2 Clinical Report - Nurses [facility] Emergency Department [address] [place] [address] Phone #: ext- [phone] 10/25/2020 11:09 Patient: [...] had thoughts 3 Clinical Report - Nurses [facility] Emergency Department [address] [place] [address] Phone #: ext- [phone] 10/25/2020 11:09 Patient: [...] on patient. --11:19 10/25/20 Erendira Gonzalez R.N.PHYSICAL UNQLITGVMB98:25 10/25/20. Ambulatory to room.GENERAL / NEURO / [...] F. Pain level now 10/10. --11:44 10/25/20 [facility] ER Tech1 11:45 10/25/20. Condition at departure: improved and stable. No learning barriers present. Discharge 4 Clinical Report - Nurses [facility] Emergency Department [address] [place] [address] Phone #: ext- [phone] 10/25/2020 11:09 [id number] Sex[facility] F : 1960 Age: 60y instructions provided and reviewed with the patient. Patient verbalized understanding. Written instructions provided in [place]. The patient was discharged home. She left ambulatory and via private vehicle. Patient driving. --11:46 10/25/20 Kalina Maher RN.Locked/Released at 10/25/2020 11:47 by Kalina Maher RN Name Value Range Interpretation Code Description Data Herminia rce(s) Supporting Document(s) ID Date Data Source [id number] 10/25/2020 11:15:00 AM EDT [facility] 1 Clinical Report - Physicians/Mid Levels [facility] Emergency Department [address] [place] [address] Phone #: ext- [phone] 10/25/2020 11:09 Patient: BRAD VASQUEZ Sex: F [...] atraumatic. 2 Clinical Report - Physicians/Mid Levels [facility] Emergency Department [address] [place] [address] Phone #: ext- [phone] 10/25/2020 11:09 Patient: BRAD VASQUEZ Sex: F [...] patient. Follow-up with: Sheryl Ruiz, , , [address] [place] [address], [facility] Follow up as needed. Call for an appointment.(Electronically signed by Pérez Mack 10/25/2020 11:47) Name Value Range Interpretation Code Description Data Herminia rce(s) Supporting Document(s) ID Date Data Source [id number] 08/22/2020 12:00:00 PM EST [facility] Name Value Range Interpretation Code Description Data Herminia rce(s) Supporting Document(s) SARS coronavirus [address] [facility] [place] This lab was ordered by [facility] and reported by [facility]. ID Date Data Source [id number] 08/01/2020 11:30:00 AM EST [facility] Name Value Range Interpretation Code Description Data Herminia rce(s) Supporting Document(s) SARS coronavirus [address] [facility] [place] This lab was ordered by [facility] and reported by [facility]. ID Date Data Source [id number] 07/10/2020 10:25:00 [place] [address] PHONE: [phone] FAX: [phone] Name .................. : PEDRO SALINAS Acct Number.................. : [id number] ROOM. ................. : TR-06 MR Number ................... : [id number] Stay type ............. : E/R Discharge Date......... ... : 07/08/20 Admit Date ....... .. : 07/08/20 Admit Phys .................... : IVAN BEBETO Date of ....... : 1960 Family Phys ................... : GIANLUCA ARDON Phone .................. : [phone] Age ................................ : 59 Film# .................. .:[id number] Sex ................................. : F Unsigned transcriptions are preliminary reports and do not represent a medical or legal document CT HEAD W/O CONTRAST [id number] COMPLETE:07/08/20 08:51 97 Reason(s): Headache CT OF [...] By Agustín Lagos MD , 07/10/20 10:25, [facility] Transcribe Initials: JERRY , Transcribe Date: 07/08/20 11:31, Dictation Date: Copy for: EMERGENCY DEPT via mode Copy for: 710 MED REC DISCHARGED Page 1 of 1 Name Value Range Interpretation Code Description Data Herminia rce(s) Supporting Document(s) ID Date Data Source [id number] 07/10/2020 10:25:00 AM [facility] [address] [place] [address] PHONE: [phone] FAX: [phone] Name .................. : PEDRO SALINAS Acct Number.................. : [id number] ROOM. ................. : TR-06 MR Number ................... : [id number] Stay type ............. : E/R Discharge Date......... ... : 07/08/20 Admit Date .... ..... : 07/08/20 Admit Phys .................... : IVAN TATE Date of ....... : 1960 Family Phys ................... : GIANLUCA ARDON Phone .................. : [phone] Age ................................ : 59 Film# .................. .:[id number] Sex ................................. : F Unsigned transcriptions are preliminary reports and do not represent a medical or legal document CAROTID [id number] COMPLETE:07/08/20 09:55 MCM 98 Reason(s): Dizziness CAROTID [...] rce(s) Supporting Document(s) ID Date Data Source [id number] 07/10/2020 08:40:00 [place] [address] RESPIRATORY CARE REPORT ==== ---------NAME------- NUMBER SEX AGE ADMIT DISC. XRAY# F/C MICHELE SALINAS [id number] F 59 07/08/20 07/08/20 [id number] SCARLETT E/R DATE OF : 1960 M/R# [id number] #: [id number] TR-06 LOCATION: EMERGENCY DEPT EKG 04103 COMPLE TE:07/08/20 15:56 [place] [id number] PHYSICIAN: IVAN TATE Name Value Range Interpretation Code Description Data Herminia rce(s) Supporting Document(s) ID Date Data Source [id number] 07/08/2020 08:29:00 AM [facility] 1 OrderSheet [facility] Emergency Department [address] [place] [address] Phone #: ext- [phone] 07/08/2020 08:21 Patient: [...] Kalyan(Oxygen?(No)) Geovanny Hernandez RN Physician; 2 OrderSheet [facility] Emergency Department [address] [place] [address] Phone #: ext- [phone] 07/08/2020 08:21 --- Patient: BRAD VASQUEZ Sex: F : 1960 Age: 59y NOTES: R tinnitus Reason for Study: DizzinessMEDICATION/IV/DRIP/FLUID ORDERSOrder Description Priority Entered Acknowledged InitialedMeclizine PO 25 mg 09:11 07/08/2020 09:16 Kalyan(NOW) Geovanny Hernandez RN Physician;GENERAL ORDERSOrder Description Priority Entered Acknowledged InitialedEKG 08:52 07/08/2020 08:52 Kalyan Hernandez RN Physician;Firestop/Containment Worker 08:52 07/08/2020 08:52 Kalyan(continuous) Geovanny Hernandez RN Physician;Pulse oximeter 08:52 07/08/2020 08:52 Kalyan(Spot Check) Geovanny Hernandez RN Physician;Saline Lock 08:52 07/08/2020 08:53 Kalyan Hernandez RN Physician;[Electronically signed by Kalyan Hernandez RN (16:15 07/08/2020)][Electronically signed by Geovanny Love Physician (22:20 07/08/2020)][Electronically locked by Kalyan Hernandez RN (16:15 07/08/2020)] Name Value Range Interpretation Code Description Data Herminia rce(s) Supporting Document(s) ID Date Data Source [id number] 07/08/2020 08:29:00 AM EST [facility] 1 Medication Reconciliation Report [facility] Emergency Department [address] [place] [address] Phone #: ext- [phone] 07/08/2020 08:21 Patient: BRAD VASQUEZ Sex: F : 1960 Age: 59yWeight: 72.5 kgHeight/Length: 62 in.BMI: 29.3ALLERGIES: Clindamycin, Lithobid, Sulfa AntibioticsThe patient's Home Medications are listed below:THE FOLLOWING MEDICATIONS NEED TO BE RECONCILED: Ibuprofen Oral Invega Sustenna Intramuscular, last dose: last thursday Lantus Subcutaneous Lisinopril Oral LORazepam Oral metFORMIN HCl Oral Omeprazole [facility] Pregabalin Oral tiZANidine HCl Oral Tramadol HCL Oral, last dose 4 pmThe source(s) of the original Home Medication information:Not obtained.The following Medications were given to the patient in the Emergency Department:Meclizine [PO] PO 25 mg, administered: 09:16 07/08/2020 2 Medication Reconciliation Report [facility] Emergency Department [address] [place] [address] Phone #: ext- [phone] 07/08/2020 08:21 Patient: BRAD VASQUEZ Sex: F : 1960 Age: 59yThe following Medications were prescribed to the patient:meclizine 25 mg tablet Take 1 tablet every eight hours as needed for 10 days -- for dizziness. Tosoiyeq01 tablet. Refills: 0. Substitution permitted.Pharmacy - [facility] - [address] [place], [place] [id number]. . -- Geovanny Love, Physician Name Value Range Interpretation Code Description Data Herminia rce(s) Supporting Document(s) ID Date Data Source [id number] 07/08/2020 08:29:00 AM EST [facility] 1 Medication Administration Record [facility] Emergency Department [address] [place] [address] Phone #: adk- [phone] 07/08/2020 08:21 Patient: BRAD VASQUEZ Sex: F : 1960 Age: 59yWeight: 72.5 kgHeight/Length: 62 inBMI: 29.3ALLERGIES: Clindamycin, Lithobid, Sulfa Antibiotics Date/Time Medication Administered Medication OrderedGiven MECLIZINE [PO] Meclizine PO 25 mg (NOW)09:16 07/08/2020 Dose: 25 mg Tablets David Hernandez RN Name Value Range Interpretation Code Description Data Herminia rce(s) Supporting Document(s) ID Date Data Source [id number] 07/08/2020 08:29:00 AM EST [facility] 1 General Instructions [facility] Emergency Department [address] [place] [address] Phone #: ext- [phone] 07/08/2020 08:21 Patient: [...] needed for 10 days -- for dizziness. Setlptdk88 tablet. Refills: 0. Substitution permitted.Pharmacy - [facility] - [address], [place] [id number]. .Follow-up:Follow up with an ear, nose and throat physician (an clinical review specialist) if not better. Call for an appointment.Reason [...] about: All medicines you take, including prescription, ztyn-ixt-buslvqu, herbs, and supplements 2 General Instructions [facility] Emergency Department [address] [place] [address] Phone #: ext- [phone] 07/08/2020 08:21 Patient: BRAD VASQUEZ Sex: F [...] back, or jaw pain 3 General Instructions [facility] Emergency Department [address] [place] [address] Phone #: ext- [phone] 07/08/2020 08:21 Patient: BRAD VASQUEZ Sex: F : 1960 Age: 59y Weakness of an arm or leg or one side of the face Blood in vomit or stool (black or red color) Shortness of breath Feeling that your heart is fluttering or beating fast or hard (palpitations) Passing out or seizure Trouble walking or speaking [employer]. [address] [place] [address]. All rights reserved. This information is not [...] should feel much better 4 General Instructions [facility] Emergency Department [address] [place], [place] [id number] Phone #: ext- [phone] 07/08/2020 08:21 Patient: [...] You have trouble speaking 5 General Instructions [facility] Emergency Department [address] [place] [address] Phone #: hte- [phone] 07/08/2020 08:21 Patient: BRAD VASQUEZ Sex: F : 1960 Age: 59y Your vision changes [phone] [employer]. [address] [place] [address]. All rights reserved. This information is not intended as asubstitute for professional medical care. Always follow your healthcare professional's instructions. You have been given the following additional information: Dizziness, Uncertain Cause Headache, Tensio n(Electronically signed by Geovanny Love, Physician 07/08/2020 22:20) Name Value Range Interpretation Code Description Data Herminia rce(s) Supporting Document(s) ID Date Data Source [id number] 07/08/2020 08:29:00 AM EST [facility] 1 Clinical Report - Nurses [facility] Emergency Department [address] [place] [address] Phone #: ext- [phone] 07/08/2020 08:21 Patient: BRAD VASQUEZ Sex: F : 1960 Age: 59yTRIAGEArrived [...] vomiting, weakness, numbness, fever or sinus pain.Treatment OIL INSPECTOR:None.SEPSIS SCREEN: SIRS SCREEN NEGATIVE. SEPSIS SCREEN NEGATIVE. [...] Oral. metFORMIN HCl Oral. Omeprazole Oral. [facility] Pregabalin Oral. tiZANidine HCl Oral. Tramadol HCL Oral (last dose 4 pm). --08:32 07/08/20 Kalyan Hernandez RN.AllergiesClindamycin.Lithobid. 2 Clinical Report - Nurses [facility] Emergency Department [address] [place] [address] Phone #: ext- [phone] 07/08/2020 08:21 Patient: [...] treatment room. --08:36 07/08/20 Kalyan Hernandez RN.PHYSICAL ULXHQGYZCT12:37 07/08/20. Ambulatory to room.GENERAL / NEURO / PSYCH: Alert. Oriented X 4. Speech within normal limits.HEENT: No facial asymmetry noted.RESPIRATORY: Respirations not labored. Breath sounds within normal limits.CVS: Capillary refill less than 2 seconds.GI / : Abdomen soft and nontender.SKIN: Skin is warm and dry. --08:37 07/08/20 Kalyan Hernandez RN. 3 Clinical Report - Nurses [facility] Emergency Department [address] [place] [address] Phone #: ext- [phone] 07/08/2020 08:21 Patient: BRAD VASQUEZ Sex: F : 1960 Age: 59yNURSING PROGRESS NOTES08:38 07/08/20. Head of bed elevated 60 degrees. Two patient identifiers checked. Call light placed inreach. Bed placed in lowest position. Brakes of bed on. Patient ready for evaluation- ED physiciannotified. --08:38 07/08/20 Kalyan Hernandez RN 09:12 07/08/20. BP: 132/73. MAP: 92. HR: 69. RR: 14. O2 saturation: 94%. --09:12 07/08/20 Formerly named [facility] TechTracy ER Tech1 08:56 07/08/2020 Site #1 started via IV in the right antecubital space with an 20g angiocath; one attempt. Blood drawn: rainbow set. --09:16 07/08/20 Kalyan Hernandez RN 09:16 07/08/2020 Meclizine PO Tablets 25 mg given. Allergies verified and confirmed 5 rights. Information reviewed with valeria washington. --09:16 07/08/20 Kalyan Hernandez RN 09:18 07/08/20. Cardiac rhythm: normal sinus rhythm; (1776). monitoring tech, NIBP monitor and pulse oximeter placed on patient; cardiac nurse practitioner- Lead II; monitor alarms on; monitor strip added to paper chart (4523). Checked patient name and birthdate: patient confirmed. Blood samples drawn from the right antecubital space peripheral IV site by nurse per protocol ; labeled in presence of the patient and sent to lab. Initial blood discarded. Line flushed with 10 mL normal saline post blood draw (9922). Patient gowned. Checked patient name and birthdate: patient confirmed. Clean catch urine collected; sample sent to lab for urinalysis and drug screen. Specimen labeled in the presence of the patient (5443). --09:18 07/08/20 Kalyan Hernandez RN Checked patient name and birthdate. Blood samples drawn by tech: blue top. (9343). [facility] and cdl service technician. (0844 at bedside). --09:27 07/08/20 Kalyan Hernandez RN Patient transported to radiology by wheelchair with mask and tech. --09:57 07/08/20 Richa Singletary 09:58 07/08/20. BP: 126/79. MAP: 94. HR: 66. RR: 14. O2 saturation: 92%. --09:58 07/08/20 [place] [employer], [facility], ER Tech1 Patient transported to CT by wheelchair with mask and cdl service technician. (0955). --10:00 07/08/20 Kalyan Hernandez RN Patient returned from CT by wheelchair with mask and cdl service technician. (1004). --10:04 07/08/20 Kalyan Hernandez RN 10:05 07/08/2020 Meclizine PO Response: symptoms have improved the patient feels better. ED physician notified. --10:05 07/08/20 Kalyan Hernandez RN 10:27 07/08/20. BP: 128/71. MAP: 90. HR: 68. RR: 15. O2 saturation: 91%. --10:27 07/08/20 [place] [employer], [facility], ER Tech1.DISPOSITION / DISCHARGE 4 Clinical Report - Nurses [facility] Emergency Department [address] [place] [address] Phone #: ext- [phone] 07/08/2020 08:21 Patient: BRAD VASQUEZ Sex: F : 1960 Age: 59y 10:38 07/08/20. BP: 127/73 (regular adult cuff) taken on the right arm, via an automated monitor, while lying. MAP: 91. HR: 68. RR: 17. O2 saturation: 97% on room air. Temp: 97.9 F (oral). Pain level now: 0/10. --10:38 07/08/20 Kalyan Hernnadez RN 10:51 07/08/20. Departure time: 10:51 07/08/2020. Condition at departure: improved. No learning barriers present. Discharge instructions provided and reviewed with the patient. Reviewed medication(s) side effects, precautions, dosing and course information. Prescription(s) sent electronically to pharmacy. Treatments reviewed (increase fluids). Reviewed referral to an ear, nose, and throat specialist (clinical review specialist). --10:51 07/08/20 Kalyan Hernandez RN.Locked/Released at 07/08/2020 16:15 by Kalyan Hernandez RN Name Value Range Interpretation Code Description Data Herminia rce(s) Supporting Document(s) ID Date Data Source [id number] 07/08/2020 08:29:00 AM [facility] 1 Clinical Report - Physicians/Mid Levels [facility] Emergency Department [address] [place] [address] Phone #: ext- [phone] 07/08/2020 08:21 Patient: [...] surgery 2 Clinical Report - Physicians/Mid Levels [facility] Emergency Department [address] [place] [address] Phone #: ext- [phone] 07/08/2020 08:21 Patient: [...] Negat 3 Clinical Report - Physicians/Mid Levels [facility] Emergency Department [address] [place] [address] Phone #: ext- [phone] 07/08/2020 08:21 Patient: BRAD VASQUEZ Sex: F : 1960 Age: 59y UROBILINOGEN NOR (less than 1.0 MICROSCOPIC Not IndicateDrug Screen-Urine: (MYLA: 07/08/2020 09:10) ( [facility] 07/08/2020 09:48) Final results Test Result Flag [...] PRESUMPTIVE POSITIVE [facility]Troponin-T: (MYLA: 07/08/2020 09:00) ( [facility] 07/08/2020 09:51) Final results Test Result Flag Units (Reference) TROPONIN T <0.01 NG/ML (0.00 - 0.10) TROPONIN T0.1 ng/ml Recommended as the clinical threshold value forTroponin T.BNP: (MYLA: 07/08/2020 09:00) ( [facility] 07/08/2020 09:54) Final results Test Result Flag Units (Reference) BNP 60 PG/ML (0 - 125)CBC w Diff: (MYLA: 07/08/2020 09:00) ( [facility] 07/08/2020 09:50) Final results Test Result Flag [...] 3.40) 4 Clinical Report - Physicians/Mid Levels [facility] Emergency Department [address] [place] [address] Phone #: ext- [phone] 07/08/2020 08:21 Patient: [...] Male GFR Interprentation 20-49 yrs >60 mL/min Lkebxq51-86 yrs >56 mL/min Normal 60-69 yrs >49 mL/min Normal 70-79yrs>42 mL/min Normal 80 and above >35 mL/min Normal Female GFRInterpretation 20-39 yrs >60 mL/min Normal 40-49 yrs >58 mL/minNormal 50-59 yrs >51 mL/min Normal 60-69 yrs >45 mL/min Aseili90-71 yrs >39 mL/min Normal 80 and above >32 mL/min NormalD- Dimer: (MYLA: 07/08/2020 09:00) ( MsgRcvd 07/08/2020 10:04) Fi nal results Test Result Flag Units (Reference) D-DIMER QUANT <0.27 ug/mL (0.27 - 0.50)CT Head W/O Cont: (MYLA: 07/08/2020 08:51) ( MsgRcvd 07/08/2020 18:44) In Progress Exam CT HEAD W/[place] [address] PHONE: [phone] FAX: [phone] Name .................. : PEDRO SALINAS Acct Number.................. : [id number] ROOM. ................. : [facility] MR Number ................... : [id number] Stay type ............. : E/R Discharge Date......... ... : 07/08/20 Admit Date ......... : 07/08/20 Admit Phys .................... : IVAN TATE Date of ....... : 1960 Family Phys ................... : GIANLUCA ARDON 5 Clinical Report - Physicians/Mid Levels [facility] Emergency Department [address] [place] [address] Phone #: ext- [phone] 07/08/2020 08:21 Patient: BRAD VASQUEZ Sex: F : 1960 Age: 59y Phone .................. : [phone] Age ................................ : 59 Film# .................. .:[id number] Sex ................................. : F Unsigned transcriptions are preliminary reports and do not represent a medical or legal document CT HEAD W/O CONTRAST [id number] COMPLETE:07/08/20 08:51 97 Reason(s): Headache Vertigo/Dizziness CT [...] Reviewed and Signed By DCTNAME , SIGNDATE, [facility] Transcribe Initials: JERRY , Transcribe Date: 07/08/20 11:31, Dictation Date: <<REPDIST>> Page 1of 1US Carotid: (MYLA: 07/08/2020 08:51) ( MsgRcvd 07/08/2020 11:51) In ProgressUS CAROTIDReason(s): DizzinessTRANSPORTATION: WC IV? O2? Oxygen?(No) Room: ED: Menopause CMTS: R tinnitus Exam CAROTID [facility] [address] [place] [address] PHONE: [phone] FAX: [phone] Name .................. : PEDRO SALINAS Acct Number.................. : [id number] ROOM. ................. : TR-06 MR Number ................... : [id number] Clinical Report - Physicians/Mid Levels [facility] Emergency Department [address] [place] [address] Phone #: ext- [phone] 07/08/2020 08:21 Patient: BRAD VASQUEZ Sex: F : 1960 Age: 59y Stay type ............. : E/R Discharge Date......... ... : 07/08/20 Admit Date ......... : 07/08/20 Admit Phys .................... : IVAN TATE Date of ....... : 1960 Family Phys ................... : GIANLUCA ARDON Phone .................. : [phone] Age ................................ : 59 Film# .................. .:[id number] Sex ................................. : F Unsigned transcriptions are preliminary reports and do not represent a medical or legal document CAROTID [id number] COMPLETE:07/08/20 09:55 MCM 98 Reason(s): Dizziness CAROTID [...] reassessment, 7 Clinical Report - Physicians/Mid Levels [facility] Emergency Department [address] [place] [address] Phone #: ext- [phone] 07/08/2020 08:21 [id number] Sex[facility] F : 1960 Age: 59y interpretation [...] tablet. Refills: 0. Substitution permitted. Pharmacy - [facility] [address] [place], [place] [id number]. . Follow-up: Follow up with an ear, nose and throat physician (an clinical review specialist) if not better. Call for an appointment. Reason for referral: evaluation, treatment and Headache / Dizziness / Tinnitus. Follow up with your doctor if not better. Call for an appointment. Reason for referral: evaluation, treatment and Headache / Dizziness / R ear tinnitus. Understanding of the discharge instructions verbalized by patient.(Electronically signed by Geovanny Love, Physician 07/08/2020 22:20) 8Clinical Report - Physicians/Mid Levels [facility] Emergency Department [address] [place] [address] Phone #: ext- [phone] 07/08/2020 08:21 Patient: BRAD VASQUEZ Sex: F : 1960 Age: 59y Name Value Range Interpretation Code Description Data Herminia rce(s) Supporting Document(s) ID Date Data Source [id number] 07/08/2020 09:48:00 AM EST [facility] Name Value Range Interpretation Code Description Data Herminia rce(s) Supporting Document(s) DRUG SCREEN URINE [facility] URINE DRUG SCREEN Amphetamine [Presence] in Urine by Screen method NEGATIVE NORMAL: N EGATIVE [facility] BARBITURATES NEGATIVE NORMAL: NEGATIVE [facility] BENZO NEGATIVE NORMAL: NEGATIVE [facility] COCAINE NEGATIVE NORMAL: NEGATIVE [facility] Tetrahydrocannabinol [Presence] in Urine NEGATIVE NORMAL: NEGATIVE [facility] OPIATES NEGATIVE NORMAL: NEGATIVE [facility] Phencyclidine [Presence] in Urine by Screen method NEGATIVE NOR MAL: NEGATIVE [facility] \\BLDo\\URINE DRUG SCR EEN INTERPRETATION\\BLDx\\ THE CUTOFFF LEVELS FOR DETECTION ARE FOLLOWS: AMPHETAMINES 1000 ng/ml BARBITUARATES 200 ng/ml BENZODIAZEPINES 100 ng/ml THC 50 ng/ml PHENCYCLIDINE 25 ng/ml OPIATES 300 ng/ml COCAINE 300 ng/ml ALL POSITIVES ARE CONSIDERED PRESUMPTIVE POSITIVE CONFIRMATION WILL BE PERFORMED AT PHYSICIAN REQUEST. ID Date Data Source [id number] 07/08/2020 09:33:00 AM EST [facility] Name Value Range Interpretation Code Description Data [facility] rce(s) Supporting Document(s) URINALYSIS [facility] URINALYSIS SOURCE R [facility] COLOR Yellow NORMAL: Yellow [facility] CLARITY Clear NORMAL: Clear [facility] Specific gravity of Urine by Test strip 1.005 1.001 - 1.030 [facility] pH 6 5 - 9 [facility] al Glucose [Mass/volume] in Urine by Test strip NORM NORMAL: Negat [facility] Bilirubin.total [Presence] in Urine by Test strip NEG NORMAL: Negative [facility] Ketones [Presence] in Urine by Test strip NEG NORMAL: Negative [facility] Protein [Mass/volume] in Urine by Test strip NEG NORMAL: Negat [facility] Nitrite [Presence] in Urine by Test strip NEG NORMAL: Negative [facility] BLOOD NEG NORMAL: Negative [facility] Leukocyte esterase [Presence] in Urine by Test strip NEG CALLIE L: Negative [facility] Urobilinogen [Mass/volume] in Urine by Test strip NOR less idris n 1.0 mg/dL [facility] MICROSCOPIC Not Indicate [facility] ID Date Data Source [id number] 07/08/2020 10:04:00 AM EST [facility] Name Value Range Interpretation Code Description Data Herminia rce(s) Supporting Document(s) Fibrin D-dimer FEU [Mass/volume] in Platelet poor plasma <0. 27 ug/mL 0.27 - 0.50 [facility] ID Date Data Source [id number] 07/08/2020 10:04:00 AM EST [facility] Name Value Range Interpretation Code Description Data Herminia rce(s) Supporting Document(s) COMPREHENSIVE METABOLIC PANEL [facility] COMPREHENSIVE METABOLIC PANEL Sodium [Moles/volume] in Serum or Plasma 135 mEq/L 134 - 153 [facility] Potassium [Moles/volume] in Serum or Plasma 4.5 mEq/L 3.6 - 5.0 [facility] Chloride [Moles/volume] in Serum or Plasma 99 mEq/L 98 - 107 [facility] Carbon dioxide, total [Moles/volume] in Serum or Plasma 27 MEQ/L 22 - 30 [facility] Glucose [Mass/volume] in Serum or Plasma 119 MG/DL 65 - 110 H [facility] BUN 10 MG/DL 7 - 21 [facility] al Creatinine [Mass/volume] in Serum or Plasma 0.5 MG/DL 0.7 - 1.5 L [facility] BUN/CREAT 20 8 - 27 [facility] al Protein [Mass/volume] in Serum or Plasma 6.4 G/DL 6.3 - 8.2 [facility] Albumin [Mass/volume] in Serum or Plasma 4.1 G/DL 3.9 - 5.0 [facility] Globulin [Mass/volume] in Serum by calculation 2.3 GM/DL 2.4 - 3.2 L [facility] A/G RATIO 1.8 0.8 - 2.0 [facility] Calcium [Mass/volume] in Serum or Plasma 9.5 MG/DL 8.4 - 10.2 [facility] Bilirubin.total [Mass/volume] in Serum or Plasma <0.7 MG/DL 0.2 - 1.3 [facility] Alkaline phosphatase [Enzymatic activity/volume] in Serum or Plasma 94 U/L 38 - 126 [facility] Aspartate aminotransferase [Enzymatic activity/volume] in Serum or Plasma 18 U/L 5 - 40 [facility] Alanine aminotransferase [Enzymatic activity/volume] in Seru m or Plasma 13 U/L 7 - 56 [facility] Anion gap 3 in Serum or Plasma 9.0 mmol/L 8.0 - 16.0 [facility] AGE 59 yrs [facility] NON-AA GFR >60 mL/min [facility] AFR AMER GFR >60 mL/min [facility] Male GFR In terprentation [...] >32 mL/min Normal ID Date Data Source [id number] 07/08/2020 09:54:00 AM EST [facility] Name Value Range Interpretation Code Description Data Herminia rce(s) Supporting Document(s) BNP 60 PG/ML 0 - 125 [facility] ID Date Data Source [id number] 07/08/2020 09:51:00 AM [facility] Name Value Range Interpretation Code Description Data Herminia rce(s) Supporting Document(s) TROPONIN T <0.01 NG/ML 0.00 - 0.10 [facility] ospital TROPONIN T0.1 ng/ml Recommended as the c linical threshold value forTroponin T. ID Date Data Source [id number] 07/08/2020 09:50:00 AM [facility] Name Value Range Interpretation Code Description Data Herminia rce(s) Supporting Document(s) CBC W/AUTOMATED DIFF [facility] COMPLETE BLOOD COUNT Leukocytes [#/volume] in Blood by Automated count 6.1 10^3/uL 4.2 - 1 1.0 [facility] Erythrocytes [#/volume] in Blood by Automated count 4.34 10^6/uL 4. 20 - 5.40 [facility] Hemoglobin [Mass/volume] in Blood 13.9 g/dL 12.0 - 16.0 [facility] Hematocrit [Volume Fraction] of Blood by Automated count 39.0 % 3 7.0 - 47.0 [facility] Erythrocyte mean corpuscular volume [Entitic volume] by Auto mated count 89.9 fL 81.0 - 101 [facility] Erythrocyte mean corpuscular hemoglobin [Entitic mass] by Automated count 32.0 pg 27.0 - 34.0 [facility] Erythrocyte mean corpuscular hemoglobin concentration [Mass/volume] by Automated count 35.6 g/dL 31.0 - 36.0 [facility] Erythrocyte distribution width [Ratio] by Automated count 11.9 % 11.5 - 14.5 [facility] Platelets [#/volume] in Blood by Automated count 214 10^3/uL 150 - 45 0 [facility] Platelet mean volume [Entitic volume] in Blood by Automated count 10.3 fL 7.4 - 10.4 [facility] Neutrophils/100 leukocytes in Blood by Automated count 51.9 % 37. 0 - 80.0 [facility] Lymphocytes/100 leukocytes in Blood by Manual count 36.9 % 25.0 - 40.0 [facility] Monocytes/100 leukocytes in Blood by Automated count 6.9 % 3.0 - 8.0 [facility] Eosinophils/100 leukocytes in Blood by Automated count 3.3 % 0.0 - 7.0 [facility] Basophils/100 leukocytes in Blood by Automated count 0.8 % 0.0 - 2.5 [facility] %IG 0.2 % 0.0 - 0.[address] [facility] al %NRBC 0.0 % 0.0 - 0.0 [facility] al Neutrophils [#/volume] in Blood by Automated count 3.16 10^3/uL 2.00 - 6.90 [facility] Lymphocytes [#/volume] in Blood by Automated count 2.25 10^3/uL 0.60 - 3.40 [facility] Monocytes [#/volume] in Blood by Automated count 0.42 10^3/uL 0.00 - 0.90 [facility] Eosinophils [#/volume] in Blood by Automated count 0.20 10^3/uL 0.00 - 0.70 [facility] Basophils [#/volume] in Blood by Automated count 0.05 10^3/uL 0.00 - 0.20 [facility] #IG 0.01 10^3/uL 0.00 - 0.10 [facility] #NRBC 0.00 10^3/uL 0.00 - 0.00 [facility] MANUAL DIFF NOT INDICATED [facility] RBC MORPH NOT INDICATED [facility] ID Date Data Source CBC with Differential 05/15/2020 05:51:10 AM EDT eCW1 ([facility]) Name Value Range Interpretation Code Description Data Herminia rce(s) Supporting Document(s) 4.31 RED BLOOD COUNT eCW1 ([facility]) 7.4 WHITE BLOOD COUNT eCW1 ([facility]) 13.5 HEMOGLOBIN eCW1 ([facility]) 31.3 MEAN CORPUSCULAR HEMOGLOBIN eC W1 ([facility]) 39.7 HEMATOCRIT eCW1 ([facility]) 92.1 MEAN CORPUSCULAR VOLUME eCW1 ( [facility]) 34.0 MEAN CORPUSCULAR HGB CONC eCW1 ([facility]) 58.8 NEUTROPHILS % eCW1 ([facility]) 201 PLATELET COUNT, AUTOMATED eCW1 ([facility]) 12.3 RED CELL DISTRIBUTION WIDTH eC W1 ([facility]) 3.6 EOS % eCW1 ([facility]) 0.8 BASO % eCW1 ([facility]) 30.6 LYMPH % eCW1 ([facility]) 5.9 MONO % eCW1 ([facility]) 4.4 NEUTROPHILS # eCW1 ([facility]) 2.3 LYMPH # eCW1 ([facility]) 0.4 MONO # eCW1 ([facility]) 0.3 EOS # eCW1 ([facility]) 0.1 BASO # eCW1 ([facility]) Procedure Social History Code Duration Value Status Description Data Source(s ) Smoking 05/01/2021 12:00:00 AM EDT Current Smoker completed Curre nt Smoker eCW1 ([facility]) Smoking 05/01/2021 12:00:00 AM EDT Current Smoker completed Curre nt Smoker eCW1 ([facility]) Smoking 05/01/2021 12:00:00 AM EDT Current Smoker completed Curre nt Smoker eCW1 ([facility]) Smoking 03/22/2021 12:00:00 AM EDT Current Smoker completed Curre nt Smoker eCW1 ([facility]) Smoking 03/22/2021 12:00:00 AM EDT Current Smoker completed Curre nt Smoker eCW1 ([facility]) Smoking 03/22/2021 12:00:00 AM EDT Current Smoker completed Curre nt Smoker eCW1 ([facility]) Smoking 03/22/2021 12:00:00 AM EDT Current Smoker completed Curre nt Smoker eCW1 ([facility]) Smoking 03/22/2021 12:00:00 AM EDT Current Smoker completed Curre nt Smoker eCW1 ([facility]) Smoking 03/22/2021 12:00:00 AM EDT Current Smoker completed Curre nt Smoker eCW1 ([facility]) Smoking 02/12/2021 12:00:00 AM EDT Current Smoker completed Curre nt Smoker eCW1 ([facility]) Smoking 02/12/2021 12:00:00 AM EDT Current Smoker completed Curre nt Smoker eCW1 ([facility]) Smoking 02/12/2021 12:00:00 AM EDT Current Smoker completed Curre nt Smoker eCW1 ([facility]) Smoking 02/12/2021 12:00:00 AM EDT Current Smoker completed Curre nt Smoker eCW1 ([facility]) Smoking 01/18/2021 12:00:00 AM EDT Current Smoker completed Curre nt Smoker eCW1 ([facility]) Smoking 01/18/2021 12:00:00 AM EDT Current Smoker completed Curre nt Smoker eCW1 ([facility]) Smoking 01/18/2021 12:00:00 AM EDT Current Smoker completed Curre nt Smoker eCW1 ([facility]) Smoking 01/18/2021 12:00:00 AM EDT Current Smoker completed Curre nt Smoker eCW1 ([facility]) Smoking 01/18/2021 12:00:00 AM EDT Current Smoker completed Curre nt Smoker eCW1 ([facility]) Smoking 12/07/2020 12:00:00 AM EDT Current Smoker completed Curre nt Smoker eCW1 ([facility]) Smoking 12/07/2020 12:00:00 AM EDT Current Smoker completed Curre nt Smoker eCW1 ([facility]) Smoking 12/07/2020 12:00:00 AM EDT Current Smoker completed Curre nt Smoker eCW1 ([facility]) Smoking 12/07/2020 12:00:00 AM EDT Current Smoker completed Curre nt Smoker eCW1 ([facility]) Smoking 12/07/2020 12:00:00 AM EDT Current Smoker completed Curre nt Smoker eCW1 ([facility]) Smoking 12/07/2020 12:00:00 AM EDT Current Smoker completed Curre nt Smoker eCW1 ([facility]) Smoking 12/07/2020 12:00:00 AM EDT Current Smoker completed Curre nt Smoker eCW1 ([facility]) Smoking 12/07/2020 12:00:00 AM EDT Current Smoker completed Curre nt Smoker eCW1 ([facility]) Smoking 12/07/2020 12:00:00 AM EDT Current Smoker completed Curre nt Smoker eCW1 ([facility]) Smoking 12/05/2020 12:00:00 AM EDT Current Smoker completed Curre nt Smoker eCW1 ([facility]) Smoking 08/10/2020 12:00:00 AM EST Current Smoker completed Curre nt Smoker eCW1 ([facility]) Smoking 08/10/2020 12:00:00 AM EST Current Smoker completed Curre nt Smoker eCW1 ([facility]) Smoking 08/10/2020 12:00:00 AM EST Current Smoker completed Curre nt Smoker eCW1 ([facility]) Smoking 08/10/2020 12:00:00 AM EST Current Smoker completed Curre nt Smoker eCW1 ([facility]) Smoking 08/10/2020 12:00:00 AM EST Current Smoker completed Curre nt Smoker eCW1 ([facility]) Smoking 08/10/2020 12:00:00 AM EST Current Smoker completed Curre nt Smoker eCW1 ([facility]) Smoking 08/10/2020 12:00:00 AM EST Current Smoker completed Curre nt Smoker eCW1 ([facility]) Smoking 08/10/2020 12:00:00 AM EST Current Smoker completed Curre nt Smoker eCW1 ([facility]) Smoking 08/10/2020 12:00:00 AM EST Current Smoker completed Curre nt Smoker eCW1 ([facility]) Smoking 08/10/2020 12:00:00 AM EST Current Smoker completed Curre nt Smoker eCW1 ([facility]) Smoking 08/10/2020 12:00:00 AM EST Current Smoker completed Curre nt Smoker eCW1 ([facility]) Smoking 08/10/2020 12:00:00 AM EST Current Smoker completed Curre nt Smoker eCW1 ([facility]) Smoking 08/10/2020 12:00:00 AM EST Current Smoker completed Curre nt Smoker eCW1 ([facility]) Smoking 08/10/2020 12:00:00 AM EST Current Smoker completed Curre nt Smoker eCW1 ([facility]) Smoking 08/10/2020 12:00:00 AM EST Current Smoker completed Curre nt Smoker eCW1 ([facility]) Smoking 08/10/2020 12:00:00 AM EST Current Smoker completed Curre nt Smoker eCW1 ([facility]) Smoking 08/10/2020 12:00:00 AM EST Current Smoker completed Curre nt Smoker eCW1 ([facility]) Smoking 08/10/2020 12:00:00 AM EST Current Smoker completed Curre nt Smoker eCW1 ([facility]) Smoking 08/10/2020 12:00:00 AM EST Current Smoker completed Curre nt Smoker eCW1 ([facility]) Smoking 08/10/2020 12:00:00 AM EST Current Smoker completed Curre nt Smoker eCW1 ([facility]) Smoking 08/01/2020 12:00:00 AM EST Current Smoker completed Curre nt Smoker eCW1 ([facility]) Smoking 08/01/2020 12:00:00 AM EST Current Smoker completed Curre nt Smoker eCW1 ([facility]) Smoking 05/23/2020 12:00:00 AM EDT Current Smoker completed Curre nt Smoker eCW1 ([facility]) Smoking 05/23/2020 12:00:00 AM EDT Current Smoker completed Curre nt Smoker eCW1 ([facility]) Smoking 05/23/2020 12:00:00 AM EDT Current Smoker completed Curre nt Smoker eCW1 ([facility]) Smoking 05/23/2020 12:00:00 AM EDT Current Smoker completed Curre nt Smoker eCW1 ([facility]) Smoking 05/23/2020 12:00:00 AM EDT Current Smoker completed Curre nt Smoker eCW1 ([facility]) Smoking 05/23/2020 12:00:00 AM EDT Current Smoker completed Curre nt Smoker eCW1 ([facility]) Smoking 05/23/2020 12:00:00 AM EDT Current Smoker completed Curre nt Smoker eCW1 ([facility]) Smoking 05/23/2020 12:00:00 AM EDT Current Smoker completed Curre nt Smoker eCW1 ([facility]) Smoking 05/15/2020 12:00:00 AM EDT Current Smoker completed Curre nt Smoker eCW1 ([facility]) Smoking 05/15/2020 12:00:00 AM EDT Current Smoker completed Curre nt Smoker eCW1 ([facility]) Smoking 05/15/2020 12:00:00 AM EDT Current Smoker completed Curre nt Smoker eCW1 ([facility]) Smoking 05/15/2020 12:00:00 AM EDT Current Smoker completed Curre nt Smoker eCW1 ([facility]) Smoking 05/08/2020 12:00:00 AM EDT Current Smoker completed Curre nt Smoker eCW1 ([facility]) Smoking 05/08/2020 12:00:00 AM EDT Current Smoker completed Curre nt Smoker eCW1 ([facility]) Smoking 05/08/2020 12:00:00 AM EDT Current Smoker completed Curre nt Smoker eCW1 ([facility]) Vital Signs ID Date Data Source UNK Name Value Range Interpretation Code Description Data Source(s) Body weight 169 [lb_av] 169 [lb_av] eCW1 ([facility]) Systolic blood pressure 114 mm[Hg] 114 mm[Hg] e CW1 ([facility]) Diastolic blood pressure 64 mm[Hg] 64 mm[Hg] eCW1 ([facility]) Body weight 76.66 kg 76.66 kg eCW1 ([facility]) Body height 63.5 [in_i] 63.5 [in_i] eCW1 ([facility]) Body mass index (BMI) [Ratio] 29.46 kg/m2 29.46 kg/m2 eCW1 ([facility]) Heart rate 87 /min 87 /min eCW1 ([facility]) Respiratory rate 18 /min 18 /min eCW1 ([facility]) Body temperature 97.2 [degF] 97.2 [degF] eCW1 ( [facility]) Body weight 177.4 [lb_av] 177.4 [lb_av] eCW1 ([facility]) Body height 63.5 [in_i] 63.5 [in_i] eCW1 ([facility]) Body mass index (BMI) [Ratio] 30.93 kg/m2 30.93 kg/m2 W1 ([facility]) Heart rate 130 /min 130 /min eCW1 ([facility]) Respiratory rate 20 /min 20 /min eCW1 ([facility]) Body temperature 97.2 [degF] 97.2 [degF] eCW1 ( [facility]) Systolic blood pressure 140 mm[Hg] 140 mm[Hg] e CW1 ([facility]) Diastolic blood pressure 82 mm[Hg] 82 mm[Hg] eCW1 ([facility]) Diastolic blood pressure 74 mm[Hg] 74 mm[Hg] eCW1 ([facility]) Body weight 188 [lb_av] 188 [lb_av] eCW1 ([facility]) Body height 63.5 [in_i] 63.5 [in_i] eCW1 ([facility]) Body mass index (BMI) [Ratio] 32.78 kg/m2 32.78 kg/m2 eCW1 ([facility]) Heart rate 95 /min 95 /min eCW1 ([facility]) Respiratory rate 20 /min 20 /min eCW1 ([facility]) Body temperature 97.2 [degF] 97.2 [degF] eCW1 ( [facility]) Systolic blood pressure 126 mm[Hg] 126 mm[Hg] e CW1 ([facility]) Systolic blood pressure 124 mm[Hg] 124 mm[Hg] e CW1 ([facility]) Diastolic blood pressure 70 mm[Hg] 70 mm[Hg] eCW1 ([facility]) Body weight 179 [lb_av] 179 [lb_av] eCW1 ([facility]) Body height 63.5 [in_i] 63.5 [in_i] eCW1 ([facility]) Body mass index (BMI) [Ratio] 31.21 kg/m2 31.21 kg/m2 W1 ([facility]) Heart rate 80 /min 80 /min eCW1 ([facility]) Respiratory rate 20 /min 20 /min eCW1 ([facility]) Body temperature 97.4 [degF] 97.4 [degF] eCW1 ( [facility]) Body weight 180 [lb_av] 180 [lb_av] eCW1 ([facility]) Body height 63.5 [in_i] 63.5 [in_i] eCW1 ([facility]) Body mass index (BMI) [Ratio] 31.38 kg/m2 31.38 kg/m2 eCW1 ([facility]) Heart rate 84 /min 84 /min eCW1 ([facility]) Respiratory rate 18 /min 18 /min eCW1 ([facility]) Body temperature 97 [degF] 97 [degF] eCW1 ([facility]) Systolic blood pressure 124 mm[Hg] 124 mm[Hg] e CW1 ([facility]) Diastolic blood pressure 70 mm[Hg] 70 mm[Hg] eCW1 ([facility]) Body weight 176 [lb_av] 176 [lb_av] eCW1 ([facility]) Body height 63.5 [in_i] 63.5 [in_i] eCW1 ([facility]) Body mass index (BMI) [Ratio] 30.68 kg/m2 30.68 kg/m2 eCW1 ([facility]) Heart rate 84 /min 84 /min eCW1 ([facility]) Respiratory rate 20 /min 20 /min eCW1 ([facility]) Body temperature 97.1 [degF] 97.1 [degF] eCW1 ( [facility]) Systolic blood pressure 120 mm[Hg] 120 mm[Hg] e CW1 ([facility]) Diastolic blood pressure 74 mm[Hg] 74 mm[Hg] eCW1 ([facility]) Body weight 165 [lb_av] 165 [lb_av] eCW1 ([facility]) Respiratory rate 20 /min 20 /min eCW1 ([facility]) Body temperature 98.3 [degF] 98.3 [degF] eCW1 ( [facility]) Systolic blood pressure 122 mm[Hg] 122 mm[Hg] e CW1 ([facility]) Diastolic blood pressure 70 mm[Hg] 70 mm[Hg] eCW1 ([facility]) Body height 63.5 [in_i] 63.5 [in_i] eCW1 ([facility]) Body mass index (BMI) [Ratio] 28.77 kg/m2 28.77 kg/m2 eCW1 ([facility]) Heart rate 84 /min 84 /min eCW1 ([facility]) Body weight 164 [lb_av] 164 [lb_av] eCW1 ([facility]) Body height 63.5 [in_i] 63.5 [in_i] eCW1 ([facility]) Body mass index (BMI) [Ratio] 28.59 kg/m2 28.59 kg/m2 eCW1 ([facility]) Heart rate 83 /min 83 /min eCW1 ([facility]) Respiratory rate 20 /min 20 /min eCW1 ([facility]) Body temperature 97.9 [degF] 97.9 [degF] eCW1 ( [facility]) Systolic blood pressure 120 mm[Hg] 120 mm[Hg] e CW1 ([facility]) Diastolic blood pressure 70 mm[Hg] 70 mm[Hg] eCW1 ([facility]) Body weight 169 [lb_av] 169 [lb_av] eCW1 ([facility]) Body height 63.5 [in_i] 63.5 [in_i] eCW1 ([facility]) Body mass index (BMI) [Ratio] 29.46 kg/m2 29.46 kg/m2 eCW1 ([facility]) Heart rate 80 /min 80 /min eCW1 ([facility]) Respiratory rate 20 /min 20 /min eCW1 ([facility]) Body temperature 97 [degF] 97 [degF] eCW1 ([facility]) Systolic blood pressure 122 mm[Hg] 122 mm[Hg] e CW1 ([facility]) Diastolic blood pressure 70 mm[Hg] 70 mm[Hg] eCW1 ([facility]) Patient Treatment Plan of Care Planned Activity Planned Date Details Description Data Source (s) tramadol hydrochloride 50 MG Oral Tablet 05/08/2021 12:00:00 AM EDT eCW1 ([facility]) tramadol hydrochloride 50 MG Oral Tablet 05/08/2021 12:00:00 AM EDT eCW1 ([facility]) Azithromycin 250 MG Oral Tablet 05/01/2021 12:00:00 AM EDT eCW1 ([facility]) Azithromycin 250 MG Oral Tablet 05/01/2021 12:00:00 AM EDT eCW1 ([facility]) Azithromycin 250 MG Oral Tablet 05/01/2021 12:00:00 AM EDT eCW1 ([facility]) pregabalin 200 MG Oral Capsule [Lyrica] 04/17/2021 12:00:00 AM EDT eCW1 ([facility]) tramadol hydrochloride 50 MG Oral Tablet 04/10/2021 12:00:00 AM EDT eCW1 ([facility]) tramadol hydrochloride 50 MG Oral Tablet 04/10/2021 12:00:00 AM EDT eCW1 ([facility]) tramadol hydrochloride 50 MG Oral Tablet 04/10/2021 12:00:00 AM EDT eCW1 ([facility]) tramadol hydrochloride 50 MG Oral Tablet 04/10/2021 12:00:00 AM EDT eCW1 ([facility]) Levofloxacin 500 MG Oral Tablet 03/22/2021 12:00:00 AM EDT eCW1 ([facility]) Levofloxacin 500 MG Oral Tablet 03/22/2021 12:00:00 AM EDT eCW1 ([facility]) Levofloxacin 500 MG Oral Tablet 03/22/2021 12:00:00 AM EDT eCW1 ([facility]) Levofloxacin 500 MG Oral Tablet 03/22/2021 12:00:00 AM EDT eCW1 ([facility]) Levofloxacin 500 MG Oral Tablet 03/22/2021 12:00:00 AM EDT eCW1 ([facility]) Levofloxacin 500 MG Oral Tablet 03/22/2021 12:00:00 AM EDT eCW1 ([facility]) pregabalin 200 MG Oral Capsule [Lyrica] 03/19/2021 12:00:00 AM EDT eCW1 ([facility]) tramadol hydrochloride 50 MG Oral Tablet 03/12/2021 12:00:00 AM EDT eCW1 ([facility]) tramadol hydrochloride 50 MG Oral Tablet 03/12/2021 12:00:00 AM EDT eCW1 ([facility]) Breztri Aerosphere 160-9-4.8 MCG/ACT 02/12/2021 12:00:00 AM EDT eCW1 ([facility]) Nasonex 50 MCG/ACT 02/12/2021 12:00:00 AM EDT eCW1 ([facility]) Breztri Aerosphere 160-9-4.8 MCG/ACT 02/12/2021 12:00:00 AM EDT eCW1 ([facility]) Nasonex 50 MCG/ACT 02/12/2021 12:00:00 AM EDT eCW1 ([facility]) Nasonex 50 MCG/ACT 02/12/2021 12:00:00 AM EDT eCW1 ([facility]) Breztri Aerosphere 160-9-4.8 MCG/ACT 02/12/2021 12:00:00 AM EDT eCW1 ([facility]) Nasonex 50 MCG/ACT 02/12/2021 12:00:00 AM EDT eCW1 ([facility]) Breztri Aerosphere 160-9-4.8 MCG/ACT 02/12/2021 12:00:00 AM EDT eCW1 ([facility]) Prednisone 10 MG Oral Tablet 01/18/2021 12:00:00 AM EDT eCW1 ([facility]) Prednisone 10 MG Oral Tablet 01/18/2021 12:00:00 AM EDT eCW1 ([facility]) doxycycline hyclate 100 MG Oral Capsule 01/18/2021 12:00:00 AM EDT eCW1 ([facility]) Zofran ODT 4 MG 01/18/2021 12:00:00 AM EDT eCW1 ([facility]) Zofran ODT 4 MG 01/18/2021 12:00:00 AM EDT eCW1 ([facility]) doxycycline hyclate 100 MG Oral Capsule 01/18/2021 12:00:00 AM EDT eCW1 ([facility]) Prednisone 10 MG Oral Tablet 01/18/2021 12:00:00 AM EDT eCW1 ([facility]) doxycycline hyclate 100 MG Oral Capsule 01/18/2021 12:00:00 AM EDT eCW1 ([facility]) Zofran ODT 4 MG 01/18/2021 12:00:00 AM EDT eCW1 ([facility]) Prednisone 10 MG Oral Tablet 01/18/2021 12:00:00 AM EDT eCW1 ([facility]) doxycycline hyclate 100 MG Oral Capsule 01/18/2021 12:00:00 AM EDT eCW1 ([facility]) Zofran ODT 4 MG 01/18/2021 12:00:00 AM EDT eCW1 ([facility]) Zofran ODT 4 MG 01/18/2021 12:00:00 AM EDT eCW1 ([facility]) doxycycline hyclate 100 MG Oral Capsule 01/18/2021 12:00:00 AM EDT eCW1 ([facility]) Prednisone 10 MG Oral Tablet 01/18/2021 12:00:00 AM EDT eCW1 ([facility]) Prednisone 10 MG Oral Tablet 08/10/2020 12:00:00 AM EST eCW1 ([facility]) Prednisone 10 MG Oral Tablet 08/10/2020 12:00:00 AM EST eCW1 ([facility]) Prednisone 10 MG Oral Tablet 08/10/2020 12:00:00 AM EST eCW1 ([facility]) Prednisone 10 MG Oral Tablet 08/10/2020 12:00:00 AM EST eCW1 ([facility]) Prednisone 10 MG Oral Tablet 08/10/2020 12:00:00 AM EST eCW1 ([facility]) Prednisone 10 MG Oral Tablet 08/10/2020 12:00:00 AM EST eCW1 ([facility]) Prednisone 10 MG Oral Tablet 08/10/2020 12:00:00 AM EST eCW1 ([facility]) Clotrimazole 10 MG Oral Lozenge 08/07/2020 12:00:00 AM EST eCW1 ([facility]) Doxycycline Monohydrate 100 MG Oral Capsule 08/01/2020 12:00:00 AM EST eCW1 ([facility]) Doxycycline Monohydrate 100 MG Oral Capsule 08/01/2020 12:00:00 AM EST eCW1 ([facility]) Doxycycline Monohydrate 100 MG Oral Capsule 08/01/2020 12:00:00 AM EST eCW1 ([facility]) Doxycycline Monohydrate 100 MG Oral Capsule 08/01/2020 12:00:00 AM EST eCW1 ([facility]) Doxycycline Monohydrate 100 MG Oral Capsule 08/01/2020 12:00:00 AM EST eCW1 ([facility]) Doxycycline Monohydrate 100 MG Oral Capsule 08/01/2020 12:00:00 AM EST eCW1 ([facility]) Doxycycline Monohydrate 100 MG Oral Capsule 08/01/2020 12:00:00 AM EST eCW1 ([facility]) Doxycycline Monohydrate 100 MG Oral Capsule 08/01/2020 12:00:00 AM EST eCW1 ([facility]) Doxycycline Monohydrate 100 MG Oral Capsule 08/01/2020 12:00:00 AM EST eCW1 ([facility]) Doxycycline Monohydrate 100 MG Oral Capsule 08/01/2020 12:00:00 AM EST eCW1 ([facility]) Doxycycline Monohydrate 100 MG Oral Capsule 08/01/2020 12:00:00 AM EST eCW1 ([facility]) Doxycycline Monohydrate 100 MG Oral Capsule 08/01/2020 12:00:00 AM EST eCW1 ([facility]) Doxycycline Monohydrate 100 MG Oral Capsule 08/01/2020 12:00:00 AM EST eCW1 ([facility]) Doxycycline Monohydrate 100 MG Oral Capsule 08/01/2020 12:00:00 AM EST eCW1 ([facility]) Doxycycline Monohydrate 100 MG Oral Capsule 08/01/2020 12:00:00 AM EST eCW1 ([facility]) Doxycycline Monohydrate 100 MG Oral Capsule 08/01/2020 12:00:00 AM EST eCW1 ([facility]) Doxycycline Monohydrate 100 MG Oral Capsule 08/01/2020 12:00:00 AM EST eCW1 ([facility]) Prednisone 20 MG Oral Tablet 08/01/2020 12:00:00 AM EST eCW1 ([facility]) Lancets - 08/01/2020 12:00:00 AM EST e CW1 ([facility]) Doxycycline Monohydrate 100 MG Oral Capsule 08/01/2020 12:00:00 AM EST eCW1 ([facility]) Glucose Monitor Dx E11.9 08/01/2020 12:00:00 AM EST eCW1 ([facility]) Prednisone 20 MG Oral Tablet 08/01/2020 12:00:00 AM EST eCW1 ([facility]) Doxycycline Monohydrate 100 MG Oral Capsule 08/01/2020 12:00:00 AM EST eCW1 ([facility]) Doxycycline Monohydrate 100 MG Oral Capsule 08/01/2020 12:00:00 AM EST eCW1 ([facility]) Doxycycline Monohydrate 100 MG Oral Capsule 08/01/2020 12:00:00 AM EST eCW1 ([facility]) Doxycycline Monohydrate 100 MG Oral Capsule 08/01/2020 12:00:00 AM EST eCW1 ([facility]) Glucose Monitor Dx E11.9 08/01/2020 12:00:00 AM EST eCW1 ([facility]) Lancets - 08/01/2020 12:00:00 AM EST e CW1 ([facility]) Fluticasone Furoate-Vilanterol 100-25 MCG/INH 07/18/2020 12:00:00 A M EST eCW1 ([facility]) 28 ACTUAT tiotropium 0.0025 MG/ACTUAT Metered Dose Inh aler [Spiriva] 07/18/2020 12:00:00 AM EST eCW1 ([facility]) Fluticasone Furoate-Vilanterol 100-25 MCG/INH 07/18/2020 12:00:00 A M EST eCW1 ([facility]) 28 ACTUAT tiotropium 0.0025 MG/ACTUAT Metered Dose Inh aler [Spiriva] 07/18/2020 12:00:00 AM EST eCW1 ([facility]) Azithromycin 250 MG Oral Tablet 05/15/2020 12:00:00 AM EDT eCW1 ([facility]) Prednisone 20 MG Oral Tablet 05/15/2020 12:00:00 AM EDT eCW1 ([facility]) Azithromycin 250 MG Oral Tablet 05/15/2020 12:00:00 AM EDT eCW1 ([facility]) Prednisone 20 MG Oral Tablet 05/15/2020 12:00:00 AM EDT eCW1 ([facility]) Azithromycin 250 MG Oral Tablet 05/15/2020 12:00:00 AM EDT eCW1 ([facility]) Prednisone 20 MG Oral Tablet 05/15/2020 12:00:00 AM EDT eCW1 ([facility]) Azithromycin 250 MG Oral Tablet 05/15/2020 12:00:00 AM EDT eCW1 ([facility]) Prednisone 20 MG Oral Tablet 05/15/2020 12:00:00 AM EDT eCW1 ([facility]) doxycycline hyclate 100 MG Oral Capsule 05/08/2020 12:00:00 AM EDT eCW1 ([facility]) doxycycline hyclate 100 MG Oral Capsule 05/08/2020 12:00:00 AM EDT eCW1 ([facility]) doxycycline hyclate 100 MG Oral Capsule 05/08/2020 12:00:00 AM EDT eCW1 ([facility])
== END 2021-05-12 01:04 | disposition left against medical advice (07) ==
LOC: M ED 23:58
DX: Z53.21 Procedure and treatment not carried out due to patient leaving prior to being seen by health care provider (principal)